=== PATIENT | male | born 1950 | race Two or more races ===

== ENCOUNTER 2020-02-01 07:43 | Outpatient (REF) | payer MEDICARE, SELFPAY ==
[2020-02-01 08:02] LABS: MANUAL DIFF FLAG NO
[2020-02-01 08:04] LABS: Basophils Absolute Auto 0.1 X10*3/uL (0.0-0.2); Basophils Percent Auto 0.7 % (0-2); Eosinophils Absolute Auto 0.3 X10*3/uL (0.0-0.4); Eosinophils Percent Auto 3.2 % (0-4); Hematocrit 46.7 % (42-52); Hemoglobin 15.5 g/dl (14.0-18.0); Imm Gran Abs Auto 0.03 X10*3/uL (0.00-0.03); Imm Gran Pct Auto 0.3 % (0.0-0.4); Lymphocytes Absolute Auto 2.2 X10*3/uL (1.2-4.9); Lymphocytes Percent Auto 25.6 % (20-40); Mean Corpuscular HGB Conc 33.2 g/dl (31.0-36.0); Mean Corpuscular Hemoglobin 30.3 pg (27.0-33.0); Mean Corpuscular Volume 91.2 fL (80-98); Monocytes Absolute Auto 0.5 X10*3/uL (0.1-1.2); Neutrophils Absolute Auto 5.6 X10*3/uL (2.0-8.3); Neutrophils Percent Auto 64.2 % (45-73); Platelet Count 193 X10*3/uL (160-400); Red Blood Count 5.12 X10*6/uL (4.60-5.80); Red Cell Distribution Width 13.7 % (11.0-16.0); White Blood Count 8.7 X10*3/uL (4.8-10.8)
[2020-02-01 08:22] LABS: Glucose Urine UA NEG (NEG); Leukocyte Esterase Urine NEG (NEG); Nitrite Urine NEG (NEG); PH 5.5 (5.0-8.0); Specific Gravity - Urine 1.025 (1.005-1.025); Urine Blood NEG (NEG); Urine Ketones NEG (NEG); Urine Protein NEG (NEG-TRACE)
[2020-02-01 08:24] LABS: Appearance Urine CLEAR; Color Urine YELLOW
[2020-02-01 08:30] LABS: Alanine Aminotransferase 19 U/L (0-40); Albumin Level 4.6 g/dL (3.5-5.0); Alkaline Phosphatase 97 U/L (39-117); Anion Gap 10 (12-20); Aspartate Amino Transferase 23 U/L (5-37); Bilirubin Total 0.7 mg/dL (0.0-1.0); Blood Urea Nitrogen 15 mg/dL (9-16); Calcium 9.2 mg/dL (8.4-10.2); Carbon Dioxide 28 mmol/L (22-29); Chloride 108 mmol/L (96-108); Cholesterol 156 mg/dL; Estimated Glomerular Filt Rate > 60; Glucose Fasting 89 mg/dL (60-99); HDL Cholesterol 41 mg/dL; LDL Cholesterol Calculated 100 mg/dl; Potassium 4.2 mmol/l (3.3-5.1); Sodium 142 mmol/L (135-145); Triglycerides 75 mg/dL
[2020-02-01 12:25] LABS: RBC Urine 0 /HPF (0); WBC Urine 0-2 /HPF (0-4)
== END 2020-02-01 07:44 | disposition home or self-care (01) ==
LOC: HO.LAB 07:43
PROVIDERS: PCP Internal Medicine; Visit Provider Internal Medicine
DX: K21.9 Gastro-esophageal reflux disease without esophagitis (principal); E78.5 Hyperlipidemia, unspecified; I10 Essential (primary) hypertension
CPT/HCPCS: 36415; 80053; 80061; 81001; 85025

== ENCOUNTER 2020-06-22 07:19 | Outpatient (REF) | payer MEDICARE, OTHER, SELFPAY ==
[2020-06-22 08:11] LABS: MANUAL DIFF FLAG NO
[2020-06-22 08:20] LABS: Basophils Absolute Auto 0.1 X10*3/uL (0.0-0.2); Eosinophils Absolute Auto 0.3 X10*3/uL (0.0-0.4); Eosinophils Percent Auto 3.8 % (0-4); Hematocrit 47.5 % (42-52); Hemoglobin 15.8 g/dl (14.0-18.0); Imm Gran Abs Auto 0.06 X10*3/uL (0.00-0.03); Imm Gran Pct Auto 0.7 % (0.0-0.4); Lymphocytes Absolute Auto 2.1 X10*3/uL (1.2-4.9); Lymphocytes Percent Auto 24.6 % (20-40); Mean Corpuscular HGB Conc 33.3 g/dl (31.0-36.0); Mean Corpuscular Hemoglobin 30.3 pg (27.0-33.0); Mean Corpuscular Volume 91.2 fL (80-98); Mean Platelet Volume 10.7 fL (9.4-12.4); Monocytes Absolute Auto 0.6 X10*3/uL (0.1-1.2); Monocytes Percent Auto 7.1 % (2-11); Neutrophils Absolute Auto 5.2 X10*3/uL (2.0-8.3); Neutrophils Percent Auto 62.8 % (45-73); Platelet Count 210 X10*3/uL (160-400); Red Blood Count 5.21 X10*6/uL (4.60-5.80); Red Cell Distribution Width 13.3 % (11.0-16.0); White Blood Count 8.3 X10*3/uL (4.8-10.8)
[2020-06-22 08:41] LABS: Alanine Aminotransferase 21 U/L (0-40); Albumin Level 4.4 g/dL (3.5-5.0); Alkaline Phosphatase 91 U/L (39-117); Anion Gap 10 (12-20); Aspartate Amino Transferase 22 U/L (5-37); Bilirubin Total 0.7 mg/dL (0.0-1.0); Blood Urea Nitrogen 16 mg/dL (9-16); Calcium 9.5 mg/dL (8.4-10.2); Carbon Dioxide 28 mmol/L (22-29); Chloride 107 mmol/L (96-108); Cholesterol 160 mg/dL; Estimated Glomerular Filt Rate > 60; Glucose Fasting 90 mg/dL (60-99); HDL Cholesterol 44 mg/dL; LDL Cholesterol Calculated 104 mg/dl; Potassium 4.4 mmol/L (3.3-5.1); Sodium 141 mmol/L (135-145); Total Protein 6.9 g/dL (6.5-8.0); Triglycerides 64 mg/dL
[2020-06-22 09:03] LABS: TSH reflex Free T4 0.84 uIU/mL (0.32-4.0)
[2020-06-22 09:31] LABS: Glucose Urine UA NEG (NEG); Leukocyte Esterase Urine NEG (NEG); Nitrite Urine NEG (NEG); Specific Gravity - Urine 1.025 (1.005-1.025); Urine Blood NEG (NEG); Urine Ketones NEG (NEG); Urine Protein NEG (NEG-TRACE)
[2020-06-22 09:33] LABS: Appearance Urine CLEAR; Color Urine YELLOW
== END 2020-06-22 07:20 | disposition home or self-care (01) ==
LOC: HO.LAB 07:19
PROVIDERS: PCP Internal Medicine; Visit Provider Internal Medicine
DX: E78.00 Pure hypercholesterolemia, unspecified (principal); I10 Essential (primary) hypertension; K21.9 Gastro-esophageal reflux disease without esophagitis; E66.3 Overweight
CPT/HCPCS: 36415; 80053; 80061; 81003; 84443; 85025

== ENCOUNTER 2020-10-26 06:32 | Outpatient (REF) | payer MEDICARE, OTHER, SELFPAY ==
[2020-10-26 07:37] LABS: MANUAL DIFF FLAG NO
[2020-10-26 07:42] LABS: Basophils Absolute Auto 0.1 X10*3/uL (0.0-0.2); Basophils Percent Auto 1.1 % (0-2); Eosinophils Absolute Auto 0.3 X10*3/uL (0.0-0.4); Hematocrit 45.9 % (42-52); Imm Gran Abs Auto 0.03 X10*3/uL (0.00-0.03); Imm Gran Pct Auto 0.4 % (0.0-0.4); Lymphocytes Absolute Auto 1.9 X10*3/uL (1.2-4.9); Lymphocytes Percent Auto 22.5 % (20-40); Mean Corpuscular HGB Conc 32.7 g/dl (31.0-36.0); Mean Corpuscular Hemoglobin 30.1 pg (27.0-33.0); Mean Platelet Volume 10.4 fL (9.4-12.4); Monocytes Absolute Auto 0.6 X10*3/uL (0.1-1.2); Monocytes Percent Auto 7.1 % (2-11); Neutrophils Absolute Auto 5.4 X10*3/uL (2.0-8.3); Neutrophils Percent Auto 64.9 % (45-73); Platelet Count 182 X10*3/uL (160-400); Red Blood Count 4.99 X10*6/uL (4.60-5.80); Red Cell Distribution Width 13.2 % (11.0-16.0); White Blood Count 8.3 X10*3/uL (4.8-10.8)
[2020-10-26 08:24] LABS: Alanine Aminotransferase 18 U/L (0-40); Albumin Level 4.4 g/dL (3.5-5.0); Alkaline Phosphatase 84 U/L (39-117); Anion Gap 11 (12-20); Aspartate Amino Transferase 19 U/L (5-37); Bilirubin Total 0.6 mg/dL (0.0-1.0); Blood Urea Nitrogen 13 mg/dL (9-16); Calcium 9.9 mg/dL (8.4-10.2); Carbon Dioxide 28 mmol/L (22-29); Chloride 107 mmol/L (96-108); Cholesterol 144 mg/dL; Estimated Glomerular Filt Rate > 60; Glucose Fasting 83 mg/dL (60-99); HDL Cholesterol 38 mg/dL; LDL Cholesterol Calculated 90 mg/dl; Potassium 4.9 mmol/L (3.3-5.1); Sodium 141 mmol/L (135-145); Total Protein 6.8 g/dL (6.5-8.0); Triglycerides 84 mg/dL
[2020-10-26 08:52] LABS: TSH reflex Free T4 1.06 uIU/mL (0.32-4.0)
[2020-10-26 10:52] LABS: Appearance Urine CLEAR; Color Urine YELLOW; Glucose Urine UA 100 MG/DL (NEG); Leukocyte Esterase Urine NEG (NEG); Nitrite Urine NEG (NEG); Specific Gravity - Urine 1.025 (1.005-1.025); Urine Blood NEG (NEG); Urine Ketones NEG (NEG); Urine Protein NEG (NEG-TRACE)
== END 2020-10-26 06:33 | disposition home or self-care (01) ==
LOC: HO.LAB 06:32
PROVIDERS: PCP Internal Medicine; Visit Provider Internal Medicine
DX: I10 Essential (primary) hypertension (principal); K21.9 Gastro-esophageal reflux disease without esophagitis; E78.00 Pure hypercholesterolemia, unspecified; E66.3 Overweight
CPT/HCPCS: 36415; 80053; 80061; 81003; 84443; 85025

== ENCOUNTER 2020-12-21 06:29 | Outpatient (REF) | payer MEDICARE, OTHER, SELFPAY ==
[2020-12-21 07:25] LABS: Estimated Average Glucose 103 mg/dL; Hemoglobin A1c % 5.2 %
[2020-12-21 07:47] LABS: Prostate Specific Antigen Scr 1.97 ng/mL (<0.05-4.0)
== END 2020-12-21 06:30 | disposition home or self-care (01) ==
LOC: HO.LAB 06:29
PROVIDERS: PCP Internal Medicine; Visit Provider Nurse Practitioner Family
DX: Z12.5 Encounter for screening for malignant neoplasm of prostate (principal); Z13.1 Encounter for screening for diabetes mellitus
CPT/HCPCS: 36415; 83036; 84153

== ENCOUNTER 2021-06-28 06:09 | Outpatient (REF) | payer MEDICARE, OTHER, SELFPAY ==
[2021-06-28 06:18] LABS: MANUAL DIFF FLAG NO
[2021-06-28 06:58] LABS: Basophils Absolute Auto 0.1 X10*3/uL (0.0-0.2); Basophils Percent Auto 0.9 % (0-2); Eosinophils Absolute Auto 0.3 X10*3/uL (0.0-0.4); Eosinophils Percent Auto 3.1 % (0-4); Hematocrit 45.5 % (42.0-52.0); Hemoglobin 14.8 g/dl (14.0-18.0); Imm Gran Abs Auto 0.05 X10*3/uL (0.00-0.03); Imm Gran Pct Auto 0.5 % (0.0-0.4); Lymphocytes Percent Auto 21.1 % (20-40); Mean Corpuscular HGB Conc 32.5 g/dl (31.0-36.0); Mean Corpuscular Volume 92.1 fL (80.0-98.0); Mean Platelet Volume 10.6 fL (9.4-12.4); Monocytes Absolute Auto 0.7 X10*3/uL (0.1-1.2); Monocytes Percent Auto 7.2 % (2-11); Neutrophils Absolute Auto 6.3 x10*3/uL (2.0-8.3); Neutrophils Percent Auto 67.2 % (45-73); Platelet Count 213 X10*3/uL (160-400); Red Blood Count 4.94 X10*6/uL (4.60-5.80); Red Cell Distribution Width 13.5 % (11.0-16.0); White Blood Count 9.4 X10*3/uL (4.8-10.8)
[2021-06-28 07:05] LABS: Alanine Aminotransferase 18 U/L (0-40); Albumin Level 4.4 g/dL (3.5-5.0); Alkaline Phosphatase 105 U/L (39-117); Anion Gap 11 (12-20); Aspartate Amino Transferase 21 U/L (5-37); Bilirubin Total 0.6 mg/dL (0.0-1.0); Blood Urea Nitrogen 16 mg/dL (9-16); Calcium 9.8 mg/dL (8.4-10.2); Carbon Dioxide 29 mmol/L (22-29); Chloride 106 mmol/L (96-108); Cholesterol 145 mg/dL; Estimated Glomerular Filt Rate > 60; Glucose Fasting 90 mg/dL (60-99); HDL Cholesterol 42 mg/dL; LDL Cholesterol Calculated 92 mg/dl; Potassium 5.1 mmol/L (3.3-5.1); Sodium 141 mmol/L (135-145); Total Protein 6.9 g/dL (6.5-8.0); Triglycerides 59 mg/dL
[2021-06-28 07:05] LABS: Appearance Urine CLEAR; Color Urine YELLOW; Glucose Urine UA NEG (NEG); Leukocyte Esterase Urine NEG (NEG); Nitrite Urine NEG (NEG); PH 5.5 (5.0-8.0); Specific Gravity - Urine >= 1.030 (1.005-1.025); UACC Culture Trigger NO; Urine Blood TRACE (NEG); Urine Ketones NEG (NEG); Urine Protein NEG (NEG-TRACE)
[2021-06-28 07:14] LABS: Mucus Urine TRACE /LPF; Squamous Epithelial Cell Urine TRACE /LPF
[2021-06-28 07:15] LABS: RBC Urine 0-2 /HPF (0); WBC Urine 0-2 /HPF (0-4)
[2021-06-28 07:28] LABS: TSH reflex Free T4 1.26 uIU/mL (0.32-4.0); Vitamin D 25-OH Total 24.1 ng/mL (>30)
== END 2021-06-28 06:10 | disposition home or self-care (01) ==
LOC: HO.LAB 06:09
PROVIDERS: PCP Internal Medicine; Visit Provider Internal Medicine
DX: I10 Essential (primary) hypertension (principal); E55.9 Vitamin D deficiency, unspecified; E78.00 Pure hypercholesterolemia, unspecified
CPT/HCPCS: 36415; 80053; 80061; 81001; 81003; 82306; 84443; 85025

== ENCOUNTER 2021-10-19 06:18 | Outpatient (REF) | payer MEDICARE, OTHER, SELFPAY ==
[2021-10-19 06:24] LABS: MANUAL DIFF FLAG NO
[2021-10-19 07:26] LABS: Hemoglobin 15.3 g/dl (14.0-18.0); Imm Gran Pct Auto 0.5 % (0.0-0.4); Lymphocytes Percent Auto 19.7 % (20-40); Mean Corpuscular HGB Conc 32.6 g/dl (31.0-36.0); Mean Corpuscular Hemoglobin 30.4 pg (27.0-33.0); Mean Corpuscular Volume 93.3 fL (80.0-98.0); Mean Platelet Volume 11.4 fL (9.4-12.4); Neutrophils Percent Auto 67.8 % (45-73); Platelet Count 175 X10*3/uL (160-400); Red Blood Count 5.04 X10*6/uL (4.60-5.80); Red Cell Distribution Width 13.6 % (11.0-16.0); White Blood Count 9.5 X10*3/uL (4.8-10.8)
[2021-10-19 07:27] LABS: Basophils Absolute Auto 0.1 X10*3/uL (0.0-0.2); Basophils Percent Auto 0.9 % (0-2); Eosinophils Absolute Auto 0.3 X10*3/uL (0.0-0.4); Eosinophils Percent Auto 3.4 % (0-4); Imm Gran Abs Auto 0.05 X10*3/uL (0.00-0.03); Lymphocytes Absolute Auto 1.9 X10*3/uL (1.2-4.9); Monocytes Absolute Auto 0.7 X10*3/uL (0.1-1.2); Monocytes Percent Auto 7.7 % (2-11); Neutrophils Absolute Auto 6.5 x10*3/uL (2.0-8.3)
[2021-10-19 07:33] LABS: Appearance Urine Clear; Color Urine Yellow; Glucose Urine UA Negative (Negative); Leukocyte Esterase Urine Negative (Negative); Nitrite Urine Negative (Negative); Specific Gravity - Urine 1.025 (1.005-1.025); Urine Blood Negative (Negative); Urine Ketones Negative (Negative); Urine Protein Negative (Neg-Trace)
[2021-10-19 08:02] LABS: Alanine Aminotransferase 17 U/L (0-40); Albumin Level 4.4 g/dL (3.5-5.0); Alkaline Phosphatase 102 U/L (39-117); Anion Gap 14 (12-20); Aspartate Amino Transferase 22 U/L (5-37); Bilirubin Total 0.4 mg/dL (0.0-1.0); Blood Urea Nitrogen 17 mg/dL (9-16); Calcium 9.2 mg/dL (8.4-10.2); Carbon Dioxide 26 mmol/L (22-29); Chloride 108 mmol/L (96-108); Cholesterol 144 mg/dL; Estimated Glomerular Filt Rate > 60; Glucose Fasting 83 mg/dL (60-99); HDL Cholesterol 45 mg/dL; LDL Cholesterol Calculated 91 mg/dl; Potassium 4.8 mmol/L (3.3-5.1); Sodium 143 mmol/L (135-145); Triglycerides 41 mg/dL
[2021-10-19 08:11] LABS: TSH reflex Free T4 1.16 uIU/mL (0.32-4.0); Vitamin D 25-OH Total 26.8 ng/mL (>30)
== END 2021-10-19 06:19 | disposition home or self-care (01) ==
LOC: HO.LAB 06:18
PROVIDERS: PCP Internal Medicine; Visit Provider Internal Medicine
DX: I10 Essential (primary) hypertension (principal); E78.00 Pure hypercholesterolemia, unspecified; E55.9 Vitamin D deficiency, unspecified
CPT/HCPCS: 36415; 80053; 80061; 81003; 82306; 84443; 85025

== ENCOUNTER 2022-02-19 08:03 | Outpatient (REF) | payer MEDICARE, OTHER, SELFPAY ==
[2022-02-19 08:24] LABS: MANUAL DIFF FLAG NO
[2022-02-19 08:36] LABS: Basophils Absolute Auto 0.1 X10*3/uL (0.0-0.2); Basophils Percent Auto 0.7 % (0-2); Eosinophils Percent Auto 0.3 % (0-4); Hematocrit 50.9 % (42.0-52.0); Hemoglobin 17.2 g/dl (14.0-18.0); Imm Gran Abs Auto 0.02 X10*3/uL (0.00-0.03); Imm Gran Pct Auto 0.3 % (0.0-0.4); Lymphocytes Absolute Auto 2.4 X10*3/uL (1.2-4.9); Lymphocytes Percent Auto 34.4 % (20-40); Mean Corpuscular HGB Conc 33.8 g/dl (31.0-36.0); Mean Corpuscular Hemoglobin 29.6 pg (27.0-33.0); Mean Corpuscular Volume 87.5 fL (80.0-98.0); Mean Platelet Volume 10.5 fL (9.4-12.4); Monocytes Absolute Auto 1.2 X10*3/uL (0.1-1.2); Monocytes Percent Auto 16.8 % (2-11); Neutrophils Absolute Auto 3.3 x10*3/uL (2.0-8.3); Neutrophils Percent Auto 47.5 % (45-73); Platelet Count 173 X10*3/uL (160-400); Red Blood Count 5.82 X10*6/uL (4.60-5.80); Red Cell Distribution Width 13.2 % (11.0-16.0); White Blood Count 6.9 X10*3/uL (4.8-10.8)
[2022-02-19 09:16] LABS: Alanine Aminotransferase 21 U/L (0-40); Albumin Level 4.6 g/dL (3.5-5.0); Alkaline Phosphatase 104 U/L (39-117); Anion Gap 17 (12-20); Aspartate Amino Transferase 32 U/L (5-37); Bilirubin Total 0.8 mg/dL (0.0-1.0); Blood Urea Nitrogen 17 mg/dL (9-16); Calcium 9.6 mg/dL (8.4-10.2); Carbon Dioxide 25 mmol/L (22-29); Chloride 105 mmol/L (96-108); Cholesterol 140 mg/dL; Estimated Glomerular Filt Rate > 60; Glucose Fasting 95 mg/dL (60-99); HDL Cholesterol 35 mg/dL; LDL Cholesterol Calculated 91 mg/dl; Potassium 3.4 mmol/L (3.3-5.1); Sodium 144 mmol/L (135-145); Total Protein 7.3 g/dL (6.5-8.0); Triglycerides 72 mg/dL
[2022-02-19 09:35] LABS: Appearance Urine Clear; Color Urine Dark Yellow; Glucose Urine UA Negative (Negative); Leukocyte Esterase Urine Negative (Negative); Nitrite Urine Negative (Negative); PH 5.5 (5.0-9.0); Specific Gravity - Urine 1.025 (1.005-1.025); UMIC TRIGGER UACC YES; Urine Blood Negative (Negative); Urine Ketones Trace mg/dL (Negative); Urine Protein 30 (1+) mg/dL (Neg-Trace)
[2022-02-19 09:37] LABS: TSH reflex Free T4 1.05 uIU/mL (0.32-4.0); Vitamin D 25-OH Total 27.2 ng/mL (>30)
[2022-02-19 09:41] LABS: Bacteria Urine None Seen (None Seen); Hyaline Casts Urine 0-2 /LPF (0-2); RBC Urine 0-2 /HPF (0-2); Squamous Epithelial Cell Urine 0-2 /HPF (0-2); WBC Urine 0-5 /HPF (0-5)
== END 2022-02-19 08:04 | disposition home or self-care (01) ==
LOC: HO.LAB 08:03
PROVIDERS: Visit Provider Internal Medicine
DX: E78.00 Pure hypercholesterolemia, unspecified (principal); E55.9 Vitamin D deficiency, unspecified; I10 Essential (primary) hypertension
CPT/HCPCS: 36415; 80053; 80061; 81001; 82306; 84443; 85025

== ENCOUNTER 2022-02-21 12:51 | Outpatient (REF) | payer MEDICARE, OTHER, SELFPAY ==
--- NOTE | ~2022-02-21 | XR_ITS ---
EXAMINATION: XR CHEST CLINICAL INFORMATION: Pneumonia. SOB. COMPARISON: None TECHNIQUE: 2 views of the chest were obtained. FINDINGS: The lungs are hyperinflated but clear of acute pneumonic process. The heart size and pulmonary vascularity is normal. There is moderate spondylosis dorsal spine. No gross bony abnormality seen. XR/XR chest 2V IMPRESSION: Unremarkable chest exam.
== END 2022-02-21 12:52 | disposition home or self-care (01) ==
LOC: HO.HMGCX 12:51
PROVIDERS: PCP Internal Medicine; Visit Provider Internal Medicine
DX: J18.9 Pneumonia, unspecified organism (principal)
CPT/HCPCS: 71046

== ENCOUNTER 2022-05-19 06:07 | Outpatient (REF) | payer MEDICARE, OTHER, SELFPAY ==
[2022-05-19 06:15] LABS: MANUAL DIFF FLAG NO
[2022-05-19 07:58] LABS: Basophils Absolute Auto 0.1 X10*3/uL (0.0-0.2); Basophils Percent Auto 0.9 % (0-2); Eosinophils Absolute Auto 0.4 X10*3/uL (0.0-0.4); Eosinophils Percent Auto 4.1 % (0-4); Hematocrit 45.6 % (42.0-52.0); Imm Gran Abs Auto 0.04 X10*3/uL (0.00-0.03); Imm Gran Pct Auto 0.4 % (0.0-0.4); Lymphocytes Percent Auto 20.5 % (20-40); Mean Corpuscular HGB Conc 32.9 g/dl (31.0-36.0); Mean Corpuscular Hemoglobin 29.9 pg (27.0-33.0); Mean Corpuscular Volume 90.8 fL (80.0-98.0); Mean Platelet Volume 10.9 fL (9.4-12.4); Monocytes Absolute Auto 0.7 X10*3/uL (0.1-1.2); Monocytes Percent Auto 7.2 % (2-11); Neutrophils Absolute Auto 6.6 x10*3/uL (2.0-8.3); Neutrophils Percent Auto 66.9 % (45-73); Platelet Count 183 X10*3/uL (160-400); Red Blood Count 5.02 X10*6/uL (4.60-5.80); Red Cell Distribution Width 13.9 % (11.0-16.0); White Blood Count 9.9 X10*3/uL (4.8-10.8)
[2022-05-19 08:23] LABS: Alanine Aminotransferase 14 U/L (0-40); Albumin Level 4.5 g/dL (3.5-5.0); Alkaline Phosphatase 110 U/L (39-117); Anion Gap 13 (12-20); Aspartate Amino Transferase 21 U/L (5-37); Bilirubin Total 0.7 mg/dL (0.0-1.0); Blood Urea Nitrogen 12 mg/dL (9-16); Calcium 9.4 mg/dL (8.4-10.2); Carbon Dioxide 27 mmol/L (22-29); Chloride 107 mmol/L (96-108); Cholesterol 162 mg/dL; Estimated Glomerular Filt Rate > 60; Glucose Fasting 80 mg/dL (60-99); HDL Cholesterol 41 mg/dL; LDL Cholesterol Calculated 111 mg/dl; Potassium 4.3 mmol/L (3.3-5.1); Sodium 143 mmol/L (135-145); Total Protein 6.7 g/dL (6.5-8.0); Triglycerides 54 mg/dL
[2022-05-19 08:28] LABS: Vitamin D 25-OH Total 27.8 ng/mL (>30)
[2022-05-19 08:32] LABS: Appearance Urine Clear; Color Urine Yellow; Glucose Urine UA Negative (Negative); Leukocyte Esterase Urine Trace (Negative); Nitrite Urine Negative (Negative); PH 6.5 (5.0-9.0); UMIC TRIGGER UACC YES; Urine Blood Negative (Negative); Urine Ketones Negative (Negative); Urine Protein Negative (Neg-Trace)
[2022-05-19 08:35] LABS: Bacteria Urine None Seen (None Seen); Hyaline Casts Urine 0-2 /LPF (0-2); RBC Urine 0-2 /HPF (0-2); Squamous Epithelial Cell Urine 0-2 /HPF (0-2); WBC Urine 0-5 /HPF (0-5)
== END 2022-05-19 06:08 | disposition home or self-care (01) ==
LOC: HO.LAB 06:07
PROVIDERS: PCP Internal Medicine; Visit Provider Internal Medicine
DX: E78.00 Pure hypercholesterolemia, unspecified (principal); E55.9 Vitamin D deficiency, unspecified; I10 Essential (primary) hypertension
CPT/HCPCS: 36415; 80053; 80061; 81001; 82306; 85025

== ENCOUNTER 2022-09-26 06:25 | Outpatient (REF) | payer MEDICARE, OTHER, SELFPAY ==
[2022-09-26 06:34] LABS: MANUAL DIFF FLAG NO
[2022-09-26 07:18] LABS: Basophils Absolute Auto 0.1 X10*3/uL (0.0-0.2); Basophils Percent Auto 0.8 % (0-2); Eosinophils Absolute Auto 0.4 X10*3/uL (0.0-0.4); Eosinophils Percent Auto 4.2 % (0-4); Hematocrit 48.4 % (42.0-52.0); Hemoglobin 15.6 g/dl (14.0-18.0); Imm Gran Abs Auto 0.04 X10*3/uL (0.00-0.03); Imm Gran Pct Auto 0.5 % (0.0-0.4); Lymphocytes Absolute Auto 2.1 X10*3/uL (1.2-4.9); Lymphocytes Percent Auto 24.8 % (20-40); Mean Corpuscular HGB Conc 32.2 g/dl (31.0-36.0); Mean Corpuscular Volume 93.1 fL (80.0-98.0); Mean Platelet Volume 10.8 fL (9.4-12.4); Monocytes Absolute Auto 0.6 X10*3/uL (0.1-1.2); Neutrophils Absolute Auto 5.3 x10*3/uL (2.0-8.3); Neutrophils Percent Auto 62.7 % (45-73); Platelet Count 198 X10*3/uL (160-400); Red Cell Distribution Width 13.5 % (11.0-16.0); White Blood Count 8.5 X10*3/uL (4.8-10.8)
[2022-09-26 09:23] LABS: Appearance Urine Clear; Color Urine Yellow; Glucose Urine UA Negative (Negative); Leukocyte Esterase Urine Negative (Negative); Nitrite Urine Negative (Negative); Urine Blood Negative (Negative); Urine Ketones Negative (Negative); Urine Protein Negative (Neg-Trace)
[2022-09-26 10:25] LABS: Alanine Aminotransferase 16 U/L (0-40); Albumin Level 4.3 g/dL (3.5-5.0); Alkaline Phosphatase 97 U/L (39-117); Anion Gap 12 (12-20); Aspartate Amino Transferase 21 U/L (5-37); Bilirubin Total 0.6 mg/dL (0.0-1.0); Blood Urea Nitrogen 13 mg/dL (9-16); Calcium 9.6 mg/dL (8.4-10.2); Carbon Dioxide 28 mmol/L (22-29); Chloride 107 mmol/L (96-108); Cholesterol 149 mg/dL; Estimated Glomerular Filt Rate > 60; Glucose Fasting 81 mg/dL (60-99); HDL Cholesterol 43 mg/dL; LDL Cholesterol Calculated 93 mg/dl; Potassium 4.5 mmol/L (3.3-5.1); Sodium 142 mmol/L (135-145); Triglycerides 69 mg/dL; Vitamin D 25-OH Total 33.7 ng/mL (>30)
== END 2022-09-26 06:26 | disposition home or self-care (01) ==
LOC: HO.LAB 06:25
PROVIDERS: PCP Internal Medicine; Visit Provider Internal Medicine
DX: R30.0 Dysuria (principal); E78.00 Pure hypercholesterolemia, unspecified; E55.9 Vitamin D deficiency, unspecified; I10 Essential (primary) hypertension
CPT/HCPCS: 36415; 80053; 80061; 81003; 82306; 85025

== ENCOUNTER 2022-09-28 09:53 | Outpatient (AMB) | payer MEDICARE, SELFPAY ==
--- NOTE | 2022-09-28 10:03 | MHC.PC.OV ---
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 Required: No Accompanied by: Self / Same As Patient Allergies Thiazides Allergy (Unknown, Verified 09/28/22 10:47) rash Medication List - Last Reconciled 09/28/22 by Keon Beckham MD amlodipine 7.5 mg (3 x 2.5 mg) PO DAILY 90 days aspirin 81 mg PO DAILY atorvastatin 10 mg PO DAILY lisinopril 40 mg PO DAILY omeprazole 20 mg PO DAILY Tobacco use date assessed: 09/28/22 Fall risk assessment: No Falls in past year Last assessed Fall Risk: 09/28/22 Dental Screening Dental Screen Date: 09/28/22 Did you have a dental visit in the last 12 months?: No Did you have a dental problem in the last 6 months where you did not have access to dental care?: No Was dental information given to patient?: Patient has dentist HPI HTN, hyperlipidemia, GERD HPI Details Patient comes in today for his follow up visit States that he feels okay but has some concerns about his memory Feels that he is starting to experience memory loss as he has noticed that it often takes him a while now to think about his response when he is asked questions Feels that he should know the answer(s) right away but his brain is taking a long time to come up with the answers, which he finds unusual for him and is concerning him - is afraid that he is starting to develop memory problems and at worst, dementia He denies any headaches or dizziness Still has trouble sleeping at night - states that he often wakes up after sleeping for 2 to 3 hours and his sleep is erratic after that Notes that he has been taking naps for a couple of hours now during the daytime He denies any chest pains, no SOB No nausea/vomiting, no abdominal pain No change in bowel habits noted Had his follow up labs done a couple of days ago - to discuss his results [facility] Medical History Benign essential hypertension GERD without esophagitis Overweight (BMI 25.0-29.9) Pure hypercholesterolemia Vitamin D deficiency Surgical History History of colonoscopy Family History Father Diabetes Mother Diabetes Social History Housing: House Alcohol intake: current Alcohol intake frequency: holidays/special occasions only Patient Tobacco Use Status: Former Tobacco user e-Cigarette/Vaping Use: Never Used Second Hand Smoke Exposure: Yes service: No Current occupational status: retired Cognitive needs: No Hearing needs: No Vision needs: Yes Questionnaire PHQ-9 Over the last 2 weeks, how often have you been bothered by any of the following problems? 1. Little interest or pleasure in doing things: not at all 2. Feeling down, depressed, or hopeless: not at all 3. Trouble falling or staying asleep, or sleeping too much: not at all 4. Feeling tired or having little energy: not at all 5. Poor appetite or overeating: not at all 6. Feeling bad about yourself - or that you are a failure or have let yourself or your family down: not at all 7. Trouble concentrating on things, such as reading the newspaper or watching television: not at all 8. Moving or speaking so slowly that other people could have noticed. Or the opposite - being so fidgety or restless that you have been moving around a lot more than usual: not at all 9. Thoughts that you would be better off or of hurting yourself in some way: not at all Total score: 0 Depression Screening Interpretation: Negative 04019 - PHQ-9 Billing: Yes Source: Developed by Drs. Arvind Julio, Suzanne Carson, Don Pastor and colleagues, with an educational cristy from [employer]. Thrive Questionnaire Date Thrive assessed: 09/28/22 I am a: Patient What is your living situation today?: I have a steady place to live Within the past 12 months, did the food you bought not last and you didn't have the money to get more?: Never true Within the past 12 months, did you worry whether your food would run out before you got money to buy more?: Never true Do you have trouble paying for medicines?: No Do you have trouble getting transportation to medical appointments?: No Do you have trouble paying your heating and electricity bill?: No Do you have trouble taking care of your child, family member or friend?: No Do you have trouble with day-to-day activities such as bathing, preparing meals, shopping, managing finances, etc.?: No Are you currently unemployed and looking for a job?: No Are you interested in more education?: No Please select the resources that you would like help with: None Currently or been in a relationship where the following occur: no concerns reported AUDIT C Alcohol Use Questionnaire (AUDIT-C) 1. How often do you have a drink containing alcohol?: Monthly or less 2. How many drinks containing alcohol do you have on a typical day when you are drinking?: 1 or 2 3. How often do you have six or more drinks on one occasion?: Never Total Score: 1 Score Reviewed/Action Taken: Yes NEGIN-7 AMB Questionnaire NEGIN-7 Date NEGIN - 7 assessed: 09/28/22 Feeling nervous, anxious, or on edge: 0 = Not at all Not being able to stop or control worryin = Not at all Worrying too much about different things: 0 = Not at all Trouble relaxin = Not at all Being so restless that it is hard to sit still: 0 = Not at all Becoming easily annoyed or irritable: 0 = Not at all Feeling afraid as if something awful might happen: 0 = Not at all Total NEGIN-7 score (0-4 normal; 5-9 mild; 10-14 moderate; 15-21 severe): 0 Source: Developed by Drs. Arvind Julio, Suzanne Carson, Don Pastor and colleagues, with an educational cristy from [employer]. Review of Systems Const Reports difficulty sleeping (se HPI), Denies fatigue, Denies fever(s) and Denies headache(s) ENT Denies dysphagia, Denies dizziness, Denies otalgia, Denies headache(s) and Denies sore throat Card Denies chest pain, Denies palpitations and Denies dyspnea Resp Denies cough and Denies dyspnea GI Denies abdominal pain, Denies constipation, Denies dysphagia, Denies heartburn, Denies diarrhea, Denies nausea and Denies vomiting Denies dysuria, Denies nocturia and Denies urinary frequency Neuro Details: has noticed an overall slowing of his thought process which he describes as him needing/taking more time to recall what it was he was just thinking about Denies dizziness and Denies headache(s) Endo Denies fatigue and Denies palpitations Physical exam (Primary Care) Vital Signs: Last Vital Signs Pulse 47 L 09/28/22 10:04 BP 120/76 09/28/22 10:04 Pulse Ox 99 09/28/22 10:04 Oxygen Delivery Method Room Air 09/28/22 10:04 BMI result Body Mass Index 25.6 Tobacco/Smoking Status: Tobacco use Status Tobacco use date assessed 09/28/22 09/28/22 10:09 Patient Tobacco Use Status Former Tobacco user 09/28/22 10:09 e-Cigarette/Vaping Use Never Used 09/28/22 10:09 PHQ-9: PHQ-9 Score PHQ-9: Total score 0 09/28/22 10:09 Depression Screening Interpretation: Negative Thrive Assessment: Date of Thrive Assessment Date Thrive assessed 09/28/22 09/28/22 10:09 Currently or been in a relationship where the following occur: no concerns reported Const General: no acute distress and alert Orientation/consciousness: patient oriented x3 HENMT Ears: TM's normal bilaterally and EAC's normal Throat: Yes posterior oropharynx normal and Yes tonsils normal (no TP congestion noted) Neck Neck: Yes no lymphadenopathy and Yes supple Resp Auscultation: clear to auscultation bilaterally, no rales and no wheezes Cardio Rate: regular rate Rhythm: regular rhythm Heart sounds: no murmurs GI Palpation (GI): Soft to palpation and nontender Auscultation: normal bowel sounds Skin Rashes: no rashes Neuro General: patient oriented x3 and no focal motor deficits Cognition (Neuro): normal cognition Extrem General: Yes no clubbing, cyanosis or edema Results Reviewed Results Reviewed: Laboratory Tests 09/26/22 09/26/22 09/26/22 06:33 06:33 Unknown WBC 8.5 Hgb 15.6 Hct 48.4 Plt Count 198 Sodium 142 Potassium 4.5 Creatinine 0.96 Estimated GFR > 60 Fasting Glucose 81 Calcium 9.6 AST 21 ALT 16 Triglycerides 69 Cholesterol 149 LDL Cholesterol, Calc 93 HDL Cholesterol 43 25-OH Vitamin D Total 33.7 Ur Specific [place] 1.020 Urine Protein Negative Urine Glucose (UA) Negative Urine Blood Negative Assessment and Plan Assessment & Plan (1) Pure hypercholesterolemia: Code(s): E78.00 - Pure hypercholesterolemia, unspecified Plan: Results of his labs done a couple of days ago reviewed and discussed with patient - advised that his cholesterol levels have now improved from previous Reinforced low cholesterol diet Continue Atorvastatin 10 mg QD Will recheck his labs in 4 months for follow up (2) Benign essential hypertension: Code(s): I10 - Essential (primary) hypertension Plan: Reinforced low sodium diet - goal is systolic BP of at least 130 to 140 mm or less Continue Lisinopril 40 mg QD and Amlodipine 7.5 mg (3 x 2.5 mg tablets) QD; patient stopped taking his HCTZ a while back due to recurrence of a photosensitive rash while he was on the Rx and he has been doing well without his HCTZ Patient is advised to continue monitoring his blood pressure regularly (3) GERD without esophagitis: Code(s): K21.9 - Gastro-esophageal reflux disease without esophagitis Plan: Dietary restrictions reinforced Continue Omeprazole 20 mg QD (4) Vitamin D deficiency: Code(s): E55.9 - Vitamin D deficiency, unspecified Plan: Corrected - continue OTC Vitamin D3 2000 units QD (5) Insomnia: Code(s): G47.00 - Insomnia, unspecified Qualifiers: Insomnia type: unspecified Qualified Code(s): G47.00 - Insomnia, unspecified Plan: Sleep hygiene discussed Advised that his cumulative lack of sleep is probably what is driving his recent difficulties with memory recall and is in turn, heightening his anxiety needlessly Discussed that even if he is starting to experience symptoms of cognitive impairment, not getting enough sleep will make this feel a lot worse than it should and may even contribute to or accelerate his cognitive symptoms He is also encouraged to continue to eat healthy and exercise regularly Will start him on a trial of Mirtazapine 7.5 mg Q HS (6) Overweight (BMI 25.0-29.9): Code(s): E66.3 - Overweight Plan: Reinforced diet/exercise as tolerated/lose weight - has lost about 13 pounds since his last visit Plan Follow up in 4 months Orders: Orders Lipid Panel 4 Months E78.00 - Pure hypercholesterolemia, unspecified Comprehensive [place]. Panel Fast 4 Months E78.00 - Pure hypercholesterolemia, unspecified Complete Blood Count Auto Diff 4 Months I10 - Essential (primary) hypertension TSH reflex Free T4 4 Months E78.00 - Pure hypercholesterolemia, unspecified UA CC w/rflx Micro + Cult 4 Months R30.0 - Dysuria Vitamin B12 and Folate 4 Months E53.8 - Deficiency of other specified B group vitamins Vitamin D 25-OH Total 4 Months E55.9 - Vitamin D deficiency, unspecified Medications: New mirtazapine 7.5 mg PO BEDTIME 30 days 30 tabs 3RF Coding Level of Care Code Est Pt Level 4 (80877) Diagnoses Pure hypercholesterolemia E78.00 Benign essential hypertension I10 GERD without esophagitis K21.9 Vitamin D deficiency E55.9 Insomnia G47.00 Insomnia type: unspecified Overweight (BMI 25.0-29.9) E66.3
[2022-09-28 10:04] VITALS: BP 120/76; PULSE 47; O2SAT 99; BMI 25.6
== END 2022-09-28 11:07 | disposition home or self-care (01) ==
PROVIDERS: PCP Internal Medicine; Visit Provider Internal Medicine
DX: E78.00 Pure hypercholesterolemia, unspecified (principal); I10 Essential (primary) hypertension; K21.9 Gastro-esophageal reflux disease without esophagitis; E55.9 Vitamin D deficiency, unspecified; G47.00 Insomnia, unspecified; E66.3 Overweight
CPT/HCPCS: 99214

== ENCOUNTER 2023-01-07 09:03 | Inpatient (IN) | payer MEDICARE, OTHER, SELFPAY ==
[2023-01-07] VITALS (7 sets, daily range): BP systolic 143–183; BP diastolic 82–94; PULSE 54–67; RESP 13–22; TEMP 36.7–36.9; O2SAT 94–98; BMI 32.6; BMI 34.4
--- NOTE | 2023-01-07 | ECG_ITS ---
Test Reason : STEMI Blood Pressure : / mmHG Vent. Rate : 059 BPM Atrial Rate : 059 BPM P-R Int : 170 ms QRS Dur : 086 ms QT Int : 392 ms P-R-T Axes : 000 -17 016 degrees QTc Int : [address] elevation in Anterolateral leads * ACUTE [place] Otherwise normal ECG When compared with ECG of 07-JAN-2023 09:09, No significant change was found Referred By: Juani Almendarez Electronically Signed By:JUAN CARLOS RIVERA MD
--- NOTE | ~2023-01-07 | XR_ITS ---
EXAMINATION: XR CHEST CLINICAL INFORMATION: Chest pain COMPARISON: None available. TECHNIQUE: Frontal view of the chest was obtained. FINDINGS: The lungs are well expanded and clear of acute processes. The heart size and pulmonary vascularity is normal. There is mild spondylosis of dorsal spine. No aggressive lytic or sclerotic process seen. XR/XR chest 1V IMPRESSION: Unremarkable chest exam.
--- NOTE | ~2023-01-07 | CT_ITS ---
EXAMINATION: CT ANGIOGRAM OF THE CHEST WITH AND WITHOUT CONTRAST (CT PULMONARY ANGIOGRAM FOR PE) CLINICAL INFORMATION: Reason for Exam chest pain, pleuritic COMPARISON: None available. TECHNIQUE: Prior to contrast administration, noncontrast localization images were obtained. Subsequently, multidetector volumetric imaging was performed from the thoracic inlet to below the diaphragms following the administration of 80 mL Omnipaque 350 intravenous contrast. No contrast reaction reported Sagittal, coronal, and MIP oblique sagittal reformatted images were obtained on the CT workstation, uploaded to PACS, and reviewed. This CT examination was performed using dose optimization techniques as appropriate, variously including the following: *Automated exposure control *Adjustment of mA and/or kV according to patient size (this includes techniques or standardized protocols for targeted exams where dose is matched to indication/reason for exam; i.e. extremities or head) *Use of iterative reconstruction technique Total exam dose-length product 303 mGy-cm FINDINGS: QUALITY OF STUDY/CONTRAST BOLUS: Satisfactory. PULMONARY ARTERIES: No pulmonary emboli. THORACIC AORTA: No aneurysm. LUNG: The lungs are well-expanded and clear of acute pneumonic processes. Dependent bibasilar an lingular atelectasis. A small pulmonary cysts in the left upper lobe posterior segment. PLEURA: No pleural effusion or pneumothorax. MEDIASTINUM: Normal heart size. No pericardial effusion. No hilar or mediastinal lymphadenopathy. No evidence of septal bowing or right heart strain. CORONARY ARTERY CALCIFICATION: Mild coronary artery calcification is present. CHEST WALL/AXILLA: No axillary or internal mammary lymphadenopathy. OSSEOUS STRUCTURES: There is moderate ventral spondylosis or dorsal spine. UPPER ABDOMEN: There is a 1.7 cm lesion right hepatic lobe. Rest rest of the visualized liver is unremarkable.. No reflux of contrast into the hepatic veins to suggest elevated right heart pressures. CT/CT angio chest PE protocol IMPRESSION: 1. No evidence of PE. 2. No evidence of aortic aneurysm. 3. Bibasilar dependent and lingular atelectasis. VTE: negative.
--- NOTE | 2023-01-07 09:03 | ECG_ITS ---
Test Reason : CHEST PAIN Blood Pressure : / mmHG Vent. Rate : 063 BPM Atrial Rate : 063 BPM P-R Int : 164 ms QRS Dur : 092 ms QT Int : 378 ms P-R-T Axes : -03 -23 019 degrees QTc Int : 386 ms Normal sinus rhythm ST elevation consider anterolateral injury or acute infarct ST elevation consider inferior injury or acute infarct ACUTE RI / STEMI Abnormal ECG No previous ECGs available Referred By: Generic ED Physician Electronically Signed By:JUAN CARLOS RIVERA MD
--- NOTE | 2023-01-07 09:08 | ED_ITS ---
HPI - Chest Pain General Chief Complaint: Chest Pain Stated Complaint: chest pain Time Seen by Provider: 01/07/23 09:08 Source: patient and RN notes reviewed Mode of arrival: ambulatory Limitations: no limitations History of Present Illness HPI narrative: This is a 72-year-old male, with a history of benign essential hypertension, GERD, HLD, no prior known CAD no cardiac workup presents with diffuse across the chest tightness with intermittent twinges of pain that started suddenly at 1am. He notes dyspnea and some nausea. He did have URI about 1 week ago but it resolved. He states he has never had this pain before. He states it hurts on the left side when he takes a deep breath sometimes. No prior hx of blood clots, no recent travel or procedures. MD complaint: chest pain Onset (ago): hour(s) (1am today) Timing of current episode: constant Prior episodes: No Onset: during rest Pain location: substernal Pain radiation: none Severity: severe Quality: tightness and sharp Relieving factors: nothing Exacerbating factors: inspiration and movement Context: recent illness Associated symptoms: nausea and dyspnea Treatment prior to arrival: none Related Data Home Medications Medication Instructions Recorded Confirmed aspirin 81 mg tablet,delayed 81 mg PO DAILY 02/03/20 09/28/22 release Previous Rx's Medication Instructions Recorded amlodipine 2.5 mg tablet 7.5 mg (3 x 2.5 mg) PO DAILY 90 06/28/22 days #270 caps atorvastatin 10 mg tablet 10 mg PO DAILY #90 tabs 09/25/22 omeprazole 20 mg capsule,delayed 20 mg PO DAILY #90 caps 09/25/22 release mirtazapine 7.5 mg tablet 7.5 mg PO BEDTIME 30 days #30 tabs 09/28/22 lisinopril 40 mg tablet 40 mg PO DAILY #90 tabs 12/24/22 Allergies Allergy/AdvReac Type Severity Reaction Status Date / Time Thiazides Allergy Unknown rash Verified 09/28/22 10:47 Review of Systems 2 Review of Systems: Constitutional : No Weight loss, No Fever, No Chills, pos sweats ENT/Mouth : No sore throat, No Rhinorrhea Eyes: No Eye Pain, No Swelling Cardiovascular : pos Chest Pain, pos SOB, no Dyspnea on Exertion, No Orthopnea, No Edema, No Palpitations Respiratory : No Cough, No Sputum Gastrointestinal : pos Nausea, No Vomiting, No Diarrhea, No abdominal Pain, No Hematochezia, No Melena Genitourinary : No Dysuria, No Urinary Frequency Musculoskeletal : No joint pain, No Myalgias, No Joint Swelling Skin : No Skin Lesions, No rash Neuro : No Weakness, No Numbness, No Dizziness, No Headache Psych : No Anxiety/Panic, No Depression Heme/Lymph: No Bruising, No Lymphadenopathy Endocrine : No Polyuria, No Polydipsia All other systems reviewed and are negative PMFSH Past Medical History Attestation statement: The following information was validated with the patient. Medical History Vitamin D deficiency Overweight (BMI 25.0-29.9) GERD without esophagitis Pure hypercholesterolemia Benign essential hypertension Surgical History History of colonoscopy Family History Family History Father Diabetes Mother Diabetes Social History Housing: House Alcohol intake: current Alcohol intake frequency: holidays/special occasions only Patient Tobacco Use Status: Former Tobacco user Smoked in Last 30 Days: No e-Cigarette/Vaping Use: Never Used Second Hand Smoke Exposure: Yes Use of substances other than those prescribed or required for medical reasons: No Advance Directives: No Advance Directives Information Provided: No service: No Current occupational status: retired Cognitive needs: No Hearing needs: No Vision needs: Yes Physical Exam 2 Vital Signs: Vital Signs: Last Vital Signs Temp 98.1 F 01/07/23 11:24 Pulse 58 01/07/23 11:24 Resp 13 01/07/23 11:24 BP 173/92 H 01/07/23 11:24 Pulse Ox 97 01/07/23 11:24 O2 Del Method Room Air 01/07/23 11:24 BMI result Body Mass Index 32.6 Appearance: Alert. Oriented X3. Mild acute distress. Grabbing chest in pain Eyes: Pupils equal, round and reactive to light. ENT: Pharynx normal. Neck: Normal inspection. Neck supple. CVS: Normal heart rate and rhythm. Pulses normal. Respiratory: No respiratory distress. Breath sounds normal. Abdomen: Soft and nontender. femoral pulses intact and equal Skin: Skin warm and clammy. pale skin color. Normal skin turgor. Extremities: No lower extremity edema. No calf ttp bounding symmetric radial and distal pedal pulses intact Neuro: Oriented X 3. No motor deficit. No sensory deficit. Course Course Course Narrative: initial trop is negative with at least 4+ hours of symptoms, repeat trop pending for 1115am Reevaluation(s) Reevaluation #1: Dr. Evans at bedside Reevaluation #2: pain is still out of proportion - will obtain CTA at this time for PE. Medications Administered Generic Name Dose Route Start Last Admin Trade Name Freq PRN Reason Stop Dose Admin Amlodipine Besylate 2.5 mg 01/07/23 12:00 01/07/23 11:57 Amlodipine Besylate 2.5 Mg Tablet PO 2.5 mg DAILY SHARI Administration Protocol Sodium Chloride 1,000 mls @ 100 mls/hr 01/07/23 10:30 01/07/23 10:51 Ns IVCONT 100 mls/hr .Q10H SHARI Administration Lisinopril 40 mg 01/07/23 12:00 01/07/23 11:57 Lisinopril 40 Mg Tablet PO 40 mg DAILY SHARI Administration Protocol Discontinued Medications Generic Name Dose Route Start Last Admin Trade Name Freq PRN Reason Stop Dose Admin Aspirin 324 mg 01/07/23 09:16 01/07/23 09:24 Aspirin 81 Mg Tab.Chew PO 01/07/23 09:17 324 mg ONCE ONE Administration Atorvastatin Calcium 80 mg 01/07/23 09:15 01/07/23 09:24 Atorvastatin Calcium 80 Mg Tablet PO 01/07/23 09:16 80 mg ONCE ONE Administration Colchicine 0.6 mg 01/07/23 11:26 01/07/23 12:58 Colchicine 0.6 Mg Tablet PO 01/07/23 11:27 0.6 mg ONCE ONE Administration Famotidine 20 mg 01/07/23 09:45 01/07/23 09:55 Famotidine/Pf 20 Mg/2 Ml Vial IVPUSH 01/07/23 09:46 20 mg ONCE ONE Administration Fentanyl 50 mcg 01/07/23 09:15 01/07/23 09:23 Fentanyl Citrate/Pf 100 Mcg/2 Ml Vial IVPUSH 01/07/23 09:16 50 mcg ONCE ONE Administration Protocol Hydromorphone HCl 0.5 mg 01/07/23 09:45 01/07/23 09:55 Hydromorphone Hcl 0.5 Mg/0.5 Ml Syringe IVPUSH 01/07/23 09:46 0.5 mg ONCE ONE Administration Protocol Sodium Chloride 500 mls @ 500 mls/hr 01/07/23 09:15 01/07/23 10:21 Ns IV 01/07/23 10:14 Infused .Q1H SHARI Infusion Iohexol 100 ml 01/07/23 11:03 01/07/23 11:04 Iohexol 350 Mg/Ml 100 Ml Infus..Btl IV 01/07/23 11:04 65 ml ONCE ONE Administration Ondansetron HCl 4 mg 01/07/23 09:15 01/07/23 09:24 Ondansetron Hcl 4 Mg/2 Ml Vial IVPUSH 01/07/23 09:16 4 mg ONCE ONE Administration Ondansetron HCl 4 mg 01/07/23 10:26 01/07/23 10:45 Ondansetron Hcl 4 Mg/2 Ml Vial IVPUSH 01/07/23 10:27 4 mg ONCE ONE Administration Procedures Procedure Narrative Procedure Narrative: bedside ECHO apical and subxiphoid no GWMA no pericardial effusion seen Medical Decision Making Medical Decision Making MDM Narrative: This is a 72-year-old male, with a history of benign essential hypertension, GERD, HLD, no prior known CAD here with chest pain in setting of recent URI - BP is up at this time will obtain labs, EKG x 2, consult cardiology given diffuse TALAT and avR depression possible ischemia vs pericarditis, bedside US for GWMA and effusion. I do not suspect VTE he has no risk factors at this time and wells score is 0, he has bounding symmetric distal pulses and no radiation to the back dissection less likely. IV fentanyl, aspirin, statin on arrival in case of ACS will hold heparin in case of pericarditis and further reccs by cardiology 1st call cardiology 909am discussed with Nathan 918am ? pericarditis sent 2 EKGs and reviewed bedside ECHO images no GWMA will be down to see patient do not send to research laboratory specialist at this time suspect pericarditis Differential Diagnosis Differential Diagnoses: The differential diagnosis associated with the presentation includes ACS, chest pain, pericarditis, myocarditis wells score for PE 0 doubt dissection bounding distal pulses and no radiation to back Admission/Observation Consideration of admission/observation: Escalation of care including admission/observation considered admit for further management per cardiology Consult Healthcare Provider Management of the patient was discussed with: Hospitalist (agrees to admit) and [employer] Dr. Evans start on NSAIDs, colchicine and admit for observation Lab Data MDM Lab Attestation statement: I reviewed the patient's lab results. 01/07/23 09:15 01/07/23 09:15 Labs: Lab Results 01/07/23 01/07/23 01/07/23 Range/Units 09:15 09:29 12:19 WBC 15.8 H (4.8-10.8) X10*3/uL RBC 5.11 (4.60-5.80) X10*6/uL Hgb 15.4 (14.0-18.0) g/dl Hct 45.4 (42.0-52.0) % MCV 88.8 (80.0-98.0) fL MCH 30.1 (27.0-33.0) pg MCHC 33.9 (31.0-36.0) g/dl RDW 13.5 (11.0-16.0) % Plt Count 197 (160-400) X10*3/uL MPV 10.2 (9.4-12.4) fL Immature Gran % (Auto) 0.5 H (0.0-0.4) % Neut % (Auto) 86.0 H (45-73) % Lymph % (Auto) 4.2 L (20-40) % [place] % (Auto) 8.7 (2-11) % Eos % (Auto) 0.3 (0-4) % Baso % (Auto) 0.3 (0-2) % Lymph # (Auto) 0.7 L (1.2-4.9) X10*3/uL [place] # (Auto) 1.4 H (0.1-1.2) X10*3/uL Eos # (Auto) 0.1 (0.0-0.4) X10*3/uL Baso # (Auto) 0.1 (0.0-0.2) X10*3/uL Abs Immat Gran (auto) 0.08 H (0.00-0.03) X10*3/uL Absolute Neuts (auto) 13.6 H (2.0-8.3) x10*3/uL Absolute Nucleated RBC 0.000 (0.0-0.012) X10*3/uL Nucleated RBC % (auto) 0.0 (0.0-0.2) /100WBC ESR 2 (0-15) MM/HR PT 14.1 H (11.1-13.3) SEC INR 1.2 H (0.9-1.1) APTT 40.6 H (26.0-36.4) SEC Sodium 138 (135-145) mmol/L Potassium 3.8 (3.3-5.1) mmol/L Chloride 106 (96-108) mmol/L Carbon Dioxide 24 (22-29) mmol/L Anion Gap 12 (12-20) BUN 14 (9-16) mg/dL Creatinine 0.87 (0.5-1.4) mg/dL Estim Creat Clear Calc 71.1 Estimated GFR > 60 Random Glucose 158 H (60-115) mg/dL Calcium 10.0 (8.4-10.2) mg/dL Magnesium 1.7 (1.6-2.6) mg/dL Total Bilirubin 0.9 (0.0-1.0) mg/dL Direct Bilirubin 0.3 (0.0-0.5) mg/dL AST 18 (5-37) U/L ALT 13 (0-40) U/L Alkaline Phosphatase 98 (39-117) U/L Troponin I High Sens 9.3 9.0 (<3.5-35.0) ng/L C-Reactive Protein 2.82 H (< or = 0.50) mg/dL B-Natriuretic Peptide 99 (<100) pg/mL Total Protein 7.4 (6.5-8.0) g/dL Albumin 4.5 (3.5-5.0) g/dL Influenza Type A (PCR) NEGATIVE (Negative) Influenza Type B (PCR) NEGATIVE (Negative) RSV RNA Qual (PCR) NEGATIVE (Negative) SARS-CoV-2 RNA (RT-PCR) NEGATIVE (Negative) Independent Interpretation I performed an independent interpretation of an: EKG, Plain X-Ray (no pneumonia) and CT Scan (no dissection or PE) Interpretation: Rate: 63 Rhythm: NSR Bishop: left Normal P waves. Normal [place]. Normal QRS complex. ST T wave : diffuse TALAT, inverted t wave in III and aVR ST depress qTC: normal prior studies: no priors The study has been interpreted contemporaneously by me. . EKG#2 Rate: 58 Rhythm: NSR [place]: left Normal P waves. Normal [place]NY. Normal QRS complex. ST T wave : diffuse TALAT, inverted t wave III, aVR ST depression qTC: normal prior studies: no sig change from first EKG The study has been interpreted contemporaneously by me. . Radiology Impression Discussion of test interpretation with radiology: I have reviewed the radiologist's reading. Independent Historian Clinical information obtained from an independent historian. History obtained from or confirmed by: Spouse External Record Review External record reviewed: Office record Critical Care Time Critical Care Time Critical Care Time: Yes Total Critical Care Time: 60 Attestation: repeat IV pain medications dilaudid with improvement, bedside cardiology consult, stat CT scan, repeat tele I attest to this time spent taking care of the patient Discharge Plan Discharge Clinical Impression: Chest pain Qualifiers: Chest pain type: precordial pain Qualified Code(s): R07.2 - Precordial pain Pericarditis Qualifiers: Pericarditis type: unspecified type Chronicity: acute Qualified Code(s): I30.9 - Acute pericarditis, unspecified Patient Disposition: Admitted As Inpatient
--- NOTE | 2023-01-07 09:18 | PC.NURSE ---
a&ox3, hypertensive, ST elevation displaying on registered nurse cardiac. ekg performed by tech. 20gIV placed in right AC. 18g placed in left AC. labs drawn and sent to lab. medications administered per provider order. ED provider bedside.
[2023-01-07 09:20] LABS: MANUAL DIFF FLAG NO
[2023-01-07 09:21] LABS: Basophils Absolute Auto 0.1 X10*3/uL (0.0-0.2); Basophils Percent Auto 0.3 % (0-2); Eosinophils Absolute Auto 0.1 X10*3/uL (0.0-0.4); Eosinophils Percent Auto 0.3 % (0-4); Hematocrit 45.4 % (42.0-52.0); Hemoglobin 15.4 g/dl (14.0-18.0); Imm Gran Abs Auto 0.08 X10*3/uL (0.00-0.03); Imm Gran Pct Auto 0.5 % (0.0-0.4); Lymphocytes Absolute Auto 0.7 X10*3/uL (1.2-4.9); Lymphocytes Percent Auto 4.2 % (20-40); Mean Corpuscular HGB Conc 33.9 g/dl (31.0-36.0); Mean Corpuscular Hemoglobin 30.1 pg (27.0-33.0); Mean Corpuscular Volume 88.8 fL (80.0-98.0); Mean Platelet Volume 10.2 fL (9.4-12.4); Monocytes Absolute Auto 1.4 X10*3/uL (0.1-1.2); Monocytes Percent Auto 8.7 % (2-11); Neutrophils Absolute Auto 13.6 x10*3/uL (2.0-8.3); Platelet Count 197 X10*3/uL (160-400); Red Blood Count 5.11 X10*6/uL (4.60-5.80); Red Cell Distribution Width 13.5 % (11.0-16.0); White Blood Count 15.8 X10*3/uL (4.8-10.8)
[2023-01-07] MEDS: 0.9 % Sodium Chloride 500 ML IV (09:21)
--- NOTE | 2023-01-07 09:22 | PC.NURSE ---
provider bedside assessing pt heart via ultrasound.
[2023-01-07] MEDS: fentaNYL citrate/PF 100 MCG/2 ML VIAL 50 MCG IVPUSH (09:23)
[2023-01-07] MEDS: ondansetron HCL 4 MG/2 ML VIAL IVPUSH ×2 (09:24→10:45)
[2023-01-07] MEDS: Atorvastatin Calcium 80 MG TABLET PO (09:24)
[2023-01-07] MEDS: Aspirin 81 MG TAB.CHEW 324 MG PO (09:24)
[2023-01-07 09:26] LABS: INTERNATIONAL NORM RATIO 1.2 (0.9-1.1); Prothrombin Time 14.1 SEC (11.1-13.3)
[2023-01-07 09:29] LABS: Partial Thromboplastin Time 40.6 SEC (26.0-36.4)
[2023-01-07 09:40] LABS: Anion Gap 12 (12-20); B Type Natriuretic Peptide 99 pg/mL (<100); Troponin-I High Sensitivity 9.3 ng/L (<3.5-35.0)
[2023-01-07 09:42] LABS: Alanine Aminotransferase 13 U/L (0-40); Albumin Level 4.5 g/dL (3.5-5.0); Alkaline Phosphatase 98 U/L (39-117); Aspartate Amino Transferase 18 U/L (5-37); Bilirubin Direct 0.3 mg/dL (0.0-0.5); Bilirubin Total 0.9 mg/dL (0.0-1.0); Blood Urea Nitrogen 14 mg/dL (9-16); C Reactive Protein 2.82 mg/dL (< or = 0.50); Carbon Dioxide 24 mmol/L (22-29); Chloride 106 mmol/L (96-108); Creatinine Clr Calc Pharmacy 71.1; Estimated Glomerular Filt Rate > 60; Glucose Random 158 mg/dL (60-115); Magnesium 1.7 mg/dL (1.6-2.6); Potassium 3.8 mmol/L (3.3-5.1); Sodium 138 mmol/L (135-145); Total Protein 7.4 g/dL (6.5-8.0)
--- NOTE | 2023-01-07 09:42 | PC.NURSE ---
pt verbalizing chest pain decreased to a 7/10 post medication administration. pt verbalizes dull nonradiating left sided chest pain. denies n/v/diaphoresis/dizziness/lightheadedness. no sob/wob noted at this time. respirations even and unlabored. awaiting lab results at this time. family bedside for support. call palacio placed within reach.
[2023-01-07] MEDS: HYDROmorphone HCl 0.5 MG/0.5 ML SYRINGE IVPUSH (09:55)
[2023-01-07] MEDS: Famotidine/PF 20 MG/2 ML VIAL IVPUSH (09:55)
--- NOTE | 2023-01-07 09:59 | PC.NURSE ---
medication administered per provider order - will reassess.
--- NOTE | 2023-01-07 10:08 | PC.NURSE ---
pt speaking w/ ambulatory service representative at this time.
[2023-01-07 10:09] LABS: Influenza A PCR NEGATIVE (Negative); Influenza B PCR NEGATIVE (Negative); Resp Syncy Virus RNA Qual PCR NEGATIVE (Negative); SARS COV2 PCR INHOUSE NEGATIVE (Negative)
--- NOTE | 2023-01-07 10:22 | P.CONCA_ITS ---
History of Present Illness History of Present Illness Date of Service: 01/07/23 Requesting physician: Ivory Marroquin Chief complaint: chest pain, ST elevations Narrative: [age] year gentleman who we have been asked to see for chest pain and ST elevations or EKG. He was sick with viral illness recently. Whole family had viral illness and he was coughing and was feverish. Today morning he woke up with sharp chest pains. There were pleuritic in nature. He said that the pain was worse sitting up and better laying down which is unusual for pericarditis. His EKG has diffuse ST elevations with CT depressions and no reciprocal changes are seen. He had a bedside echocardiogram performed by ER and myself and no pericardial effusion was seen but his wall motion was completely normal with EF of 55-60%. He was given some Dilaudid and aspirin. His CRP is elevated. His troponins are negative. Does not have any other history other than hypertension. Blood pressure is elevated currently. [facility] Past Medical History Medical History Vitamin D deficiency Overweight (BMI 25.0-29.9) GERD without esophagitis Pure hypercholesterolemia Benign essential hypertension Family History Family History Father Diabetes Mother Diabetes Surgical History Surgical History History of colonoscopy Social History Housing: House Alcohol intake: current Alcohol intake frequency: holidays/special occasions only Patient Tobacco Use Status: Former Tobacco user Smoked in Last 30 Days: No e-Cigarette/Vaping Use: Never Used Second Hand Smoke Exposure: Yes Use of substances other than those prescribed or required for medical reasons: No Advance Directives: No Advance Directives Information Provided: No service: No Current occupational status: retired Cognitive needs: No Hearing needs: No Vision needs: Yes Meds Allergies Allergy/AdvReac Type Severity Reaction Status Date / Time Thiazides Allergy Unknown rash Verified 09/28/22 10:47 Home Medications Medication Instructions Recorded Confirmed Last Taken Type aspirin 81 mg tablet,delayed 81 mg PO DAILY 02/03/20 09/28/22 Unknown History release Physical Exam 2 Vital Signs: Vital Signs: Last Vital Signs Temp 98.4 F 11/25/23 09:33 Pulse 56 01/07/23 09:33 Resp 18 01/07/23 09:33 BP 165/89 H 01/07/23 09:33 Pulse Ox 98 01/07/23 09:33 O2 Del Method Room Air 01/07/23 09:33 BMI result Body Mass Index 32.6 GENERAL APPEARANCE: Somewhat distressed due to pain. Sleepy after getting some Dilaudid. NECK: no carotid bruit, no jugular venous distention. SKIN: no suspicious lesions, warm and dry. HEART: no murmurs, regular rate and rhythm. No friction rub. LUNGS: clear to auscultation bilaterally. ABDOMEN: soft, nontender. EXTREMITIES: no edema. PERIPHERAL PULSES: equal. NEUROLOGIC: No gross deficits, AAO X 3 Objective Labs and Meds 01/07/23 09:15 01/07/23 09:15 Lab results: Laboratory Results - last 24 hr 01/07/23 01/07/23 09:15 09:29 WBC 15.8 H RBC 5.11 Hgb 15.4 Hct 45.4 MCV 88.8 MCH 30.1 MCHC 33.9 RDW 13.5 Plt Count 197 MPV 10.2 Immature Gran % (Auto) 0.5 H Neut % (Auto) 86.0 H Lymph % (Auto) 4.2 L [place] % (Auto) 8.7 Eos % (Auto) 0.3 Baso % (Auto) 0.3 Lymph # (Auto) 0.7 L [place] # (Auto) 1.4 H Eos # (Auto) 0.1 Baso # (Auto) 0.1 Abs Immat Gran (auto) 0.08 H Absolute Neuts (auto) 13.6 H Absolute Nucleated RBC 0.000 Nucleated RBC % (auto) 0.0 PT 14.1 H INR 1.2 H APTT 40.6 H Sodium 138 Potassium 3.8 Chloride 106 Carbon Dioxide 24 Anion Gap 12 BUN 14 Creatinine 0.87 Estim Creat Clear Calc 71.1 Estimated GFR > 60 Random Glucose 158 H Calcium 10.0 Magnesium 1.7 Total Bilirubin 0.9 Direct Bilirubin 0.3 AST 18 ALT 13 Alkaline Phosphatase 98 Troponin I High Sens 9.3 C-Reactive Protein 2.82 H B-Natriuretic Peptide 99 Total Protein 7.4 Albumin 4.5 Influenza Type A (PCR) NEGATIVE Influenza Type B (PCR) NEGATIVE RSV RNA Qual (PCR) NEGATIVE SARS-CoV-2 RNA (RT-PCR) NEGATIVE Imaging Radiologist's impression: Impressions Chest X-Ray 01/07/23 10:00 IMPRESSION: Unremarkable chest exam. Assessment and Plan (1) Pericarditis: Qualifiers: Chronicity: acute Pericarditis type: unspecified type Qualified Code(s): I30.9 - Acute pericarditis, unspecified Status: Acute Plan [age] gentleman presenting with chest pain in the setting of viral illness. He has diffuse ST elevations with CT depressions. Clinically he has acute pericarditis currently. Recommend colchicine. Blood pressure is elevated and his home medications should be started including lisinopril and amlodipine. Can be given as needed dose of Toradol. Trend cardiac enzymes. If any change in status then please reach out to us. I have reassured the family that his wall motion is completely normal on echocardiography and his overall presentation is due to pericarditis. Thank you for allowing me to participate in the care of your patient. Please feel free to contact me if you have any questions. Procedures Date of Service Date of Service: 01/07/23
--- NOTE | 2023-01-07 10:35 | PC.NURSE ---
pt actively vomiting/increasingly diaphoretic. provider aware at this time. medication administered per provider order. pt to CT at this time.
[2023-01-07] MEDS: 0.9 % Sodium Chloride 1,000 ML 100 ML IVCONT ×2 (10:51→20:00)
--- NOTE | 2023-01-07 10:51 | PC.NURSE ---
pt returned from CT - IV fluids administered per provider order. no sob/wob noted at this time. respirations remain even and unlabored. family bedside. call palacio placed within reach.
[2023-01-07 11:02] LABS: Erythrocyte Sedimentation Rate 2 MM/HR (0-15)
[2023-01-07] MEDS: iohexoL 350 MG/ML 100 ML INFUS..BTL IV (11:04)
--- NOTE | 2023-01-07 11:21 | PC.NURSE ---
vss and up to date at this time aside from remaining slightly hypertensive. pt verbalizing pain level decreased to a 6/10 at this time. repeat troponin obtained by tech. respirations remain even and unlabored. call palacio placed within reach.
--- NOTE | 2023-01-07 11:42 | PC.NURSE ---
pharmacy called - colchicine not in ED pyxis - states that they will deliver soon. will administer medication when able.
[2023-01-07] MEDS: amLODIPine Besylate 2.5 MG TABLET PO (11:57)
[2023-01-07] MEDS: lisinopriL 40 MG TABLET PO (11:57)
--- NOTE | 2023-01-07 11:59 | PC.NURSE ---
medications administered per provider order. will reassess BP shortly.
[2023-01-07 12:56] LABS: Adenovirus PCR Not Detected (Not Detect.); Bordetella parapertussis PCR Not Detected (Not Detect.); Bordetella pertussis PCR Not Detected (Not Detect.); Chlamydia pneumoniae PCR Not Detected (Not Detect.); Coronavirus 229E PCR Not Detected (Not Detect.); Coronavirus HKU1 PCR Not Detected (Not Detect.); Coronavirus NL63 PCR Not Detected (Not Detect.); Coronavirus OC43 PCR Not Detected (Not Detect.); Human metapneumovirus PCR Not Detected (Not Detect.); Influenza A PCR Not Detected (Not Detect.); Influenza B PCR Not Detected (Not Detect.); Mycoplasma pneumoniae PCR Not Detected (Not Detect.); Parainfluenza 1 PCR Not Detected (Not Detect.); Parainfluenza 2 PCR Not Detected (Not Detect.); Parainfluenza 3 PCR Not Detected (Not Detect.); Parainfluenza 4 PCR Not Detected (Not Detect.); RSV PCR Not Detected (Not Detect.); Rhino/Enterovirus PCR Detected (Not Detect.)
[2023-01-07] MEDS: Colchicine 0.6 MG TABLET PO (12:58)
--- NOTE | 2023-01-07 12:59 | PC.NURSE ---
medication delivered from pharmacy/administered.
--- NOTE | 2023-01-07 13:47 | PM.IMHP ---
History of Present Illness Date of Service: 01/07/23 Chief Complaint: Chest pain, cough This is a 72-year-old male, with a history of benign essential hypertension, GERD, HLD, no prior known CAD no cardiac workup presents with diffuse across the chest tightness with intermittent twinges of pain that started suddenly at 1am. He notes dyspnea and some nausea. He did have URI about 1 week ago but it resolved. He states he has never had this pain before. He states it hurts on the left side when he takes a deep breath sometimes. No prior hx of blood clots, no recent travel or procedures. Review of Systems Review of Systems: Denies any recent fever chills or decrease in appetite respiratory denies any shortness of breath coverage production cardiovascular See HPI gastrointestinal denies any dysphagia abdominal pain nausea vomiting or diarrhea genitourinary denies any dysuria frequency or hematuria musculoskeletal denies any joint pain or swelling neuropsych denies any weakness or seizures all other systems reviewed are negative [facility] Medical History Vitamin D deficiency Overweight (BMI 25.0-29.9) GERD without esophagitis Pure hypercholesterolemia Benign essential hypertension Family History Father Diabetes Mother Diabetes Surgical History History of colonoscopy Housing: House Alcohol intake: current Alcohol intake frequency: holidays/special occasions only Patient Tobacco Use Status: Former Tobacco user Smoked in Last 30 Days: No e-Cigarette/Vaping Use: Never Used Second Hand Smoke Exposure: Yes Use of substances other than those prescribed or required for medical reasons: No Advance Directives: No Advance Directives Information Provided: No Nutrition Risks: No Nutritional Risk service: No Current occupational status: retired Cognitive needs: No Hearing needs: No Vision needs: Yes Meds Allergies Allergy/AdvReac Type Severity Reaction Status Date / Time Thiazides Allergy Unknown rash Verified 09/28/22 10:47 Active Medications: Current Medications Acetaminophen (Acetaminophen 325 Mg Tablet) 650 mg PO Q6H PRN PRN Reason: Pain, Mild (Pain Scale 1-3) Amlodipine Besylate (Amlodipine Besylate 2.5 Mg Tablet) 2.5 mg PO DAILY [facility]; Protocol Last Admin: 01/07/23 11:57 Dose: 2.5 mg Colchicine (Colchicine 0.6 Mg Tablet) 0.6 mg PO DAILY [facility] Colchicine (Colchicine 0.6 Mg Tablet) 0.6 mg PO BID [facility] Enoxaparin Sodium (Enoxaparin Sodium 40 Mg/0.4 Ml Syringe) 40 mg SUBCUT Q24H [facility] Sodium Chloride (Ns) 1,000 mls @ 100 mls/hr IVCONT .Q10H SHARI Last Admin: 01/07/23 10:51 Dose: 100 mls/hr Ketorolac Tromethamine (Ketorolac Tromethamine 15 Mg/Ml Vial) 15 mg IVPUSH Q6H SHARI Lisinopril (Lisinopril 40 Mg Tablet) 40 mg PO DAILY [facility]; Protocol Last Admin: 01/07/23 11:57 Dose: 40 mg Sodium Chloride (0.9 % Sodium Chloride Flush 3 Ml Syringe) 3 ml IVFLUSH QSHIFT [facility] Home Medications Medication Instructions Recorded Confirmed Last Taken Type aspirin 81 mg tablet,delayed 81 mg PO DAILY 02/03/20 01/07/23 Unknown History release Physical Exam Vital Signs and Narrative: Vital Signs: Last Vital Signs Temp 98.1 F 01/07/23 11:24 Pulse 58 01/07/23 11:24 Resp 13 01/07/23 11:24 BP 173/92 H 01/07/23 11:24 Pulse Ox 97 01/07/23 11:24 O2 Del Method Room Air 01/07/23 11:24 BMI result Body Mass Index 32.6 Appearing in no acute distress head is normocephalic atraumatic eyes pupils are PERRLA sclera is anicteric mouth throat mucous membranes are intact and moist neck is supple no lymphadenopathy, no JVD noted lung sounds are clear to auscultation heart regular rate rhythm, clear S1, S2 positive bowel sounds, abdomen is soft, nontender neuro patient is alert x3, no focal deficits Results Labs 01/07/23 09:15 01/07/23 09:15 Labs: Laboratory Results - last 24 hr 01/07/23 01/07/23 09:15 09:29 MCV 88.8 MCH 30.1 MCHC 33.9 RDW 13.5 Plt Count 197 MPV 10.2 Immature Gran % (Auto) 0.5 H Neut % (Auto) 86.0 H Lymph % (Auto) 4.2 L [place] % (Auto) 8.7 Eos % (Auto) 0.3 Baso % (Auto) 0.3 Lymph # (Auto) 0.7 L [place] # (Auto) 1.4 H Eos # (Auto) 0.1 Baso # (Auto) 0.1 Abs Immat Gran (auto) 0.08 H Absolute Neuts (auto) 13.6 H Absolute Nucleated RBC 0.000 Nucleated RBC % (auto) 0.0 ESR 2 PT 14.1 H INR 1.2 H APTT 40.6 H Anion Gap 12 Estim Creat Clear Calc 71.1 Estimated GFR > 60 Random Glucose 158 H Calcium 10.0 Magnesium 1.7 Total Bilirubin 0.9 Direct Bilirubin 0.3 AST 18 ALT 13 Alkaline Phosphatase 98 C-Reactive Protein 2.82 H B-Natriuretic Peptide 99 Total Protein 7.4 Albumin 4.5 Influenza Type A (PCR) NEGATIVE Influenza Type B (PCR) NEGATIVE RSV RNA Qual (PCR) NEGATIVE SARS-CoV-2 RNA (RT-PCR) NEGATIVE Imaging Radiologist's Impressions: Impressions Chest X-Ray 01/07/23 10:00 IMPRESSION: Unremarkable chest exam. Chest CTA 01/07/23 11:00 IMPRESSION: 1. No evidence of PE. 2. No evidence of aortic aneurysm. 3. Bibasilar dependent and lingular atelectasis. VTE: negative. Assessment and Plan (1) Pericarditis: Qualifiers: Chronicity: acute Pericarditis type: unspecified type Qualified Code(s): I30.9 - Acute pericarditis, unspecified Status: Acute Plan 72 year old man admitted with pericarditis after recent viral illness Pericarditis, acute ST wave abnormality noted normal troponin recent viral illness with cough, chills start colchicine, Toradol RPP pending cardiology consultation Hypertension with elevated blood pressure on amlodipine and lisinopril hydralazine for SBP> 190 HLD asa and statin GERD PPI DVT prophylaxis with Lovenox Full code Patient required 2 inpatient midnights for treatment of acute pericarditis requiring colchicine and Toradol and close monitoring as well as specialty consultation Quality Stroke Does the patient have a stroke diagnosis?: No VTE Prior VTE?: No VTE Risk Level:: Medical - moderate - high VTE Device Contraindication: Treatment Not Indicated VTE Drug Contraindication: N/A - Med Ordered
[2023-01-07] MEDS: Ketorolac Tromethamine 15 MG/ML VIAL IVPUSH ×2 (14:29→20:00)
[2023-01-07 14:30] LABS: SARS-CoV-2 PCR Not Detected (Not Detect.)
[2023-01-07] MEDS: Enoxaparin Sodium 40 MG/0.4 ML SYRINGE SUBCUT (14:30)
--- NOTE | 2023-01-07 14:31 | PHA.MEDREC ---
Pharmacy Consult ? Medication Reconciliation Pharmacy has completed the medication reconciliation. spoke with family and patient to confirm medications. They reported that he took all of his AM medications today. Patient and family report that he stopped the mirtazepine about 3 weeks ago.
--- NOTE | 2023-01-07 14:31 | PC.NURSE ---
medication administered per provider order.
[2023-01-07] MEDS: 0.9 % Sodium Chloride Flush 3 ML SYRINGE IVFLUSH ×2 (15:43→20:01)
--- NOTE | 2023-01-07 17:04 | PC.NURSE ---
vss and up to date at this time. sinus salty on the wharfinger chief. pt verbalizing that pain level decreased to a 2/10 at this time. no sob/wob noted at this time. respirations remain even and unlabored. call palacio placed within reach.
--- NOTE | 2023-01-07 18:16 | PC.NURSE ---
report given to CANDELARIA matthews notified and will transfer.
[2023-01-08] VITALS: BP 138/76; PULSE 56; RESP 20; TEMP 36.8; O2SAT 97
[2023-01-08] MEDS: Ketorolac Tromethamine 15 MG/ML VIAL IVPUSH ×2 (02:46→08:10)
[2023-01-08 03:46] VITALS: BP 137/69; PULSE 62; RESP 20; TEMP 36.8; O2SAT 98
[2023-01-08] MEDS: 0.9 % Sodium Chloride 1,000 ML 100 ML IVCONT (05:35)
[2023-01-08 07:41] LABS: Basophils Absolute Auto 0.1 X10*3/uL (0.0-0.2); Basophils Percent Auto 0.4 % (0-2); Eosinophils Percent Auto 0.1 % (0-4); Hematocrit 43.1 % (42.0-52.0); Hemoglobin 14.5 g/dl (14.0-18.0); Imm Gran Abs Auto 0.11 X10*3/uL (0.00-0.03); Imm Gran Pct Auto 0.7 % (0.0-0.4); Lymphocytes Absolute Auto 1.3 X10*3/uL (1.2-4.9); Lymphocytes Percent Auto 8.4 % (20-40); MANUAL DIFF FLAG SCAN; Mean Corpuscular HGB Conc 33.6 g/dl (31.0-36.0); Mean Corpuscular Hemoglobin 30.3 pg (27.0-33.0); Mean Corpuscular Volume 90.2 fL (80.0-98.0); Mean Platelet Volume 10.8 fL (9.4-12.4); Monocytes Absolute Auto 1.7 X10*3/uL (0.1-1.2); Monocytes Percent Auto 10.8 % (2-11); Neutrophils Absolute Auto 12.4 x10*3/uL (2.0-8.3); Neutrophils Percent Auto 79.6 % (45-73); Platelet Count 186 X10*3/uL (160-400); Red Blood Count 4.78 X10*6/uL (4.60-5.80); Red Cell Distribution Width 13.4 % (11.0-16.0); SCAN SMEAR FLAG 1; White Blood Count 15.6 X10*3/uL (4.8-10.8)
[2023-01-08 07:48] VITALS: BP 153/78; PULSE 55; RESP 18; TEMP 36.8; O2SAT 98
[2023-01-08 07:55] LABS: Alanine Aminotransferase 10 U/L (0-40); Albumin Level 3.9 g/dL (3.5-5.0); Alkaline Phosphatase 78 U/L (39-117); Anion Gap 11 (12-20); Aspartate Amino Transferase 16 U/L (5-37); Bilirubin Total 1.3 mg/dL (0.0-1.0); Blood Urea Nitrogen 12 mg/dL (9-16); Calcium 9.2 mg/dL (8.4-10.2); Carbon Dioxide 25 mmol/L (22-29); Chloride 108 mmol/L (96-108); Creatinine Clr Calc Pharmacy 76.5; Estimated Glomerular Filt Rate > 60; Glucose Random 86 mg/dL (60-115); Potassium 3.5 mmol/L (3.3-5.1); Sodium 140 mmol/L (135-145); Total Protein 6.7 g/dL (6.5-8.0)
[2023-01-08] MEDS: Famotidine/PF 20 MG/2 ML VIAL IVPUSH (08:11)
[2023-01-08] MEDS: Aspirin Enteric Coated 81 MG TABLET.DR PO (08:11)
[2023-01-08] MEDS: Atorvastatin Calcium 10 MG TABLET PO (08:12)
[2023-01-08] MEDS: Colchicine 0.6 MG TABLET PO (08:12)
[2023-01-08] MEDS: amLODIPine Besylate 2.5 MG TABLET 7.5 MG PO (08:12)
[2023-01-08] MEDS: lisinopriL 40 MG TABLET PO (08:12)
[2023-01-08 08:21] LABS: SLIDE REVIEW VERIFIED
[2023-01-08 11:42] VITALS: BP 148/82; PULSE 62; RESP 18; TEMP 36.7; O2SAT 98
--- NOTE | 2023-01-08 11:51 | P.DS_ITS ---
DS: Providers Provider Date of Service: 01/08/23 Date of admission: 01/07/23 13:35 Primary care physician: Keon Beckham MD Consults: 01/07/23 09:51 Consult to Cardiology Stat Consulting Provider: [facility] Reason for consultation: chest pain, abnormal EKG Has provider been notified: Yes 01/07/23 13:30 Consult to Cardiology Routine Consulting Provider: [facility] Reason for consultation: pericarditis DS: Diagnosis Discharge Diagnosis (1) Pericarditis: Status: Acute DS: Summary Hospital Course Hospital Course: This is a 72-year-old male, with a history of benign essential hypertension, GERD, HLD, no prior known CAD no cardiac workup presents with diffuse across the chest tightness with intermittent twinges of pain that started suddenly at 1am. He notes dyspnea and some nausea. He did have URI about 1 week ago but it resolved. He states he has never had this pain before. He states it hurts on the left side when he takes a deep breath sometimes. No prior hx of blood clots, no recent travel or procedures. 72-year-old man treated for acute pericarditis likely secondary to enteral/rhino virus. Had classic EKG ST wave abnormalities with normal troponin, seen evaluated by Cardiology with recommendation to treat with colchicine and NSAIDs. Toradol seem to help with the pain and inflammation as patient had felt much better today. Plan is to continue colchicine for 3 months, ibuprofen for 1 week and Prilosec was increased to twice daily to avoid any gastritis in light of the increased use of NSAIDs. Hypertension. Had some episodes of elevated blood pressure. Now better controlled. Continue amlodipine and lisinopril Hyperlipidemia continue aspirin and statin Time Attestation Discharge coordination time: Greater than 30 minutes Quality: Safe Use of Opioids Does Pt have an Active Cancer Diagnosis on the Problem List?: No Quality: Stroke Does the patient have a stroke diagnosis?: No Physical Exam Vital Signs: Vital Signs: Last Vital Signs Temp 98.0 F 01/08/23 11:42 Pulse 62 01/08/23 11:42 Resp 18 01/08/23 11:42 BP 148/82 H 01/08/23 11:42 Pulse Ox 98 01/08/23 11:42 O2 Del Method Room Air 01/08/23 11:42 BMI result Body Mass Index 34.4 Appearing in no acute distress head is normocephalic atraumatic eyes pupils are PERRLA sclera is anicteric mouth throat mucous membranes are intact and moist neck is supple no lymphadenopathy, no JVD noted lung sounds are clear to auscultation heart regular rate rhythm, clear S1, S2 positive bowel sounds, abdomen is soft, nontender neuro patient is alert x3, no focal deficits DS: Data Data Completed and Pending Labs on day of discharge: Laboratory Results - last 24 hr 01/07/23 01/07/23 01/07/23 11:54 12:19 14:27 WBC RBC Hgb Hct MCV MCH MCHC RDW Plt Count MPV Immature Gran % (Auto) Neut % (Auto) Lymph % (Auto) [place] % (Auto) Eos % (Auto) Baso % (Auto) Lymph # (Auto) [place] # (Auto) Eos # (Auto) Baso # (Auto) Abs Immat Gran (auto) Absolute Neuts (auto) Absolute Nucleated RBC Nucleated RBC % (auto) Smear Tech's Comments Sodium Potassium Chloride Carbon Dioxide Anion Gap BUN Creatinine Estim Creat Clear Calc Estimated GFR Random Glucose Calcium Total Bilirubin AST ALT Alkaline Phosphatase Troponin I High Sens 9.0 15.0 D Total Protein Albumin Respiratory Panel Mota See Note Adenovirus (Rapid PCR) Not Detected B.pert (TEM-PCR) Not Detected B.parapertussis DNA PCR Not Detected C. pneumoniae DNA (PCR) Not Detected Coronavirus OC43 (PCR) Not Detected Coronavirus HKU1 (PCR) Not Detected Coronavirus 229E (PCR) Not Detected Coronavirus NL63 (PCR) Not Detected Human Metapneumovir PCR Not Detected Influenza A (RT-PCR) Not Detected Influenza B (RT-PCR) Not Detected M. pneumoniae (PCR) Not Detected Parainfluenza 1 (PCR) Not Detected Parainfluenza 2 (PCR) Not Detected Parainfluenza 3 (PCR) Not Detected Parainfluenza 4 (PCR) Not Detected RSV (PCR) Not Detected Entero/Rhino (PCR) Detected A SARS-CoV-2 RNA (RT-PCR) Not Detected 01/08/23 06:56 WBC 15.6 H RBC 4.78 Hgb 14.5 Hct 43.1 MCV 90.2 MCH 30.3 MCHC 33.6 RDW 13.4 Plt Count 186 MPV 10.8 Immature Gran % (Auto) 0.7 H Neut % (Auto) 79.6 H Lymph % (Auto) 8.4 L [place] % (Auto) 10.8 Eos % (Auto) 0.1 Baso % (Auto) 0.4 Lymph # (Auto) 1.3 [place] # (Auto) 1.7 H Eos # (Auto) 0.0 Baso # (Auto) 0.1 Abs Immat Gran (auto) 0.11 H Absolute Neuts (auto) 12.4 H Absolute Nucleated RBC 0.000 Nucleated RBC % (auto) 0.0 Smear Tech's Comments VERIFIED Sodium 140 Potassium 3.5 Chloride 108 Carbon Dioxide 25 Anion Gap 11 L BUN 12 Creatinine 0.83 Estim Creat Clear Calc 76.5 Estimated GFR > 60 Random Glucose 86 Calcium 9.2 D Total Bilirubin 1.3 H AST 16 ALT 10 Alkaline Phosphatase 78 Troponin I High Sens Total Protein 6.7 Albumin 3.9 Respiratory Panel Mota Adenovirus (Rapid PCR) B.pert (TEM-PCR) B.parapertussis DNA PCR C. pneumoniae DNA (PCR) Coronavirus OC43 (PCR) Coronavirus HKU1 (PCR) Coronavirus 229E (PCR) Coronavirus NL63 (PCR) Human Metapneumovir PCR Influenza A (RT-PCR) Influenza B (RT-PCR) M. pneumoniae (PCR) Parainfluenza 1 (PCR) Parainfluenza 2 (PCR) Parainfluenza 3 (PCR) Parainfluenza 4 (PCR) RSV (PCR) Entero/Rhino (PCR) SARS-CoV-2 RNA (RT-PCR) Discharge Plan Discharge Anticipated Discharge Date/Time: 01/08/23 11:43 Patient Disposition: Home, Self-Care Discharge Diagnosis: Pericarditis Enterovirus/rhinovirus Referrals: Keon Beckham MD [Primary Care Provider] - 1 Week Discharge Medications: New colchicine (gout) [Colcrys] 0.6 mg Tablet 0.6 mg PO BID 90 Days Qty: 180 0RF ibuprofen 600 mg tablet 600 mg PO TID Qty: 21 0RF Continued amlodipine 2.5 mg tablet 7.5 mg PO DAILY 90 Days Qty: 270 3RF atorvastatin 10 mg tablet 10 mg PO DAILY Qty: 90 3RF lisinopril 40 mg tablet 40 mg PO DAILY Qty: 90 0RF aspirin 81 mg tablet,delayed release (DR/EC) 81 mg PO DAILY Changed omeprazole 20 mg capsule,delayed release(DR/EC) 20 mg PO BID Qty: 90 3RF Discharge Orders: Discharge Order (Routine); Ordered 01/08/23 Ordered By: Juani Almendarez Diet: Advance to usual diet Activity on Discharge: As tolerated Stand Alone Forms: Patient Portal Discharge page Care Plan Goals: Complete resolution of symptoms You will be on the following medication to treat pericarditis: Ibuprofen 600 mg 3 times a day for 1 week Colchicine 0.6 mg twice daily for 3 months Your Prilosec was increased to twice daily to avoid increasing risk of gastritis from NSAID use Health Concerns: Pericarditis Enterovirus/rhinovirus Plan of Treatment: Follow-up with primary care provider as needed Take all medications as prescribed Assessment: See discharge summary
--- NOTE | 2023-01-08 12:13 | MHC.CM.PN ---
MD order for home, self-care prior to CM interview. CM acknowledge.
== END 2023-01-08 12:00 | disposition home or self-care (01) | DRG 316 ==
LOC: HO.ED 10:28 → HO.EDOVER 13:35 → HO.IMC 18:12
PROVIDERS: Physician Assistant Medical; Admitting Provider Nurse Practitioner Acute Care; Emergency Provider Emergency Medicine; PCP Internal Medicine; Visit Provider Nurse Practitioner Acute Care
DX: I30.9 Acute pericarditis, unspecified (principal); K21.9 Gastro-esophageal reflux disease without esophagitis; B97.89 Other viral agents as the cause of diseases classified elsewhere; B97.10 Unspecified enterovirus as the cause of diseases classified elsewhere; I10 Essential (primary) hypertension; E78.5 Hyperlipidemia, unspecified; Z20.822 Contact with and (suspected) exposure to COVID-19; Z87.891 Personal history of nicotine dependence; Z79.82 Long term (current) use of aspirin; Z79.899 Other long term (current) drug therapy
CPT/HCPCS: 0241U; 36415; 71045; 71275; 80048; 80053; 80076; 83735; 83880; 84484; 85025; 85610; 85652; 85730; 86140; 87633; 93005; 99285; J1170; J1650; J1885; J2405; J3010; Q9967

== ENCOUNTER → 2023-01-07 10:01 | Outpatient (BNV) | payer MEDICARE, SELFPAY | PROVIDERS: Emergency Provider Emergency Medicine; PCP Internal Medicine; Visit Provider Internal Medicine Cardiovascular Disease | DX: I30.9 Acute pericarditis, unspecified (principal) | CPT/HCPCS: 99223 ==

== ENCOUNTER → 2023-01-07 13:35 | Outpatient (BNV) | payer MEDICARE, SELFPAY | PROVIDERS: Admitting Provider Nurse Practitioner Acute Care; Emergency Provider Emergency Medicine; PCP Internal Medicine; Visit Provider Nurse Practitioner Acute Care | DX: I30.9 Acute pericarditis, unspecified (principal) | CPT/HCPCS: 99223; 99239 ==

== ENCOUNTER 2023-01-13 15:53 | Outpatient (AMB) | payer MEDICARE, SELFPAY ==
--- NOTE | 2023-01-13 16:12 | A.OFFPC_ITS ---
Vital Signs 01/13/23 16:13 Height 5 ft 6.14 in Weight 172 lb 2 oz BMI 27.7 BP 144/78 H Blood Pressure Location Lt brachial Position Sitting Respiration 17 Pulse 82 Pulse Source Pulse Oximeter Pulse Oximetry (%) 98 Oxygen Delivery Method Room Air Intake Visit Reasons: ED 01/07 Gout Rn Picu Required: No Accompanied by: Daughter Allergies Thiazides Allergy (Unknown, Verified 01/15/23 01:26) rash Medication List - Last Reconciled 01/15/23 by Keon Beckham MD amlodipine 7.5 mg (3 x 2.5 mg) PO DAILY 90 days aspirin 81 mg PO DAILY atorvastatin 10 mg PO DAILY colchicine (Colcrys) 0.6 mg PO BID ibuprofen 600 mg PO TID lisinopril 40 mg PO DAILY mirtazapine 7.5 mg PO BEDTIME 30 days Mitigare (colchicine) 0.6 mg PO BID 30 days NS omeprazole 20 mg PO BID Tobacco use date assessed: 09/28/22 Fall risk assessment: No Falls in past year Last assessed Fall Risk: 01/13/23 Dental Screening Dental Screen Date: 01/13/23 Did you have a dental visit in the last 12 months?: Yes Did you have a dental problem in the last 6 months where you did not have access to dental care?: No Was dental information given to patient?: Patient has dentist HPI ED 01/07 Gout HPI Details Patient comes in today for his HDF follow up visit He was admitted to [facility] overnight last week when he presented to the ER with diffuse chest tightness and intermittent sharp chest pains that woke him up just after midnight Recalls that his chest pains feel worse with deep breathing Work ups done in the ER revealed diffuse ST wave elevations with normal troponin level, consistent with pericarditis Cardiology was consulted and recommended starting him on oral Colchicine and NSAIDs and to stay on Colchicine for at least 3 months and NSAIDs for about a week States that his chest pains have improved a lot with his current Rx but he is now having problems getting his insurance to cover his Rx States that he feels okay otherwise He denies any headaches or dizziness No nausea/vomiting, no abdominal pain No change in bowel habits noted States that he also needs his Mirtazapine Rx refilled [facility] Medical History Vitamin D deficiency Overweight (BMI 25.0-29.9) GERD without esophagitis Pure hypercholesterolemia Benign essential hypertension Surgical History History of colonoscopy Family History Father Diabetes Mother Diabetes Social History Housing: House Alcohol intake: current Alcohol intake frequency: holidays/special occasions only Comment: Patient refusing bed alarm Patient Tobacco Use Status: Former Tobacco user e-Cigarette/Vaping Use: Never Used Second Hand Smoke Exposure: Yes service: No Current occupational status: retired Cognitive needs: No Hearing needs: No Vision needs: Yes Questionnaire Thrive Questionnaire Date Thrive assessed: 09/28/22 NEGIN-7 AMB Questionnaire NEGIN-7 Date NEGIN - 7 assessed: 09/28/22 Source: Developed by Drs. Arvind Julio, Suzanne Carson, Don Pastor and colleagues, with an educational cristy from [employer]. Review of Systems Const Denies fatigue, Denies fever(s) and Denies headache(s) ENT Denies dysphagia, Denies dizziness, Denies otalgia, Denies headache(s), Denies odynophagia and Denies sore throat Card Reports chest pain (on and off but improved significantly with Rx), Denies palpitations and Denies dyspnea Resp Denies cough and Denies dyspnea GI Denies abdominal pain, Denies constipation, Denies dysphagia, Denies heartburn, Denies diarrhea, Denies nausea, Denies odynophagia and Denies vomiting Denies dysuria, Denies nocturia and Denies urinary frequency Neuro Denies dizziness and Denies headache(s) Endo Denies fatigue and Denies palpitations Physical exam (Primary Care) Vital Signs: Last Vital Signs Pulse 82 01/13/23 16:13 Resp 17 01/13/23 16:13 BP 144/78 H 01/13/23 16:13 Pulse Ox 98 01/13/23 16:13 Oxygen Delivery Method Room Air 01/13/23 16:13 BMI result Body Mass Index 27.7 Tobacco/Smoking Status: Tobacco use Status Tobacco use date assessed 09/28/22 01/13/23 16:15 Patient Tobacco Use Status Former Tobacco user 01/13/23 16:15 e-Cigarette/Vaping Use Never Used 01/13/23 16:15 Thrive Assessment: Date of Thrive Assessment Date Thrive assessed 09/28/22 01/13/23 16:15 Const General: no acute distress and alert HENMT Ears: TM's normal bilaterally and EAC's normal Throat: Yes posterior oropharynx normal and Yes tonsils normal (no TP congestion noted) Neck Neck: Yes no lymphadenopathy and Yes supple Resp Auscultation: clear to auscultation bilaterally, no rales and no wheezes Cardio Rate: regular rate Rhythm: regular rhythm Heart sounds: no murmurs GI Palpation (GI): Soft to palpation and nontender Auscultation: normal bowel sounds Skin Rashes: no rashes Extrem General: Yes no clubbing, cyanosis or edema Assessment and Plan Assessment & Plan (1) Pericarditis: Code(s): I31.9 - Disease of pericardium, unspecified Qualifiers: Chronicity: acute Pericarditis type: unspecified type Qualified Code(s): I30.9 - Acute pericarditis, unspecified Plan: Continue Colchicine 0.6mg BID for at least 3 months, per cardiology recommendation Will try sending in Rx for Mitigare to see if his insurance will cover this over generic Colchicine instead; otherwise, will need to do PA to get Colchicine approved for the next 3 months His Omeprazole has also been increased to 20 mg BID in the meantime to help prevent any GI side effects from his regular intake of oral Colchicine (2) Mood disorder: Code(s): F39 - Unspecified mood [affective] disorder Plan: Continue Mitazapine 7.5 mg Q HS - Rx refilled (3) Insomnia: Code(s): G47.00 - Insomnia, unspecified Qualifiers: Insomnia type: unspecified Qualified Code(s): G47.00 - Insomnia, unspecified Plan: Sleep hygiene reinforced States that Mirtazapine is helping with his sleep issues Plan Follow up in mid-February 2023 - advised to have his original January 2023 appointment rescheduled to next month BEFORE he leaves for [place] for vacation Patient is reminded to get his previously ordered labs done BEFORE he comes in next month for his follow up appt Medications: New Mitigare (colchicine) 0.6 mg PO BID 30 days 60 caps 0RF pericarditis NS I31.9 - Disease of pericardium, unspecified Changed From colchicine (Colcrys) 0.6 mg PO BID 3 months 180 tabs 0RF I31.9 - Disease of pericardium, unspecified To colchicine (Colcrys) 0.6 mg PO BID 30 tabs 2RF pericarditis I31.9 - Disease of pericardium, unspecified Refilled colchicine (Colcrys) 0.6 mg PO BID 3 months 180 tabs 0RF I31.9 - Disease of pericardium, unspecified mirtazapine 7.5 mg PO BEDTIME 30 days 30 tabs 3RF Coding Level of Care Code Est Pt Level 3 (84370) Diagnoses Pericarditis I30.9 Chronicity: acute Pericarditis type: unspecified type Mood disorder F39 Insomnia, unspecified type G47.00 Insomnia type: unspecified
[2023-01-13 16:13] VITALS: BP 144/78; PULSE 82; RESP 17; O2SAT 98; BMI 27.7
== END 2023-01-13 17:11 | disposition home or self-care (01) ==
PROVIDERS: PCP Internal Medicine; Visit Provider Internal Medicine
DX: I30.9 Acute pericarditis, unspecified (principal); F39 Unspecified mood [affective] disorder; G47.00 Insomnia, unspecified
CPT/HCPCS: 99213

== ENCOUNTER 2023-03-02 06:08 | Outpatient (REF) | payer MEDICARE, SELFPAY ==
[2023-03-02 06:21] LABS: MANUAL DIFF FLAG NO
[2023-03-02 07:47] LABS: Basophils Absolute Auto 0.1 X10*3/uL (0.0-0.2); Eosinophils Absolute Auto 0.4 X10*3/uL (0.0-0.4); Eosinophils Percent Auto 3.7 % (0-4); Hematocrit 48.4 % (42.0-52.0); Hemoglobin 16.1 g/dl (14.0-18.0); Imm Gran Abs Auto 0.04 X10*3/uL (0.00-0.03); Imm Gran Pct Auto 0.4 % (0.0-0.4); Lymphocytes Absolute Auto 1.9 X10*3/uL (1.2-4.9); Lymphocytes Percent Auto 19.4 % (20-40); Mean Corpuscular HGB Conc 33.3 g/dl (31.0-36.0); Mean Corpuscular Volume 90.1 fL (80.0-98.0); Mean Platelet Volume 10.7 fL (9.4-12.4); Monocytes Absolute Auto 0.7 X10*3/uL (0.1-1.2); Monocytes Percent Auto 7.4 % (2-11); Neutrophils Absolute Auto 6.5 x10*3/uL (2.0-8.3); Neutrophils Percent Auto 68.1 % (45-73); Platelet Count 208 X10*3/uL (160-400); Red Blood Count 5.37 X10*6/uL (4.60-5.80); Red Cell Distribution Width 13.8 % (11.0-16.0); White Blood Count 9.6 X10*3/uL (4.8-10.8)
[2023-03-02 07:50] LABS: Appearance Urine Clear; Color Urine Yellow; Glucose Urine UA Negative (Negative); Leukocyte Esterase Urine Negative (Negative); Nitrite Urine Negative (Negative); Specific Gravity - Urine 1.015 (1.005-1.025); Urine Blood Negative (Negative); Urine Ketones Negative (Negative); Urine Protein Negative (Neg-Trace)
[2023-03-02 08:25] LABS: Alanine Aminotransferase 26 U/L (0-40); Albumin Level 4.5 g/dL (3.5-5.0); Alkaline Phosphatase 118 U/L (39-117); Anion Gap 12 (12-20); Aspartate Amino Transferase 29 U/L (5-37); Bilirubin Total 0.4 mg/dL (0.0-1.0); Blood Urea Nitrogen 12 mg/dL (9-16); Calcium 9.2 mg/dL (8.4-10.2); Carbon Dioxide 29 mmol/L (22-29); Chloride 107 mmol/L (96-108); Cholesterol 125 mg/dL (<200); Estimated Glomerular Filt Rate > 60; Glucose Fasting 85 mg/dL (60-99); HDL Cholesterol 34 mg/dL (>40); LDL Cholesterol Calculated 80 mg/dL (<100); Sodium 144 mmol/L (135-145); Total Protein 7.1 g/dL (6.5-8.0); Triglycerides 59 mg/dL (<150)
[2023-03-02 08:43] LABS: TSH reflex Free T4 1.18 uIU/mL (0.32-4.0)
[2023-03-02 08:46] LABS: Folate 11.6 ng/mL (> or = 4.0); Vitamin B12 901 pg/mL (200-900)
== END 2023-03-02 06:09 | disposition home or self-care (01) ==
LOC: HO.LAB 06:08
PROVIDERS: PCP Internal Medicine; Visit Provider Internal Medicine
DX: R30.0 Dysuria (principal); E53.8 Deficiency of other specified B group vitamins; E55.9 Vitamin D deficiency, unspecified; I10 Essential (primary) hypertension; E78.00 Pure hypercholesterolemia, unspecified
CPT/HCPCS: 36415; 80053; 80061; 81003; 82306; 82607; 82746; 84443; 85025

== ENCOUNTER 2023-03-06 16:41 | Outpatient (AMB) | payer MEDICARE, SELFPAY ==
[2023-03-06 16:52] VITALS: BP 142/92; PULSE 49; O2SAT 99
--- NOTE | 2023-03-06 16:52 | MHC.PC.OV ---
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 Accompanied by: Self / Same As Patient Allergies Thiazides Allergy (Unknown, Verified 03/06/23 17:21) rash Medication List - Last Reconciled 03/06/23 by Keon Beckham MD amlodipine 7.5 mg (3 x 2.5 mg) PO DAILY 90 days aspirin 81 mg PO DAILY atorvastatin 10 mg PO DAILY colchicine (Colcrys) 0.6 mg PO BID 90 days ibuprofen 600 mg PO TID lisinopril 40 mg PO DAILY mirtazapine 7.5 mg PO BEDTIME 30 days Mitigare (colchicine) 0.6 mg PO BID 30 days NS omeprazole 20 mg PO BID Tobacco use date assessed: 03/06/23 Fall risk assessment: No Falls in past year Last assessed Fall Risk: 03/06/23 Dental Screening Dental Screen Date: 03/06/23 Did you have a dental visit in the last 12 months?: Yes Did you have a dental problem in the last 6 months where you did not have access to dental care?: No Was dental information given to patient?: Patient has dentist HPI 1 month f/u HPI Details Patient comes in today for his follow up visit States that he feels okay and that his previous chest pains and chest tightness are now completely resolved and that his symptoms have not recurred in at least a couple of weeks now He denies any headaches or dizziness Denies any chest pains or palpitations, no SOB No nausea/vomiting, no abdominal pain No change in bowel habits noted Had his follow up labs done a few days ago - to discuss his results States that his trip to [place] was previously postponed when he was diagnosed with pericarditis a couple of months ago and he is now excited to finally be able to go - trip is scheduled for this Monday [facility] Medical History (Updated 03/06/23 @ 19:24 by Keon Beckham MD) Obesity (BMI 30-39.9) Vitamin D deficiency Overweight (BMI 25.0-29.9) GERD without esophagitis Pure hypercholesterolemia Benign essential hypertension Surgical History History of colonoscopy Family History Father Diabetes Mother Diabetes Social History Housing: House Alcohol intake: current Alcohol intake frequency: holidays/special occasions only Comment: Patient refusing bed alarm Patient Tobacco Use Status: Former Tobacco user e-Cigarette/Vaping Use: Never Used Second Hand Smoke Exposure: Yes service: No Current occupational status: retired Cognitive needs: No Hearing needs: No Vision needs: Yes Questionnaire PHQ-9 Over the last 2 weeks, how often have you been bothered by any of the following problems? 1. Little interest or pleasure in doing things: not at all 2. Feeling down, depressed, or hopeless: not at all 3. Trouble falling or staying asleep, or sleeping too much: not at all 4. Feeling tired or having little energy: not at all 5. Poor appetite or overeating: not at all 6. Feeling bad about yourself - or that you are a failure or have let yourself or your family down: not at all 7. Trouble concentrating on things, such as reading the newspaper or watching television: not at all 8. Moving or speaking so slowly that other people could have noticed. Or the opposite - being so fidgety or restless that you have been moving around a lot more than usual: not at all 9. Thoughts that you would be better off or of hurting yourself in some way: not at all Total score: 0 Depression Screening Interpretation: Negative Depression Screening Done: Yes [id number] - PHQ-9 Billing: Yes Source: Developed by Drs. Arvind Julio, Suzanne Carson, Don Pastor and colleagues, with an educational cristy from [employer]. Thrive Questionnaire Date Thrive assessed: 03/06/23 I am a: Patient What is your living situation today?: I have a steady place to live Within the past 12 months, did the food you bought not last and you didn't have the money to get more?: Never true Within the past 12 months, did you worry whether your food would run out before you got money to buy more?: Never true Do you have trouble paying for medicines?: No Do you have trouble getting transportation to medical appointments?: No Do you have trouble paying your heating and electricity bill?: No Do you have trouble taking care of your child, family member or friend?: No Do you have trouble with day-to-day activities such as bathing, preparing meals, shopping, managing finances, etc.?: No Are you currently unemployed and looking for a job?: No Are you interested in more education?: No Please select the resources that you would like help with: None Currently or been in a relationship where the following occur: no concerns reported THRIVE Score: 0 AUDIT C Alcohol Use Questionnaire (AUDIT-C) 1. How often do you have a drink containing alcohol?: Monthly or less 2. How many drinks containing alcohol do you have on a typical day when you are drinking?: 1 or 2 3. How often do you have six or more drinks on one occasion?: Never Total Score: 1 Score Reviewed/Action Taken: Yes NEGIN-7 AMB Questionnaire NEGIN-7 Date NEGIN - 7 assessed: 03/06/23 Feeling nervous, anxious, or on edge: 0 = Not at all Not being able to stop or control worryin = Not at all Worrying too much about different things: 0 = Not at all Trouble relaxin = Not at all Being so restless that it is hard to sit still: 0 = Not at all Becoming easily annoyed or irritable: 0 = Not at all Feeling afraid as if something awful might happen: 0 = Not at all Total NEGIN-7 score (0-4 normal; 5-9 mild; 10-14 moderate; 15-21 severe): 0 Source: Developed by Drs. Arvind Julio, Suzanne Carson, Don Pastor and colleagues, with an educational cristy from [employer]. Review of Systems Const Denies chills, Denies fatigue, Denies fever(s), Denies headache(s) and Reports weight gain ENT Denies dysphagia, Denies dizziness, Denies otalgia, Denies headache(s), Denies neck pain, Denies odynophagia and Denies sore throat Card Denies chest pain, Denies palpitations and Denies dyspnea Resp Denies cough and Denies dyspnea GI Denies abdominal pain, Denies constipation, Denies dysphagia, Denies heartburn, Denies diarrhea, Denies nausea, Denies odynophagia and Denies vomiting Denies dysuria, Denies nocturia and Denies urinary frequency Musc Denies back pain and Denies neck pain Skin/Breast Denies rash Neuro Denies dizziness and Denies headache(s) Psych Denies anxiety and Denies depression Endo Denies fatigue and Denies palpitations Physical exam (Primary Care) Vital Signs: Last Vital Signs Pulse 49 L 03/06/23 16:52 BP 142/92 H 03/06/23 16:52 Pulse Ox 99 03/06/23 16:52 Oxygen Delivery Method Room Air 03/06/23 16:52 BMI result Body Mass Index 30.0 Tobacco/Smoking Status: Tobacco use Status Tobacco use date assessed 03/06/23 03/06/23 16:55 Patient Tobacco Use Status Former Tobacco user 03/06/23 16:55 e-Cigarette/Vaping Use Never Used 03/06/23 16:55 PHQ-9: PHQ-9 Score PHQ-9: Total score 0 03/06/23 17:29 Depression Screening Interpretation: Negative Thrive Assessment: Date of Thrive Assessment Date Thrive assessed 03/06/23 03/06/23 16:55 Currently or been in a relationship where the following occur: no concerns reported Const General: no acute distress and alert HENMT Throat: Yes posterior oropharynx normal and Yes tonsils normal (no TP congestion noted) Neck Neck: Yes no lymphadenopathy and Yes supple Resp Auscultation: clear to auscultation bilaterally, no rales and no wheezes Cardio Rate: regular rate Rhythm: abnormal rhythm irregularly irregular Heart sounds: no murmurs GI Palpation (GI): Soft to palpation and nontender Auscultation: normal bowel sounds Skin Rashes: no rashes Extrem General: Yes no clubbing, cyanosis or edema Results Reviewed Results Reviewed: Laboratory Tests 03/02/23 03/02/23 03/02/23 06:19 06:19 06:20 WBC 9.6 Hgb 16.1 Hct 48.4 Plt Count 208 Sodium 144 Potassium 4.0 Creatinine 1.08 Estimated GFR > 60 Fasting Glucose 85 Calcium 9.2 AST 29 ALT 26 Triglycerides 59 Cholesterol 125 LDL Cholesterol, Calc 80 HDL Cholesterol 34 L Vitamin B12 901 H 25-OH Vitamin D Total 29.0 L TSH 1.18 Ur Specific [place] 1.015 Urine Protein Negative Urine Glucose (UA) Negative Urine Blood Negative Assessment and Plan Assessment & Plan (1) New onset atrial fibrillation: Code(s): I48.91 - Unspecified atrial fibrillation Plan: In-house EKG done today revealed (+) new-onset atrial fibrillation with normal ventricular response Patient currently has a CHADS-VASc score of 2 (age and HTN) and may be a candidate for NOAC IF his echocardiogram reveals no valvular abnormalities Have instructed him for now to stay on low dose Aspirin 81 mg QD His TSH was normal on his recent labs Will send him for echocardiogram NIGHAT for further evaluation Will also refer him to cardiology for urgent consultation Have advised patient to seek medical attention NIGHAT if he should start experiencing any symptoms of tachycardia, chest pains/discomfort/pressure, dizziness, weakness, SOB, etc Have also advised him that unfortunately, he will have to postpone his trip to [place] again this time until we can check him out further for his new-onset AF (2) Pericarditis: Code(s): I31.9 - Disease of pericardium, unspecified Qualifiers: Chronicity: acute Pericarditis type: unspecified type Qualified Code(s): I30.9 - Acute pericarditis, unspecified Plan: Patient states that his symptoms have mostly resolved as he has not had any chest pains or discomfort for at least a couple of weeks now Continue Colchicine 0.6mg BID - per cardiology recommendation, has to take this for at least 3 months (3) GERD without esophagitis: Code(s): K21.9 - Gastro-esophageal reflux disease without esophagitis Plan: Dietary restrictions reinforced Continue Omeprazole 20 mg BID - dosing was increased previously to help prevent any GI side effects that may arise from regular intake of Colchicine (4) Benign essential hypertension: Code(s): I10 - Essential (primary) hypertension Plan: Reinforced low sodium diet - goal is systolic BP of at least 130 to 140 mm or less Continue Lisinopril 40 mg QD and Amlodipine 7.5 mg (3 x 2.5 mg tablets) QD; patient stopped taking his HCTZ a while back due to recurrence of a photosensitive rash while he was on the Rx Patient is reminded to continue monitoring his blood pressure regularly (5) Pure hypercholesterolemia: Code(s): E78.00 - Pure hypercholesterolemia, unspecified Plan: Results of his labs done a few days ago reviewed and discussed with patient Reinforced low cholesterol diet Continue Atorvastatin 10 mg QD (6) Vitamin D deficiency: Code(s): E55.9 - Vitamin D deficiency, unspecified Plan: Continue OTC Vitamin D3 2000 units QD (7) Insomnia: Code(s): G47.00 - Insomnia, unspecified Qualifiers: Insomnia type: unspecified Qualified Code(s): G47.00 - Insomnia, unspecified Plan: Sleep hygiene reinforced States that Mirtazapine is helping with his sleep issues (8) Mood disorder: Code(s): F39 - Unspecified mood [affective] disorder Plan: Continue Mitazapine 7.5 mg Q HS (9) Obesity (BMI 30-39.9): Code(s): E66.9 - Obesity, unspecified Plan: Reinforced diet/exercise as tolerated/lose weight - patient has gained about 14 pounds in the past month His daughter states that this is mostly because he has been eating late at night for the past few weeks - thinks that this is due to a side effect of his Mirtazapine as he feels hungry often late at night Plan Follow up in 1 month Orders: Orders CA echo transthoracic complete Today I48.91 - Unspecified atrial fibrillation Referrals Cardiology Referral I48.91 - Unspecified atrial fibrillation Coding Level of Care Code Est Pt Level 4 (48157) Diagnoses New onset atrial fibrillation I48.91 Pericarditis I30.9 Chronicity: acute Pericarditis type: unspecified type GERD without esophagitis K21.9 Benign essential hypertension I10 Pure hypercholesterolemia E78.00 Vitamin D deficiency E55.9 Insomnia, unspecified type G47.00 Insomnia type: unspecified Mood disorder F39 Obesity (BMI 30-39.9) E66.9
== END 2023-03-06 17:52 | disposition home or self-care (01) ==
PROVIDERS: PCP Internal Medicine; Visit Provider Internal Medicine
DX: I48.91 Unspecified atrial fibrillation (principal); F39 Unspecified mood [affective] disorder; I30.9 Acute pericarditis, unspecified; K21.9 Gastro-esophageal reflux disease without esophagitis; I10 Essential (primary) hypertension; E78.00 Pure hypercholesterolemia, unspecified; E55.9 Vitamin D deficiency, unspecified; G47.00 Insomnia, unspecified
CPT/HCPCS: 99214

== ENCOUNTER → 2023-03-13 10:44 | Outpatient (REF) | payer MEDICARE, SELFPAY ==
--- NOTE | 2023-03-13 10:46 | CA_ITS ---
Transthoracic Echocardiogram Patient (Last, First, Middle): Jacky King, Gender: Male Date of : 1950 Age: 72 Procedure Date: 03/13/2023 Procedure Type: Transthoracic Echocardiogram Location: OP Height: 147.32 cm Weight: 81.65 kg BSA: 1.74 m2 Heart Rate: bpm BP: 168 / 98 mmHg Newspaper Journalist: LIT Referring MD: Keon Beckham MD Tool Design Checker: Valerio Moreno MD Symptoms: I48.91 - Unspecified atrial fibrillation Study Quality: Adequate ECG Rhythm: Atrial Fibrillation Conclusions: - 1. Mildly reduced LVEF of 45-50% with mild LVH 2. Severely dilated left atrium and moderately dilated right atrium 3. Normal cardiac valvular Doppler 4. Normal RV systolic pressure 5. Mildly dilated ascending aorta at 3.8 cm 6. No gross pericardial effusion Findings Left Ventricle Normal left ventricular cavity size. There is mildly increased left ventricular wall thickness. The left ventricular systolic function is mildly decreased. The visually estimated ejection fraction is between 45-50%. Diastolic function is indeterminate on the basis of available data. Right Ventricle Mildly increased right ventricular cavity size. There is low normal right ventricular systolic function. Atria The left atrium is severely dilated. Interatrial shunt cannot be excluded. The right atrium is moderately dilated. Aortic Valve Normal aortic valve structure and function. There is no aortic valve stenosis. There is no aortic valve regurgitation. Mitral Valve Normal mitral valve structure and function. There is trace mitral valve regurgitation. There is no mitral valve stenosis. Pulmonic Valve The pulmonic valve is likely normal. Tricuspid Valve Normal tricuspid valve structure. There is trace tricuspid valve regurgitation. The right ventricular systolic pressure is normal. The right ventricular systolic pressure is 19 mmHg. Normal right atrial pressure. There is no evidence of pulmonary hypertension. Great Vessels The pulmonary artery was not well visualized. There is mild dilatation of the ascending aorta measuring 3.80 cm. Venous The inferior vena cava is normal in size and collapses greater than 50% with inspiration. Pericardium/Pleural There is no evidence of pericardial effusion. Prior Study Comparison No prior study available for comparison. Measurements 2D Linear Measurements IVSd: 1.20 0.6-0.9/0.6-1.0 cm LVIDd: 4.74 3.9-5.3/4.2-5.9 cm LVIDd Index: 2.72 2.4-3.2/2.2-3.1 cm/m2 LVIDs: 3.63 2.0-3.6 cm LVPWd: 1.30 0.7-1.1 cm LA Diam: 4.40 2.7-3.8/3.0-4.0 cm LAIDs Index: 2.53 1.5-2.3 cm/m2 LV Mass: 283.93 67-162/88-224 g LV Mass Index: 163.18 43-95/49-115 g/m2 LVOT Diam: 2.20 3.0+(-)1.3 cm 2D Systolic Function EF 4C: 43.20 >55% EF 2C: 55.40 >55% EF BiP: 49.50 >55% Mitral Valve MV Pk E: 0.86 MV Decel Time: 158.00 E'Lateral: 9.10 E'Medial: 7.18 E/E' Med: 12.00 E/E' Lat: 9.50 PHT: 46.00 MVA PHT: 4.78 Decel [place]: 5.95 Aortic Valve AoV Pk Alberto: 1.37 AoV Pk Grad: 8.00 LVOT LVOT Pk Alberto: 0.80 LVOT Pk Grad: 3.00 LVOT Diam: 2.20 LVOT Area: 3.80 Diastolic Function MV Pk E: 0.86 E'Medial: 7.18 E/E' Med: 12.00 E' Laterial: 9.10 E/E' Lat: 9.50 Right Ventricle TAPSE (mm): 16.90 TVS' Alberto: 8.90 Tricuspid Valve TR Pk Alberto: 2.02 TR Pk Grad: 16.00 RA Press: 3.00 RVSP: 19.00 Great Vessels Aorta Sinus of Valsalva: 3.42 2.0-3.[address] [place]: 2.50 1.7-3.4 cm Ao Asc: 3.80 2.1-3.4 cm Updated in Other Vendor System with Status of Final Valerio Moreno MD electronically signed on 03/16/2023 12:39:54 PM with status of Final
== END ==
LOC: HO.CARD 10:44
PROVIDERS: PCP Internal Medicine; Visit Provider Internal Medicine
DX: I48.91 Unspecified atrial fibrillation (principal)
CPT/HCPCS: 93306

== ENCOUNTER → 2023-03-13 10:46 | Outpatient (BNV) | payer MEDICARE, SELFPAY | PROVIDERS: PCP Internal Medicine; Visit Provider Internal Medicine Cardiovascular Disease | DX: I51.7 Cardiomegaly (principal); I48.91 Unspecified atrial fibrillation | CPT/HCPCS: 93306 ==

== ENCOUNTER 2023-03-15 09:53 | Outpatient (AMB) | payer MEDICARE, SELFPAY ==
--- NOTE | 2023-03-15 09:56 | A.OFFVIS_ITS ---
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[place]/ Atrial Afib pt its feeling fine Supervisor Uranium Processing Required: No Accompanied by: Daughter Allergies Thiazides Allergy (Unknown, Verified 03/06/23 17:21) rash Medication List - Last Reconciled 03/15/23 by Bladimir Hankins MD amlodipine 7.5 mg (3 x 2.5 mg) PO DAILY 90 days aspirin 81 mg PO DAILY atorvastatin 10 mg PO DAILY colchicine (Colcrys) 0.6 mg PO BID 90 days lisinopril 40 mg PO DAILY mirtazapine 7.5 mg PO BEDTIME 30 days Mitigare (colchicine) 0.6 mg PO BID 30 days NS omeprazole 20 mg PO BID HPI HPI Comments History of Present Illness Details Jacky has been referred for evaluation atrial fibrillation which is new diagnosis. However, he was seen by Dr. Evans recently in the emergency room. It seems that patient had a viral unless, had coughing and was feverish and had pleuritic chest pains. In that context, he had diffuse ST elevations and diagnosed to have rather pericarditis. He was put on colchicine and NSAIDs. He states that he is feeling better from that and no longer has any chest pain. Otherwise, sensations of generalized weakness and tiredness. No clear-cut complaints like angina or shortness of breath or palpitations. No known cardiac issues in the past. [facility] Medical History (Updated 03/06/23 @ 19:24 by Keon Beckham MD) Obesity (BMI 30-39.9) Vitamin D deficiency Overweight (BMI 25.0-29.9) GERD without esophagitis Pure hypercholesterolemia Benign essential hypertension Surgical History History of colonoscopy Family History Father Diabetes Mother Diabetes Social History Housing: House Alcohol intake: current Alcohol intake frequency: holidays/special occasions only Comment: Patient refusing bed alarm Patient Tobacco Use Status: Former Tobacco user e-Cigarette/Vaping Use: Never Used Second Hand Smoke Exposure: Yes service: No Current occupational status: retired Cognitive needs: No Hearing needs: No Vision needs: Yes Review of Systems Const All systems reviewed & are unremarkable except as noted in HPI and below Reports as per HPI and Reports no additional complaints Eyes Reports as per HPI and Denies no additional complaints ENT Denies no additional complaints and Reports as per HPI Card Reports as per HPI, Reports no additional complaints, Denies acrocyanosis, Denies chest pain, Denies leg edema, Denies lightheadedness, Denies palpitations and Denies dyspnea Resp Reports as per HPI, Denies no additional complaints and Denies dyspnea GI Reports as per HPI and Denies no additional complaints Reports no additional complaints and Reports as per HPI Musc Reports no additional complaints and Reports as per HPI Skin/Breast Reports system reviewed and no additional complaints, except as documented Neuro Reports no additional complaints and Reports as per HPI Psych Reports no additional complaints and Reports as per HPI Endo Reports no additional complaints, Reports as per HPI and Denies palpitations Keyshawn/Lymph Reports no additional complaints and Reports as per HPI Aller/Immun Reports no additional complaints and Reports as per HPI Physical Exam Vital Signs: Last Vital Signs Pulse 98 03/15/23 09:59 BP 160/90 H 03/15/23 09:59 BMI result Body Mass Index 29.8 Const General: comfortable and no acute distress Orientation/consciousness: patient oriented x3 HEENT Other: Unremarkable Head: Yes normal to inspection Neck Neck: Yes normal visual inspection Chest Chest palpation & inspection: normal inspection of the chest Resp Auscultation: clear to auscultation bilaterally Cardio Palpation: normal PMI Heart sounds: S1 normal heart sound present, S2 normal heart sound present, no gallops, no murmurs and no rubs GI Palpation (GI): Soft to palpation Back/Spine/Pelvis Other: unremarkable Skin General skin exam: no rashes or lesions noted Neuro General: patient oriented x3 Extrem General: Yes normal to inspection Psych Mental Status: mental status grossly normal Office Procedures EKG Details: EKG with atrial fibrillation at a rate of 98/Min; PVC versus aberrant conduction. [id number], Complete Assessment & Plan Assessment & Plan (1) New onset atrial fibrillation: Code(s): I48.91 - Unspecified atrial fibrillation (2) Benign essential hypertension: Code(s): I10 - Essential (primary) hypertension Plan EKG from December showed sinus rhythm but currently in atrial fibrillation with slightly increased rate. Echocardiogram could not be reported because of technical issues. On preliminary review of images, mild LV dysfunction. Atrial also look enlarged. Pathophysiology of atrial fibrillation discussed with patient and daughter. We can start him on metoprolol 50 mg b.i.d. which should help with rate control as well as hypertension. Start Eliquis. Stop aspirin. Obtain Holter. Discussed about possible cardioversion. To be decided regarding rate versus rhythm control. We will plan to see him back in follow-up after the Holter. Orders: Orders ECG 3 day holter monitor Today I48.91 - Unspecified atrial fibrillation Medications: New metoprolol tartrate 50 mg PO BID 180 tabs 3RF 90 days apixaban (Eliquis) 5 mg PO BID 180 tabs 3RF 90 days Coding Level of Care Code Est Pt Level 4 (99669) Diagnoses New onset atrial fibrillation I48.91 Benign essential hypertension I10 CPT Codes EKG - CPT: 61696-[id number], Complete ([id number])
[2023-03-15 09:59] VITALS: BP 160/90; PULSE 98; BMI 29.8
== END 2023-03-15 10:38 | disposition home or self-care (01) ==
PROVIDERS: PCP Internal Medicine; Visit Provider Internal Medicine
DX: I48.91 Unspecified atrial fibrillation (principal); I10 Essential (primary) hypertension
CPT/HCPCS: 93010; 99214

== ENCOUNTER → 2023-03-15 09:53 | Outpatient (BNVA) | payer MEDICARE, SELFPAY | PROVIDERS: PCP Internal Medicine; Visit Provider Internal Medicine | DX: I48.91 Unspecified atrial fibrillation (principal); I10 Essential (primary) hypertension | CPT/HCPCS: 93005; 99212 ==

== ENCOUNTER → 2023-03-20 08:13 | Outpatient (REF) | payer MEDICARE, SELFPAY ==
--- NOTE | 2023-03-20 08:16 | HM_ITS ---
* Total monitoring time 3 days. * Underlying rhythm is atrial fibrillation with an average ventricular rate of 74/Min. Range, 39-137/Min. About 0.6% the time, rate less than 60/Min. About 3.3% of the time, rate greater than 100/Min. * No significant pauses or AV blocks. * Occasional PVCs with a burden of 1.4%. * Overall, well controlled atrial fibrillation. * No patient markers or diary events MTDD
== END ==
LOC: HO.CARD 08:13
PROVIDERS: PCP Internal Medicine; Visit Provider Internal Medicine
DX: I48.91 Unspecified atrial fibrillation (principal)
CPT/HCPCS: 93242

== ENCOUNTER → 2023-03-20 08:16 | Outpatient (BNV) | payer MEDICARE, SELFPAY | PROVIDERS: PCP Internal Medicine; Visit Provider Internal Medicine | DX: I48.91 Unspecified atrial fibrillation (principal) | CPT/HCPCS: 93244 ==

== ENCOUNTER 2023-04-07 11:04 | Outpatient (AMB) | payer MEDICARE, SELFPAY ==
[2023-04-07 11:15] VITALS: BP 142/100; PULSE 60; RESP 17; O2SAT 98; BMI 30.5
--- NOTE | 2023-04-07 11:15 | MHC.PC.OV ---
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 Required: No Accompanied by: Daughter Allergies Thiazides Allergy (Unknown, Verified 04/09/23 12:44) rash Medication List - Last Reconciled 04/09/23 by Keon Beckham MD amlodipine 7.5 mg (3 x 2.5 mg) PO DAILY 90 days apixaban (Eliquis) 5 mg PO BID 90 days atorvastatin 10 mg PO DAILY colchicine (Colcrys) 0.6 mg PO BID 90 days lisinopril 40 mg PO DAILY metoprolol tartrate 50 mg PO BID 90 days mirtazapine 7.5 mg PO BEDTIME 30 days Mitigare (colchicine) 0.6 mg PO BID 30 days NS omeprazole 20 mg PO BID Tobacco use date assessed: 03/06/23 HPI newly diagnosed AF HPI Details Patient comes in today for his follow up visit States that he feels okay Was seen by cardiology a few weeks ago for further evaluation of his arrhythmia/atrial fibrillation that was incidentally noticed at his routine follow up visit here last month He was started on Metoprolol for rate control and Eliquis for thromboembolism prophylaxis He is being sent for Holter monitoring and cardiology has discussed with patient regarding option of cardioversion vs. rate control He will be seeing cardiology again for follow up next month Patient denies any headaches or dizziness Denies any chest pains, no SOB - states that he has not had any further recurrence of his sharp chest pains from his pericarditis No nausea/vomiting, no abdominal pain No change in bowel habits noted [facility] Medical History (Updated 04/09/23 @ 13:39 by Keon Beckham MD) Atrial fibrillation Obesity (BMI 30-39.9) Vitamin D deficiency Overweight (BMI 25.0-29.9) GERD without esophagitis Pure hypercholesterolemia Benign essential hypertension Surgical History History of colonoscopy Family History Father Diabetes Mother Diabetes Social History Housing: House Alcohol intake: current Alcohol intake frequency: holidays/special occasions only Comment: Patient refusing bed alarm Patient Tobacco Use Status: Former Tobacco user e-Cigarette/Vaping Use: Never Used Second Hand Smoke Exposure: Yes service: No Current occupational status: retired Cognitive needs: No Hearing needs: No Vision needs: Yes Questionnaire PHQ-9 Over the last 2 weeks, how often have you been bothered by any of the following problems? Depression Screening Interpretation: Negative Depression Screening Done: Yes Source: Developed by Drs. Arvind Julio, Suzanne Carson, Don Pastor and colleagues, with an educational cristy from [employer]. Thrive Questionnaire Date Thrive assessed: 03/06/23 Currently or been in a relationship where the following occur: no concerns reported THRIVE Score: 0 NEGIN-7 AMB Questionnaire NEGIN-7 Date NEGIN - 7 assessed: 03/06/23 Source: Developed by Drs. Arvind Julio, Suzanne Carson, Don Pastor and colleagues, with an educational cristy from [employer]. Review of Systems Const Denies chills, Denies fatigue, Denies fever(s) and Denies headache(s) ENT Denies dysphagia, Denies dizziness, Denies otalgia, Denies headache(s), Denies neck pain, Denies odynophagia and Denies sore throat Card Denies chest pain, Denies palpitations and Denies dyspnea Resp Denies cough and Denies dyspnea GI Denies abdominal pain, Denies constipation, Denies dysphagia, Denies heartburn, Denies diarrhea, Denies nausea, Denies odynophagia and Denies vomiting Denies dysuria, Denies nocturia and Denies urinary frequency Musc Denies back pain and Denies neck pain Skin/Breast Denies rash Neuro Denies dizziness and Denies headache(s) Psych Denies anxiety and Denies depression Endo Denies fatigue and Denies palpitations Physical exam (Primary Care) Vital Signs: Last Vital Signs Pulse 60 04/07/23 11:15 Resp 17 04/07/23 11:15 BP 142/100 H 04/07/23 11:15 Pulse Ox 98 04/07/23 11:15 Oxygen Delivery Method Room Air 04/07/23 11:15 BMI result Body Mass Index 30.5 Tobacco/Smoking Status: Tobacco use Status Tobacco use date assessed 03/06/23 04/07/23 11:17 Patient Tobacco Use Status Former Tobacco user 04/07/23 11:17 e-Cigarette/Vaping Use Never Used 04/07/23 11:17 Depression Screening Interpretation: Negative Thrive Assessment: Date of Thrive Assessment Date Thrive assessed 03/06/23 04/07/23 11:17 Currently or been in a relationship where the following occur: no concerns reported Const General: no acute distress and alert HENMT Throat: Yes posterior oropharynx normal and Yes tonsils normal (no TP congestion noted) Neck Neck: Yes no lymphadenopathy and Yes supple Resp Auscultation: clear to auscultation bilaterally, no rales and no wheezes Cardio Rate: regular rate Rhythm: abnormal rhythm irregularly irregular Heart sounds: no murmurs GI Palpation (GI): Soft to palpation and nontender Auscultation: normal bowel sounds Skin Rashes: no rashes Extrem General: Yes no clubbing, cyanosis or edema Assessment and Plan Assessment & Plan (1) Atrial fibrillation: Code(s): I48.91 - Unspecified atrial fibrillation Qualifiers: Atrial fibrillation type: persistent (not longstanding) Qualified Code(s): I48.19 - Other persistent atrial fibrillation Plan: His arrhythmia was first noticed when he came in for his routine follow up visit last month He also recently had a bout of acute pericarditis but states that he's had no recurrence of symptoms since and he currently remains on Colchicine Echocardiogram done recently revealed (+) mildly reduced LVEF of 45-50% with mild LVH, severely dilated left atrium and moderately dilated right atrium. He also had a mildly dilated ascending aorta measuring 3.8 cm, normal cardiac valvular doppler and normal RV systolic pressure and no gross pericardial effusion He is being sent for Holter monitoring for further evaluation and started on Metoprolol 50 mg BID and Eliquis 5 mg BID (for thromboembolism prophylaxis) He will be seeing cardiology for follow up next month during which they will then decide between cardioversion or rate control for nursing home management He will still have to postpone his trip to [place] and I have advised them that I will leave it up to cardiology to clear him to fly (2) Pericarditis: Code(s): I31.9 - Disease of pericardium, unspecified Qualifiers: Chronicity: acute Pericarditis type: unspecified type Qualified Code(s): I30.9 - Acute pericarditis, unspecified Plan: Patient states that his symptoms have mostly resolved as he has not had any chest pains or discomfort for several weeks now Continue Colchicine 0.6mg BID - per cardiology recommendation, has to take this for at least 3 months (3) GERD without esophagitis: Code(s): K21.9 - Gastro-esophageal reflux disease without esophagitis Plan: Dietary restrictions reinforced Continue Omeprazole 20 mg BID - dosing was increased previously to help prevent any GI side effects that may arise from regular intake of Colchicine (4) Benign essential hypertension: Code(s): I10 - Essential (primary) hypertension Plan: Reinforced low sodium diet - goal is systolic BP of at least 130 to 140 mm or less Continue Lisinopril 40 mg QD and Amlodipine 7.5 mg (3 x 2.5 mg tablets) QD; patient stopped taking his HCTZ a while back due to recurrence of a photosensitive rash while he was on the Rx Patient is reminded to continue monitoring his blood pressure regularly (5) Pure hypercholesterolemia: Code(s): E78.00 - Pure hypercholesterolemia, unspecified Plan: Reinforced low cholesterol diet Continue Atorvastatin 10 mg QD Will have patient recheck his labs and fasting lipids in 3 months for follow up (6) Vitamin D deficiency: Code(s): E55.9 - Vitamin D deficiency, unspecified Plan: Continue OTC Vitamin D3 2000 units QD (7) Insomnia: Code(s): G47.00 - Insomnia, unspecified Qualifiers: Insomnia type: unspecified Qualified Code(s): G47.00 - Insomnia, unspecified Plan: Sleep hygiene reinforced States that Mirtazapine is helping with his sleep issues (8) Mood disorder: Code(s): F39 - Unspecified mood [affective] disorder Plan: Continue Mitazapine 7.5 mg Q HS (9) Obesity (BMI 30-39.9): Code(s): E66.9 - Obesity, unspecified Plan: Reinforced diet/exercise as tolerated/lose weight- he has gained some more weight since his last visit Plan Follow up in 3 months Orders: Orders TSH reflex Free T4 3 Months E78.00 - Pure hypercholesterolemia, unspecified Vitamin D 25-OH Total 3 Months E55.9 - Vitamin D deficiency, unspecified Complete Blood Count Auto Diff 3 Months D64.9 - Anemia, unspecified Lipid Panel 3 Months E78.00 - Pure hypercholesterolemia, unspecified Comprehensive [place]. Panel Fast 3 Months E78.00 - Pure hypercholesterolemia, unspecified UA CC w/rflx Micro + Cult 3 Months R30.0 - Dysuria Coding Level of Care Code Est Pt Level 4 (78570) Diagnoses Persistent atrial fibrillation I48.19 Atrial fibrillation type: persistent (not longstanding) Pericarditis I30.9 Chronicity: acute Pericarditis type: unspecified type GERD without esophagitis K21.9 Benign essential hypertension I10 Pure hypercholesterolemia E78.00 Vitamin D deficiency E55.9 Insomnia, unspecified type G47.00 Insomnia type: unspecified Mood disorder F39 Obesity (BMI 30-39.9) E66.9
== END 2023-04-07 11:58 | disposition home or self-care (01) ==
PROVIDERS: PCP Internal Medicine; Visit Provider Internal Medicine
DX: I48.19 Other persistent atrial fibrillation (principal); I30.9 Acute pericarditis, unspecified; K21.9 Gastro-esophageal reflux disease without esophagitis; I10 Essential (primary) hypertension; E78.00 Pure hypercholesterolemia, unspecified; E55.9 Vitamin D deficiency, unspecified; G47.00 Insomnia, unspecified
CPT/HCPCS: 99214

== ENCOUNTER 2023-05-08 14:34 | Outpatient (AMB) | payer MEDICARE, SELFPAY ==
[2023-05-08 14:40] VITALS: BP 140/90; PULSE 92; BMI 31.1
--- NOTE | 2023-05-08 14:40 | MHC.OFFVIS ---
Intake Vital Signs 05/08/23 14:40 Height 5 ft 6.4 in Weight 194 lb 14.218 oz BMI 31.1 BP 140/90 H Blood Pressure Location Rt brachial Position Sitting Pulse 92 Intake Visit Reasons: f/up echo/ holter Intake Note: follow up w/ testing Dye Lab Technician Required: No Accompanied by: Daughter Allergies Thiazides Allergy (Unknown, Verified 05/08/23 14:41) rash Medication List - Last Reconciled 05/08/23 by Bladimir Hankins MD amlodipine 7.5 mg (3 x 2.5 mg) PO DAILY 90 days apixaban (Eliquis) 5 mg PO BID 90 days atorvastatin 10 mg PO DAILY lisinopril 40 mg PO DAILY metoprolol tartrate 50 mg PO BID 90 days mirtazapine 7.5 mg PO BEDTIME 90 days omeprazole 20 mg PO BID HPI HPI Comments History of Present Illness Details Jacky returns for follow-up. Recently seen in consultation regarding atrial fibrillation. To recall, he had pericarditis in 2022. He was then put on colchicine/NSAIDs. That seems resolved. However, when he came for clinic visit he was rather in atrial fibrillation. Patient himself does not feel any symptoms at all. He states he is doing fine. No palpitations or in fact anything else cardiac sounding. [facility] Medical History (Updated 05/08/23 @ 15:25 by Bladimir Hankins MD) Atrial fibrillation Obesity (BMI 30-39.9) Vitamin D deficiency Overweight (BMI 25.0-29.9) GERD without esophagitis Pure hypercholesterolemia Benign essential hypertension Surgical History History of colonoscopy Family History Father Diabetes Mother Diabetes Social History Housing: House Alcohol intake: current Alcohol intake frequency: holidays/special occasions only Comment: Patient refusing bed alarm Patient Tobacco Use Status: Former Tobacco user e-Cigarette/Vaping Use: Never Used Second Hand Smoke Exposure: Yes service: No Current occupational status: retired Cognitive needs: No Hearing needs: No Vision needs: Yes Review of Systems Const All systems reviewed & are unremarkable except as noted in HPI and below Reports as per HPI and Reports no additional complaints Eyes Reports as per HPI and Denies no additional complaints ENT Denies no additional complaints and Reports as per HPI Card Reports as per HPI, Reports no additional complaints, Denies acrocyanosis, Denies chest pain, Denies leg edema, Denies lightheadedness, Denies palpitations and Denies dyspnea Resp Reports as per HPI, Denies no additional complaints and Denies dyspnea GI Reports as per HPI and Denies no additional complaints Reports no additional complaints and Reports as per HPI Musc Reports no additional complaints and Reports as per HPI Skin/Breast Reports system reviewed and no additional complaints, except as documented Neuro Reports no additional complaints and Reports as per HPI Psych Reports no additional complaints and Reports as per HPI Endo Reports no additional complaints, Reports as per HPI and Denies palpitations Keyshawn/Lymph Reports no additional complaints and Reports as per HPI Aller/Immun Reports no additional complaints and Reports as per HPI Physical Exam Vital Signs: Last Vital Signs Pulse 92 05/08/23 14:40 BP 140/90 H 05/08/23 14:40 BMI result Body Mass Index 31.1 Const General: comfortable and no acute distress Orientation/consciousness: patient oriented x3 HEENT Other: Unremarkable Head: Yes normal to inspection Neck Neck: Yes normal visual inspection Chest Chest palpation & inspection: normal inspection of the chest Resp Auscultation: clear to auscultation bilaterally Cardio Palpation: normal PMI Heart sounds: S1 normal heart sound present, S2 normal heart sound present, no gallops, no murmurs and no rubs GI Palpation (GI): Soft to palpation Back/Spine/Pelvis Other: unremarkable Skin General skin exam: no rashes or lesions noted Neuro General: patient oriented x3 Extrem General: Yes normal to inspection Psych Mental Status: mental status grossly normal Assessment & Plan Assessment & Plan (1) New onset atrial fibrillation: Code(s): I48.91 - Unspecified atrial fibrillation (2) Cardiomyopathy: Code(s): I42.9 - Cardiomyopathy, unspecified (3) Benign essential hypertension: Code(s): I10 - Essential (primary) hypertension Plan Cardiac studies reviewed. EKG from last December shows sinus rhythm. More recently, in atrial fibrillation. Echocardiogram with LVEF of 45-50%. Dilated atria. No significant valvular issues. Holter shows mostly controlled atrial fibrillation with an average rate of 74/Min. Overall, he can remain on beta-blockers as currently on. Continue Eliquis. We discussed about rate versus rhythm control. We offered cardioversion. Patient has decided hold off for now. He wants to travel to [place] and then when he returns he wants to think about it. We will get another echocardiogram/Holter before that visit. If there is any worsening of cardiomyopathy, then we will need to readdress cardioversion. Discussed with daughter who came for appointment. They agree with the plan. Orders: Orders CA echo limited 3 Months I48.19 - Other persistent atrial fibrillation ECG 3 day holter monitor 3 Months I48.19 - Other persistent atrial fibrillation Coding Level of Care Code Est Pt Level 4 (14905) Diagnoses New onset atrial fibrillation I48.91 Cardiomyopathy I42.9 Benign essential hypertension I10
== END 2023-05-08 15:00 | disposition home or self-care (01) ==
PROVIDERS: PCP Internal Medicine; Visit Provider Internal Medicine
DX: I48.91 Unspecified atrial fibrillation (principal); I42.9 Cardiomyopathy, unspecified; I10 Essential (primary) hypertension
CPT/HCPCS: 99214

== ENCOUNTER → 2023-05-08 14:34 | Outpatient (BNVA) | payer MEDICARE, MEDICAID, SELFPAY | PROVIDERS: PCP Internal Medicine; Visit Provider Internal Medicine | DX: I48.91 Unspecified atrial fibrillation (principal); I42.9 Cardiomyopathy, unspecified; I10 Essential (primary) hypertension | CPT/HCPCS: 99212 ==

== ENCOUNTER → 2023-09-05 07:57 | Outpatient (REF) | payer MEDICARE, SELFPAY ==
--- NOTE | 2023-09-05 08:01 | CA_ITS ---
Transthoracic Echocardiogram Amended Patient (Last, First, Middle): Jacky King, Gender: Male Date of : 1950 Age: 73 Procedure Date: 09/05/2023 Procedure Type: Transthoracic Echocardiogram Location: OP Height: 177.8 cm Weight: 86.18 kg BSA: 2.04 m2 Heart Rate: bpm BP: 128 / 80 mmHg Nurses' Registry Director: Referring MD: Bladimir Hankins MD Symptoms: I48.19 - Other persistent atrial fibrillation Study Quality: Adequate ECG Rhythm: Atrial Fibrillation Conclusions: - Visually estimated LVEF about 40%. - The basal inferior segment is hypokinetic. Findings Left Ventricle Normal left ventricular cavity size. There is mildly increased left ventricular wall thickness. The left ventricular systolic function is mild to moderately decreased. Diastolic function is indeterminate on the basis of available data. There is moderate septal asymmetric hypertrophy. Visually estimated LVEF about 40%. Wall Motion Rest Echo Findings The basal inferior segment is hypokinetic. Venous The inferior vena cava is normal in size and collapses greater than 50% with inspiration. Prior Study Comparison Changes noted compared to prior study dated: 03/13/2023. LVEF lower than prior study. Measurements 2D Linear Measurements IVSd: 1.30 0.6-0.9/0.6-1.0 cm LVIDd: 5.00 3.9-5.3/4.2-5.9 cm LVIDd Index: 2.45 2.4-3.2/2.2-3.1 cm/m2 LVIDs: 3.18 2.0-3.6 cm LVPWd: 1.20 0.7-1.1 cm LV Mass: 308.75 67-162/88-224 g LV Mass Index: 151.35 43-95/49-115 g/m2 2D Systolic Function EF 4C: 51.50 >55% EF 2C: 44.10 >55% EF BiP: 45.70 >55% Right Ventricle TAPSE (mm): 22.00 TVS' Alberto: 10.00 Updated in Other Vendor System with Status of Final Bladimir Hankins MD electronically signed on 09/08/2023 9:38:06 AM with status of Final
--- NOTE | 2023-09-05 08:01 | HM_ITS ---
Conclusion: 1. Patient was monitored for total period of 2 days and 23 hours 2. Baseline was atrial fibrillation with average heart rate of 79 beats per minute with overall good rate control 3. Total of 11 pauses noted longest at 3.2 seconds happening at 04:18 4. Frequent PVCs noted with total burden of 2.6% with 11 salvos of nonsustained VT, longest 4 beats at 186 beats per minute 5. No patient reported events MTDD
== END ==
LOC: HO.CARD 07:57
PROVIDERS: PCP Internal Medicine; Visit Provider Internal Medicine
DX: I48.19 Other persistent atrial fibrillation (principal)
CPT/HCPCS: 93242; 93308

== ENCOUNTER → 2023-09-05 08:01 | Outpatient (BNV) | payer MEDICARE, MEDICAID, SELFPAY | PROVIDERS: PCP Internal Medicine; Visit Provider Internal Medicine | DX: I48.91 Unspecified atrial fibrillation (principal); I49.3 Ventricular premature depolarization | CPT/HCPCS: 93244; 93308 ==

== ENCOUNTER 2023-09-11 12:40 | Outpatient (AMB) | payer MEDICARE, MEDICAID, SELFPAY ==
[2023-09-11 12:45] VITALS: BP 140/68; PULSE 85; BMI 30.2
--- NOTE | 2023-09-11 12:45 | A.OFFVIS_ITS ---
Vital Signs 09/11/23 12:45 Height 5 ft 6.4 in Weight 189 lb 9.561 oz BMI 30.2 BP 140/68 H Blood Pressure Location Lt brachial Position Sitting Pulse 85 Pulse Source Pulse Oximeter Intake Visit Reasons: r/s 4 mos followup after holter/echo Allergies Thiazides Allergy (Unknown, Verified 05/08/23 14:41) rash Medication List - Last Reconciled 09/11/23 by Bladimir Hankins MD amlodipine 7.5 mg (3 x 2.5 mg) PO DAILY 90 days apixaban (Eliquis) 5 mg PO BID atorvastatin 10 mg PO DAILY lisinopril 40 mg PO DAILY metoprolol tartrate 50 mg PO BID 90 days mirtazapine 7.5 mg PO BEDTIME 90 days omeprazole 20 mg PO DAILY 90 days HPI Comments Details: Jacky returns for follow-up. Recently seen in consultation regarding atrial fibrillation. To recall, he had pericarditis in 2022. He was then put on colchicine/NSAIDs. That seems resolved. However, when he came for clinic visit he was rather in atrial fibrillation. He is complaining of some tiredness but otherwise feels okay. No shortness of breath or chest pain or palpitations. [facility] Medical History (Updated 05/08/23 @ 15:25 by Bladimir Hankins MD) Atrial fibrillation Obesity (BMI 30-39.9) Vitamin D deficiency Overweight (BMI 25.0-29.9) GERD without esophagitis Pure hypercholesterolemia Benign essential hypertension Surgical History History of colonoscopy Family History Father Diabetes Mother Diabetes Social History Housing: House Alcohol intake: current Alcohol intake frequency: holidays/special occasions on ly Comment: Patient refusing bed alarm Patient Tobacco Use Status: Former Tobacco user e-Cigarette/Vaping Use: Never Used Second Hand Smoke Exposure: Yes service: No Current occupational status: retired Cognitive needs: No Hearing needs: No Vision needs: Yes Review of Systems Const Denies weakness ENT Denies dizziness Card Denies chest pain, Denies chest pain with activity, Denies syncope, Denies rapid heart rate, Denies pedal edema, Denies edema, Denies leg edema, Denies lightheadedness, Denies palpitations, Denies dyspnea, Denies dyspnea on exertion and Denies orthopnea Resp Denies cough, Denies dyspnea and Denies dyspnea on exertion GI Denies hematochezia and Denies change in stool character Musc Denies abnormal gait, Denies muscle cramps, Denies muscle weakness, Denies numbness, Denies radiating pain into limb and Denies tingling Neuro Denies abnormal gait, Denies dizziness, Denies syncope, Denies numbness, Denies tingling and Denies weakness Endo Denies palpitations Physical Exam Vital Signs: Last Vital Signs Pulse 85 09/11/23 12:45 BP 140/68 H 09/11/23 12:45 BMI result Body Mass Index 30.2 Const General: comfortable and no acute distress Orientation/consciousness: patient oriented x3 HEENT Other: Unremarkable Head: Yes normal to inspection Neck Neck: Yes normal visual inspection Chest Chest palpation & inspection: normal inspection of the chest Resp Auscultation: clear to auscultation bilaterally Cardio Palpation: normal PMI Heart sounds: S1 normal heart sound present, S2 normal heart sound present, no gallops, no murmurs and no rubs GI Palpation (GI): Soft to palpation Back/Spine/Pelvis Other: unremarkable Skin General skin exam: no rashes or lesions noted Neuro General: patient oriented x3 Extrem General: Yes normal to inspection Psych Mental Status: mental status grossly normal Assessment & Plan Assessment & Plan (1) New onset atrial fibrillation: Code(s): I48.91 - Unspecified atrial fibrillation Category: Medical (2) Cardiomyopathy: Code(s): I42.9 - Cardiomyopathy, unspecified Category: Medical (3) Benign essential hypertension: Code(s): I10 - Essential (primary) hypertension Category: Medical Plan Cardiac studies reviewed. EKG from last December shows sinus rhythm. More recently, in atrial fibrillation. In the most recent echocardiogram, LVEF is about 40%. Suspicion of basal inferior hypokinesis. Prior to that, LVEF 45-50%. In the Holter, underlying atrial fibrillation with an average rate of 79/minute. On review of the strips, there are daytime tachycardia episodes. Overnight pauses. PVCs. Findings discussed with patient and daughter. We discussed about cardioversion especially as he is feeling very tired and fatigued. They understand and agree. We will schedule this in the near future. He has taken uninterrupted anticoagulation. May hold beta-blockers for the last 2 days to avoid any post cardioversion pauses/bradycardia. We discussed about this too. We also briefly discussed about ablation. With regard to the cardiomyopathy, probably all from atrial fibrillation. Could have underlying coronary disease as well. May need workup once he is back in sinus rhythm. Daughter agrees with plan. Coding Level of Care Code Est Pt Level 4 (97483) Diagnoses New onset atrial fibrillation I48.91 Cardiomyopathy I42.9 Benign essential hypertension I10
== END 2023-09-11 13:14 | disposition home or self-care (01) ==
PROVIDERS: PCP Internal Medicine; Visit Provider Internal Medicine
DX: I48.91 Unspecified atrial fibrillation (principal); I42.9 Cardiomyopathy, unspecified; I10 Essential (primary) hypertension
CPT/HCPCS: 99214

== ENCOUNTER → 2023-09-11 12:40 | Outpatient (BNVA) | payer MEDICARE, MEDICAID, SELFPAY | PROVIDERS: PCP Internal Medicine; Visit Provider Internal Medicine | DX: I48.91 Unspecified atrial fibrillation (principal); I42.9 Cardiomyopathy, unspecified; I10 Essential (primary) hypertension | CPT/HCPCS: 99212 ==

== ENCOUNTER 2023-09-15 06:09 | Outpatient (REF) | payer MEDICARE, MEDICAID, SELFPAY ==
[2023-09-15 06:37] LABS: MANUAL DIFF FLAG NO
[2023-09-15 07:22] LABS: Basophils Absolute Auto 0.1 X10*3/uL (0.0-0.2); Basophils Percent Auto 0.9 % (0-2); Eosinophils Absolute Auto 0.3 X10*3/uL (0.0-0.4); Hematocrit 48.4 % (42.0-52.0); Imm Gran Abs Auto 0.03 X10*3/uL (0.00-0.03); Imm Gran Pct Auto 0.3 % (0.0-0.4); Lymphocytes Absolute Auto 1.6 X10*3/uL (1.2-4.9); Lymphocytes Percent Auto 17.4 % (20-40); Mean Corpuscular HGB Conc 33.1 g/dl (31.0-36.0); Mean Corpuscular Hemoglobin 30.2 pg (27.0-33.0); Mean Corpuscular Volume 91.3 fL (80.0-98.0); Mean Platelet Volume 9.9 fL (9.4-12.4); Monocytes Absolute Auto 0.7 X10*3/uL (0.1-1.2); Monocytes Percent Auto 7.8 % (2-11); Neutrophils Absolute Auto 6.3 x10*3/uL (2.0-8.3); Neutrophils Percent Auto 70.6 % (45-73); Platelet Count 200 X10*3/uL (160-400); Red Cell Distribution Width 14.1 % (11.0-16.0); White Blood Count 8.9 X10*3/uL (4.8-10.8)
[2023-09-15 07:47] LABS: Alanine Aminotransferase 20 U/L (0-40); Albumin Level 4.4 g/dL (3.5-5.0); Alkaline Phosphatase 101 U/L (39-117); Anion Gap 13 (12-20); Aspartate Amino Transferase 23 U/L (5-37); Bilirubin Total 0.6 mg/dL (0.0-1.0); Blood Urea Nitrogen 13 mg/dL (9-16); Calcium 9.6 mg/dL (8.4-10.2); Carbon Dioxide 28 mmol/L (22-29); Chloride 106 mmol/L (96-108); Cholesterol 157 mg/dL (<200); Estimated Glomerular Filt Rate > 60; Glucose Fasting 94 mg/dL (60-99); HDL Cholesterol 34 mg/dL (>40); LDL Cholesterol Calculated 105 mg/dL (<100); Potassium 4.3 mmol/L (3.3-5.1); Sodium 143 mmol/L (135-145); Total Protein 7.1 g/dL (6.5-8.0); Triglycerides 93 mg/dL (<150)
[2023-09-15 07:49] LABS: Appearance Urine Clear; Color Urine Yellow; Glucose Urine UA Negative (Negative); Leukocyte Esterase Urine Negative (Negative); Nitrite Urine Negative (Negative); PH 6.5 (5.0-9.0); Urine Blood Negative (Negative); Urine Ketones Negative (Negative); Urine Protein Trace mg/dL (Neg-Trace)
[2023-09-15 08:05] LABS: TSH reflex Free T4 1.48 uIU/mL (0.32-4.0); Vitamin D 25-OH Total 33.7 ng/mL (>30)
== END 2023-09-15 06:10 | disposition home or self-care (01) ==
LOC: HO.LAB 06:09
PROVIDERS: PCP Internal Medicine; Visit Provider Internal Medicine
DX: D64.9 Anemia, unspecified (principal); E78.00 Pure hypercholesterolemia, unspecified; R30.0 Dysuria; E55.9 Vitamin D deficiency, unspecified
CPT/HCPCS: 36415; 80053; 80061; 81003; 82306; 84443; 85025

== ENCOUNTER 2023-09-18 15:15 | Outpatient (AMB) | payer MEDICARE, SELFPAY ==
[2023-09-18 15:25] VITALS: BP 132/80; PULSE 57; O2SAT 97; BMI 30.6
--- NOTE | 2023-09-18 15:25 | A.OFFPC_ITS ---
Vital Signs 09/18/23 15:25 Height 5 ft 6.4 in Weight 192 lb BMI 30.6 BP 132/80 Blood Pressure Location Lt brachial Position Sitting Pulse 57 Pulse Source Pulse Oximeter Pulse Oximetry (%) 97 Oxygen Delivery Method Room Air Intake Visit Reasons: Follow up Allergies Thiazides Allergy (Unknown, Verified 09/19/23 04:57) rash Medication List - Last Reconciled 09/19/23 by Keon Beckham MD amlodipine 7.5 mg (3 x 2.5 mg) PO DAILY 90 days apixaban (Eliquis) 5 mg PO BID atorvastatin 10 mg PO DAILY lisinopril 40 mg PO DAILY metoprolol tartrate 50 mg PO BID 90 days mirtazapine 7.5 mg PO BEDTIME 90 days omeprazole 20 mg PO DAILY 90 days Tobacco use date assessed: 03/06/23 Fall risk assessment: No Falls in past year Last assessed Fall Risk: 09/18/23 Dental Screening Dental Screen Date: 03/06/23 HPI Follow up HPI Details Patient comes in today for his follow-up visit States that he feels okay He denies any headaches or dizziness Denies any chest pains, no shortness of breath No nausea/ vomiting, no abdominal pain No change in bowel habits noted He had his follow-up labs done a few days ago - to discuss his results He is not scheduled for cardioversion in a couple of weeks on 09/29/2023 [facility] Medical History Atrial fibrillation Obesity (BMI 30-39.9) Vitamin D deficiency Overweight (BMI 25.0-29.9) GERD without esophagitis Pure hypercholesterolemia Benign essential hypertension Surgical History History of colonoscopy Family History Father Diabetes Mother Diabetes Social History Housing: House Alcohol intake: current Alcohol intake frequency: holidays/special occasions only Comment: Patient refusing bed alarm Patient Tobacco Use Status: Former Tobacco user Tobacco use type: Cigarette e-Cigarette/Vaping Use: Never Used Second Hand Smoke Exposure: Yes service: No Current occupational status: retired Cognitive needs: No Hearing needs: No Vision needs: Yes Questionnaire PHQ-9 Over the last 2 weeks, how often have you been bothered by any of the following problems? 1. Little interest or pleasure in doing things: not at all 2. Feeling down, depressed, or hopeless: not at all 3. Trouble falling or staying asleep, or sleeping too much: not at all 4. Feeling tired or having little energy: not at all 5. Poor appetite or overeating: not at all 6. Feeling bad about yourself - or that you are a failure or have let yourself or your family down: not at all 7. Trouble concentrating on things, such as reading the newspaper or watching television: not at all 8. Moving or speaking so slowly that other people could have noticed. Or the opposite - being so fidgety or restless that you have been moving around a lot more than usual: not at all 9. Thoughts that you would be better off or of hurting yourself in some way: not at all Total score: 0 Depression Screening Interpretation: Negative Depression Screening Done: Yes 25164 - PHQ-9 Billing: Yes Source: Developed by Drs. Arvind Julio, Don Dupree and colleagues, with an educational cristy from [facility]. Thrive Questionnaire Date Thrive assessed: 03/06/23 AUDIT C Alcohol Use Questionnaire (AUDIT-C) 1. How often do you have a drink containing alcohol?: Monthly or less 2. How many drinks containing alcohol do you have on a typical day when you are drinking?: 1 or 2 3. How often do you have six or more drinks on one occasion?: Never Total Score: 1 Score Reviewed/Action Taken: Yes NEGIN-7 AMB Questionnaire NEGIN-7 Date NEGIN - 7 assessed: 03/06/23 Source: Developed by Drs. Arvind Julio, Don Dupree and colleagues, with an educational cristy from [facility]. Review of Systems Const Denies chills, Denies fatigue, Denies fever(s) and Denies headache(s) ENT Denies dysphagia, Denies dizziness, Denies otalgia, Denies headache(s), Denies neck pain, Denies odynophagia and Denies sore throat Card Denies chest pain, Denies palpitations and Denies dyspnea Resp Denies cough and Denies dyspnea GI Denies abdominal pain, Denies constipation, Denies dysphagia, Denies heartburn, Denies diarrhea, Denies nausea, Denies odynophagia and Denies vomiting Denies dysuria, Denies nocturia and Denies urinary frequency Musc Denies back pain and Denies neck pain Skin/Breast Denies rash Neuro Denies dizziness and Denies headache(s) Psych Denies anxiety and Denies depression Endo Denies fatigue and Denies palpitations Physical exam (Primary Care) Vital Signs: Last Vital Signs Pulse 57 09/18/23 15:25 BP 132/80 09/18/23 15:25 Pulse Ox 97 09/18/23 15:25 Oxygen Delivery Method Room Air 09/18/23 15:25 BMI result Body Mass Index 30.6 Tobacco/Smoking Status: Tobacco use Status Tobacco use date assessed 03/06/23 09/18/23 15:30 Patient Tobacco Use Status Former Tobacco user 09/18/23 15:30 Tobacco use type Cigarette 09/18/23 15:30 e-Cigarette/Vaping Use Never Used 09/18/23 15:30 PHQ-9: PHQ-9 Score PHQ-9: Total score 0 09/18/23 16:11 Depression Screening Interpretation: Negative Thrive Assessment: Date of Thrive Assessment Date Thrive assessed 03/06/23 09/18/23 15:30 Const General: no acute distress and alert HENMT Throat: Yes posterior oropharynx normal and Yes tonsils normal (no TP congestion noted) Neck Neck: Yes no lymphadenopathy and Yes supple Resp Auscultation: clear to auscultation bilaterally, no rales and no wheezes Cardio Rate: regular rate Rhythm: abnormal rhythm irregularly irregular Heart sounds: no murmurs GI Palpation (GI): Soft to palpation and nontender Auscultation: normal bowel sounds Skin Rashes: no rashes Extrem General: Yes no clubbing, cyanosis or edema Results Reviewed Results Reviewed: Laboratory Tests 09/15/23 09/15/23 06:28 06:32 WBC 8.9 Hgb 16.0 Hct 48.4 Plt Count 200 Sodium 143 Potassium 4.3 Creatinine 0.97 Estimated GFR > 60 Fasting Glucose 94 Calcium 9.6 AST 23 ALT 20 Triglycerides 93 Cholesterol 157 LDL Cholesterol, Calc 105 H HDL Cholesterol 34 L 25-OH Vitamin D Total 33.7 TSH 1.48 Ur Specific [place] 1.020 Urine Protein Trace Urine Glucose (UA) Negative Urine Blood Negative Urine Nitrite Negative Ur Leukocyte Esterase Negative Assessment and Plan Assessment & Plan (1) Atrial fibrillation: Code(s): I48.91 - Unspecified atrial fibrillation Qualifiers: Atrial fibrillation type: persistent (not longstanding) Qualified Code(s): I48.19 - Other persistent atrial fibrillation Plan: His arrhythmia was first noticed when he came in for his routine follow up visit in February 2023 He also had a bout of acute pericarditis late last year but he's had no recurrence of symptoms since and he has completed the recommended 3 months of oral Colchicine Tx Echocardiogram done revealed (+) mildly reduced LVEF of 45-50% with mild LVH, severely dilated left atrium and moderately dilated right atrium. He also had a mildly dilated ascending aorta measuring 3.8 cm, normal cardiac valvular doppler and normal RV systolic pressure and no gross pericardial effusion Holter monitor revealed underlying atrial fibrillation with an average rate of 79/minute Continue Metoprolol 50 mg BID and Eliquis 5 mg BID (for thromboembolism prophylaxis) As patient has been experiencing frequent fatigue, was recommended to undergo cardioversion He is now scheduled for cardioversion at [facility] in a couple of weeks on 09/29/2023 (2) Pericarditis: Comment: occurred in 2022 Code(s): I31.9 - Disease of pericardium, unspecified Qualifiers: Chronicity: acute Pericarditis type: unspecified type Qualified Code(s): I30.9 - Acute pericarditis, unspecified Plan: Patient states that his symptoms have mostly resolved as he has not had any f urther chest pains or discomfort since He has completed the recommended Tx with 3 months or oral Colchicine 0.6mg BID - Rx has been discontinued a few months ago (3) Benign essential hypertension: Code(s): I10 - Essential (primary) hypertension Plan: Reinforced low sodium diet - goal is systolic BP of at least 130 to 140 mm or less Continue Lisinopril 40 mg QD and Amlodipine 7.5 mg (3 x 2.5 mg tablets) QD; patient stopped taking his HCTZ a while back due to recurrence of a photosensiti ve rash while he was on the Rx Patient is reminded to continue monitoring his blood pressure regularly (4) Pure hypercholesterolemia: Code(s): E78.00 - Pure hypercholesterolemia, unspecified Plan: Results of his labs done a few days ago reviewed and discussed with patient - he is advised that his LDL cholesterol level has increased from previous Patient states that he was in [place] for a few weeks and just got back here last week and he admits to poor compliance with his diet while he was in [place] Reinforced low cholesterol diet Continue Atorvastatin 10 mg QD Will have patient recheck his labs and fasting lipids in 3 months for follow up (5) GERD without esophagitis: Code(s): K21.9 - Gastro-esophageal reflux disease without esophagitis Plan: Dietary restrictions reinforced Continue Omeprazole 20 mg QD (6) Vitamin D deficiency: Code(s): E55.9 - Vitamin D deficiency, unspecified Plan: Continue OTC Vitamin D3 2000 units QD (7) Insomnia: Code(s): G47.00 - Insomnia, unspecified Qualifiers: Insomnia type: unspecified Qualified Code(s): G47.00 - Insomnia, unspecified Plan: Sleep hygiene reinforced States that Mirtazapine is helping with his sleep issues (8) Mood disorder: Code(s): F39 - Unspecified mood [affective] disorder Plan: Continue Mitazapine 7.5 mg Q HS (9) Obesity (BMI 30-39.9): Code(s): E66.9 - Obesity, unspecified Plan: Reinforced diet/exercise as tolerated/lose weight Plan Follow up in 3 months Orders: Orders Comprehensive [place]. Panel Fast 3 Months E78.00 - Pure hypercholesterolemia, unspecified Complete Blood Count Auto Diff 3 Months D64.9 - Anemia, unspecified Lipid Panel 3 Months E78.00 - Pure hypercholesterolemia, unspecified Coding Level of Care Code Est Pt Level 4 (10263) Complex EM visit Add On G2211 Diagnoses Persistent atrial fibrillation I48.19 Atrial fibrillation type: persistent (not longstanding) Pericarditis I30.9 Chronicity: acute Pericarditis type: unspecified type Benign essential hypertension I10 Pure hypercholesterolemia E78.00 GERD without esophagitis K21.9 Vitamin D deficiency E55.9 Insomnia, unspecified type G47.00 Insomnia type: unspecified Mood disorder F39 Obesity (BMI 30-39.9) E66.9
== END 2023-09-18 16:13 | disposition home or self-care (01) ==
PROVIDERS: PCP Internal Medicine; Visit Provider Internal Medicine
DX: I48.19 Other persistent atrial fibrillation (principal); I30.9 Acute pericarditis, unspecified; I10 Essential (primary) hypertension; E78.00 Pure hypercholesterolemia, unspecified; K21.9 Gastro-esophageal reflux disease without esophagitis; E55.9 Vitamin D deficiency, unspecified; G47.00 Insomnia, unspecified
CPT/HCPCS: 99214; G2211

== ENCOUNTER 2023-09-29 12:24 | Day surgery (SDC) | payer MEDICARE, MEDICAID, SELFPAY ==
[2023-09-27 12:37] VITALS: BMI 30.2
--- NOTE | 2023-09-27 15:11 | HO.ANESPROP2 ---
Documented by User: Deya Rice NP 09/27/23 15:12 HPI - Anesthesia Eval Consult details Narrative: 73yo M for Cardioversion Eliquis for afib PMFSH Active Problems Active Problems: All Active Problems Cardiomyopathy (Acute) Atrial fibrillation (Acute) Obesity (BMI 30-39.9) (Acute) New onset atrial fibrillation (Acute) Mood disorder (Acute) Insomnia (Acute) Vitamin D deficiency (Acute) Fatigue (Acute) Pneumonia (Acute) Olecranon bursitis of right elbow (Acute) Medicare annual wellness visit, subsequent (Acute) Screening for eye condition (Acute) Overweight (BMI 25.0-29.9) (Acute) GERD without esophagitis (Acute) Pure hypercholesterolemia (Acute) Benign essential hypertension (Acute) Past Medical History Medical History Atrial fibrillation Obesity (BMI 30-39.9) Vitamin D deficiency Overweight (BMI 25.0-29.9) GERD without esophagitis Pure hypercholesterolemia Benign essential hypertension Family History Family History Father Diabetes Mother Diabetes Surgical History Surgical History History of colonoscopy Social History Social History Housing: House Alcohol intake: current Alcohol intake frequency: does not drink Comment: Patient refusing bed alarm Patient Tobacco Use Status: Former Tobacco user Tobacco use type: Cigarette e-Cigarette/Vaping Use: Never Used Second Hand Smoke Exposure: Yes Are you DNR?: No Advance Directives: No Advance Directives Information Provided: Yes service: No Current occupational status: retired Cognitive needs: No Hearing needs: No Vision needs: Yes Meds Allergies Allergy/AdvReac Type Severity Reaction Status Date / Time Thiazides Allergy Intermediate rash Verified 09/27/23 12:32 Exam Height,Weight and Vital Signs: Height 5 ft 6.4 in Weight 86 kg Pertinent Lab Results Pertinent Lab Results: Laboratory Tests 09/15/23 06:32 WBC 8.9 Hgb 16.0 Hct 48.4 Plt Count 200 Sodium 143 Potassium 4.3 Chloride 106 Carbon Dioxide 28 BUN 13 Creatinine 0.97 Narrative Narrative: ECHO 2023 Conclusions: - Visually estimated LVEF about 40%. - The basal inferior segment is hypokinetic. Holter 2023 1. Patient was monitored for total period of 2 days and 23 hours 2. Baseline was atrial fibrillation with average heart rate of 79 beats per minute with overall good rate control 3. Total of 11 pauses noted longest at 3.2 seconds happening at 04:18 4. Frequent PVCs noted with total burden of 2.6% with 11 salvos of nonsustained VT, longest 4 beats at 186 beats per minute 5. No patient reported events Assessment and Plan Assessment Anesthesia Assessment: Chart Reviewed Documented by User: Bindu Esteban MD 09/29/23 14:03 [facility] Past Medical History Medical History Atrial fibrillation Obesity (BMI 30-39.9) Vitamin D deficiency Overweight (BMI 25.0-29.9) GERD without esophagitis Pure hypercholesterolemia Benign essential hypertension Family History Family History Father Diabetes Mother Diabetes Family history of problems with anesthesia: No Surgical History Surgical History History of colonoscopy History of Problems with Anesthesia: No Social History Social History Housing: House Alcohol intake: current Alcohol intake frequency: does not drink Comment: Patient refusing bed alarm Patient Tobacco Use Status: Former Tobacco user Tobacco use type: Cigarette e-Cigarette/Vaping Use: Never Used Second Hand Smoke Exposure: Yes Are you DNR?: No Advance Directives: No Advance Directives Information Provided: Yes service: No Current occupational status: retired Cognitive needs: No Hearing needs: No Vision needs: Yes Meds Allergies Allergy/AdvReac Type Severity Reaction Status Date / Time Thiazides Allergy Intermediate rash Verified 09/27/23 12:32 Exam Airway Mallampati Class: II TM Dist: >3cm Neck ROM: Full Heart: irregular Lungs: cta Assessment and Plan Assessment Anesthesia Assessment: Anesthesia Plan Discussed Final Anesthetic Review Family History of Problems with Anesthesia: No History of Problems with Anesthesia: No NPO: Yes ASA Class: III Final Preanesthetic Review: No Changes in Pt Med Stat, Meds/Allgs Chart Reviewed and Consent Obtained/Reviewed Patient Risk: Low Procedure Risk: Low Anesthetic Plan Anesthetic Plan: MAC: Disposition: Standard PACU
[2023-09-29 12:42] VITALS: BP 155/98; PULSE 73; RESP 19; TEMP 36.6; O2SAT 97; BMI 30.6
--- NOTE | 2023-09-29 12:44 | MHC.SHP ---
Pre-Procedural Eval Section A - 24 Hr Update-Section A only Date of Service: 09/29/23 The patient is an INPATIENT: No Section B - Complete if H&P > 30 days Chief Complaint: Unspecified atrial fibrillation Allergies: Allergies Allergy/AdvReac Type Severity Reaction Status Date / Time Thiazides Allergy Intermediate rash Verified 09/27/23 12:32 Plan I have reviewed the history and physical and performed a pertinent physical examination on my patient. No changes have occurred unless specified. Time Spent With Patient Time: Total time managing care of this patient today ____ minutes.
--- NOTE | 2023-09-29 12:45 | HO.CARDIVERS ---
Cardioversion Procedure Note Cardioversion Date of Procedure: 09/29/2023 Pre-Op Diagnosis: Atrial fibrillation Post-Op Diagnosis: Sinus rhythm Consent: Informed consent obtained Procedure: After informed consent was obtained, patient was taken to the PACU. The patient was then positioned appropriately. The cardioversion pads were placed in anteroposterior position. Once under anesthesia, 120 joules of synchronized shock was administered. The rhythm converted from atrial fibrillation to sinus rhythm. Patient remained in sinus rhythm after the end of procedure. Complications: None. Impression: Successful cardioversion from atrial fibrillation to sinus rhythm. Recommendations: Start amiodarone loading followed by maintenance. Continue beta-blockers. Continue anticoagulation. Will arrange outpatient follow-up.
[2023-09-29] MEDS: Lactated Ringers 1,000 ML 50 ML IVCONT (13:09)
--- NOTE | 2023-09-29 14:12 | ECG_ITS ---
Test Reason : post cardioversion Blood Pressure : / mmHG Vent. Rate : 055 BPM Atrial Rate : 055 BPM P-R Int : 170 ms QRS Dur : 090 ms QT Int : 414 ms P-R-T Axes : 066 -32 005 degrees QTc Int : 396 ms Sinus bradycardia with marked sinus arrhythmia Left axis deviation Abnormal ECG When compared with ECG of 07-JAN-2023 09:19, ST no longer elevated in Inferior leads ST no longer elevated in Anterolateral leads Referred By: Bladimir Hankins Electronically Signed By:PHUC GARCIA
[2023-09-29 14:14] VITALS: BP 132/67; PULSE 67; RESP 16; TEMP 36.5; O2SAT 98
[2023-09-29 14:19] VITALS: BP 139/99; PULSE 63; RESP 15; O2SAT 99
[2023-09-29 14:24] VITALS: BP 138/88; PULSE 55; RESP 15; O2SAT 100
[2023-09-29 14:29] VITALS: BP 147/97; PULSE 61; RESP 16; O2SAT 100
[2023-09-29] MEDS: Amiodarone HCL 200 MG TABLET 400 MG PO (14:31)
[2023-09-29 14:44] VITALS: BP 154/105; PULSE 66; RESP 18; TEMP 36.1; O2SAT 100
--- NOTE | 2023-09-29 15:26 | PC.NURSE ---
medical sales associate and family present
== END 2023-09-29 15:27 | disposition home or self-care (01) ==
PROVIDERS: PCP Internal Medicine; Visit Provider Internal Medicine
PROC: 5A2204Z Restoration of Cardiac Rhythm, Single (ICD-10-PCS; principal; 2023-09-29 13:50)
DX: I48.91 Unspecified atrial fibrillation (principal); I42.9 Cardiomyopathy, unspecified; I10 Essential (primary) hypertension; Z79.01 Long term (current) use of anticoagulants; Z79.899 Other long term (current) drug therapy
CPT/HCPCS: 92960; 93005; J2704

== ENCOUNTER → 2023-09-29 12:24 | Outpatient (BNV) | payer MEDICARE, SELFPAY | PROVIDERS: PCP Internal Medicine; Visit Provider Internal Medicine | DX: I48.91 Unspecified atrial fibrillation (principal) | CPT/HCPCS: 92960 ==

== ENCOUNTER → 2023-10-05 09:36 | Outpatient (BNVA) | payer MEDICARE, OTHER, SELFPAY | PROVIDERS: PCP Internal Medicine; Visit Provider Internal Medicine ==

== ENCOUNTER → 2023-10-11 07:57 | Outpatient (REF) | payer MEDICARE, MEDICAID, SELFPAY ==
--- NOTE | 2023-10-11 08:00 | HM_ITS ---
* Total monitoring time 3 days. * Underlying rhythm is sinus bradycardia with an average rate of 46/Min. About 94% of the time, rate < 60/Min. * Rare supraventricular ectopy. * Some strips suggest junctional rhythm, daytime. * Rare ventricular ectopy. * No patient markers or diary events. MTDD
== END ==
LOC: HO.CARD 07:57
PROVIDERS: PCP Internal Medicine; Visit Provider Internal Medicine
DX: I48.19 Other persistent atrial fibrillation (principal)
CPT/HCPCS: 93242

== ENCOUNTER → 2023-10-11 08:00 | Outpatient (BNV) | payer MEDICARE, SELFPAY | PROVIDERS: PCP Internal Medicine; Visit Provider Internal Medicine | DX: R00.1 Bradycardia, unspecified (principal) | CPT/HCPCS: 93244 ==

== ENCOUNTER 2023-11-01 14:41 | Outpatient (AMB) | payer MEDICARE, SELFPAY ==
--- NOTE | 2023-11-01 14:50 | MHC.OFFVIS ---
Vital Signs 11/01/23 14:53 Height 5 ft 6 in Weight 190 lb BMI 30.7 BP 138/80 Blood Pressure Location Lt brachial Position Sitting Pulse 61 Pulse Source Monitor Intake Visit Reasons: F/U after testing Field Representatives Director Services: Field Representatives Director Offered & Declined Field Representatives Director Name: Daughter Accompanied by: Daughter Allergies Thiazides Allergy (Intermediate, Verified 09/27/23 12:32) rash Medication List - Last Reconciled 11/01/23 by Bladimir Hankins MD amiodarone 200 mg PO DAILY amlodipine 7.5 mg (3 x 2.5 mg) PO DAILY 90 days apixaban (Eliquis) 5 mg PO BID atorvastatin 10 mg PO DAILY lisinopril 40 mg PO DAILY mirtazapine 7.5 mg PO BEDTIME 90 days omeprazole 20 mg PO DAILY 90 days HPI Comments Details: Jacky returns for follow-up. Recently seen in consultation regarding atrial fibrillation. To recall, he had pericarditis in 2022. He was then put on colchicine/NSAIDs. That seems resolved. However, when he came for clinic visit he was rather in atrial fibrillation. He was complaining of tiredness and fatigue. Subsequently, underwent cardioversion back to normal sinus rhythm. Due to bradycardia, off beta-blockers. Remains on amiodarone and Eliquis. Overall, he states he feels much better while he is back in normal sinus rhythm. [facility] Medical History Atrial fibrillation Obesity (BMI 30-39.9) Vitamin D deficiency Overweight (BMI 25.0-29.9) GERD without esophagitis Pure hypercholesterolemia Benign essential hypertension Surgical History History of colonoscopy Family History Father Diabetes Mother Diabetes Social History Housing: House Alcohol intake: current Alcohol intake frequency: does not drink Comment: Patient refusing bed alarm Patient Tobacco Use Status: Former Tobacco user Tobacco use type: Cigarette e-Cigarette/Vaping Use: Never Used Second Hand Smoke Exposure: Yes service: No Current occupational status: retired Cognitive needs: No Hearing needs: No Vision needs: Yes Review of Systems Const Denies weakness ENT Denies dizziness Card Denies chest pain, Denies chest pain with activity, Denies syncope, Denies rapid heart rate, Denies pedal edema, Denies edema, Denies leg edema, Denies lightheadedness, Denies palpitations, Denies dyspnea, Denies dyspnea on exertion and Denies orthopnea Resp Denies cough, Denies dyspnea and Denies dyspnea on exertion GI Denies hematochezia and Denies change in stool character Musc Denies abnormal gait, Denies muscle cramps, Denies muscle weakness, Denies numbness, Denies radiating pain into limb and Denies tingling Neuro Denies abnormal gait, Denies dizziness, Denies syncope, Denies numbness, Denies tingling and Denies weakness Endo Denies palpitations Physical Exam Vital Signs: Last Vital Signs Pulse 61 11/01/23 14:53 BP 138/80 11/01/23 14:53 BMI result Body Mass Index 30.7 Const General: comfortable and no acute distress Orientation/consciousness: patient oriented x3 HEENT Other: Unremarkable Head: Yes normal to inspection Neck Neck: Yes normal visual inspection Chest Chest palpation & inspection: normal inspection of the chest Resp Auscultation: clear to auscultation bilaterally Cardio Palpation: normal PMI Heart sounds: S1 normal heart sound present, S2 normal heart sound present, no gallops, no murmurs and no rubs GI Palpation (GI): Soft to palpation Back/Spine/Pelvis Other: unremarkable Skin General skin exam: no rashes or lesions noted Neuro General: patient oriented x3 Extrem General: Yes normal to inspection Psych Mental Status: mental status grossly normal Office Procedures EKG Details: EKG with sinus rhythm at 61/Min; T inversions noted in the inferior leads but otherwise unremarkable. [place]. [id number], Complete Assessment & Plan Assessment & Plan (1) New onset atrial fibrillation: Code(s): I48.91 - Unspecified atrial fibrillation Category: Medical (2) Cardiomyopathy: Code(s): I42.9 - Cardiomyopathy, unspecified Category: Medical (3) Benign essential hypertension: Code(s): I10 - Essential (primary) hypertension Category: Medical Plan Cardiac studies reviewed. EKG from December 2022 with sinus rhythm. EKGs this year had shown atrial fibrillation. Now post cardioversion he is back to normal sinus rhythm. In the most recent echocardiogram, LVEF is about 40%. Suspicion of basal inferior hypokinesis. Prior to that, LVEF 45-50%. In the Holter monitor, underlying rhythm is sinus bradycardia with an average rate of 46/Min. Almost all the time, he was bradycardic. Some junctional rhythm during daytime. Essentially status post cardioversion and remains in sinus rhythm. Off beta blockers due to bradycardia. He can continue amiodarone and Eliquis. We also discussed about EP consultation for atrial fibrillation ablation and they are willing to consider that. We will make the referral. Otherwise, with regard to the cardiomyopathy, could be related to atrial fibrillation. Now that he is back to normal sinus rhythm we can recheck. We will also get an exercise stress perfusion imaging study to assess for ischemic findings. Blood pressure is reasonable on this regimen but if necessary, go up on the amlodipine. Plan discussed with daughter and she agrees. Orders: Orders NM cardiolite stress test Today I42.9 - Cardiomyopathy, unspecified, R07.2 - Precordial pain CA stress test Today I42.9 - Cardiomyopathy, unspecified, R07.2 - Precordial pain CA echo transthoracic complete Today I42.9 - Cardiomyopathy, unspecified Referrals Cardiac Electrophysiology Referral I48.19 - Other persistent atrial fibrillation Coding Level of Care Code Est Pt Level 4 (56750) Diagnoses New onset atrial fibrillation I48.91 Cardiomyopathy I42.9 Benign essential hypertension I10 CPT Codes EKG - CPT: 36109-[id number], Complete ([id number])
[2023-11-01 14:53] VITALS: BP 138/80; PULSE 61; BMI 30.7
== END 2023-11-01 15:14 | disposition home or self-care (01) ==
PROVIDERS: PCP Internal Medicine; Visit Provider Internal Medicine
DX: I48.91 Unspecified atrial fibrillation (principal); I42.9 Cardiomyopathy, unspecified; I10 Essential (primary) hypertension
CPT/HCPCS: 93010; 99214

== ENCOUNTER → 2023-11-01 14:41 | Outpatient (BNVA) | payer MEDICARE, MEDICAID, SELFPAY | PROVIDERS: PCP Internal Medicine; Visit Provider Internal Medicine | DX: I48.91 Unspecified atrial fibrillation (principal); I42.9 Cardiomyopathy, unspecified; I10 Essential (primary) hypertension | CPT/HCPCS: 93005; 99212 ==

== ENCOUNTER → 2023-11-24 07:58 | Outpatient (REF) | payer MEDICARE, OTHER, SELFPAY ==
--- NOTE | 2023-11-24 08:02 | CA_ITS ---
Transthoracic Echocardiogram Patient (Last, First, Middle): Jacky King, Gender: Male Date of : 1950 Age: 73 Procedure Date: 11/24/2023 Procedure Type: Transthoracic Echocardiogram Location: OP Height: 177. cm Weight: 86.18 kg BSA: 2.04 m2 Heart Rate: bpm BP: 162 / 95 mmHg Electrical Sign Servicer: CAREY Figueroa MD: Bladimir Hankins MD Card Hand: Valerio Moreno MD Symptoms: I42.9 - Cardiomyopathy, unspecified Study Quality: Adequate ECG Rhythm: Sinus Conclusions: - 1. Normal LV systolic function with LVEF of 60-65% with impaired relaxation filling pattern 2. Normal cardiac valvular Dopplers 3. Normal RV systolic pressure 4. Mildly dilated ascending aorta 5. No gross pericardial effusion Findings Left Ventricle Normal left ventricular size, thickness, and systolic function. The visually estimated ejection fraction is between 60-65%. Spectral Doppler is indicative of an impaired relaxation filling pattern. E/E prime ratio is between 8 and 15 consistent with indeterminate filling pressures. Right Ventricle Normal right ventricular cavity size and systolic function. Atria Both atria are normal in size. There is no evidence of interatrial shunt. Aortic Valve Normal aortic valve structure and function. There is no aortic valve stenosis. There is no aortic valve regurgitation. Mitral Valve Normal mitral valve structure and function. There is trace mitral valve regurgitation. There is no mitral valve stenosis. Pulmonic Valve The pulmonic valve is likely normal. There is trace pulmonic valve regurgitation. Tricuspid Valve Normal tricuspid valve structure. There is trace tricuspid valve regurgitation. The right ventricular systolic pressure is normal. The right ventricular systolic pressure is 12 mmHg. Normal right atrial pressure. There is no evidence of pulmonary hypertension. Great Vessels The pulmonary artery was not well visualized. There is mild dilatation of the ascending aorta measuring 4.10 cm. There is no evidence of plaque in the aorta. Venous The inferior vena cava is normal in size and collapses greater than 50% with inspiration. Pericardium/Pleural There is no evidence of pericardial effusion. Prior Study Comparison Changes noted compared to prior study dated: 09/05/2023. LV systolic function has normalized Measurements 2D Linear Measurements IVSd: 1.04 0.6-0.9/0.6-1.0 cm LVIDd: 5.46 3.9-5.3/4.2-5.9 cm LVIDd Index: 2.68 2.4-3.2/2.2-3.1 cm/m2 LVIDs: 3.25 2.0-3.6 cm LVPWd: 1.02 0.7-1.1 cm LA Diam: 4.60 2.7-3.8/3.0-4.0 cm LAIDs Index: 2.25 1.5-2.3 cm/m2 LV Mass: 272.99 67-162/88-224 g LV Mass Index: 133.82 43-95/49-115 g/m2 LVOT Diam: 2.40 3.0+(-)1.3 cm 2D Systolic Function EF 4C: 59.80 >55% EF 2C: 64.70 >55% EF BiP: 61.30 >55% Mitral Valve MV Pk E: 0.66 MV PK A: 0.88 MV Decel Time: 262.00 E/A: 0.70 E'Lateral: 8.05 E'Medial: 5.98 E/E' Med: 11.00 E/E' Lat: 8.10 PHT: 77.00 MVA PHT: 2.86 Decel Long: 2.50 Aortic Valve AoV Pk Alberto: 1.78 AoV Mn Alberto: 1.20 AoV VTI: 0.42 AoV Pk Grad: 13.00 Aov Mn Grad: 7.00 ROOPA Cont.VTI: 3.23 LVOT LVOT Pk Alberto: 1.31 LVOT Mn Alberto: 0.79 LVOT VTI: 0.30 LVOT Pk Grad: 7.00 LVOT Mn Grad: 3.00 LVOT Diam: 2.40 LVOT Area: 4.52 Diastolic Function MV Pk E: 0.66 MV Pk A: 0.88 E/A: 0.70 E'Medial: 5.98 E/E' Med: 11.00 E' Laterial: 8.05 E/E' Lat: 8.10 Right Ventricle TAPSE (mm): 21.20 TVS' Alberto: 11.00 Tricuspid Valve TR Pk Alberto: 1.53 TR Pk Grad: 9.00 RA Press: 3.00 RVSP: 12.00 Great Vessels Aorta Sinus of Valsalva: 3.80 2.0-3.5 cm Ao Asc: 4.10 2.1-3.4 cm Pulmonary Valve PV Pk Alberto: 1.17 Peak PV Grad: 5.00 Updated in Other Vendor System with Status of Final Valerio Moreno MD electronically signed on 11/25/2023 12:07:51 PM with status of Final
== END ==
LOC: HO.CARD 07:58
PROVIDERS: PCP Internal Medicine; Visit Provider Internal Medicine
DX: I42.9 Cardiomyopathy, unspecified (principal)
CPT/HCPCS: 93306

== ENCOUNTER → 2023-11-24 08:02 | Outpatient (BNV) | payer MEDICARE, SELFPAY | PROVIDERS: PCP Internal Medicine; Visit Provider Internal Medicine Cardiovascular Disease | DX: I42.8 Other cardiomyopathies (principal) | CPT/HCPCS: 93306 ==

== ENCOUNTER 2023-12-20 06:13 | Outpatient (REF) | payer MEDICARE, SELFPAY ==
[2023-12-20 06:35] LABS: MANUAL DIFF FLAG NO
[2023-12-20 07:50] LABS: Basophils Absolute Auto 0.1 X10*3/uL (0.0-0.2); Basophils Percent Auto 0.9 % (0-2); Eosinophils Absolute Auto 0.3 X10*3/uL (0.0-0.4); Eosinophils Percent Auto 3.1 % (0-4); Hematocrit 45.2 % (42.0-52.0); Hemoglobin 15.1 g/dl (14.0-18.0); Imm Gran Abs Auto 0.05 X10*3/uL (0.00-0.03); Imm Gran Pct Auto 0.5 % (0.0-0.4); Lymphocytes Absolute Auto 1.7 X10*3/uL (1.2-4.9); Lymphocytes Percent Auto 17.7 % (20-40); Mean Corpuscular HGB Conc 33.4 g/dl (31.0-36.0); Mean Corpuscular Hemoglobin 30.4 pg (27.0-33.0); Mean Corpuscular Volume 91.1 fL (80.0-98.0); Mean Platelet Volume 10.6 fL (9.4-12.4); Monocytes Absolute Auto 0.7 X10*3/uL (0.1-1.2); Monocytes Percent Auto 7.4 % (2-11); Neutrophils Absolute Auto 6.6 x10*3/uL (2.0-8.3); Neutrophils Percent Auto 70.4 % (45-73); Platelet Count 205 X10*3/uL (160-400); Red Blood Count 4.96 X10*6/uL (4.60-5.80); Red Cell Distribution Width 14.9 % (11.0-16.0); White Blood Count 9.3 X10*3/uL (4.8-10.8)
[2023-12-20 08:00] LABS: Appearance Urine Clear; Color Urine Yellow; Glucose Urine UA Negative (Negative); Leukocyte Esterase Urine Negative (Negative); Nitrite Urine Negative (Negative); Urine Blood Negative (Negative); Urine Ketones Negative (Negative); Urine Protein Negative (Neg-Trace)
[2023-12-20 08:19] LABS: Alanine Aminotransferase 22 U/L (0-40); Albumin Level 4.5 g/dL (3.5-5.0); Alkaline Phosphatase 113 U/L (39-117); Anion Gap 14 (12-20); Aspartate Amino Transferase 29 U/L (5-37); Bilirubin Total 0.7 mg/dL (0.0-1.0); Blood Urea Nitrogen 16 mg/dL (9-16); Calcium 9.6 mg/dL (8.4-10.2); Carbon Dioxide 26 mmol/L (22-29); Chloride 107 mmol/L (96-108); Cholesterol 142 mg/dL (<200); Estimated Glomerular Filt Rate 60; Glucose Fasting 81 mg/dL (60-99); HDL Cholesterol 42 mg/dL (>40); LDL Cholesterol Calculated 86 mg/dL (<100); Potassium 4.9 mmol/L (3.3-5.1); Sodium 142 mmol/L (135-145); Total Protein 7.3 g/dL (6.5-8.0); Triglycerides 74 mg/dL (<150)
== END 2023-12-20 06:14 | disposition home or self-care (01) ==
LOC: HO.LAB 06:13
PROVIDERS: PCP Internal Medicine; Visit Provider Internal Medicine
DX: E78.00 Pure hypercholesterolemia, unspecified (principal); R30.0 Dysuria; D64.9 Anemia, unspecified
CPT/HCPCS: 36415; 80053; 80061; 81003; 85025

== ENCOUNTER 2023-12-29 14:57 | Outpatient (AMB) | payer MEDICARE, SELFPAY ==
--- NOTE | 2023-12-29 15:07 | A.OFFPC_ITS ---
Vital Signs 12/29/23 15:11 Height 5 ft 6 in Weight 186 lb 4 oz BMI 30.1 BP 136/80 Blood Pressure Location Lt brachial Position Sitting Pulse 65 Pulse Source Pulse Oximeter Pulse Oximetry (%) 97 Oxygen Delivery Method Room Air Intake Visit Reasons: 3mth f/u Flat Hammerer Required: No Accompanied by: Self / Same As Patient Allergies Thiazides Allergy (Intermediate, Verified 12/29/23 15:55) rash Medication List - Last Reconciled 12/29/23 by Keon Beckham MD amiodarone 200 mg PO DAILY amlodipine 7.5 mg (3 x 2.5 mg) PO DAILY 90 days apixaban (Eliquis) 5 mg PO BID atorvastatin 10 mg PO DAILY lisinopril 40 mg PO DAILY mirtazapine 7.5 mg PO BEDTIME 90 days omeprazole 20 mg PO DAILY 90 days Tobacco use date assessed: 12/29/23 Fall risk assessment: No Falls in past year Last assessed Fall Risk: 12/29/23 Dental Screening Dental Screen Date: 12/29/23 Did you have a dental visit in the last 12 months?: Yes Did you have a dental problem in the last 6 months where you did not have access to dental care?: No Was dental information given to patient?: Patient has dentist HPI 3mth f/u HPI Details Patient comes in today for his follow-up visit States that he feels okay but complains that he often gets tired much easier now than he used to His daughter also states that she sometimes sees patient feeling somewhat depressed about his overall health lately but patient states that he is doing okay He underwent cardioversion back on 09/29/23 and has been off his beta blockers since due to bradycardia He remains on Eliquis for thromboembolism prophylaxis His most recent echocardiogram showed that his LVEF is just about 40%. slightly lower than previous, raising suspicion of basal inferior hypokinesis He is scheduled for cardiac stress testing in a couple of weeks on 01/15/2024 and for cardiac ablation at [facility] on 02/20/2024 with cardiology follow up appt with Dr. Hankins a couple of weeks later on 03/05/2024 He denies any headaches or dizziness Denies any chest pains, no shortness of breath No nausea/ vomiting, no abdominal pain No change in bowel habits noted He had his follow up labs done last week - to discuss his results FOR[facility]LY [facility], [facility] Medical History Atrial fibrillation Obesity (BMI 30-39.9) Vitamin D deficiency Overweight (BMI 25.0-29.9) GERD without esophagitis Pure hypercholesterolemia Benign essential hypertension Surgical History History of colonoscopy Family History Father Diabetes Mother Diabetes Social History Housing: House Alcohol intake: current Alcohol intake frequency: does not drink Comment: Patient refusing bed alarm Patient Tobacco Use Status: Former Tobacco user Tobacco use type: Cigarette e-Cigarette/Vaping Use: Never Used Second Hand Smoke Exposure: Yes service: No Current occupational status: retired Cognitive needs: No Hearing needs: No Vision needs: Yes Questionnaire PHQ-9 Over the last 2 weeks, how often have you been bothered by any of the following problems? 1. Little interest or pleasure in doing things: not at all 2. Feeling down, depressed, or hopeless: not at all 3. Trouble falling or staying asleep, or sleeping too much: not at all 4. Feeling tired or having little energy: not at all 5. Poor appetite or overeating: not at all 6. Feeling bad about yourself - or that you are a failure or have let yourself or your family down: not at all 7. Trouble concentrating on things, such as reading the newspaper or watching television: not at all 8. Moving or speaking so slowly that other people could have noticed. Or the opposite - being so fidgety or restless that you have been moving around a lot more than usual: not at all 9. Thoughts that you would be better off or of hurting yourself in some way: not at all Total score: 0 Depression Screening Interpretation: Negative Depression Screening Done: Yes 34870 - PHQ-9 Billing: Yes Source: Developed by Drs. Arvind Julio, Suzanne Carson, Don Pastor and colleagues, with an educational cristy from [employer]. Thrive Questionnaire Date Thrive assessed: 12/29/23 I am a: Patient What is your living situation today?: I have a steady place to live Within the past 12 months, did the food you bought not last and you didn't have the money to get more?: Never true Within the past 12 months, did you worry whether your food would run out before you got money to buy more?: Never true Do you have trouble paying for medicines?: No Do you have trouble getting transportation to medical appointments?: No Do you have trouble paying your heating and electricity bill?: No Do you have trouble taking care of your child, family member or friend?: No Do you have trouble with day-to-day activities such as bathing, preparing meals, shopping, managing finances, etc.?: No Are you currently unemployed and looking for a job?: No Are you interested in more education?: No Please select the resources that you would like help with: None Currently or been in a relationship where the following occur: No concerns reported THRIVE Score: 0 AUDIT C Alcohol Use Questionnaire (AUDIT-C) 1. How often do you have a drink containing alcohol?: Monthly or less 2. How many drinks containing alcohol do you have on a typical day when you are drinking?: 1 or 2 3. How often do you have six or more drinks on one occasion?: Never Total Score: 1 Score Reviewed/Action Taken: Yes NEGIN-7 AMB Questionnaire NEGIN-7 Date NEGIN - 7 assessed: 12/29/23 Feeling nervous, anxious, or on edge: 0 = Not at all Not being able to stop or control worryin = Not at all Worrying too much about different things: 0 = Not at all Trouble relaxin = Not at all Being so restless that it is hard to sit still: 0 = Not at all Becoming easily annoyed or irritable: 0 = Not at all Feeling afraid as if something awful might happen: 0 = Not at all Total NEGIN-7 score (0-4 normal; 5-9 mild; 10-14 moderate; 15-21 severe): 0 Source: Developed by Drs. Arvind Julio, Suzanne Carson, Don Pastor and colleagues, with an educational cristy from [employer]. Review of Systems Const Denies chills, Reports fatigue (reports feeling easily fatigued at times lately), Denies fever(s) and Denies headache(s) ENT Denies dysphagia, Denies dizziness, Denies otalgia, Denies headache(s), Denies neck pain, Denies odynophagia and Denies sore throat Card Denies chest pain, Denies irregular heart rhythm, Denies palpitations and Denies dyspnea Resp Denies chest congestion, Denies cough and Denies dyspnea GI Denies abdominal pain, Denies constipation, Denies dysphagia, Denies heartburn, Denies diarrhea, Denies nausea, Denies odynophagia and Denies vomiting Denies dysuria, Denies nocturia and Denies urinary frequency Musc Denies back pain and Denies neck pain Skin/Breast Denies rash Neuro Denies dizziness and Denies headache(s) Psych Denies anxiety and Reports depression (at times) Endo Reports fatigue (reports feeling easily fatigued at times lately) and Denies palpitations Physical exam (Primary Care) Vital Signs: Last Vital Signs Pulse 65 12/29/23 15:11 BP 136/80 12/29/23 15:11 Pulse Ox 97 12/29/23 15:11 Oxygen Delivery Method Room Air 12/29/23 15:11 BMI result Body Mass Index 30.1 Tobacco/Smoking Status: Tobacco use Status Tobacco use date assessed 12/29/23 12/29/23 15:14 Patient Tobacco Use Status Former Tobacco user 12/29/23 15:08 Tobacco use type Cigarette 12/29/23 15:08 e-Cigarette/Vaping Use Never Used 12/29/23 15:08 PHQ-9: PHQ-9 Score PHQ-9: Total score 0 12/30/23 09:44 Depression Screening Interpretation: Negative Thrive Assessment: Date of Thrive Assessment Date Thrive assessed 12/29/23 12/29/23 15:26 Currently or been in a relationship where the following occur: No concerns reported Const General: no acute distress and alert HENMT Ears: TM's normal bilaterally and EAC's normal Throat: Yes posterior oropharynx normal and Yes tonsils normal (no TP congestion noted) Neck Neck: Yes no lymphadenopathy and Yes supple Thyroid: Thyroid normal Resp Auscultation: clear to auscultation bilaterally, no rales and no wheezes Cardio Rate: regular rate Rhythm: regular rhythm Heart sounds: no murmurs GI Palpation (GI): Soft to palpation and nontender Auscultation: normal bowel sounds Skin Rashes: no rashes Extrem General: Yes no clubbing, cyanosis or edema Results Reviewed Results Reviewed: Laboratory Tests 12/20/23 12/20/23 06:30 06:33 WBC 9.3 Hgb 15.1 Hct 45.2 Plt Count 205 Sodium 142 Potassium 4.9 Creatinine 1.19 Estimated GFR 60 Fasting Glucose 81 Calcium 9.6 AST 29 ALT 22 Triglycerides 74 Cholesterol 142 LDL Cholesterol, Calc 86 HDL Cholesterol 42 Ur Specific [place] 1.020 Urine Protein Negative Urine Glucose (UA) Negative Urine Blood Negative Urine Nitrite Negative Ur Leukocyte Esterase Negative Coding Level of Care Code Est Pt Level 4 (21150) Complex EM visit Add On G2211 Diagnoses Persistent atrial fibrillation I48.19 Atrial fibrillation type: persistent (not longstanding) Cardiomyopathy, unspecified type I42.9 Cardiomyopathy type: unspecified Benign essential hypertension I10 Pure hypercholesterolemia E78.00 GERD without esophagitis K21.9 Vitamin D deficiency E55.9 Insomnia, unspecified type G47.00 Insomnia type: unspecified Mood disorder F39 Obesity (BMI 30-39.9) E66.9 Additional Codes PHQ-9 - 46738 - PHQ-9 Billing: Yes ([id number]) Assessment & Plan Assessment & Plan (1) Atrial fibrillation: Code(s): I48.91 - Unspecified atrial fibrillation Category: Medical Qualifiers: Atrial fibrillation type: persistent (not longstanding) Qualified Code(s): I48.19 - Other persistent atrial fibrillation Plan: His cardiac arrhythmia was first noticed when he came in for his routine follow up visit in February 2023 Prior to this, he had a bout of acute pericarditis late last year but symptoms have not recurred at all following his treatment with oral Colchicine x 3 months Echocardiogram revealed (+) mildly reduced LVEF of 45-50% with mild LVH, severely dilated left atrium and moderately dilated right atrium. He also had a mildly dilated ascending aorta measuring 3.8 cm, normal cardiac valvular doppler and normal RV systolic pressure and no gross pericardial effusion Holter monitor revealed underlying atrial fibrillation with an average rate of 79/minute He eventually underwent cardioversion back on 09/29/2023 - Metoprolol was discontinued due to bradycardia and he is now maintained on Amiodarone 200 mg QD and is still on Eliquis 5 mg BID for thromboembolism prophylaxis His most recent echocardiogram showed that his LVEF is just about 40%. slightly lower than previous, raising suspicion of basal inferior hypokinesis He is scheduled for cardiac stress testing in a couple of weeks on 01/15/2024 and for cardiac ablation at [facility] on 02/20/2024 with cardiology follow up appt with Dr. Hankins a couple of weeks later on 03/05/2024 (2) Cardiomyopathy: Code(s): I42.9 - Cardiomyopathy, unspecified Category: Medical Qualifiers: Cardiomyopathy type: unspecified Qualified Code(s): I42.9 - Cardiomyopathy, unspecified Plan: His most recent echocardiogram showed that his LVEF is just about 40%. slightly lower than previous, raising suspicion of basal inferior hypokinesis He is scheduled for cardiac stress testing in a couple of weeks on 01/15/2024 and for cardiac ablation at [facility] on 02/20/2024 with cardiology follow up appt with Dr. Hankins a couple of weeks later on 03/05/2024 (3) Benign essential hypertension: Code(s): I10 - Essential (primary) hypertension Category: Medical Plan: Reinforced low sodium diet - goal is systolic BP of at least 130 to 140 mm or less Continue Lisinopril 40 mg QD and Amlodipine 7.5 mg (3 x 2.5 mg tablets) QD; patient stopped taking his HCTZ a while back due to recurrence of a photosensitive rash while he was on the Rx Patient is reminded to continue monitoring his blood pressure regularly (4) Pure hypercholesterolemia: Code(s): E78.00 - Pure hypercholesterolemia, unspecified Category: Medical Plan: Results of his labs done last week reviewed and discussed with patient - his LDL cholesterol level has improved from previous Reinforced low cholesterol diet Continue Atorvastatin 10 mg QD Will have patient recheck his labs and fasting lipids in 3 months for follow up (5) GERD without esophagitis: Code(s): K21.9 - Gastro-esophageal reflux disease without esophagitis Category: Medical Plan: Dietary restrictions reinforced Continue Omeprazole 20 mg QD (6) Vitamin D deficiency: Code(s): E55.9 - Vitamin D deficiency, unspecified Category: Medical Plan: Continue OTC Vitamin D3 2000 units QD (7) Insomnia: Code(s): G47.00 - Insomnia, unspecified Category: Medical Qualifiers: Insomnia type: unspecified Qualified Code(s): G47.00 - Insomnia, unspecified Plan: Sleep hygiene reinforced States that Mirtazapine is helping with his sleep issues (8) Mood disorder: Code(s): F39 - Unspecified mood [affective] disorder Category: Medical Plan: Continue Mitazapine 7.5 mg Q HS (9) Obesity (BMI 30-39.9): Code(s): E66.9 - Obesity, unspecified Category: Medical Plan: Reinforced diet/exercise as tolerated/lose weight Plan Follow up in 3 months Orders: Orders Complete Blood Count Auto Diff 3 Months D64.9 - Anemia, unspecified UA CC w/rflx Micro + Cult 3 Months R30.0 - Dysuria Vitamin D 25-OH Total 3 Months E55.9 - Vitamin D deficiency, unspecified Comprehensive [place]. Panel Fast 3 Months E78.00 - Pure hypercholesterolemia, unspecified Lipid Panel 3 Months E78.00 - Pure hypercholesterolemia, unspecified TSH reflex Free T4 3 Months E78.00 - Pure hypercholesterolemia, unspecified
[2023-12-29 15:11] VITALS: BP 136/80; PULSE 65; O2SAT 97; BMI 30.1
== END 2023-12-29 16:06 | disposition home or self-care (01) ==
PROVIDERS: PCP Internal Medicine; Visit Provider Internal Medicine
DX: I48.19 Other persistent atrial fibrillation (principal); I42.9 Cardiomyopathy, unspecified; F39 Unspecified mood [affective] disorder; E66.9 Obesity, unspecified; Z68.30 Body mass index [BMI] 30.0-30.9, adult; I10 Essential (primary) hypertension; E78.00 Pure hypercholesterolemia, unspecified; K21.9 Gastro-esophageal reflux disease without esophagitis; E55.9 Vitamin D deficiency, unspecified; G47.00 Insomnia, unspecified

== ENCOUNTER → 2023-12-29 14:57 | Outpatient (BNVA) | payer MEDICARE, SELFPAY | PROVIDERS: PCP Internal Medicine; Visit Provider Internal Medicine | DX: I48.19 Other persistent atrial fibrillation (principal); I42.9 Cardiomyopathy, unspecified; I10 Essential (primary) hypertension; E78.00 Pure hypercholesterolemia, unspecified; K21.9 Gastro-esophageal reflux disease without esophagitis; E55.9 Vitamin D deficiency, unspecified; G47.00 Insomnia, unspecified; F39 Unspecified mood [affective] disorder; E66.9 Obesity, unspecified | CPT/HCPCS: 96127; 99212 ==

== ENCOUNTER → 2024-01-15 08:18 | Outpatient (REF) | payer MEDICARE, SELFPAY ==
--- NOTE | ~2024-01-15 | NM_ITS ---
EXERCISE MYOCARDIAL PERFUSION STUDY INDICATION: Precordial chest pain to evaluate for myocardial ischemia TECHNIQUE: The patient was brought in for an exercise perfusion study on 01/15/2024. Patient performed exercise as per Sukhdev protocol and was injected 30 mCi of sestamibi once target heart rate was achieved. Images were obtained using the SPECT gamma camera interlaced with the gating device. Images were obtained in supine position. Resting perfusion study was performed on 01/16/2024. Patient was administered 30 mCi of sestamibi intravenously at rest. Images were then obtained in supine position. Images obtained without without CT attenuation. Total DLP 88 mGy-cm. Images were processed with the software and compared side to side in short axis, horizontal long axis and vertical long axis views. FINDINGS: Raw images were reviewed The stress perfusion study showed nonattenuated images show mildly to moderately reduced uptake in the basal inferior wall and myocardium. Remainder of the LV myocardium is normally perfused. Attenuation corrected images show mildly reduced uptake in the apex of the LV myocardium.. The gated study shows normal LV systolic function with calculated LVEF of 57%. LV cavity is normal in size. The gated study shows normal systolic wall thickening and contraction of segments. Resting study shows no change in perfusion pattern compared to stress perfusion study. Gating at rest reveals normal systolic wall motion with ejection fraction at greater than 55%. The findings are consistent with no clear reversible defect suggestive of ischemia. Likely normal myocardial perfusion. NM/NM cardiolite stress test IMPRESSION: 1. Myocardial perfusion imaging study shows normal myocardial perfusion. 2. Gated LVEF is 57%. 3. Transient ischemic dilatation not present. EKG revealed negative for ischemia. Electronically signed by: Valerio Moreno MD 01/16/2024 04:00 PM [facility] [place]
--- NOTE | 2024-01-15 08:21 | CA_ITS ---
Acquisition Time: 2024-01-15 08:39:31 Total Exercise Time: 00:08:06 Test Indications: CARDIOMYOPATHY AFIB Medications: AMIODORONE AMLODIPINE ELIQUIS ATORVASTATIN LISINOPRIL MIRTAZAPINE OMEPRAZOLE Protocol: KAITLIN Max HR: 116 BPM 80% of Pred: 145 BPM Max BP: 180/090 mmHG Max Work Load: 10.1 METS Exercise Stress Test with exercise 8 mins 6 secs of Kaitlin Protocol, achieving 80% MPHR, without anginal symptoms, with isolated PACs and PVCs, with normotensive response to exercise. Without EKG changes meeting criteria for ischemia. Nuclear images pending. Test reviewed with Dr. Evans. Referred By: Bladimir Hankins Overread By: EL JOSEPH
== END ==
LOC: HO.CARD 08:18
PROVIDERS: PCP Internal Medicine; Visit Provider Internal Medicine
DX: R07.2 Precordial pain (principal); I42.9 Cardiomyopathy, unspecified
CPT/HCPCS: 78452; 93017; A9500

== ENCOUNTER → 2024-01-15 08:21 | Outpatient (BNV) | payer MEDICARE, SELFPAY | PROVIDERS: PCP Internal Medicine; Visit Provider Nurse Practitioner Family | DX: R07.2 Precordial pain (principal); I49.1 Atrial premature depolarization; I49.3 Ventricular premature depolarization | CPT/HCPCS: 78452; 93016; 93018 ==

== ENCOUNTER 2024-03-06 13:54 | Outpatient (AMB) | payer MEDICARE, SELFPAY ==
[2024-03-06 14:00] VITALS: BP 136/80; PULSE 58; BMI 30.8
--- NOTE | 2024-03-06 14:00 | MHC.OFFVIS ---
Vital Signs 03/06/24 14:00 Height 5 ft 6 in Weight 190 lb 14.725 oz BMI 30.8 BP 136/80 Blood Pressure Location Lt brachial Position Sitting Pulse 58 Intake Visit Reasons: f/up echo/ mibi/ ep Intake Note: Pt had ablation on 02/20/24. Pt feeling okay with no complaints. Cardiology Nurse Required: Yes Cardiology Nurse Services: Cardiology Nurse Offered & Declined Cardiology Nurse Name: Madai-daughter Accompanied by: Daughter Allergies Thiazides Allergy (Intermediate, Verified 03/06/24 14:28) rash Medication List - Last Reconciled 03/06/24 by Jaspal Mendoza NP amiodarone 200 mg PO DAILY amlodipine 7.5 mg (3 x 2.5 mg) PO DAILY 90 days apixaban (Eliquis) 5 mg PO BID atorvastatin 10 mg PO DAILY cefuroxime axetil 500 mg PO BID 7 days lisinopril 40 mg PO DAILY mirtazapine 7.5 mg PO BEDTIME 90 days omeprazole 20 mg PO DAILY 90 days HPI Comments Details: This is a 73-year-old male patient presenting for a follow-up visit, accompanied by his daughter. His medical history includes atrial fibrillation, hypertension, and cardiomyopathy. The patient was cardioverted in September with successful conversion to sinus rhythm, a follow-up Holter monitor revealed bradycardia and a junctional rhythm, with the average heart rate of 46. He was referred to the EP for an ablation. Today, the patient is 1 week post atrial ablation and reports feeling very energized and overall well. He denies any exertional chest pain, shortness of breath, palpitations, dizziness, orthopnea, PND, leg edema, presyncope, or syncope. Patient today is enquiring about traveling to [place]. [facility] Medical History Atrial fibrillation Obesity (BMI 30-39.9) Vitamin D deficiency Overweight (BMI 25.0-29.9) GERD without esophagitis Pure hypercholesterolemia Benign essential hypertension Surgical History History of colonoscopy Family History Father Diabetes Mother Diabetes Social History (Reviewed 03/06/24 @ 14:28 by KIRIT Burleson Housing: House Alcohol intake: current Alcohol intake frequency: does not drink Comment: Patient refusing bed alarm Patient Tobacco Use Status: Former Tobacco user Tobacco use type: Cigarette e-Cigarette/Vaping Use: Never Used Second Hand Smoke Exposure: Yes service: No Current occupational status: retired Cognitive needs: No Hearing needs: No Vision needs: Yes Review of Systems Const Denies chills, Denies fatigue, Denies fever(s), Denies weight gain and Denies weight loss ENT Denies dizziness Card Denies chest pain, Denies leg edema, Denies lightheadedness, Denies palpitations, Denies dyspnea on exertion, Denies orthopnea and Denies other Resp Denies cough and Denies dyspnea on exertion GI Denies hematochezia and Denies change in stool character Musc Denies abnormal gait, Denies muscle weakness, Denies numbness, Denies radiating pain into limb and Denies tingling Neuro Denies abnormal gait, Denies dizziness, Denies numbness and Denies tingling Endo Denies fatigue and Denies palpitations Physical Exam Vital Signs: Last Vital Signs Pulse 58 03/06/24 14:00 BP 136/80 03/06/24 14:00 BMI result Body Mass Index 30.8 Const General: cooperative, healthy appearing, comfortable and no acute distress Orientation/consciousness: patient oriented x3 HEENT Head: Yes normal to inspection Neck Neck: Yes normal visual inspection, Yes trachea midline and Yes supple Chest Chest palpation & inspection: normal inspection of the chest Resp Effort & Inspection: normal respiratory effort Auscultation: clear to auscultation bilaterally, no crackles, no rales, no rhonchi and no wheezes Cardio Jugular venous distension: no JVD Palpation: normal PMI Rate: regular rate Rhythm: regular rhythm Heart sounds: S1 normal heart sound present, S2 normal heart sound present, no click, no gallops, no murmurs and no rubs Peripheral pulses: Peripheral pulses 2+ throughout GI Inspection: Yes normal to inspection Palpation (GI): Soft to palpation Auscultation: normal bowel sounds Skin General skin exam: no rashes or lesions noted Neuro General: patient oriented x3 Extrem General: Yes normal to inspection, No no pedal edema and No calf tenderness Psych Appearance: grossly normal Mental Status: mental status grossly normal Speech and movement: Normal speech and movement present Office Procedures EKG Details: EKG today showed underlying sinus bradycardia at 58 beats per minute, left anterior fascicular block, [place], [place] [id number], Complete Assessment & Plan Assessment & Plan (1) Atrial fibrillation: Code(s): I48.91 - Unspecified atrial fibrillation Category: Medical Qualifiers: Atrial fibrillation type: persistent (not longstanding) Qualified Code(s): I48.19 - Other persistent atrial fibrillation Plan: EKG today shows sinus Hipolito at 58 beats per minute. Continue Eliquis 5 mg b.i.d. for full oral anticoagulation therapy. Continue amiodarone for additional 3 weeks. We will get a Holter in 3 months to assess for any recurrent AFib. (2) Cardiomyopathy: Code(s): I42.9 - Cardiomyopathy, unspecified Category: Medical Qualifiers: Cardiomyopathy type: unspecified Qualified Code(s): I42.9 - Cardiomyopathy, unspecified Plan: 11/24/2023- Echo showed normal EF 60-65% with impaired relaxation filling pattern, mildly dilated ascending aorta. Previously EF at 40%, probably due to AFib. (3) Benign essential hypertension: Code(s): I10 - Essential (primary) hypertension Category: Medical Plan: Blood pressure today is well-controlled at 136/80. Continue lisinopril and amlodipine therapy. Recommend heart healthy diet, regular exercise, aggressive blood pressure management, continue his statin therapy, and emphasize the need for compliance with medication regimen. Safe for patient to travel at this time. We will follow-up with him upon his return. This note was generated using voice recognition software. While every effort has been made to ensure accuracy and proper material analyst, there may be occasional errors that could affect the content or meaning of the described symptoms. l Orders: Orders ECG 3 day holter monitor 3 Months I48.19 - Other persistent atrial fibrillation AMB EKG-In Office Today I48.19 - Other persistent atrial fibrillation Coding Level of Care Code Est Pt Level 4 (74557) Diagnoses Persistent atrial fibrillation I48.19 Atrial fibrillation type: persistent (not longstanding) Cardiomyopathy, unspecified type I42.9 Cardiomyopathy type: unspecified Benign essential hypertension I10 CPT Codes EKG - CPT: [id number], Complete ([id number]) Time Spent (min) 31 Comment Time spent in reviewing the chart, test results, assessment, counseling and documentation.
--- OUTSIDE RECORDS SUMMARY | 2024-03-06 16:10 | XMS_ITS | Encounter Summary ---
Author Organization [employer] [facility] Address [address] [place] [address] Care Team Providers Care Service Cleaner Name Role Phone Unavailable Primary Care Provider Unavailabl e Encounter Details Date Type Department Care Team (Latest Contact Info) Description 09/28/2020 Abstract [facility] CONVERSIONS Dental, Provider, DDS Social History Tobacco Use Types Packs/Day Years Used Date Smoking Tobacco: Never Assessed Sex and Gender Information Value Date Recorded Sex Assigned at Male 12/13/2021 10:25 AM EDT Legal Sex Male 10:25 AM EDT Gender Identity Male 01/26/2022 10:55 AM EST Sexual Orientation Choose not to disclose 2021 10:25 AM EDT documented as of this encounter Plan of Treatment Upcoming Encounters Date Type Department Care Team (Late st Contact Info) Description 04/15/2024 9:00 AM EST Office Visit [facility] ADULT DENTAL [address] [place] [address] Eleni Hopkins 04/22/2024 9:00 AM EDT Office Visit [facility] ADULT DENTAL [address] [place] [address] Eleni Hopkins documented as of this encounter Visit Diagnoses Not on filedocumented in this encounter
--- OUTSIDE RECORDS SUMMARY | 2024-03-06 16:10 | XMS_ITS | Encounter Summary ---
Author Organization [employer] [facility] Address [address] [place] [address] Care Team Providers Care Assistant Buyer Name Role Phone Unavailable Primary Care Provider Unavailabl e Encounter Details Date Type Department Care Team (Latest Contact Info) Description 07/11/2018 Abstract [facility] CONVERSIONS Dental, Provider, DDS Social History Tobacco [...] Description 04/15/2024 9:00 AM EST Office Visit [facility] ADULT DENTAL [address] [place] [address] Eleni Hopkins 04/22/2024 9:00 AM EDT Office Visit [facility] ADULT DENTAL [address] [place] [address] Eleni Hopkins documented as of this encounter Visit Diagnoses Not on filedocumented in this encounter
--- OUTSIDE RECORDS SUMMARY | 2024-03-06 16:10 | XMS_ITS | Clinical Summary ---
Author Organization [facility] [facility] Address [address] [place] [address] Care Team Providers Care Payroll Benefits Administrator Name Role Phone Unavailable Primary Care Provider Unavailabl e Allergies Active Allergy Reactions Criticality Noted Date Comments Thiazide-Type Diuretics 02/27/2024 Medications amLODIPine (Norvasc) 2.5 MG tablet TAKE THREE TABLETS BY MOUTH 7.5MG) EVERY DAY 09/28/2022 Active atorvastatin (Lipitor) 10 MG tablet Take 10 mg by mouth in the morning. 09/28/2022 Active lisinopril 40 MG tablet Take 40 mg by mouth in the morning. 09/28/2022 Active mirtazapine (Remeron) 7.5 MG tablet Take 7.5 mg by mouth at bedtime. 09/28/2022 Active omeprazole (PriLOSEC) [address] capsule Take 20 mg by mouth in the morning. 09/28/2022 Active acetaminophen (Tylenol) 500 MG tabletIndication s:Acute periodontal abscess Take 1 tablet (500 mg) by mouth every 6 (six) hours if needed for mild pain for up to 15 doses. 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 History of tooth extraction 12/27/2023 Dental attrition, excessive, generalized 023 Periodontal disease 10/19/2022 Dental plaque 10/19/2022 Missing teeth, acquired 10/19/2022 Severe generalized gingival recession 10/19/2022 Encounters Date Type Department Care Team Description 02/27/2024 9:30 AM EST Office Visit [facility] ADULT DENTAL [address] [place] [address] Matt Lopez DDS Dental attrition, excessive, generalized (Primary Dx); Missing teeth, acquired 12/27/2023 2:30 PM EST Office Visit [facility] ADULT DENTAL [address] [place] [address] Matt Lopez DDS Bruxism (Primary Dx); History of tooth extraction, unspecified edentulism class from Last 3 Months Immunizations Name Administration Dates Next Due Fay Covid-19 Vaccine 6+ Bivalent 04/07/2022 Social History Tobacco Use Types Packs/Day Years Used Date Smoking Tobacco: Never Passive Smoke Exposure: Never Smokeless Tobacco: Never Tobacco Cessation:Counseling Given: Not Answered Alcohol Use Standard Drinks/Week Comments Yes 1 (1 standard drink = 0.6 oz pur e alcohol) Sex and Gender Information Value Date Recorded Sex Assigned at Male 12/13/2021 10:25 AM EDT Legal Sex Male 10:25 AM EDT Gender Identity Male 01/26/2022 10:55 AM EST Sexual Orientation Choose not to disclose 2021 10:25 AM EDT Last Filed Vital Signs Vital Sign Reading Time Taken Comments Blood Pressure 168/86 02/27/2024 9:55 AM EST Pulse 74 12/27/2023 2:26 PM EST Temperature 26.7 ??C (80 ??F) 01/26/2022 10:51 AM EST Respiratory Rate - - Oxygen Saturation - - Inhaled Oxygen Concentration - - Weight - - Height - - Body Mass Index - - Plan of Treatment Upcoming Encounters Date Type Department Care Team (Late st Contact Info) Description 04/15/2024 9:00 AM EST Office Visit [facility] ADULT DENTAL [address] [place] [address] Eleni Hopkins 04/22/2024 9:00 AM EDT Office Visit [facility] ADULT DENTAL [address] [place] [address] Eleni Hopkins Health Maintenance Due Date Last Done Comments CT Colonography 1948 Colonoscopy 1948 Colorectal Cancer Screening 1948 Depression Screening 1948 FIT DNA/Cologuard 1948 FIT 1948 FOBT 1948 Lipid Panel 1948 SDOH Screening 1948 Sigmoidoscopy 1948 Alcohol/Substance Use Screening 1960 Hepatitis C Screening 1966 DTaP/Tdap/Td Vaccines (1 - Tdap) 05/26/1967 Zoster Vaccines (1 of 2) 1998 Pneumococcal Vaccine: 65+ Years (1 of 1 - PCV) 2013 RSV Patients and Patients Aged 60 years or older (1 - 1-dose 75+ series) 05/26/2023 COVID-19 Vaccine (5 - season) 2023 04/07/2022, 01/24/2021, 07/08/2020, Additional history exists Influenza Vaccine (#1) 2023 Dental Oral Exam 05/13/2024 11/13/2023, 07/2022, 11/16/2021 Dental Prophylaxis 05/13/2024 11/13/2023, 0 10/19/2022, 11/16/2021 Dental X-Ray: Bitewings 11/13/2024 11/13/2023, 09/28 Dental X-Ray: Full Mouth 11/17/2024 11/16/2021 Tobacco Screening 02/26/2025 02/27/2024 HIB Vaccines Aged Out No longer eligi ble based on patient's age to complete this topic HPV Vaccines Aged Out No longer eligi ble based on patient's age to complete this topic Hepatitis A Vaccines Aged Out No long er eligible based on patient's age to complete this topic Hepatitis B Vaccines Aged Out No long er eligible based on patient's age to complete this topic IPV Vaccines Aged Out No longer eligi ble based on patient's age to complete this topic Meningococcal Vaccine Aged Out No dru mp eligible based on patient's age to complete this topic RSV under 20 months Aged Out No longe r eligible based on patient's age to complete this topic Rotavirus Vaccines Aged Out No longer eligible based on patient's age to complete this topic Procedures Procedure Name Priority Date/Time Associated Diagnosis Comments ADJUNCTIVE GENERAL SERVICES - PROFESSIONAL VISITS - CASE PRESENTATION, SUBSEQUENT TO DETAILED AND EXTENSIVE TREATMENT PLANNING Routine 02/27/2024 9:30 AM EST 30 ADD TOOTH TO EXISTING PARTIAL DENTURE Routine 02/27/2024 9:30 AM EST ADJUNCTIVE GENERAL SERVICES - PROFESSIONAL VISITS - CASE PRESENTATION, SUBSEQUENT TO DETAILED AND EXTENSIVE TREATMENT PLANNING Routine 12/27/2023 2:30 PM EST LIMITED ORAL EVALUATION - PROBLEM FOCUSED Routine 12/27/2023 2:30 PM EST PROPHYLAXIS - ADULT Routine 11/13/2023 8 :00 AM EDT Dental calculus Dental plaque BITEWINGS - 4 RADIOGRAPHIC IMAGES Routine 11/13/2023 8:00 AM EDT PERIODIC ORAL EVALUATION - ESTABLISHED PATIENT Routine 11/13/2023 8:00 AM EDT Dental calculus Dental plaque Bruxism Encounter for dental examination Periodontal disease from Last 3 Months or Most Recently Relevant to Health Maintenance Insurance MEDICARE Member Subscriber Plan / Payer (Ef fective 2022-Present) Name:Jacky Brantley Member ID:[id number] Relation to Subscriber:Self Name:Jacky Brantley Subscriber ID:[id number] Payer ID:[id number] Group ID:Not on file Type:Medicare [facility] [address] [address] DENTAL - HSN FULL (MEDICAID)
--- OUTSIDE RECORDS SUMMARY | 2024-03-06 16:10 | XMS_ITS | Encounter Summary ---
Author Organization [facility] [facility] Address [address] [place] [address] Care Team Providers Care Projector Operator Name Role Phone Unavailable Primary Care Provider Unavailabl e Reason for Visit * Reason Comments Dentures Delivery Encounter Details Date Type Department Care Team (Late st Contact Info) Description 02/27/2024 9:30 AM EST Office Visit [facility] ADULT DENTAL [address], [place] [phone] Matt Lopez DDS [address] [place] [address] Dental attrition, excessive, generalized (Primary Dx); Missing teeth, acquired Social History Tobacco Use Types Packs/Day Years Used Date Smoking Tobacco: Never Passive Smoke Exposure: Never Smokeless Tobacco: Never Alcohol Use Standard Drinks/Week Comments Yes 1 (1 standard drink = 0.6 oz pur e alcohol) Sex and Gender Information Value Date Recorded Sex Assigned at Male 12/13/2021 10:25 AM EDT Legal Sex Male 10:25 AM EDT Gender Identity Male 01/26/2022 10:55 AM EST Sexual Orientation Choose not to disclose 2021 10:25 AM EDT documented as of this encounter Last Filed Vital Signs Vital Sign Reading Time Taken Comments Blood Pressure 168/86 02/27/2024 9:55 AM EST Pulse - - Temperature - - Respiratory Rate - - Oxygen Saturation - - Inhaled Oxygen Concentration - - Weight - - Height - - Body Mass Index - - documented in this encounter Progress Notes * Matt Lopez DDS - 02/27/2024 9:30 AM EST Patient ID: Jacky Brantley is a 73 y.o. male. Time Out: Timeout Date: 02/27/24, Timeout Time: 0947 Location: [facility] Tooth: Mandible and #30 Procedure: Dentures Verified the above with patient, operator/assistant foreman, and provider. Confirmed via patient's chart, intraorally and by radiographs. Training And Development Rep: not applicable Chief Complaint Patient presents with Dentures Delivery Medical Hx: Vitals: Blood pressure (!) 168/86. Medications, Med Hx reviewed with patient and updated in chart. Consent Obtained: The risks, benefits, indications, potential complications, and alternatives were explained to the patient and informed consent was obtained with good understanding. Treatment Provided: Dental procedures in this visit [id number] - ADD TOOTH TO EXISTING PARTIAL DENTURE 30 (Completed) Service provider: Matt Lopez DDS Billing provider: Matt Lopez DDS [id number] - CASE PRESENTATION, DETAILED AND EXTENSIVE TREATMENT PLANNING (Completed) Service provider: Matt Lopez DDS Billing provider: Matt Lopez DDS Tried in denture(s) -Evaluated for comfort, fit, phonetics, and stability (f, v, s, th sounds; swallow, yawn, etc) -Evaluated for satisfactory esthetics. -Occlusion verified; adjustments made as necessary. Patient has received information sheet for denture care and expectations. Pt was provided with denture case and denture brush. NV: F/U / adj as needed Careers Counsellor: Tyler Telles Dentist: Matt Lopez DDS documented in this encounter Plan of Treatment Upcoming Encounters Date Type Department Care Team (Late st Contact Info) Description 04/15/2024 9:00 AM EST Office Visit [facility] ADULT DENTAL [address] [place] [address] Eleni Hopkins 04/22/2024 9:00 AM EDT Office Visit [facility] ADULT DENTAL [address] [place] [address] Eleni Hopkins documented as of this encounter Procedures Procedure Name Priority Date/Time Associated Diagnosis Comments ADJUNCTIVE GENERAL SERVICES - PROFESSIONAL VISITS - CASE PRESENTATION, SUBSEQUENT TO DETAILED AND EXTENSIVE TREATMENT PLANNING Routine 02/27/2024 9:30 AM EST 30 ADD TOOTH TO EXISTING PARTIAL DENTURE Routine 02/27/2024 9:30 AM EST documented in this encounter Visit Diagnoses Diagnosis Dental attrition, excessive, generalized- Primary Excessive attrition of teeth, generalized Missing teeth, acquired documented in this encounter
--- OUTSIDE RECORDS SUMMARY | 2024-03-06 16:10 | XMS_ITS | Encounter Summary ---
Author Organization [employer] [facility] Address [address] [place] [address] Care Team Providers Care Orchestra Conductor Name Role Phone Unavailable Primary Care Provider Unavailabl e Encounter Details Date Type Department Care Team (Latest Contact Info) Description 11/16/2021 Abstract [facility] CONVERSIONS Dental, Provider, DDS Social History [...] Description 04/15/2024 9:00 AM EST Office Visit [facility] ADULT DENTAL [address] [place] [address] Eleni Hopkins 04/22/2024 9:00 AM EDT Office Visit [facility] ADULT DENTAL [address] [place] [address] Eleni Hopkins documented as of this encounter Visit Diagnoses Not on filedocumented in this encounter
== END 2024-03-06 14:29 | disposition home or self-care (01) ==
PROVIDERS: PCP Internal Medicine
DX: I48.19 Other persistent atrial fibrillation (principal); I42.9 Cardiomyopathy, unspecified; I10 Essential (primary) hypertension
CPT/HCPCS: 93010; 99214

== ENCOUNTER → 2024-03-06 13:54 | Outpatient (BNVA) | payer MEDICARE, OTHER, SELFPAY | PROVIDERS: PCP Internal Medicine | DX: I48.19 Other persistent atrial fibrillation (principal); I10 Essential (primary) hypertension; I42.9 Cardiomyopathy, unspecified | CPT/HCPCS: 93005; 99212 ==

== ENCOUNTER 2024-06-10 08:39 | Inpatient (IN) | payer MEDICARE, OTHER, SELFPAY ==
[2024-06-10] VITALS (14 sets, daily range): BP systolic 103–181; BP diastolic 57–90; PULSE 62–80; RESP 16–20; TEMP 36.1–37.6; O2SAT 94–98; BMI 26.7; BMI 27.0
--- NOTE | 2024-06-10 | ECG_ITS ---
Test Reason : abd pain Blood Pressure : */* mmHG Vent. Rate : 84 BPM Atrial Rate : * BPM P-R Int : * ms QRS Dur : 174 ms QT Int : 388 ms P-R-T Axes : * -42 25 degrees QTcB Int : 458 ms Artifact ?Junctional rhythm Left axis deviation Non-specific intra-ventricular conduction block Minimal voltage criteria for LVH, may be normal variant ( [place] product ) Abnormal ECG When compared with ECG of 29-Sep-2023 14:25, Junctional rhythm has replaced sinus rhythm Referred By: Generic ED Physician Electronically Signed By: London Evans
--- NOTE | 2024-06-10 | ECG_ITS ---
Test Reason : atrial fibrillation? Blood Pressure : */* mmHG Vent. Rate : 67 BPM Atrial Rate : 67 BPM P-R Int : 158 ms QRS Dur : 94 ms QT Int : 422 ms P-R-T Axes : -1 -32 -15 degrees QTcB Int : 445 ms Sinus rhythm with occasional Premature ventricular complexes with ventricular escape complexes Left axis deviation Abnormal ECG When compared with ECG of 10-Jun-2024 08:50, Sinus rhythm has replaced Atrial fibrillation Questionable change in QRS duration Referred By: Jalen Ryan Electronically Signed By: London Evans
--- NOTE | ~2024-06-10 | CT_ITS ---
EXAMINATION: CT ABDOMEN AND PELVIS WITH CONTRAST CLINICAL INFORMATION: Right lower quadrant abdominal pain. COMPARISON: None available. TECHNIQUE: Multidetector volumetric images were obtained from the superior aspect of the liver through the pubic symphysis following administration 85 mL of Omnipaque 350 intravenous contrast. Sagittal and coronal reformatted images were obtained on the technologist's workstation. Oral contrast: No This CT examination was performed using dose optimization techniques as appropriate, variously including the following: *Automated exposure control *Adjustment of mA and/or kV according to patient size (this includes techniques or standardized protocols for targeted exams where dose is matched to indication/reason for exam; i.e. extremities or head) *Use of iterative reconstruction technique FINDINGS: LUNG BASES: Mildly degraded by respiratory motion. Lung bases appear clear. Top normal heart size. Small type I hiatus hernia. LIVER, GALLBLADDER, AND BILIARY TREE: The liver is normal in size, shape, and attenuation. No suspicious focal hepatic lesion or biliary ductal dilatation is present. There is a simple cyst in segment 8 measuring 1.7 cm approximately. There is an 11 mm cyst in the caudate lobe. The gallbladder is unremarkable with no evidence of radiopaque gallstones, gallbladder wall thickening, or obvious pericholecystic inflammatory changes. PANCREAS: Unremarkable. SPLEEN: Unremarkable. ADRENAL GLANDS: Unremarkable. KIDNEYS AND URETERS: The kidneys are normal in size, shape, and attenuation. No hydronephrosis, hydroureter, or calculi seen. No perinephric stranding. Simple cyst in the inferior pole of the left kidney measuring 3.8 x 3.5 cm. There is a second subcentimeter cyst in the mid to lower pole region. BLADDER: Unremarkable. The median lobe of the prostate significantly protrudes into the bladder base. GASTROINTESTINAL TRACT: Acute appendicitis, likely perforated at the region of the tip. There is an associated phlegmonous/inflammatory nonorganized collection abutting the tip of the appendix, likely forming abscess collection (series 5, image 37; series 3, image 58). There is extensive periappendiceal and pericecal inflammation. There is reactive thickening of the base of the cecum, and of the proximal ascending colon. Small type I hiatus hernia. Stomach, and duodenum appear grossly normal. The small bowel demonstrates minimal caliber increase likely secondary to ileus. Mild thickening of the most terminal ileum abutting the inflammatory process at the base of the cecum, secondarily inflamed. Minimal interloop ascites is in the right lower quadrant region. Remainder of the colon, and rectum image normally. ABDOMINAL WALL: There are bilateral inguinal fat-containing hernias. LYMPH NODES: None enlarged by size criteria. VASCULAR: There is moderate atheromatous calcification of the aorta and iliac arteries. There is no aneurysm. PELVIC VISCERA: There is marked prostatic enlargement, with the prostate measuring approximately 6.1 cm in diameter. The median lobe protrudes significantly into the bladder base. There is an irregular enhancement pattern, nonspecific. OSSEOUS STRUCTURES: No suspicious lytic or blastic bone lesion. There are numerous prominent Schmorl's nodes within the endplates of the vertebral bodies of the imaged spine, with associated mild to moderate degenerative spondylosis. Mild hip joint arthritis bilaterally. CT/CT abdomen pelvis w IV con IMPRESSION: 1. Acute appendicitis, likely perforated at the region of the tip. There is an associated phlegmonous/inflammatory nonorganized collection abutting the tip of the appendix, likely forming abscess collection. There is extensive periappendiceal and pericecal inflammation. 2. Mild ileus of the small bowel, likely secondary to the inflammatory process on the right lower quadrant. Trace interloop ascites. 3. Marked prostatic enlargement, with the prostate measuring approximately 6.1 cm in diameter. The median lobe protrudes significantly into the bladder base. There is an irregular enhancement pattern, nonspecific. Above findings communicated to Pennie Lemon PA-C with message acknowledged at 10:29 AM, 06/10/2024. Electronically signed by: Joe Santos MD 06/10/2024 10:38 AM EDT
--- NOTE | 2024-06-10 09:21 | ED_ITS ---
HPI - Abdominal Pain General Chief Complaint: Abdominal Pain Stated Complaint: abd pain post cardiac surgery Time Seen by Provider: 06/10/24 09:20 Source: patient and family Mode of arrival: ambulatory Limitations: no limitations History of Present Illness ED Provider: Pennie Lemon PA-C HPI narrative: This is a 74-year-old male, with a past medical history of atrial fibrillation with cardiac ablation in February 2024 on eliquis, hypertension, hypercholesterolemia, GERD, who presents emergency department with concerns for right lower abdominal pain for the last 2 weeks. Patient was here with daughter who is speaking for patient as patient appears to be diaphoretic and uncomfortable. Daughter reports that over the last 2 weeks he has been complaining of right-sided abdominal pain, which has worsened in severity over the last 3 days. No chest pain. He states that the pain starts in his low back and radiates into his abdomen. Upon re-evaluation, patient also states that he has had some urinary hesitancy, denies any dysuria, hematuria, or urine color changes. He denies any fevers, chills, chest pain, shortness of breath, changes in bowel habits, no bloody or black stool. Daughter does report decreased appetite over the last 2 weeks, he last ate corn flakes and a coffee this morning. No hx of abdominal surgeries in the past. No other complaints or concerns at this time. MD elicited complaint: abdominal pain and flank pain Pertinent past history: none Severity: moderate Quality: stabbing Radiation: none Related Data Previous Rx's ?Medication ?Instructions ?Recorded amlodipine 2.5 mg tablet 7.5 mg (3 x 2.5 mg) PO DAILY 90 08/01/23 days #270 caps atorvastatin 10 mg tablet 10 mg PO DAILY #90 tabs 10/04/23 mirtazapine 7.5 mg tablet 7.5 mg PO BEDTIME 90 days #90 tabs 12/24/23 apixaban 5 mg tablet (Eliquis) 5 mg PO BID #60 tabs 02/19/24 lisinopril 40 mg tablet 40 mg PO DAILY #90 tabs 03/12/24 omeprazole 20 mg capsule,delayed 20 mg PO DAILY 90 days #90 caps 03/12/24 release Allergies Allergy/AdvReac Type Severity Reaction Status Date / Time Thiazides Allergy Intermediate rash Verified 06/10/24 08:55 Review of Systems Review of Systems Constitutional: No Weight loss, No Fever, No Chills, No Night Sweats, No Fatigue, No Malaise ENT/Mouth: No Hearing loss, No Ear Pain, No Nasal Congestion, No Sinus Pain, No Hoarseness, No sore throat, No Rhinorrhea, No Swallowing Difficulty Eyes: No Eye Pain, No Swelling, No Redness, No Foreign Body, No Discharge, No Vision Changes Cardiovascular: No Chest Pain, No SOB, No Dyspnea on Exertion, No Orthopnea, No Edema, No Palpitations Respiratory: No Cough, No Sputum, No Wheezing, No Smoke Exposure, No Dyspnea Gastrointestinal: No Nausea, No Vomiting, No Diarrhea, No Constipation, +Abdominal pain, No Hematochezia, No Melena Genitourinary: No irregular bleeding, No Dysuria, No Urinary Frequency, No Hematuria, No Urinary Incontinence/retention, No Urgency, No Flank Pain, No Urinary Flow Changes, No Hesitancy Musculoskeletal: No joint pain, No Myalgias, No Joint Swelling Skin: No Skin Lesions, No rash Neuro: No Weakness, No Numbness, No Paresthesias, No Loss of Consciousness, No Dizziness, No Headache Psych: No Anxiety/Panic, No Depression, No SI/HI/AH/VH, No Social Issues, Heme/Lymph: No Bruising, No Bleeding,No Lymphadenopathy Endocrine: No Polyuria, No Polydipsia, No Temperature Intolerance Yes all other systems are reviewed and are negative Constitutional: Reports as per [facility] Past Medical History Medical History Atrial fibrillation Obesity (BMI 30-39.9) Vitamin D deficiency Overweight (BMI 25.0-29.9) GERD without esophagitis Pure hypercholesterolemia Benign essential hypertension Surgical History History of colonoscopy Family History Family History Father Diabetes Mother Diabetes Social History Social History Housing: House Alcohol intake: never Comment: Patient refusing bed alarm Patient Tobacco Use Status: Former Tobacco user Tobacco use type: Cigarette Smoked in Last 30 Days: No e-Cigarette/Vaping Use: Never Used Second Hand Smoke Exposure: Yes Substance Use Type: Marijuana Advance Directives: No Advance Directives Information Provided: Yes Do you have a plan to hurt others: No Plan service: No Current occupational status: retired Cognitive needs: No Hearing needs: No Vision needs: Yes Physical Exam ED Vital Signs: Vital Signs - 24 hr 06/10/24 08:55 06/10/24 09:28 06/10/24 12:21 Temperature 98.3 F 97.5 F 98.2 F Pulse Rate 63 67 64 Respiratory Rate 20 18 18 Blood Pressure 170/83 H 141/79 H 150/81 H Pulse Oximetry 98 97 Oxygen Delivery Method Room Air Room Air 06/10/24 12:24 Temperature 98.2 F Pulse Rate 64 Respiratory Rate 18 Blood Pressure 150/81 H Pulse Oximetry 98 Oxygen Delivery Method Room Air BMI result Body Mass Index 26.7 Const Other: Patient appears to be uncomfortable, diaphoretic, complaining of abdominal pain General: cooperative, comfortable, no acute distress and acute distress Orientation/consciousness: patient oriented x3 Limitations: no limitations HENMT Head: Yes normal to inspection, Yes normocephalic and Yes atraumatic Ears: hearing grossly normal bilaterally General nose exam: Normal external nose present Face and sinus: Yes normal facial exam Mouth: Normal oral and palatal mucosa present, oropharynx normal and moist mucous membranes Throat: Yes posterior oropharynx normal Eyes General: appearance normal, both eyes and all related structures Eyelids: Yes eyelids normal Conjunctivae: conjunctivae normal Sclerae: sclerae normal Pupils: Equal, round and reactive pupils present EOM: EOMs intact bilaterally Neck Neck: Yes normal visual inspection, Yes full ROM and Yes no lymphadenopathy Lymphatic: no lymphadenopathy noted Chest Chest palpation & inspection: normal inspection of the chest Resp Effort & Inspection: normal respiratory effort and able to speak in complete sentences Auscultation: clear to auscultation bilaterally, no crackles, no rales, no rhonchi and no wheezes Cardio Rate: regular rate Rhythm: regular rhythm Heart sounds: S1 normal heart sound present and S2 normal heart sound present GI Other: Abdomen is soft however with tenderness throughout, he does have exquisite tenderness to the right lower quadrant with guarding noted. Inspection: Yes normal to inspection Skin General skin exam: no rashes or lesions noted Trauma: no lacerations or abrasions Wounds: no wounds Neuro General: patient oriented x3 and moves all extremities Cranial nerves: Yes Equal, round and reactive pupils present Extrem General: Yes normal to inspection Right upper extremity: normal to inspection Left upper extremity: normal to inspection Right lower extremity: normal to inspection Left lower extremity: normal to inspection Course Reevaluation(s) Reevaluation #1: Patient feeling much better after receiving IV morphine. Does have leukocytosis at 13.7 with left shift, chemistry with no significant electrolyte derangement, slight hyperglycemia at 1:25 a.m., this was not fasting. Alk phos slightly elevated at 118. I received a message from Dr. Santos, radiologist prior to official read returning with concerns for acute appendicitis with perforation. Discussed with my attending physician, Dr. Benavidez. I discussed this finding with patient and consulted with surgeon, Dr. Hogue Time: 10:36 Reevaluation #2: Dr. Hogue came down to evaluate patient, patient will be admitted to the surgical service, patient to be made NPO, and will be added to the surgical schedule. Transfer of care initiated. Time: 12:00 Medical Decision Making Medical Decision Making MDM Narrative: This is a 74-year-old male who presents emergency department for complaints of abdominal pain for the last 2 weeks. On arrival, patient was visibly uncomfortable, diaphoretic, reporting abdominal pain, blood pressure elevated at 170/83, all other vital signs within normal limits. He is afebrile, normal oxygen saturation. He is speaking in full sentences. Daughter at bedside providing information in regards to history of present illness as patient appears to be uncomfortable. Currently getting labs, will order morphine 4 mg IV push, and normal saline. We will reassess once patient's pain is more manageable. Differential Diagnosis Differential Diagnoses: The differential diagnosis associated with the presentation includes Acute appendicitis, diverticulitis, diverticulosis, bowel obstruction, renal colic Lab Data [facility] Lab Attestation statement: I reviewed the patient's lab results. Patient with leukocytosis at 13.7, chemistry revealing slight hyperglycemia at 129, alk phos 118. 06/10/24 09:21 06/10/24 09:21 Labs: Lab Results 06/10/24 06/10/24 06/10/24 Range/Units 09:18 09:21 10:53 WBC 13.7 H (4.8-10.8) X10*3/uL RBC 5.21 (4.60-5.80) X10*6/uL Hgb 15.7 (14.0-18.0) g/dl Hct 46.2 (42.0-52.0) % MCV 88.7 (80.0-98.0) fL MCH 30.1 (27.0-33.0) pg MCHC 34.0 (31.0-36.0) g/dl RDW 13.2 (11.0-16.0) % Plt Count 200 (160-400) X10*3/uL MPV 10.2 (9.4-12.4) fL Immature Gran % (Auto) 0.7 H (0.0-0.4) % Neut % (Auto) 72.3 (45-73) % Lymph % (Auto) 15.8 L (20-40) % [place] % (Auto) 9.3 (2-11) % Eos % (Auto) 1.4 (0-4) % Baso % (Auto) 0.5 (0-2) % Lymph # (Auto) 2.2 (1.2-4.9) X10*3/uL [place] # (Auto) 1.3 H (0.1-1.2) X10*3/uL Eos # (Auto) 0.2 (0.0-0.4) X10*3/uL Baso # (Auto) 0.1 (0.0-0.2) X10*3/uL Abs Immat Gran (auto) 0.09 H (0.00-0.03) X10*3/uL Absolute Neuts (auto) 9.9 H (2.0-8.3) x10*3/uL Absolute Nucleated RBC 0.000 (0.0-0.012) X10*3/uL Nucleated RBC % (auto) 0.0 (0.0-0.2) /100WBC PT 21.8 H (10.9-12.4) SEC INR 1.9 H (0.9-1.1) APTT 47.7 H (26.0-36.8) SEC Sodium 141 (135-145) mmol/L Potassium 3.7 D (3.3-5.1) mmol/L Chloride 108 (96-108) mmol/L Carbon Dioxide 25 (22-29) mmol/L Anion Gap 12 (12-20) BUN 10 (9-16) mg/dL Creatinine 0.84 (0.5-1.4) mg/dL Estim Creat Clear Calc 77.2 Estimated GFR > 60 POC Glucose 129 H (60-115) mg/dL Random Glucose 125 H (60-115) mg/dL Lactic Acid (0.5-2.0) mmol/L Calcium 9.6 (8.4-10.2) mg/dL Total Bilirubin 0.9 (0.0-1.0) mg/dL AST 20 (5-37) U/L ALT 14 (0-40) U/L Alkaline Phosphatase 118 H (39-117) U/L Troponin I High Sens 6.6 D Cancelled (<3.5-35.0) ng/L Total Protein 7.5 (6.5-8.0) g/dL Albumin 4.5 (3.5-5.0) g/dL Urine Color Yellow Urine Appearance Clear Urine pH 6.5 (5.0-9.0) Ur Specific [place] 1.025 (1.005-1.025) Urine Protein Trace (Neg-Trace) mg/dL Urine Glucose (UA) Negative (Negative) mg/dL Urine Ketones Negative (Negative) mg/dL Urine Blood Negative (Negative) Urine Nitrite Negative (Negative) Ur Leukocyte Esterase Negative (Negative) Blood Type Antibody Screen 06/10/24 Range/Units 12:56 WBC (4.8-10.8) X10*3/uL RBC (4.60-5.80) X10*6/uL Hgb (14.0-18.0) g/dl Hct (42.0-52.0) % MCV (80.0-98.0) fL MCH (27.0-33.0) pg MCHC (31.0-36.0) g/dl RDW (11.0-16.0) % Plt Count (160-400) X10*3/uL MPV (9.4-12.4) fL Immature Gran % (Auto) (0.0-0.4) % Neut % (Auto) (45-73) % Lymph % (Auto) (20-40) % [place] % (Auto) (2-11) % Eos % (Auto) (0-4) % Baso % (Auto) (0-2) % Lymph # (Auto) (1.2-4.9) X10*3/uL [place] # (Auto) (0.1-1.2) X10*3/uL Eos # (Auto) (0.0-0.4) X10*3/uL Baso # (Auto) (0.0-0.2) X10*3/uL Abs Immat Gran (auto) (0.00-0.03) X10*3/uL Absolute Neuts (auto) (2.0-8.3) x10*3/uL Absolute Nucleated RBC (0.0-0.012) X10*3/uL Nucleated RBC % (auto) (0.0-0.2) /100WBC PT (10.9-12.4) SEC INR (0.9-1.1) APTT (26.0-36.8) SEC Sodium (135-145) mmol/L Potassium (3.3-5.1) mmol/L Chloride (96-108) mmol/L Carbon Dioxide (22-29) mmol/L Anion Gap (12-20) BUN (9-16) mg/dL Creatinine (0.5-1.4) mg/dL Estim Creat Clear Calc Estimated GFR POC Glucose (60-115) mg/dL Random Glucose (60-115) mg/dL Lactic Acid 1.2 (0.5-2.0) mmol/L Calcium (8.4-10.2) mg/dL Total Bilirubin (0.0-1.0) mg/dL AST (5-37) U/L ALT (0-40) U/L Alkaline Phosphatase (39-117) U/L Troponin I High Sens (<3.5-35.0) ng/L Total Protein (6.5-8.0) g/dL Albumin (3.5-5.0) g/dL Urine Color Urine Appearance Urine pH (5.0-9.0) Ur Specific [place] (1.005-1.025) Urine Protein (Neg-Trace) mg/dL Urine Glucose (UA) (Negative) mg/dL Urine Ketones (Negative) mg/dL Urine Blood (Negative) Urine Nitrite (Negative) Ur Leukocyte Esterase (Negative) Blood Type O Positive Antibody Screen NEGATIVE Independent Interpretation I performed an independent interpretation of an: EKG Interpretation: EKG revealing atrial fibrillation with PVCs, QRS 174, Q-waves seen in V1, V2, with nonspecific intraventricular block, no STEMI, reviewed with attending physician, Dr. Benavidez. Radiology Impression Discussion of test interpretation with radiology: I have reviewed the radiologist's reading. Radiologist Impression: FINDINGS: LUNG BASES: Mildly degraded by respiratory motion. Lung bases appear clear. Top normal heart size. Small type I hiatus hernia. LIVER, GALLBLADDER, AND BILIARY TREE: The liver is normal in size, shape, and attenuation. No suspicious focal hepatic lesion or biliary ductal dilatation is present. There is a simple cyst in segment 8 measuring 1.7 cm approximately. There is an 11 mm cyst in the caudate lobe. The gallbladder is unremarkable with no evidence of radiopaque gallstones, gallbladder wall thickening, or obvious pericholecystic inflammatory changes. PANCREAS: Unremarkable. SPLEEN: Unremarkable. ADRENAL GLANDS: Unremarkable. KIDNEYS AND URETERS: The kidneys are normal in size, shape, and attenuation. No hydronephrosis, hydroureter, or calculi seen. No perinephric stranding. Simple cyst in the inferior pole of the left kidney measuring 3.8 x 3.5 cm. There is a second subcentimeter cyst in the mid to lower pole region. BLADDER: Unremarkable. The median lobe of the prostate significantly protrudes into the bladder base. GASTROINTESTINAL TRACT: Acute appendicitis, likely perforated at the region of the tip. There is an associated phlegmonous/inflammatory nonorganized collection abutting the tip of the appendix, likely forming abscess collection (series 5, image 37; series 3, image 58). There is extensive periappendiceal and pericecal inflammation. There is reactive thickening of the base of the cecum, and of the proximal ascending colon. Small type I hiatus hernia. Stomach, and duodenum appear grossly normal. The small bowel demonstrates minimal caliber increase likely secondary to ileus. Mild thickening of the most terminal ileum abutting the inflammatory process at the base of the cecum, secondarily inflamed. Minimal interloop ascites is in the right lower quadrant region. Remainder of the colon, and rectum image normally. ABDOMINAL WALL: There are bilateral inguinal fat-containing hernias. LYMPH NODES: None enlarged by size criteria. VASCULAR: There is moderate atheromatous calcification of the aorta and iliac arteries. There is no aneurysm. PELVIC VISCERA: There is marked prostatic enlargement, with the prostate measuring approximately 6.1 cm in diameter. The median lobe protrudes significantly into the bladder base. There is an irregular enhancement pattern, nonspecific. OSSEOUS STRUCTURES: No suspicious lytic or blastic bone lesion. There are numerous prominent Schmorl's nodes within the endplates of the vertebral bodies of the imaged spine, with associated mild to moderate degenerative spondylosis. Mild hip joint arthritis bilaterally. CT/CT abdomen pelvis w IV con IMPRESSION: 1. Acute appendicitis, likely perforated at the region of the tip. There is an associated phlegmonous/inflammatory nonorganized collection abutting the tip of the appendix, likely forming abscess collection. There is extensive periappendiceal and pericecal inflammation. 2. Mild ileus of the small bowel, likely secondary to the inflammatory process on the right lower quadrant. Trace interloop ascites. 3. Marked prostatic enlargement, with the prostate measuring approximately 6.1 cm in diameter. The median lobe protrudes significantly into the bladder base. There is an irregular enhancement pattern, nonspecific. Medications Administered Generic Name Dose Route Start Last Admin Trade Name Freq PRN Reason Stop Dose Admin Hydromorphone HCl 0.5 mg 06/10/24 12:20 06/10/24 14:50 Hydromorphone Hcl 0.5 Mg/0.5 Ml Syringe IVPUSH 0.5 mg Q3H PRN Administration Pain, Severe (Pain Scale 7-10) Protocol Dextrose/Lactated Ringer's 1,000 mls @ 125 mls/hr 06/10/24 12:30 06/10/24 14:51 D5lr IVCONT 125 mls/hr .Q8H SHARI Administration Ondansetron HCl 4 mg 06/10/24 12:20 06/10/24 14:50 Ondansetron Hcl 4 Mg/2 Ml Vial IVPUSH 4 mg QID PRN Administration Nausea Sodium Chloride 3 ml 06/10/24 16:00 06/10/24 14:54 0.9 % Sodium Chloride Flush 3 Ml Syringe IVFLUSH Not Given QSHIFT SHARI Discontinued Medications Generic Name Dose Route Start Last Admin Trade Name Freq PRN Reason Stop Dose Admin Sodium Chloride 500 mls @ 999 mls/hr 06/10/24 09:21 06/10/24 10:00 Ns IV 06/10/24 09:51 Infused .Q31M ONE Infusion Piperacillin Sod/Tazobactam 50 mls @ 100 mls/hr 06/10/24 10:30 06/10/24 11:30 Sod 3.375 gm/ Sodium Chloride IV 06/10/24 10:59 Infused ONCE ONE Infusion Sodium Chloride 1,000 mls @ 250 mls/hr 06/10/24 11:55 06/10/24 12:21 Ns IVCONT 06/10/24 15:54 250 mls/hr .Q4H ONE Administration Iohexol 100 ml 06/10/24 10:19 06/10/24 10:19 Iohexol 350 Mg/Ml 100 Ml Infus..Btl IV 06/10/24 10:20 85 ml ONCE ONE Administration Morphine Sulfate 4 mg 06/10/24 09:19 06/10/24 09:23 Morphine Sulfate 4 Mg/Ml Cartridge IVPUSH 06/10/24 09:20 4 mg ONCE ONE Administration Protocol Morphine Sulfate 4 mg 06/10/24 10:36 06/10/24 10:44 Morphine Sulfate 4 Mg/Ml Cartridge IVPUSH 06/10/24 10:37 4 mg ONCE ONE Administration Protocol Ondansetron HCl 4 mg 06/10/24 09:31 06/10/24 09:47 Ondansetron Hcl 4 Mg/2 Ml Vial IVPUSH 06/10/24 09:32 4 mg ONCE ONE Administration Critical Care Time Critical Care Time Critical Care Time: Yes Total Critical Care Time: 35 Attestation: I have personally provided critical care time exclusive of time spent on separately billable procedures. Time includes review of lab data, radiology results, discussion with consultants, and monitoring for potential decompensation. Intervention performed as documented. Discharge Plan Discharge Clinical Impression: Acute appendicitis with appendiceal abscess Patient Disposition: Admitted As Inpatient Interventions: Admission Worksheet (ED) Last Done: 06/10/24 12:35
[2024-06-10 09:22] LABS: Glucose, Whole Blood 129 mg/dL (60-115)
[2024-06-10] MEDS: Morphine Sulfate 4 MG/ML CARTRIDGE IVPUSH ×2 (09:23→10:44)
[2024-06-10] MEDS: 0.9 % Sodium Chloride 500 ML 999 ML IV (09:24)
--- NOTE | 2024-06-10 09:25 | PC.NURSE ---
At arrival to bed patient is diaphoretic,beading sweat, alert, describes RLQ pain intermittent x 2 weeks and becoming severe last night. also c/o lower back pain radiating to right inguinal area over the course of 2 weeks. denies fevers at home. episodes of pain and diaphoresis coorolate and then pas. BP s equal bilate
[2024-06-10 09:26] LABS: MANUAL DIFF FLAG NO
[2024-06-10 09:30] LABS: Basophils Absolute Auto 0.1 X10*3/uL (0.0-0.2); Basophils Percent Auto 0.5 % (0-2); Eosinophils Absolute Auto 0.2 X10*3/uL (0.0-0.4); Eosinophils Percent Auto 1.4 % (0-4); Hematocrit 46.2 % (42.0-52.0); Hemoglobin 15.7 g/dl (14.0-18.0); Imm Gran Abs Auto 0.09 X10*3/uL (0.00-0.03); Imm Gran Pct Auto 0.7 % (0.0-0.4); Lymphocytes Absolute Auto 2.2 X10*3/uL (1.2-4.9); Lymphocytes Percent Auto 15.8 % (20-40); Mean Corpuscular Hemoglobin 30.1 pg (27.0-33.0); Mean Corpuscular Volume 88.7 fL (80.0-98.0); Mean Platelet Volume 10.2 fL (9.4-12.4); Monocytes Absolute Auto 1.3 X10*3/uL (0.1-1.2); Monocytes Percent Auto 9.3 % (2-11); Neutrophils Absolute Auto 9.9 x10*3/uL (2.0-8.3); Neutrophils Percent Auto 72.3 % (45-73); Platelet Count 200 X10*3/uL (160-400); Red Blood Count 5.21 X10*6/uL (4.60-5.80); Red Cell Distribution Width 13.2 % (11.0-16.0); White Blood Count 13.7 X10*3/uL (4.8-10.8)
[2024-06-10 09:35] LABS: INTERNATIONAL NORM RATIO 1.9 (0.9-1.1); Prothrombin Time 21.8 SEC (10.9-12.4)
[2024-06-10 09:38] LABS: Partial Thromboplastin Time 47.7 SEC (26.0-36.8)
[2024-06-10 09:44] LABS: Alanine Aminotransferase 14 U/L (0-40); Albumin Level 4.5 g/dL (3.5-5.0); Alkaline Phosphatase 118 U/L (39-117); Anion Gap 12 (12-20); Aspartate Amino Transferase 20 U/L (5-37); Bilirubin Total 0.9 mg/dL (0.0-1.0); Blood Urea Nitrogen 10 mg/dL (9-16); Calcium 9.6 mg/dL (8.4-10.2); Carbon Dioxide 25 mmol/L (22-29); Chloride 108 mmol/L (96-108); Creatinine Clr Calc Pharmacy 77.2; Estimated Glomerular Filt Rate > 60; Glucose Random 125 mg/dL (60-115); Potassium 3.7 mmol/L (3.3-5.1); Sodium 141 mmol/L (135-145); Total Protein 7.5 g/dL (6.5-8.0)
[2024-06-10] MEDS: ondansetron HCL 4 MG/2 ML VIAL IVPUSH ×4 (09:47→21:58)
[2024-06-10] MEDS: iohexoL 350 MG/ML 100 ML INFUS..BTL IV (10:19)
--- NOTE | 2024-06-10 10:48 | PC.NURSE ---
pt has been a diff stick for labs/cultures. 2 cultures taken from same sight forthis reason and inorder to admin abx soon.
[2024-06-10] MEDS: Piperacillin Sodium/Tazobactam 3.375 GM in 0.9 % Sodium Chloride 50 ML IV ×3 (11:00→23:39)
[2024-06-10 11:07] LABS: Appearance Urine Clear; Color Urine Yellow; Glucose Urine UA Negative (Negative); Leukocyte Esterase Urine Negative (Negative); Nitrite Urine Negative (Negative); PH 6.5 (5.0-9.0); Specific Gravity - Urine 1.025 (1.005-1.025); Urine Blood Negative (Negative); Urine Ketones Negative (Negative); Urine Protein Trace mg/dL (Neg-Trace)
--- OUTSIDE RECORDS SUMMARY | 2024-06-10 11:25 | XMS_ITS | Encounter Summary ---
Author Organization [facility] Address [address] [place] [address] Care Team Providers Care Derrick Helper Name Role Phone Unavailable Primary Care Provider Unavailabl e Encounter Details Date Type Department Care Team (Latest Contact Info) Description 11/16/2021 Abstract [facility] CONVERSIONS Dental, Provider, DDS Social History [...] Care Team (Late st Contact Info) Description 07/10/2024 11:00 AM EDT Office Visit [facility] ADULT DENTAL [address] [place] [address] Eleni Hopkins documented as of this encounter Visit Diagnoses Not on filedocumented in this encounter
--- OUTSIDE RECORDS SUMMARY | 2024-06-10 11:25 | XMS_ITS | Encounter Summary ---
Author Organization [facility] Address [address] [place] [address] Care Team Providers Care Director Of Events Name Role Phone Unavailable Primary Care Provider Unavailabl e Encounter Details Date Type Department Care Team (Latest Contact Info) Description 07/11/2018 Abstract [facility] CONVERSIONS Dental, Provider, DDS Social [...] Description 07/10/2024 11:00 AM EDT Office Visit [facility] ADULT DENTAL [address] [place] [address] Eleni Hopkins documented as of this encounter Visit Diagnoses Not on filedocumented in this encounter
--- OUTSIDE RECORDS SUMMARY | 2024-06-10 11:25 | XMS_ITS | Clinical Summary ---
Author Organization [employer] [facility] Address [address] [place] [address] Care Team Providers Care Fifth Hand Name Role Phone Unavailable Primary Care Provider [...] Encounters Date Type Department Care Team Description 04/24/[address] [facility] ADULT DENTAL [address] [place], [place] [phone] Eleni Hopkins 04/23/[address] [facility] ADULT DENTAL [address] [place], [place] [phone] Eleni Hopkins from Last 3 Months Immunizations Name Administration Dates Next Due Moderna Covid-19 Vaccine 6+ Bivalent 04/07/2022 Social History [...] Description 07/10/2024 11:00 AM EDT Office Visit [facility] ADULT DENTAL [address] [place], [place] [phone] Eleni Hopkins Health Maintenance Due Date Last Done Comments Depression Screening 1948 Lipid Panel 1948 SDOH Screening 1948 Alcohol/Substance Use Screening 1960 Hepatitis C Screening 1966 DTaP/Tdap/Td Vaccines (1 - Tdap) 05/26/1967 Pneumococcal Vaccine: 50+ Years (1 of 1 - PCV) 1998 Zoster Vaccines (1 of 2) 1998 RSV Patients and Patients Aged 60 years or older (1 - 1-dose 75+ series) 05/26/2023 COVID-19 Vaccine ( season) 2023 04/07/2022, 01/24/2021, 07/08/2020, Additional history [...] Procedure Name Priority Date/Time Associated Diagnosis Comments PROPHYLAXIS - ADULT Routine 11/13/2023 8 :00 AM EDT Dental calculus Dental plaque BITEWINGS - 4 RADIOGRAPHIC IMAGES Routine 11/13/2023 8:00 AM EDT PERIODIC ORAL EVALUATION - ESTABLISHED PATIENT Routine 11/13/2023 8:00 AM EDT Dental calculus Dental plaque Bruxism Encounter for dental examination Periodontal disease from Last 3 Months or Most Recently Relevant to Health [place] [id number] DENTAL - HSN FULL (MEDICAID)
--- OUTSIDE RECORDS SUMMARY | 2024-06-10 11:25 | XMS_ITS | Encounter Summary ---
Author Organization [facility] Address [address] [place] [address] Care Team Providers Care Cyber Systems Engineer Name Role Phone Unavailable Primary Care Provider Unavailabl e Encounter Details Date Type Department Care Team (Latest Contact Info) Description 09/28/2020 Abstract [facility] CONVERSIONS Dental, Provider, DDS Social [...] Description 07/10/2024 11:00 AM EDT Office Visit [facility] ADULT DENTAL [address] [place] [address] Eleni Hopkins documented as of this encounter Visit Diagnoses Not on filedocumented in this encounter
[2024-06-10 11:32] LABS: Troponin-I High Sensitivity 6.6 ng/L (<3.5-35.0)
[2024-06-10] MEDS: 0.9 % Sodium Chloride 1,000 ML 250 ML IVCONT (12:21)
--- NOTE | 2024-06-10 12:24 | PC.NURSE ---
Pt resting comfortably. Awaits transfer Rosaura. Last PO 7am. Family updated at bedside. Skin pwd. no more diaphoresis since morphine admin.
--- NOTE | 2024-06-10 12:28 | PM.HPGS ---
History of Present Illness History of Present Illness Date of Service: 06/10/24 Chief complaint: abd pain post cardiac surgery Narrative: Jacky Telles is a 74 year old male presenting with complaints of abdominal pain in the right lower quadrant. The pain began approximately 1 week ago in his initially mild but over the past 2-3 days became quite severe. Pain is located mainly in the right lower quadrant without significant radiation. He reports nausea and vomiting but denies fever or chills. He presented to the emergency department and was noted to have an elevated WBC. A CT abdomen and pelvis revealed inflammatory changes of the appendix and right lower quadrant with possible abscess formation. He was admitted to the surgical service for further management of the appendicitis. He has a history of atrial fibrillation and recently underwent cardioversion and ablation. He remains on apixaban but is now off the amiodarone. Review of Systems Review of Systems: Yes all other systems are reviewed and are negative PMFSH Past Medical History Medical History Atrial fibrillation Obesity (BMI 30-39.9) Vitamin D deficiency Overweight (BMI 25.0-29.9) GERD without esophagitis Pure hypercholesterolemia Benign essential hypertension Family History Family History Father Diabetes Mother Diabetes Surgical History Surgical History History of colonoscopy Social History Social History Housing: House Alcohol intake: never Comment: Patient refusing bed alarm Patient Tobacco Use Status: Former Tobacco user Tobacco use type: Cigarette e-Cigarette/Vaping Use: Never Used Second Hand Smoke Exposure: Yes Substance Use Type: Marijuana service: No Current occupational status: retired Cognitive needs: No Hearing needs: No Vision needs: Yes Meds Allergies Allergy/AdvReac Type Severity Reaction Status Date / Time Thiazides Allergy Intermediate rash Verified 06/10/24 08:55 Active Medications: Current Medications Calcium Carbonate (Calcium Carbonate 750 Mg Tab.Chew) 750 mg PO Q4H PRN PRN Reason: Heartburn Hydromorphone HCl (Hydromorphone Hcl 0.5 Mg/0.5 Ml Syringe) 0.5 mg IVPUSH Q3H PRN; Protocol PRN Reason: Pain, Severe (Pain Scale 7-10) Sodium Chloride (Ns) 1,000 mls @ 250 mls/hr IVCONT .Q4H ONE Stop: 06/10/24 15:54 Last Admin: 06/10/24 12:21 Dose: 250 mls/hr Dextrose/Lactated Ringer's (D5lr) 1,000 mls @ 125 mls/hr IVCONT .Q8H SHARI Piperacillin Sod/Tazobactam (Sod 3.375 gm/ Sodium Chloride) 50 mls @ 100 mls/hr IV Q6H SHARI Ondansetron HCl (Ondansetron Hcl 4 Mg/2 Ml Vial) 4 mg IVPUSH QID PRN PRN Reason: Nausea Sodium Chloride (0.9 % Sodium Chloride Flush 3 Ml Syringe) 3 ml IVFLUSH QSHIFT SHARI Physical Exam Vital Signs: Vital Signs: Last Vital Signs Temp 98.2 F 06/10/24 12:24 Pulse 64 06/10/24 12:24 Resp 18 06/10/24 12:24 BP 150/81 H 06/10/24 12:24 Pulse Ox 98 06/10/24 12:24 O2 Del Method Room Air 06/10/24 12:24 BMI result Body Mass Index 26.7 Const: General: cooperative and no acute distress Nutritional Appearance: well nourished Orientation/consciousness: patient oriented x3 Limitations: no limitations HEENT: Head: Yes normocephalic and Yes atraumatic Ears: hearing grossly normal bilaterally Resp: Effort & Inspection: normal respiratory effort, no audible wheezes, no cough and no respiratory distress Cardio: Jugular venous distension: no JVD GI: Inspection: Yes normal to inspection Palpation (GI): Firmness to palpation present (GI), Tenderness to palpation present (GI) in the RLQ, no guarding, not rigid and No hepatosplenomegaly present Percussion: Yes normal to percussion Auscultation: normal bowel sounds Skin: Other: Warm, dry, no rash Neuro: General: patient oriented x3 Extrem: General: Yes no clubbing, cyanosis or edema Results Results Labs: Short CBC 06/10/24 Range/Units 09:21 WBC 13.7 H (4.8-10.8) X10*3/uL Hgb 15.7 (14.0-18.0) g/dl Hct 46.2 (42.0-52.0) % Plt Count 200 (160-400) X10*3/uL BMP 06/10/24 09:21 Sodium 141 Potassium 3.7 D Chloride 108 Carbon Dioxide 25 BUN 10 Creatinine 0.84 Calcium 9.6 Liver Function 06/10/24 Range/Units 09:21 Total Bilirubin 0.9 (0.0-1.0) mg/dL AST 20 (5-37) U/L ALT 14 (0-40) U/L Alkaline Phosphatase 118 H (39-117) U/L Albumin 4.5 (3.5-5.0) g/dL Urine 06/10/24 Range/Units 10:53 Urine Color Yellow Urine Appearance Clear Urine pH 6.5 (5.0-9.0) Ur Specific [place] 1.025 (1.005-1.025) Urine Protein Trace (Neg-Trace) mg/dL Urine Glucose (UA) Negative (Negative) mg/dL Assessment and Plan (1) Acute appendicitis with appendiceal abscess: Status: Acute Plan 74-year-old male patient presenting with a one-week history of abdominal pain now with severe pain in the right lower quadrant with evidence of acute appendicitis with a possible abscess. On examination the patient is exquisitely tender in the right lower quadrant with guarding suggestive of a peritoneal abscess. I recommended laparoscopic or possible open appendectomy. After discussion of the procedure, risks, and alternatives, he consents to the surgery. Quality Stroke Does the patient have a stroke diagnosis?: No VTE Prior VTE?: No VTE Risk Level:: Surgical - moderate VTE Device Contraindication: N/A - Device Ordered VTE Drug Contraindication: N/A - Med Ordered Procedures Date of Service Date of Service: 06/10/24
[2024-06-10 13:21] LABS: Lactic Acid 1.2 mmol/L (0.5-2.0)
--- NOTE | 2024-06-10 13:42 | PHA.MEDREC ---
Pharmacy Consult ? Medication Reconciliation Pharmacy has completed the medication reconciliation. Spoke to patient and family at bedside, family knew his medications and were able to help confirm them. The patient no longer takes Amiodarone and finished the course of Cefuroxime.
--- NOTE | 2024-06-10 14:27 | PC.NURSE ---
Rn to Rn with Jeremy in OR.
[2024-06-10] MEDS: HYDROmorphone HCl 0.5 MG/0.5 ML SYRINGE IVPUSH (14:50)
[2024-06-10] MEDS: Dextrose 5 % and Lactated Ring 1,000 ML 125 ML IVCONT ×2 (14:51→21:57)
--- NOTE | 2024-06-10 18:11 | HO.ANESPROP2 ---
[facility] Active Problems Active Problems: All Active Problems Acute appendicitis with appendiceal abscess (Acute) Acute appendicitis with appendiceal abscess (Acute) Cardiomyopathy (Acute) Atrial fibrillation (Acute) Obesity (BMI 30-39.9) (Acute) New onset atrial fibrillation (Acute) Mood disorder (Acute) Insomnia (Acute) Vitamin D deficiency (Acute) Fatigue (Acute) Pneumonia (Acute) Olecranon bursitis of right elbow (Acute) Medicare annual wellness visit, subsequent (Acute) Screening for eye condition (Acute) Overweight (BMI 25.0-29.9) (Acute) GERD without esophagitis (Acute) Pure hypercholesterolemia (Acute) Benign essential hypertension (Acute) Past Medical History Medical History Atrial fibrillation Obesity (BMI 30-39.9) Vitamin D deficiency Overweight (BMI 25.0-29.9) GERD without esophagitis Pure hypercholesterolemia Benign essential hypertension Family History Family History Father Diabetes Mother Diabetes Family history of problems with anesthesia: No Surgical History Surgical History History of colonoscopy History of Problems with Anesthesia: No Social History Social History Housing: House Alcohol intake: never Comment: Patient refusing bed alarm Patient Tobacco Use Status: Former Tobacco user Tobacco use type: Cigarette Smoked in Last 30 Days: No e-Cigarette/Vaping Use: Never Used Second Hand Smoke Exposure: Yes Substance Use Type: Marijuana Advance Directives: No Advance Directives Information Provided: Yes Do you have a plan to hurt others: No Plan service: No Current occupational status: retired Cognitive needs: No Hearing needs: No Vision needs: Yes Meds Allergies Allergy/AdvReac Type Severity Reaction Status Date / Time Thiazides Allergy Intermediate rash Verified 06/10/24 08:55 Active Medications: Current Medications Calcium Carbonate (Calcium Carbonate 750 Mg Tab.Chew) 750 mg PO Q4H PRN PRN Reason: Heartburn Hydromorphone HCl (Hydromorphone Hcl 0.5 Mg/0.5 Ml Syringe) 0.5 mg IVPUSH Q3H PRN; Protocol PRN Reason: Pain, Severe (Pain Scale 7-10) Last Admin: 06/10/24 14:50 Dose: 0.5 mg Dextrose/Lactated Ringer's (D5lr) 1,000 mls @ 125 mls/hr IVCONT .Q8H SHARI Last Admin: 06/10/24 14:51 Dose: 125 mls/hr Piperacillin Sod/Tazobactam (Sod 3.375 gm/ Sodium Chloride) 50 mls @ 100 mls/hr IV Q6H SHARI Ondansetron HCl (Ondansetron Hcl 4 Mg/2 Ml Vial) 4 mg IVPUSH QID PRN PRN Reason: Nausea Last Admin: 06/10/24 14:50 Dose: 4 mg Sodium Chloride (0.9 % Sodium Chloride Flush 3 Ml Syringe) 3 ml IVFLUSH QSHIFT SHARI Last Admin: 06/10/24 14:54 Dose: Not Given Exam Height,Weight and Vital Signs: Height 5 ft 10 in Weight 84.3 kg Last Vital Signs Temp 98.2 F 06/10/24 14:57 Pulse 66 06/10/24 14:57 Resp 18 06/10/24 14:57 BP 181/85 H 06/10/24 14:57 Pulse Ox 97 06/10/24 14:57 O2 Del Method Room Air 06/10/24 14:57 Pertinent Lab Results Pertinent Lab Results: ,Laboratory Tests 06/10/24 06/10/24 06/10/24 09:18 09:21 10:53 WBC 13.7 H RBC 5.21 Hgb 15.7 Hct 46.2 MCV 88.7 MCH 30.1 MCHC 34.0 RDW 13.2 Plt Count 200 MPV 10.2 Immature Gran % (Auto) 0.7 H Neut % (Auto) 72.3 Lymph % (Auto) 15.8 L [place] % (Auto) 9.3 Eos % (Auto) 1.4 Baso % (Auto) 0.5 Lymph # (Auto) 2.2 [place] # (Auto) 1.3 H Eos # (Auto) 0.2 Baso # (Auto) 0.1 Abs Immat Gran (auto) 0.09 H Absolute Neuts (auto) 9.9 H Absolute Nucleated RBC 0.000 Nucleated RBC % (auto) 0.0 PT 21.8 H INR 1.9 H APTT 47.7 H Sodium 141 Potassium 3.7 D Chloride 108 Carbon Dioxide 25 Anion Gap 12 BUN 10 Creatinine 0.84 Estim Creat Clear Calc 77.2 Estimated GFR > 60 POC Glucose 129 H Random Glucose 125 H Lactic Acid Calcium 9.6 Total Bilirubin 0.9 AST 20 ALT 14 Alkaline Phosphatase 118 H Troponin I High Sens 6.6 D Cancelled Total Protein 7.5 Albumin 4.5 Urine Color Yellow Urine Appearance Clear Urine pH 6.5 Ur Specific [place] 1.025 Urine Protein Trace Urine Glucose (UA) Negative Urine Ketones Negative Urine Blood Negative Urine Nitrite Negative Ur Leukocyte Esterase Negative Blood Type Antibody Screen 06/10/24 12:56 WBC RBC Hgb Hct MCV MCH MCHC RDW Plt Count MPV Immature Gran % (Auto) Neut % (Auto) Lymph % (Auto) [place] % (Auto) Eos % (Auto) Baso % (Auto) Lymph # (Auto) [place] # (Auto) Eos # (Auto) Baso # (Auto) Abs Immat Gran (auto) Absolute Neuts (auto) Absolute Nucleated RBC Nucleated RBC % (auto) PT INR APTT Sodium Potassium Chloride Carbon Dioxide Anion Gap BUN Creatinine Estim Creat Clear Calc Estimated GFR POC Glucose Random Glucose Lactic Acid 1.2 Calcium Total Bilirubin AST ALT Alkaline Phosphatase Troponin I High Sens Total Protein Albumin Urine Color Urine Appearance Urine pH Ur Specific [place] Urine Protein Urine Glucose (UA) Urine Ketones Urine Blood Urine Nitrite Ur Leukocyte Esterase Blood Type O Positive Antibody Screen NEGATIVE Airway Mallampati Class: III TM Dist: >3cm Neck ROM: Full Partial: Upper Assessment and Plan Assessment Anesthesia Assessment: Anesthesia Plan Discussed and Chart Reviewed Final Anesthetic Review Family History of Problems with Anesthesia: No History of Problems with Anesthesia: No NPO: Yes ASA Class: III and Emergency Final Preanesthetic Review: No Changes in Pt Med Stat, Meds/Allgs Chart Reviewed, Consent Obtained/Reviewed and Anes Risks/Benef Reviewed Patient Risk: Intermediate Procedure Risk: Intermediate Anesthetic Plan Anesthetic Plan: GA Disposition: Standard PACU
--- NOTE | 2024-06-10 20:30 | P.OP_ITS ---
Operative Note Operative Note Date of Service: 06/10/24 Narrative: Preoperative diagnosis: Acute appendicitis, perforated with abscess Postoperative diagnosis: Same Procedure: Laparoscopic appendectomy Surgeon: Catracho Hogue MD Supply Planner: None Anesthesia: General endotracheal Indications for procedure: 74-year-old male patient presenting with a one-week history of abdominal pain in the right lower quadrant increased over the last 2 days presenting to the emergency department and found to have tenderness in the right lower quadrant. Workup revealed an elevated WBC. CT abdomen and pelvis was suggestive of perforated appendicitis with possible abscess Operative findings: Large phlegmon in the right lower quadrant with abscess from perforated appendicitis Specimen: Appendix Estimated blood loss: 10 mL Complications: None Drain: ESTRELLA large (10). Procedure details: Patient was brought to the OR and placed in a supine position. After administering general anesthesia the patient's abdomen was prepped with ChloraPrep and draped in a sterile fashion. A surgical time-out was called and consent confirmed. Patient received preoperative antibiotics and Venodyne boots were in place. Local anesthesia consisting of 0.5% Sensorcaine with epinephrine was infiltrated in periumbilical region. A 5 mm incision was made below the umbilicus and carried down through subcutaneous tissue. A Veress needle was then inserted while elevating abdominal cavity with towel clips. After a positive drop test the abdomen was insufflated to a pressure of 15 mm of mercury. The Veress needle was removed and a 5 mm trocar inserted. The camera was then inserted in the abdomen explored. A 2nd 5 mm trocars placed in the lower midline. A 12 mm trocar was then placed in the left lower quadrant. The patient was then placed in a Trendelenburg position and rotated to the left. The appendix was identified in the right lower quadrant with surrounding inflammatory changes involving terminal ileum, cecum and mesentery. The appendix was gently dissected from the inflammatory tissue. An abscess was identified within the phlegmon. LigaSure was used to break up the adhesions and blunt dissection used to further mobilize the appendix. The mesentery of the appendix was then divided using the LigaSure. The appendiceal artery was cauterized and divided using the LigaSure. Dissection was continued down to the base of the cecum. An Endo-TASNEEM stapler with a purple 45 mm load was then used to divide the appendix at the base of the cecum. The appendix was then placed in Endo-Catch bag and brought out through the left lower quadrant incision. The abdomen was then irrigated with saline solution and suctioned dry. Wounds were checked for hemostasis. A 10 Aleksandr-Merino drain was then placed at the site of the abscess and brought out through the lower midline trocar site. This was secured to the skin using a 3-0 nylon suture. This was connected to bulb suctioned. CO2 was then evacuated from the abdominal cavity and all trocars removed. Fascia was closed in the left lower quadrant incision using a [id number] Polysorb suture. Skin was closed at all incisions using a subcuticular 4-0 Polysorb suture. Steri-Strips 2 x 2 gauze and Tegaderm were then applied. The patient tolerated the procedure well. Sponge, instrument, needle counts reported as correct. The patient was transferred to PACU in stable condition.
[2024-06-10 20:38] LABS: Glucose, Whole Blood 158 mg/dL (60-115)
[2024-06-10] MEDS: droPERidol 5 MG/2 ML VIAL 0.625 MG IVPUSH (21:18)
--- NOTE | 2024-06-10 21:51 | P.CONHOSP_ITS ---
History of Present Illness Data of Consult Service Date: 06/10/24 Requesting physician: Catracho Hogue Primary Care Provider: Keon Beckham MD [facility] Reason for consult: medical management Pt is a 74-year-old male with past medical history atrial fibrillation on Eliquis, ,obesity depression, insomnia, ,hypertension hyperlipidemia, regular marijuana use, and GERD underwent surgery this evening for appendicitis with perforation with Dr. Hogue. Dr. Hogue consulted hospitalist for medical management. Patient appeared to tolerate laparoscopic procedure well is currently alert and orientated x3, afebrile and experiencing persistent nausea being managed by surgery. Patient has been in and out of AFib and it was recommended patient be placed on telemetry for monitoring. Review of Systems 2 Review of Systems: Patient currently denies chest pain, shortness of breath at rest, headache, visual changes, lower leg pain. Patient has mild abdominal discomfort and currently has issues with nausea that has persisted since surgery was completed. Patient does use marijuana regularly. Yes all other systems are reviewed and are negative [facility] Medical History Atrial fibrillation Obesity (BMI 30-39.9) Vitamin D deficiency Overweight (BMI 25.0-29.9) GERD without esophagitis Pure hypercholesterolemia Benign essential hypertension Cognitive capacity: Alert and orientated x3 Functional capacity: independent ambulation Family History Father Diabetes Mother Diabetes Surgical History History of colonoscopy Social History Household Members: Spouse Housing: Apartment Do you presently have visiting nurse or other home services: No Alcohol intake: never Comment: Patient refusing bed alarm Patient Tobacco Use Status: Former Tobacco user Tobacco use type: Cigarette Smoked in Last 30 Days: No e-Cigarette/Vaping Use: Never Used Second Hand Smoke Exposure: Yes Use of substances other than those prescribed or required for medical reasons: Yes Substance Use Type: Marijuana Substance Use Type Other:: smoking Substance Use Frequency: Occasionally Last Used Substance: Days (ago) Currently Displaying Signs/Symptoms of Drug Intoxication Withdrawal: No Any prior treatment program specific to substance use: No Have you been hit, kicked, punched, or otherwise hurt by someone within the past year? If so, by whom?: No Do you feel safe in your current relationship?: Yes Is there a partner from a previous relationship who is making you feel unsafe now?: No Are you made to feel afraid or neglected: No Are you DNR?: No Advance Directives: No Advance Directives Information Provided: Yes Do you have a plan to hurt others: No Plan Recently lost weight without trying: No How much weight loss: Not applicable Eating poorly because of decreased appetite: No Nutrition screen score: 0 Nutrition Risks: No Nutritional Risk Poor oral hygiene: No service: No Current occupational status: retired Cognitive needs: No Hearing needs: No Vision needs: Yes Ebola Risk: Travel/Contact With Anyone From Affected Area/s: No Has Patient Experienced Ebola Symptoms: No Meds Allergies Allergy/AdvReac Type Severity Reaction Status Date / Time Thiazides Allergy Intermediate rash Verified 06/10/24 08:55 Active Medications: Current Medications Amlodipine Besylate (Amlodipine Besylate 2.5 Mg Tablet) 7.5 mg PO DAILY [facility]; Protocol Calcium Carbonate (Calcium Carbonate 750 Mg Tab.Chew) 750 mg PO Q4H PRN PRN Reason: Heartburn Fentanyl (Fentanyl Citrate/Pf 100 Mcg/2 Ml Vial) 50 mcg IVPUSH Q5M PRN PRN Reason: Pain, Moderate to Severe (Pain Scale 4-10) Stop: 06/11/24 00:12 Hydromorphone HCl (Hydromorphone Hcl 0.5 Mg/0.5 Ml Syringe) 0.5 mg IVPUSH Q3H PRN; Protocol PRN Reason: Pain, Severe (Pain Scale 7-10) Last Admin: 06/10/24 14:50 Dose: 0.5 mg Dextrose/Lactated Ringer's (D5lr) 1,000 mls @ 125 mls/hr IVCONT .Q8H SHARI Last Admin: 06/10/24 14:51 Dose: 125 mls/hr Piperacillin Sod/Tazobactam (Sod 3.375 gm/ Sodium Chloride) 50 mls @ 100 mls/hr IV Q6H SHARI Last Admin: 06/10/24 18:18 Dose: 100 mls/hr Acetaminophen (Ofirmev) 1,000 mg in 100 mls @ 400 mls/hr IV Q6H PRN PRN Reason: Pain, Mild (Pain Scale 1-3) Lisinopril (Lisinopril 40 Mg Tablet) 40 mg PO DAILY [facility]; Protocol Mirtazapine (Mirtazapine 7.5 Mg Tablet) 7.5 mg PO BEDTIME [facility] Naloxone HCl (Naloxone Hcl 0.4 Mg/Ml Vial) 0.04 mg IVPUSH Q5M PRN PRN Reason: Excessive sedation or RR < 8 Naloxone HCl (Naloxone Hcl 0.4 Mg/Ml Vial) 0.04 mg IVPUSH Q5M PRN PRN Reason: Excessive sedation or RR < 8 Omeprazole (Omeprazole 20 Mg Capsule.Dr) 20 mg PO DAILY [facility] Ondansetron HCl (Ondansetron Hcl 4 Mg/2 Ml Vial) 4 mg IVPUSH QID PRN PRN Reason: Nausea Last Admin: 06/10/24 14:50 Dose: 4 mg Oxycodone HCl (Oxycodone Hcl Immed Release 5 Mg Tablet) 5 mg PO Q6H PRN PRN Reason: Pain, Moderate(Pain Scale 4-6) Sodium Chloride (0.9 % Sodium Chloride Flush 3 Ml Syringe) 3 ml IVFLUSH QSHIFT SHARI Last Admin: 06/10/24 14:54 Dose: Not Given Physical Exam 2 Vital Signs and Narrative: Vital Signs: Last Vital Signs Temp 98.5 F 06/10/24 21:47 Pulse 66 06/10/24 21:47 Resp 18 06/10/24 21:47 BP 178/90 H 06/10/24 21:47 Pulse Ox 97 06/10/24 21:47 O2 Del Method Nasal Cannula 06/10/24 21:47 O2 Flow Rate 2 06/10/24 21:47 BMI result Body Mass Index 26.7 Alert and orientated X3, due to nausea limited HPI but pt was able to answer all questions. Neuro: CN II-X11 intact, no deficits, visual acuity intact EYES: PERRLA, EOM intact ENT: hearing intact, no issues with swallowing, uvula midline, lips moist, nares patent no epistaxis, dentures Cardiac: S1 S2 RRR, no murmur, no JVD, no edema in Lower ext Pulmonary: lungs diminshed B Abdominal: BS active, incisional dressing in place clean and dry, ESTRELLA drain with minimal serosanguinous drainage, laproscopic sites covered with clean dry dressings MSK: strength 5/5 upper and lower extremities : pt was able to void using urinal Extremities: no edema in lower extremities, PT and DP pulses palpable +2 Psych: mood stable, judgement and insight good Skin: surgical sites as named above in GI review Results Labs 06/10/24 09:21 06/10/24 09:21 Labs: Laboratory Results - last 24 hr 06/10/24 06/10/24 06/10/24 09:18 09:21 10:53 MCV 88.7 MCH 30.1 MCHC 34.0 RDW 13.2 Plt Count 200 MPV 10.2 Immature Gran % (Auto) 0.7 H Neut % (Auto) 72.3 Lymph % (Auto) 15.8 L [place] % (Auto) 9.3 Eos % (Auto) 1.4 Baso % (Auto) 0.5 Lymph # (Auto) 2.2 [place] # (Auto) 1.3 H Eos # (Auto) 0.2 Baso # (Auto) 0.1 Abs Immat Gran (auto) 0.09 H Absolute Neuts (auto) 9.9 H Absolute Nucleated RBC 0.000 Nucleated RBC % (auto) 0.0 PT 21.8 H INR 1.9 H APTT 47.7 H Anion Gap 12 Estim Creat Clear Calc 77.2 Estimated GFR > 60 POC Glucose 129 H Random Glucose 125 H Lactic Acid Calcium 9.6 Total Bilirubin 0.9 AST 20 ALT 14 Alkaline Phosphatase 118 H Total Protein 7.5 Albumin 4.5 Urine Color Yellow Urine Appearance Clear Urine pH 6.5 Ur Specific [place] 1.025 Urine Protein Trace Urine Glucose (UA) Negative Urine Ketones Negative Urine Blood Negative Urine Nitrite Negative Ur Leukocyte Esterase Negative Blood Type Antibody Screen 06/10/24 06/10/24 12:56 20:34 MCV MCH MCHC RDW Plt Count MPV Immature Gran % (Auto) Neut % (Auto) Lymph % (Auto) [place] % (Auto) Eos % (Auto) Baso % (Auto) Lymph # (Auto) [place] # (Auto) Eos # (Auto) Baso # (Auto) Abs Immat Gran (auto) Absolute Neuts (auto) Absolute Nucleated RBC Nucleated RBC % (auto) PT INR APTT Anion Gap Estim Creat Clear Calc Estimated GFR POC Glucose 158 H Random Glucose Lactic Acid 1.2 Calcium Total Bilirubin AST ALT Alkaline Phosphatase Total Protein Albumin Urine Color Urine Appearance Urine pH Ur Specific [place] Urine Protein Urine Glucose (UA) Urine Ketones Urine Blood Urine Nitrite Ur Leukocyte Esterase Blood Type O Positive Antibody Screen NEGATIVE ECG Attestation: I personally reviewed and interpreted this ECG as follows: (NSR ) Prior ECG tracings: available for review Imaging Radiologist's Impressions: Impressions Abdomen/Pelvis CT 06/10/24 09:36 IMPRESSION: 1. Acute appendicitis, likely perforated at the region of the tip. There is an associated phlegmonous/inflammatory nonorganized collection abutting the tip of the appendix, likely forming abscess collection. There is extensive periappendiceal and pericecal inflammation. 2. Mild ileus of the small bowel, likely secondary to the inflammatory process on the right lower quadrant. Trace interloop ascites. 3. Marked prostatic enlargement, with the prostate measuring approximately 6.1 cm in diameter. The median lobe protrudes significantly into the bladder base. There is an irregular enhancement pattern, nonspecific. Above findings communicated to Pennie Lemon PA-C with message acknowledged at 10:29 AM, 06/10/2024. Electronically signed by: Joe Santos MD 06/10/2024 10:38 AM EDT RP Assessment and Plan (1) Atrial fibrillation: Qualifiers: Atrial fibrillation type: persistent (not longstanding) Qualified Code(s): I48.19 - Other persistent atrial fibrillation Status: Acute Plan Pt is a 74-year-old male with past medical history atrial fibrillation on Eliquis, ,obesity depression, insomnia, ,hypertension hyperlipidemia, regular marijuana use, and GERD admitted for appendicitis with perforation and underwent laparoscopic surgery with Dr. Hogue this evening. Surgery consulted hospitalist for medical management. Paroxysmal atrial fibrillation -Anticoagulation per surgery, patient to resume Eliquis when surgery deems safe to do so -Telemetry ordered, patient noted to be in and out of atrial fibrillation, rate controlled. Important in case rate becomes elevated above 100. -Patient was on amiodarone and this has since been discontinued. Patient is not currently on any beta-katty or calcium channel katty. -If AFib persists with poor rate control, recommend Cardiology consultation/ reconsult hospitalist. Current rate stable at 66 BPM. -Added MG to today's labs, if low will order replenishment -TSH has been WNL Hypertension -Post operatively BP is elevated secondary to nausea, no vomiting. -Recommend AM labs and if renal fx is WNL, pt can resume his lisinopril along with amlodipine tomorrow 06/11 -Hydralazine prn IVP for systolic > 160, ordered -Low sodium diet Hyperlipidemia -Resume statin at HS tomorrow Insomnia -Mirtazapine at HS starting tomorrow GERD -Omeperazole 20 mg daily -Avoid food triggers Evidence of enlarged prostate on CT of the abdomen -Pt was able to void post-operatively -Recommend referral from his PCP to see urology as an outpatient -UA neg for UTI or heme on admission Marijuana use -Pt not receptive to counseling at this time -May be contributing to persistent nausea post operatively -Recommend Haldol 1 mg IVP after review with attending Dr Arenas if related to marijuana use Hospitalist will be signing off as pt's current medical needs are addressed with RX medications. If with further monitoring, there is need for additional medical management, please reconsult hospitalist. Thank you so much for this consultation!
[2024-06-10] MEDS: 0.9 % Sodium Chloride Flush 3 ML SYRINGE IVFLUSH (21:58)
[2024-06-10] MEDS: Mirtazapine 7.5 MG TABLET PO (22:13)
[2024-06-10 22:24] LABS: Magnesium 1.9 mg/dL (1.6-2.6)
[2024-06-11] VITALS (7 sets, daily range): BP systolic 127–169; BP diastolic 63–79; PULSE 58–80; RESP 16–18; TEMP 36.4–37; O2SAT 93–97
[2024-06-11] MEDS: Dextrose 5 % and Lactated Ring 1,000 ML 125 ML IVCONT ×3 (05:59→21:35)
[2024-06-11] MEDS: Piperacillin Sodium/Tazobactam 3.375 GM in 0.9 % Sodium Chloride 50 ML IV ×4 (06:03→22:45)
--- NOTE | 2024-06-11 06:25 | PC.NURSE ---
Addendum entered by Jovanna Marroquin RN 06/11/24 06:31: BP stable, Dr. Arenas aware. 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 Dr. Arenas made aware.
[2024-06-11] MEDS: oxyCODONE HCl Immed Release 5 MG TABLET PO ×2 (07:19→21:32)
--- NOTE | 2024-06-11 07:27 | PM.PNGS ---
Subjective Subjective Date of Service: 06/11/24 <Mason Robledo PA-C - Last Filed: 06/11/24 07:46> 06/11/24 <Catracho Hogue MD - Last Filed: 06/11/24 07:58> Patient reports: no flatus and no bowel movement <Mason Robledo PA-C - Last Filed: 06/11/24 07:46> Interval history: Patient doing well today. Endorses 5/10 pain around the incision site. He denies any nausea or vomiting. He denies bowel movements but endorses small amounts of flatus. Will trial diet today. States he has been using incentive spirometry, has not ambulated out of bed. <ANABELL Neff Last Filed: 06/11/24 07:46> Physical Exam Vital Signs: Vital Signs: Last Vital Signs Temp 97.9 F 06/11/24 03:09 Pulse 59 06/11/24 06:27 Resp 18 06/11/24 03:09 BP 132/63 06/11/24 06:27 Pulse Ox 97 06/11/24 03:09 O2 Del Method Nasal Cannula 06/11/24 03:09 O2 Flow Rate 2 06/11/24 03:09 BMI result Body Mass Index 27.0 <Mason Robledo PA-C - Last Filed: 06/11/24 07:46> Const: General: comfortable and no acute distress <ANABELL Neff Last Filed: 06/11/24 07:46> Orientation/consciousness: patient oriented x3 <Mason Robledo PA-C - Last Filed: 06/11/24 07:46> Resp: Effort & Inspection: normal respiratory effort <Mason Robledo PA-C - Last Filed: 06/11/24 07:46> GI: Other: OSWALD drain in place, total output overnight 110 cc of serosanguenous drainage. Incision site is clean dry and intact <ANABELL Neff Last Filed: 06/11/24 07:46> Inspection: No distended <ANABELL Neff Last Filed: 06/11/24 07:46> Palpation (GI): Soft to palpation and Tenderness to palpation present (GI) (mild incisional site pain) <ANABELL Neff Last Filed: 06/11/24 07:46> Neuro: General: patient oriented x3 <Mason Robledo PA-C - Last Filed: 06/11/24 07:46> Objective Data Active Medications Amlodipine Besylate (Amlodipine Besylate 2.5 Mg Tablet) 7.5 mg PO DAILY [facility]; Protocol Calcium Carbonate (Calcium Carbonate 750 Mg Tab.Chew) 750 mg PO Q4H PRN PRN Reason: Heartburn Hydralazine HCl (Hydralazine Hcl 20 Mg/Ml Vial) 10 mg IVPUSH Q4H PRN; Protocol PRN Reason: SBP > 160 Hydromorphone HCl (Hydromorphone Hcl 0.5 Mg/0.5 Ml Syringe) 0.5 mg IVPUSH Q3H PRN; Protocol PRN Reason: Pain, Severe (Pain Scale 7-10) Last Admin: 06/10/24 14:50 Dose: 0.5 mg Documented By: MELISSA Dextrose/Lactated Ringer's (D5lr) 1,000 mls @ 125 mls/hr IVCONT .Q8H [facility] Last Admin: 06/11/24 05:59 Dose: 125 mls/hr Documented By: DEDE Piperacillin Sod/Tazobactam (Sod 3.375 gm/ Sodium Chloride) 50 mls @ 100 mls/hr IV Q6H [facility] Last Infusion: 06/11/24 06:36 Dose: Infused Documented By: DEDE Acetaminophen (Ofirmev) 1,000 mg in 100 mls @ 400 mls/hr IV Q6H PRN PRN Reason: Pain, Mild (Pain Scale 1-3) Lisinopril (Lisinopril 40 Mg Tablet) 40 mg PO DAILY [facility]; Protocol Mirtazapine (Mirtazapine 7.5 Mg Tablet) 7.5 mg PO BEDTIME [facility] Last Admin: 06/10/24 22:13 Dose: 7.5 mg Documented By: DEDE Naloxone HCl (Naloxone Hcl 0.4 Mg/Ml Vial) 0.04 mg IVPUSH Q5M PRN PRN Reason: Excessive sedation or RR < 8 Naloxone HCl (Naloxone Hcl 0.4 Mg/Ml Vial) 0.04 mg IVPUSH Q5M PRN PRN Reason: Excessive sedation or RR < 8 Omeprazole (Omeprazole 20 Mg Capsule.Dr) 20 mg PO DAILY [facility] Ondansetron HCl (Ondansetron Hcl 4 Mg/2 Ml Vial) 4 mg IVPUSH QID PRN PRN Reason: Nausea Last Admin: 06/10/24 21:58 Dose: 4 mg Documented By: DEDE Comments: OK to give now per Dr. Hogue. Oxycodone HCl (Oxycodone Hcl Immed Release 5 Mg Tablet) 5 mg PO Q6H PRN PRN Reason: Pain, Moderate(Pain Scale 4-6) Last Admin: 06/11/24 07:19 Dose: 5 mg Documented By: MARY Sodium Chloride (0.9 % Sodium Chloride Flush 3 Ml Syringe) 3 ml IVFLUSH QSHIFT [facility] Last Admin: 06/10/24 21:58 Dose: 3 ml Documented By: DEDE <Mason Robledo PA-C - Last Filed: 06/11/24 07:46> Labs CBC & Chem 7: 06/10/24 09:21 06/10/24 09:21 <Mason Robledo PA-C - Last Filed: 06/11/24 07:46> Labs: Laboratory Results - last 24 hr 06/10/24 06/10/24 06/10/24 09:18 09:21 10:53 MCV 88.7 MCH 30.1 MCHC 34.0 RDW 13.2 Plt Count 200 MPV 10.2 Immature Gran % (Auto) 0.7 H Neut % (Auto) 72.3 Lymph % (Auto) 15.8 L [place] % (Auto) 9.3 Eos % (Auto) 1.4 Baso % (Auto) 0.5 Lymph # (Auto) 2.2 [place] # (Auto) 1.3 H Eos # (Auto) 0.2 Baso # (Auto) 0.1 Abs Immat Gran (auto) 0.09 H Absolute Neuts (auto) 9.9 H Absolute Nucleated RBC 0.000 Nucleated RBC % (auto) 0.0 PT 21.8 H INR 1.9 H APTT 47.7 H Anion Gap 12 Estim Creat Clear Calc 77.2 Estimated GFR > 60 POC Glucose 129 H Random Glucose 125 H Lactic Acid Calcium 9.6 Magnesium 1.9 Total Bilirubin 0.9 AST 20 ALT 14 Alkaline Phosphatase 118 H Total Protein 7.5 Albumin 4.5 Urine Color Yellow Urine Appearance Clear Urine pH 6.5 Ur Specific [place] 1.025 Urine Protein Trace Urine Glucose (UA) Negative Urine Ketones Negative Urine Blood Negative Urine Nitrite Negative Ur Leukocyte Esterase Negative Blood Type Antibody Screen 06/10/24 06/10/24 12:56 20:34 MCV MCH MCHC RDW Plt Count MPV Immature Gran % (Auto) Neut % (Auto) Lymph % (Auto) Stone % (Auto) Eos % (Auto) Baso % (Auto) Lymph # (Auto) Stone # (Auto) Eos # (Auto) Baso # (Auto) Abs Immat Gran (auto) Absolute Neuts (auto) Absolute Nucleated RBC Nucleated RBC % (auto) PT INR APTT Anion Gap Estim Creat Clear Calc Estimated GFR POC Glucose 158 H Random Glucose Lactic Acid 1.2 Calcium Magnesium Total Bilirubin AST ALT Alkaline Phosphatase Total Protein Albumin Urine Color Urine Appearance Urine pH Ur Specific [place] Urine Protein Urine Glucose (UA) Urine Ketones Urine Blood Urine Nitrite Ur Leukocyte Esterase Blood Type O Positive Antibody Screen NEGATIVE <Mason Robledo PA-C - Last Filed: 06/11/24 07:46> Procedures Date of Service Date of Service: 06/11/24 <Mason Robledo PA-C - Last Filed: 06/11/24 07:46> 06/11/24 <Catracho Hogue MD - Last Filed: 06/11/24 07:58> Progress Note: A&P Assessment and plan (1) Acute appendicitis with appendiceal abscess: Status: Acute <Mason Robledo PA-C - Last Filed: 06/11/24 07:46> Assessment and Plan: 74-year old male POD1 s/p appendectomy for perforated appendicitis complicated by abscess. Patient is doing well this morning. He is having 5/10 incisional site pain. Incision site dressings clear dry and intact Abdominal exam otherwise unremarkable OSWALD drain present, total output overnight approximately 110cc. He has passed small amounts of flatus, no BM. He has not been OOB, but has been using incentive spirometry as tolerated. He will trial regular diet this morning. Patient was found to be in Afib last night, was placed on tele. Patient has a known history of afib s/p cardioversion and ablation, on eliquis for anticoagulation. patient is okay to resume eliquis later today. Continue IV pip/tazo Continue current pain regimen. Recommend ambulation and spriometry Continue to monitor oswald output Resume eliquis this for PM dose for VTE prevention Will continue to monitor patient, will follow up this afternoon to see how he is tolerating diet <Mason Robledo PA-C - Last Filed: 06/11/24 07:46> 74-year old male POD1 s/p appendectomy for perforated appendicitis complicated by abscess. Patient is doing well this morning. He is having 5/10 incisional site pain. Incision site dressings clear dry and intact Abdominal exam otherwise unremarkable OSWALD drain present, total output overnight approximately 110cc. He has passed small amounts of flatus, no BM. He has not been OOB, but has been using incentive spirometry as tolerated. He will trial regular diet this morning. Patient was found to be in Afib last night, was placed on tele. Patient has a known history of afib s/p cardioversion and ablation, on eliquis for anticoagulation. patient is okay to resume eliquis later today. Continue IV pip/tazo Continue current pain regimen. Recommend ambulation and spriometry Continue to monitor oswald output Resume eliquis this for PM dose for VTE prevention Will continue to monitor patient, will follow up this afternoon to see how he is tolerating diet Patient seen and examined independently. Agree with the above assessment and plan. Patient much improved following laparoscopic appendectomy for perforated appendicitis with abscess. We will keep drain in place. Continue IV antibiotics. Encouraged ambulation as well. Patient will need continued hospitalization for IV antibiotics. Recheck CBC in a.m.. <Catracho Hogue MD - Last Filed: 06/11/24 07:58> Time Spent With Patient Time: Total time managing care of this patient today ____ minutes. <Mason Robledo PA-C - Last Filed: 06/11/24 07:46> Quality Stroke Does the patient have a stroke diagnosis?: No <Mason Robledo PA-C - Last Filed: 06/11/24 07:46> VTE Prior VTE?: No <Mason Robledo PA-C - Last Filed: 06/11/24 07:46> VTE Risk Level:: Surgical - moderate <Mason Robledo PA-C - Last Filed: 06/11/24 07:46> VTE Device Contraindication: N/A - Device Ordered <Mason Robledo PA-C - Last Filed: 06/11/24 07:46> VTE Drug Contraindication: N/A - Med Ordered <Mason Robledo PA-C - Last Filed: 06/11/24 07:46>
[2024-06-11] MEDS: Omeprazole 20 MG CAPSULE.DR PO (07:44)
[2024-06-11] MEDS: lisinopriL 40 MG TABLET PO (07:44)
[2024-06-11] MEDS: amLODIPine Besylate 2.5 MG TABLET 7.5 MG PO (07:44)
--- NOTE | 2024-06-11 08:23 | HO.POSTANES ---
Post Anesthesia Evaluation Post Anesthesia Evaluation Date of Service: 06/11/24 Vital Signs: Vital Signs Temp Pulse Resp BP Pulse Ox O2 Del Method O2 Flow Rate 06/11/24 07:44 169/79 H 06/11/24 07:44 169/79 H 06/11/24 07:36 98.1 F 58 16 169/79 H 95 Room Air 06/11/24 06:27 59 132/63 06/11/24 03:09 97.9 F 58 18 137/72 97 Nasal Cannula 2 06/10/24 23:37 98.9 F 62 103/57 L 97 Nasal Cannula 2 06/10/24 21:47 98.5 F 66 18 140/70 H 97 Nasal Cannula 2 06/10/24 21:20 97 F 71 16 130/82 98 Nasal Cannula 2 06/10/24 21:05 71 18 134/81 95 Nasal Cannula 3 06/10/24 20:50 74 18 148/83 H 95 Room Air 06/10/24 20:45 80 18 149/90 H 95 Room Air 06/10/24 20:40 78 18 163/82 H 97 Room Air 06/10/24 20:35 97 F 77 17 153/84 H 97 Room Air Anesthesia: General Endotracheal-GETA Mental Status: Awake Pain Control: Satisfactory Nausea/Vomiting: None Hydration: Adequate Anesthesia-Related Issues: No Anes. Related Issues
--- NOTE | 2024-06-11 12:40 | MHC.CM.PN ---
PT LIVES WITH HAS NO SERVICES HAS A RIDE HOME HE IS INDEPENDENT DC PLAN HOME NO SERVICES
[2024-06-11] MEDS: Apixaban 5 MG TABLET PO (16:53)
[2024-06-11] MEDS: Mirtazapine 7.5 MG TABLET PO (21:32)
[2024-06-12] VITALS (7 sets, daily range): BP systolic 135–174; BP diastolic 78–93; PULSE 58–86; RESP 16–20; TEMP 36–36.9; O2SAT 94–98
[2024-06-12] MEDS: Dextrose 5 % and Lactated Ring 1,000 ML 125 ML IVCONT (05:35)
[2024-06-12] MEDS: Piperacillin Sodium/Tazobactam 3.375 GM in 0.9 % Sodium Chloride 50 ML IV ×4 (05:36→22:58)
[2024-06-12 06:34] LABS: MANUAL DIFF FLAG NO
[2024-06-12 06:37] LABS: Basophils Percent Auto 0.2 % (0-2); Eosinophils Percent Auto 0.1 % (0-4); Hematocrit 38.3 % (42.0-52.0); Imm Gran Abs Auto 0.13 X10*3/uL (0.00-0.03); Imm Gran Pct Auto 0.7 % (0.0-0.4); Lymphocytes Absolute Auto 1.1 X10*3/uL (1.2-4.9); Lymphocytes Percent Auto 5.4 % (20-40); Mean Corpuscular HGB Conc 33.9 g/dl (31.0-36.0); Mean Corpuscular Volume 88.5 fL (80.0-98.0); Mean Platelet Volume 11.2 fL (9.4-12.4); Monocytes Absolute Auto 1.5 X10*3/uL (0.1-1.2); Monocytes Percent Auto 7.5 % (2-11); Neutrophils Absolute Auto 17.2 x10*3/uL (2.0-8.3); Neutrophils Percent Auto 86.1 % (45-73); Platelet Count 187 X10*3/uL (160-400); Red Blood Count 4.33 X10*6/uL (4.60-5.80); Red Cell Distribution Width 13.2 % (11.0-16.0); White Blood Count 19.9 X10*3/uL (4.8-10.8)
[2024-06-12 06:53] LABS: Anion Gap 10 (12-20); Blood Urea Nitrogen 9 mg/dL (9-16); Calcium 8.6 mg/dL (8.4-10.2); Carbon Dioxide 27 mmol/L (22-29); Chloride 107 mmol/L (96-108); Creatinine Clr Calc Pharmacy 86.5; Estimated Glomerular Filt Rate > 60; Glucose Random 118 mg/dL (60-115); Potassium 3.3 mmol/L (3.3-5.1); Sodium 141 mmol/L (135-145)
--- NOTE | 2024-06-12 07:21 | PM.PNGS ---
Subjective Subjective Date of Service: 06/12/24 Patient reports: pain is less (pain is now a 2), tolerating a regular diet, flatus and no bowel movement Interval history: Patient is doing well today. States his pain has improved today. Still experiencing some lower abdominal pain. He has been out of bed and ambulating. He tolerated diet well yesterday, denies nausea, pain worse with eating or bloating. He has been passing gas but no bowel movement at this point. Denies fever, chills. Physical Exam Vital Signs: Vital Signs: Last Vital Signs Temp 98.3 F 06/12/24 03:10 Pulse 58 06/12/24 03:10 Resp 20 06/12/24 03:10 BP 156/78 H 06/12/24 03:10 Pulse Ox 94 06/12/24 03:10 O2 Del Method Room Air 06/12/24 03:10 O2 Flow Rate 2 06/11/24 03:09 BMI result Body Mass Index 27.0 Const: General: no acute distress Orientation/consciousness: patient oriented x3 Resp: Effort & Inspection: normal respiratory effort GI: Other: ESTRELLA drain present, small amounts of serosanguenous fluid. Overnight output 60cc. Incision dressing is clean dry and intact. Inspection: No distended Palpation (GI): Soft to palpation, Tenderness to palpation present (GI) (mild incisional pain), no guarding and not rigid Neuro: General: patient oriented x3 Objective Data Active Medications Amlodipine Besylate (Amlodipine Besylate 2.5 Mg Tablet) 7.5 mg PO DAILY [facility]; Protocol Last Admin: 06/11/24 07:44 Dose: 7.5 mg Documented By: MARY Comments: Ok to give now per Apixaban (Apixaban 5 Mg Tablet) 5 mg PO BID [facility] Last Admin: 06/11/24 16:53 Dose: 5 mg Documented By: DABSeven Calcium Carbonate (Calcium Carbonate 750 Mg Tab.Chew) 750 mg PO Q4H PRN PRN Reason: Heartburn Hydralazine HCl (Hydralazine Hcl 20 Mg/Ml Vial) 10 mg IVPUSH Q4H PRN; Protocol PRN Reason: SBP > 160 Hydromorphone HCl (Hydromorphone Hcl 0.5 Mg/0.5 Ml Syringe) 0.5 mg IVPUSH Q3H PRN; Protocol PRN Reason: Pain, Severe (Pain Scale 7-10) Last Admin: 06/10/24 14:50 Dose: 0.5 mg Documented By: MELISSA Dextrose/Lactated Ringer's (D5lr) 1,000 mls @ 125 mls/hr IVCONT .Q8H [facility] Last Admin: 06/12/24 05:35 Dose: 125 mls/hr Documented By: DEDE Piperacillin Sod/Tazobactam (Sod 3.375 gm/ Sodium Chloride) 50 mls @ 100 mls/hr IV Q6H [facility] Last Infusion: 06/12/24 06:06 Dose: Infused Documented By: DEDE Acetaminophen (Ofirmev) 1,000 mg in 100 mls @ 400 mls/hr IV Q6H PRN PRN Reason: Pain, Mild (Pain Scale 1-3) Lisinopril (Lisinopril 40 Mg Tablet) 40 mg PO DAILY [facility]; Protocol Last Admin: 06/11/24 07:44 Dose: 40 mg Documented By: MARY Comments: Ok to give now per Mirtazapine (Mirtazapine 7.5 Mg Tablet) 7.5 mg PO BEDTIME [facility] Last Admin: 06/11/24 21:32 Dose: 7.5 mg Documented By: DEDE Naloxone HCl (Naloxone Hcl 0.4 Mg/Ml Vial) 0.04 mg IVPUSH Q5M PRN PRN Reason: Excessive sedation or RR < 8 Naloxone HCl (Naloxone Hcl 0.4 Mg/Ml Vial) 0.04 mg IVPUSH Q5M PRN PRN Reason: Excessive sedation or RR < 8 Omeprazole (Omeprazole 20 Mg Capsule.) 20 mg PO DAILY [facility] Last Admin: 06/11/24 07:44 Dose: 20 mg Documented By: MARY Comments: Ok to give now per ; advancing diet this AM. Ondansetron HCl (Ondansetron Hcl 4 Mg/2 Ml Vial) 4 mg IVPUSH QID PRN PRN Reason: Nausea Last Admin: 06/10/24 21:58 Dose: 4 mg Documented By: DEDE Comments: OK to give now per Dr. Hogue. Oxycodone HCl (Oxycodone Hcl Immed Release 5 Mg Tablet) 5 mg PO Q6H PRN PRN Reason: Pain, Moderate(Pain Scale 4-6) Last Admin: 06/11/24 21:32 Dose: 5 mg Documented By: DEDE Sodium Chloride (0.9 % Sodium Chloride Flush 3 Ml Syringe) [facility] Last Admin: 06/11/24 22:22 Dose: Not Given Documented By: DEDE Non-Admin Reason: IV Running Labs 06/12/24 05:50 06/12/24 05:50 Labs: Laboratory Results - last 24 hr 06/12/24 05:50 MCV 88.5 MCH 30.0 MCHC 33.9 RDW 13.2 Plt Count 187 MPV 11.2 Immature Gran % (Auto) 0.7 H Neut % (Auto) 86.1 H Lymph % (Auto) 5.4 L [place] % (Auto) 7.5 Eos % (Auto) 0.1 Baso % (Auto) 0.2 Lymph # (Auto) 1.1 L [place] # (Auto) 1.5 H Eos # (Auto) 0.0 Baso # (Auto) 0.0 Abs Immat Gran (auto) 0.13 H Absolute Neuts (auto) 17.2 H Absolute Nucleated RBC 0.000 Nucleated RBC % (auto) 0.0 Anion Gap 10 L Estim Creat Clear Calc 86.5 Estimated GFR > 60 Random Glucose 118 H Calcium 8.6 D Microbiology Microbiology Results: Microbiology 06/10/24 10:54 Blood Culture - Preliminary Blood - Venous No growth after 24 hours. 06/10/24 10:53 Blood Culture - Preliminary Blood - Venous No growth after 24 hours. Procedures Date of Service Date of Service: 06/12/24 Progress Note: A&P Assessment and plan (1) Acute appendicitis with appendiceal abscess: Status: Acute Plan 74 [place] old male POD2 s/p laparoscopic appendectomy for appendicitis with abscess. Patient is doing well, pain improving. He is ambulating and using spriometry. He has been passing flatus but has not passed any bowel movements. He is tolerating full diet. ESTRELLA draining 60 cc overnight. Incision site dressing is clean dry and intact. Patients AM labs show increased leukocytosis to 19.9. patient denies fever or chills. Increase may be reactionary, will continue to monitor with AM CBC, if no improvement will repeat imaging for possible abscess formation. Contniue with diet recommend ambulation and spirometry continue with IV ABX continue current pain regimen repeat am CBC Will continue to follow Time Spent With Patient Time: Total time managing care of this patient today ____ minutes. Quality Stroke Does the patient have a stroke diagnosis?: No VTE Prior VTE?: No VTE Risk Level:: Surgical - moderate VTE Device Contraindication: N/A - Device Ordered VTE Drug Contraindication: N/A - Med Ordered
[2024-06-12] MEDS: Apixaban 5 MG TABLET PO ×2 (07:34→21:00)
[2024-06-12] MEDS: amLODIPine Besylate 2.5 MG TABLET 7.5 MG PO (07:35)
[2024-06-12] MEDS: lisinopriL 40 MG TABLET PO (07:36)
[2024-06-12] MEDS: 0.9 % Sodium Chloride Flush 3 ML SYRINGE IVFLUSH ×3 (07:37→22:58)
[2024-06-12] MEDS: Omeprazole 20 MG CAPSULE.DR PO (07:37)
--- NOTE | 2024-06-12 08:06 | PC.NURSE ---
Anti-hypertensive medication given early for BP 174/93
--- NOTE | 2024-06-12 08:21 | P.PNGS_ITS ---
Subjective Subjective Date of Service: 06/12/24 Interval history: Perforated acute appendicitis with abscess, POD 2 following laparoscopic appendectomy with drainage of abscess. Patient reports feeling improved with pain only with coughing and moving. He was able to tolerate a regular diet and reports ambulating yesterday and today. Physical Exam 2 Vital Signs: Vital Signs: Last Vital Signs Temp 96.8 F 06/12/24 07:24 Pulse 68 06/12/24 07:24 Resp 16 06/12/24 07:24 BP 174/93 H 06/12/24 07:36 Pulse Ox 96 06/12/24 07:24 O2 Del Method Room Air 06/12/24 07:24 O2 Flow Rate 2 06/11/24 03:09 BMI result Body Mass Index 27.0 Const: General: no acute distress Nutritional Appearance: well nourished Orientation/consciousness: patient oriented x3 Limitations: no limitations Resp: Effort & Inspection: normal respiratory effort, no audible wheezes, no cough and no respiratory distress GI: Other: ESTRELLA intact with serosanguineous fluid. Trocar incisions are clean, dry and intact. Neuro: General: patient oriented x3 Extrem: Other: No peripheral edema Objective Data Active Medications Amlodipine Besylate (Amlodipine Besylate 2.5 Mg Tablet) 7.5 mg PO DAILY [facility]; Protocol Last Admin: 06/12/24 07:35 Dose: 7.5 mg Documented By: HERNANDO Apixaban (Apixaban 5 Mg Tablet) 5 mg PO BID [facility] Last Admin: 06/12/24 07:34 Dose: 5 mg Documented By: HERNANDO Calcium Carbonate (Calcium Carbonate 750 Mg Tab.Chew) 750 mg PO Q4H PRN PRN Reason: Heartburn Hydralazine HCl (Hydralazine Hcl 20 Mg/Ml Vial) 10 mg IVPUSH Q4H PRN; Protocol PRN Reason: SBP > 160 Hydromorphone HCl (Hydromorphone Hcl 0.5 Mg/0.5 Ml Syringe) 0.5 mg IVPUSH Q3H PRN; Protocol PRN Reason: Pain, Severe (Pain Scale 7-10) Last Admin: 06/10/24 14:50 Dose: 0.5 mg Documented By: MELISSA Dextrose/Lactated Ringer's (D5lr) 1,000 mls @ 125 mls/hr IVCONT .Q8H [facility] Last Admin: 06/12/24 05:35 Dose: 125 mls/hr Documented By: DEDE Piperacillin Sod/Tazobactam (Sod 3.375 gm/ Sodium Chloride) 50 mls @ 100 mls/hr IV Q6H [facility] Last Infusion: 06/12/24 06:06 Dose: Infused Documented By: DEDE Acetaminophen (Ofirmev) 1,000 mg in 100 mls @ 400 mls/hr IV Q6H PRN PRN Reason: Pain, Mild (Pain Scale 1-3) Lisinopril (Lisinopril 40 Mg Tablet) 40 mg PO DAILY [facility]; Protocol Last Admin: 06/12/24 07:36 Dose: 40 mg Documented By: HERNANDO Mirtazapine (Mirtazapine 7.5 Mg Tablet) 7.5 mg PO BEDTIME [facility] Last Admin: 06/11/24 21:32 Dose: 7.5 mg Documented By: DEDE Naloxone HCl (Naloxone Hcl 0.4 Mg/Ml Vial) 0.04 mg IVPUSH Q5M PRN PRN Reason: Excessive sedation or RR < 8 Naloxone HCl (Naloxone Hcl 0.4 Mg/Ml Vial) 0.04 mg IVPUSH Q5M PRN PRN Reason: Excessive sedation or RR < 8 Omeprazole (Omeprazole 20 Mg Capsule.Dr) 20 mg PO DAILY [facility] Last Admin: 06/12/24 07:37 Dose: 20 mg Documented By: HERNANDO Ondansetron HCl (Ondansetron Hcl 4 Mg/2 Ml Vial) 4 mg IVPUSH QID PRN PRN Reason: Nausea Last Admin: 06/10/24 21:58 Dose: 4 mg Documented By: DEDE Comments: OK to give now per Dr. Hogue. Oxycodone HCl (Oxycodone Hcl Immed Release 5 Mg Tablet) 5 mg PO Q6H PRN PRN Reason: Pain, Moderate(Pain Scale 4-6) Last Admin: 06/11/24 21:32 Dose: 5 mg Documented By: DEDE Sodium Chloride (0.9 % Sodium Chloride Flush 3 Ml Syringe) 3 ml IVFLUSH QSHIFT [facility] Last Admin: 06/12/24 07:37 Dose: 3 ml Documented By: HERNANDO Labs 06/12/24 05:50 06/12/24 05:50 Labs: Laboratory Results - last 24 hr 06/12/24 05:50 MCV 88.5 MCH 30.0 MCHC 33.9 RDW 13.2 Plt Count 187 MPV 11.2 Immature Gran % (Auto) 0.7 H Neut % (Auto) 86.1 H Lymph % (Auto) 5.4 L [place] % (Auto) 7.5 Eos % (Auto) 0.1 Baso % (Auto) 0.2 Lymph # (Auto) 1.1 L [place] # (Auto) 1.5 H Eos # (Auto) 0.0 Baso # (Auto) 0.0 Abs Immat Gran (auto) 0.13 H Absolute Neuts (auto) 17.2 H Absolute Nucleated RBC 0.000 Nucleated RBC % (auto) 0.0 Anion Gap 10 L Estim Creat Clear Calc 86.5 Estimated GFR > 60 Random Glucose 118 H Calcium 8.6 D Microbiology Microbiology Results: Microbiology 06/10/24 10:54 Blood Culture - Preliminary Blood - Venous No growth after 24 hours. 06/10/24 10:53 Blood Culture - Preliminary Blood - Venous No growth after 24 hours. Procedures Date of Service Date of Service: 06/12/24 Progress Note: A&P Assessment and plan (1) Acute appendicitis with appendiceal abscess: Status: Acute Plan Perforated appendicitis with abscess status post laparoscopic appendectomy with drainage of abscess, POD 2. Patient improving with decreased abdominal pain, tolerating a regular diet without nausea or vomiting. WBC remains elevated. Continue IV antibiotic, recheck CBC in a.m.. Time Spent With Patient Time: Total time managing care of this patient today ____ minutes. Quality Stroke Does the patient have a stroke diagnosis?: No VTE Prior VTE?: No VTE Risk Level:: Surgical - moderate VTE Device Contraindication: N/A - Device Ordered VTE Drug Contraindication: N/A - Med Ordered
--- NOTE | 2024-06-12 10:22 | MHC.CM.PN ---
IMM 06/02/24 No DC today. WBC count has increased. Patient continues to require IV ABX. DP home with family assist and transport. A referral has been sent to [facility]. Surgeon may order services. Clinical information has been sent to the agency.
[2024-06-12] MEDS: Docusate Sodium 100 MG CAPSULE PO (16:32)
[2024-06-12] MEDS: polyethylene glycoL 3350 17 GM POWD.PACK PO (16:32)
[2024-06-12] MEDS: Acetaminophen 1,000 MG/100 ML PIGGYBACK 400 MG IV (19:03)
[2024-06-12] MEDS: Mirtazapine 7.5 MG TABLET PO (21:00)
[2024-06-13] VITALS (8 sets, daily range): BP systolic 117–164; BP diastolic 72–89; PULSE 34–79; RESP 16–20; TEMP 36.4–36.7; O2SAT 92–96
[2024-06-13] MEDS: Piperacillin Sodium/Tazobactam 3.375 GM in 0.9 % Sodium Chloride 50 ML IV ×4 (04:33→23:14)
--- NOTE | 2024-06-13 06:08 | PC.NURSE ---
Throughout the night while asleep patient had couple episodes of low pulse 34 and 35 (see VS in computer) Dr Arenas made aware.
--- NOTE | 2024-06-13 07:21 | PM.PNGS ---
Subjective Subjective Date of Service: 06/13/24 Patient reports: feels better, pain is less, tolerating a regular diet, flatus and bowel movement Interval history: patient doing well today. States his pain is improving. He endorses some increased pain last night that subsided after having 2 bowel movements. He denies nausea or vomiting. Tolerating diet well. Has been ambulating and using spirometry Physical Exam Vital Signs: Vital Signs: Last Vital Signs Temp 97.6 F 06/13/24 03:35 Pulse 79 06/13/24 06:06 Resp 20 06/13/24 03:35 BP 164/76 H 06/13/24 03:35 Pulse Ox 92 06/13/24 03:35 O2 Del Method Room Air 06/13/24 03:35 O2 Flow Rate 2 06/11/24 03:09 BMI result Body Mass Index 27.0 Const: General: cooperative, comfortable, no acute distress and alert Orientation/consciousness: patient oriented x3 Resp: Effort & Inspection: normal respiratory effort and able to speak in complete sentences GI: Other: ESTRELLA drain present, scant serosanguenous fluid. Trochar dressings clean and intact. Inspection: No distended Palpation (GI): Soft to palpation, Tenderness to palpation present (GI) (tender in the RLQ) and not rigid Neuro: General: patient oriented x3 Objective Data Active Medications Amlodipine Besylate (Amlodipine Besylate 2.5 Mg Tablet) 7.5 mg PO DAILY [facility]; Protocol Last Admin: 06/12/24 07:35 Dose: 7.5 mg Documented By: HERNANDO Apixaban (Apixaban 5 Mg Tablet) 5 mg PO BID [facility] Last Admin: 06/12/24 21:00 Dose: 5 mg Documented By: CHRISTIANO Calcium Carbonate (Calcium Carbonate 750 Mg Tab.Chew) 750 mg PO Q4H PRN PRN Reason: Heartburn Docusate Sodium (Docusate Sodium 100 Mg Capsule) 100 mg PO BEDTIME PRN PRN Reason: Constipation Last Admin: 06/12/24 16:32 Dose: 100 mg Documented By: ASTRID Hydralazine HCl (Hydralazine Hcl 20 Mg/Ml Vial) 10 mg IVPUSH Q4H PRN; Protocol PRN Reason: SBP > 160 Hydromorphone HCl (Hydromorphone Hcl 0.5 Mg/0.5 Ml Syringe) 0.5 mg IVPUSH Q3H PRN; Protocol PRN Reason: Pain, Severe (Pain Scale 7-10) Last Admin: 06/10/24 14:50 Dose: 0.5 mg Documented By: MELISSA Piperacillin Sod/Tazobactam (Sod 3.375 gm/ Sodium Chloride) 50 mls @ 100 mls/hr IV Q6H [facility] Last Infusion: 06/13/24 05:08 Dose: Infused Documented By: CHRISTIANO Acetaminophen (Ofirmev) 1,000 mg in 100 mls @ 400 mls/hr IV Q6H PRN PRN Reason: Pain, Mild (Pain Scale 1-3) Last Infusion: 06/12/24 19:23 Dose: Infused Documented By: CHRISTIANO Lisinopril (Lisinopril 40 Mg Tablet) 40 mg PO DAILY [facility]; Protocol Last Admin: 06/12/24 07:36 Dose: 40 mg Documented By: HERNANDO Mirtazapine (Mirtazapine 7.5 Mg Tablet) 7.5 mg PO BEDTIME [facility] Last Admin: 06/12/24 21:00 Dose: 7.5 mg Documented By: CHRISTIANO Omeprazole (Omeprazole 20 Mg Capsule.) 20 mg PO DAILY [facility] Last Admin: 06/12/24 07:37 Dose: 20 mg Documented By: HERNANDO Ondansetron HCl (Ondansetron Hcl 4 Mg/2 Ml Vial) 4 mg IVPUSH QID PRN PRN Reason: Nausea Last Admin: 06/10/24 21:58 Dose: 4 mg Documented By: DEDE Comments: OK to give now per Dr. Hogue. Oxycodone HCl (Oxycodone Hcl Immed Release 5 Mg Tablet) 5 mg PO Q6H PRN PRN Reason: Pain, Moderate(Pain Scale 4-6) Last Admin: 06/11/24 21:32 Dose: 5 mg Documented By: DEDE Polyethylene Glycol (Polyethylene Glycol 3350 17 Gm Powd.Pack) 17 gm PO DAILY PRN PRN Reason: Constipation Last Admin: 06/12/24 16:32 Dose: 17 gm Documented By: ASTRID Sodium Chloride (0.9 % Sodium Chloride Flush 3 Ml Syringe) [facility] Last Admin: 06/12/24 22:58 Dose: 3 ml Documented By: CHRISTIANO Labs 06/12/24 05:50 06/12/24 05:50 Microbiology Microbiology Results: Microbiology 06/10/24 10:54 Blood Culture - Preliminary Blood - Venous No growth after 48 hours. 06/10/24 10:53 Blood Culture - Preliminary Blood - Venous No growth after 48 hours. Procedures Date of Service Date of Service: 06/13/24 Progress Note: A&P Assessment and plan (1) Acute appendicitis with appendiceal abscess: Status: Acute Plan 74 year old male POD3 s/p laparoscopic appendectomy for acute appendicitis with appendiceal abscess. Patient continuing to improve. Minimal pain at rest, some pain with ambulation. ESTRELLA drain has scant amounts of serosanguenous fluid. Mild pain to palpation of the RLQ and incision sites. Incision site dressings are clean dry and intact. Patient given bowel regimen last night, passed two BMs, felt improvement in pain. Tolerating diet. AM labs pending, if WBC trending downward will remove ESTRELLA drain a bedside. Pending labs will discuss discharge Continue with diet Continue with bowel regimen continue ambulation and spirometry Time Spent With Patient Time: Total time managing care of this patient today ____ minutes. Quality Stroke Does the patient have a stroke diagnosis?: No VTE Prior VTE?: No VTE Risk Level:: Surgical - moderate VTE Device Contraindication: N/A - Device Ordered VTE Drug Contraindication: N/A - Med Ordered
[2024-06-13] MEDS: Apixaban 5 MG TABLET PO ×2 (08:11→19:52)
[2024-06-13] MEDS: amLODIPine Besylate 2.5 MG TABLET 7.5 MG PO (08:11)
[2024-06-13] MEDS: lisinopriL 40 MG TABLET PO (08:11)
[2024-06-13] MEDS: Omeprazole 20 MG CAPSULE.DR PO (08:11)
[2024-06-13] MEDS: 0.9 % Sodium Chloride Flush 3 ML SYRINGE IVFLUSH ×3 (08:13→19:55)
[2024-06-13 08:30] LABS: MANUAL DIFF FLAG NO
[2024-06-13 08:40] LABS: Basophils Absolute Auto 0.1 X10*3/uL (0.0-0.2); Basophils Percent Auto 0.4 % (0-2); Eosinophils Absolute Auto 0.1 X10*3/uL (0.0-0.4); Eosinophils Percent Auto 0.7 % (0-4); Hematocrit 43.9 % (42.0-52.0); Hemoglobin 15.1 g/dl (14.0-18.0); Imm Gran Abs Auto 0.11 X10*3/uL (0.00-0.03); Imm Gran Pct Auto 0.6 % (0.0-0.4); Lymphocytes Absolute Auto 1.3 X10*3/uL (1.2-4.9); Lymphocytes Percent Auto 7.3 % (20-40); Mean Corpuscular HGB Conc 34.4 g/dl (31.0-36.0); Mean Corpuscular Hemoglobin 30.3 pg (27.0-33.0); Mean Corpuscular Volume 88.2 fL (80.0-98.0); Mean Platelet Volume 10.5 fL (9.4-12.4); Monocytes Absolute Auto 1.3 X10*3/uL (0.1-1.2); Monocytes Percent Auto 7.7 % (2-11); Neutrophils Absolute Auto 14.4 x10*3/uL (2.0-8.3); Neutrophils Percent Auto 83.3 % (45-73); Platelet Count 210 X10*3/uL (160-400); Red Blood Count 4.98 X10*6/uL (4.60-5.80); Red Cell Distribution Width 13.4 % (11.0-16.0); White Blood Count 17.3 X10*3/uL (4.8-10.8)
[2024-06-13] MEDS: HYDROmorphone HCl 0.5 MG/0.5 ML SYRINGE IVPUSH ×2 (13:48→22:58)
[2024-06-13] MEDS: Mirtazapine 7.5 MG TABLET PO (19:52)
[2024-06-14 03:14] VITALS: BP 152/83; PULSE 65; RESP 18; TEMP 36.4; O2SAT 98
[2024-06-14] MEDS: Piperacillin Sodium/Tazobactam 3.375 GM in 0.9 % Sodium Chloride 50 ML IV (04:17)
[2024-06-14 06:41] LABS: MANUAL DIFF FLAG NO
[2024-06-14 06:49] LABS: Basophils Absolute Auto 0.1 X10*3/uL (0.0-0.2); Basophils Percent Auto 0.6 % (0-2); Eosinophils Absolute Auto 0.2 X10*3/uL (0.0-0.4); Eosinophils Percent Auto 1.7 % (0-4); Hematocrit 42.7 % (42.0-52.0); Hemoglobin 14.6 g/dl (14.0-18.0); Imm Gran Abs Auto 0.11 X10*3/uL (0.00-0.03); Imm Gran Pct Auto 0.8 % (0.0-0.4); Lymphocytes Absolute Auto 1.5 X10*3/uL (1.2-4.9); Lymphocytes Percent Auto 10.7 % (20-40); Mean Corpuscular HGB Conc 34.2 g/dl (31.0-36.0); Mean Corpuscular Hemoglobin 29.8 pg (27.0-33.0); Mean Corpuscular Volume 87.1 fL (80.0-98.0); Mean Platelet Volume 10.5 fL (9.4-12.4); Monocytes Absolute Auto 1.2 X10*3/uL (0.1-1.2); Monocytes Percent Auto 8.8 % (2-11); Neutrophils Absolute Auto 10.8 x10*3/uL (2.0-8.3); Neutrophils Percent Auto 77.4 % (45-73); Platelet Count 249 X10*3/uL (160-400); Red Cell Distribution Width 13.2 % (11.0-16.0); White Blood Count 13.9 X10*3/uL (4.8-10.8)
--- NOTE | 2024-06-14 07:21 | P.PNGS_ITS ---
Subjective Subjective Date of Service: 06/14/24 Patient reports: no new complaints, tolerating a regular diet and bowel movement Interval history: Patient is doing well, has some incisional site pain with ambulation, 2/10. Tolerating full diet. Ambulating and using spirometry. Endorses bowel movements Physical Exam 2 Vital Signs: Vital Signs: Last Vital Signs Temp 97.5 F 06/14/24 03:14 Pulse 65 06/14/24 03:14 Resp 18 06/14/24 03:14 BP 152/83 H 06/14/24 03:14 Pulse Ox 98 06/14/24 03:14 O2 Del Method Room Air 06/14/24 03:14 O2 Flow Rate 2 06/11/24 03:09 BMI result Body Mass Index 27.0 Const: General: comfortable and no acute distress O rientation/consciousness: patient oriented x3 Resp: Effort & Inspection: normal respiratory effort and able to speak in complete sentences GI: Other: ESTRELLA drain present, scant amounts of serosanguenous fluid. Incision sites are clean dry and intact, no erythema, edema or purulent discharge Palpation (GI): Soft to palpation, Tenderness to palpation present (GI) (mild incisional site pain), no guarding and not rigid Neuro: General: patient oriented x3 Objective Data Active Medications Acetaminophen (Acetaminophen 325 Mg Tablet) 650 mg PO QID PRN PRN Reason: headache, temp > 101 Amlodipine Besylate (Amlodipine Besylate 2.5 Mg Tablet) 7.5 mg PO DAILY [facility]; Protocol Last Admin: 06/13/24 08:11 Dose: 7.5 mg Documented By: TJ Apixaban (Apixaban 5 Mg Tablet) 5 mg PO BID [facility] Last Admin: 06/13/24 19:52 Dose: 5 mg Documented By: OSBALDO Calcium Carbonate (Calcium Carbonate 750 Mg Tab.Chew) 750 mg PO Q4H PRN PRN Reason: Heartburn Docusate Sodium (Docusate Sodium 100 Mg Capsule) 100 mg PO BEDTIME PRN PRN Reason: Constipation Last Admin: 06/12/24 16:32 Dose: 100 mg Documented By: ASTRID Hydralazine HCl (Hydralazine Hcl 20 Mg/Ml Vial) 10 mg IVPUSH Q4H PRN; Protocol PRN Reason: SBP > 160 Hydromorphone HCl (Hydromorphone Hcl 0.5 Mg/0.5 Ml Syringe) 0.5 mg IVPUSH Q3H PRN; Protocol PRN Reason: Pain, Severe (Pain Scale 7-10) Last Admin: 06/13/24 22:58 Dose: 0.5 mg Documented By: OSBALDO Piperacillin Sod/Tazobactam (Sod 3.375 gm/ Sodium Chloride) 50 mls @ 100 mls/hr IV Q6H [facility] Last Infusion: 06/14/24 04:48 Dose: Infused Documented By: OSBALDO Lisinopril (Lisinopril 40 Mg Tablet) 40 mg PO DAILY [facility]; Protocol Last Admin: 06/13/24 08:11 Dose: 40 mg Documented By: TJ Mirtazapine (Mirtazapine 7.5 Mg Tablet) 7.5 mg PO BEDTIME [facility] Last Admin: 06/13/24 19:52 Dose: 7.5 mg Documented By: OSBALDO Omeprazole (Omeprazole 20 Mg Gertrude.) 20 mg PO DAILY [facility] Last Admin: 06/13/24 08:11 Dose: 20 mg Documented By: TJ Ondansetron HCl (Ondansetron Hcl 4 Mg/2 Ml Vial) 4 mg IVPUSH QID PRN PRN Reason: Nausea Last Admin: 06/10/24 21:58 Dose: 4 mg Documented By: DEDE Comments: OK to give now per Dr. Hogue. Oxycodone HCl (Oxycodone Hcl Immed Release 5 Mg Tablet) 5 mg PO Q6H PRN PRN Reason: Pain, Moderate(Pain Scale 4-6) Last Admin: 06/11/24 21:32 Dose: 5 mg Documented By: DEDE Polyethylene Glycol (Polyethylene Glycol 3350 17 Gm Powd.Pack) 17 gm PO DAILY PRN PRN Reason: Constipation Last Admin: 06/12/24 16:32 Dose: 17 gm Documented By: ASTRID Sodium Chloride (0.9 % Sodium Chloride Flush 3 Ml Syringe) 3 ml IVFLUSH QSHIFT [facility] Last Admin: 06/13/24 19:55 Dose: 3 ml Documented By: OSBALDO Labs 06/14/24 06:04 06/12/24 05:50 Labs: Laboratory Results - last 24 hr 06/13/24 06/14/24 08:15 06:04 MCV 88.2 87.1 MCH 30.3 29.8 MCHC 34.4 34.2 RDW 13.4 13.2 Plt Count 210 249 MPV 10.5 10.5 Immature Gran % (Auto) 0.6 H 0.8 H Neut % (Auto) 83.3 H 77.4 H Lymph % (Auto) 7.3 L 10.7 L [place] % (Auto) 7.7 8.8 Eos % (Auto) 0.7 1.7 Baso % (Auto) 0.4 0.6 Lymph # (Auto) 1.3 1.5 [place] # (Auto) 1.3 H 1.2 Eos # (Auto) 0.1 0.2 Baso # (Auto) 0.1 0.1 Abs Immat Gran (auto) 0.11 H 0.11 H Absolute Neuts (auto) 14.4 H 10.8 H Absolute Nucleated RBC 0.000 0.000 Nucleated RBC % (auto) 0.0 0.0 Hold Purple Top Cancelled Procedures Date of Service Date of Service: 06/14/24 Progress Note: A&P Assessment and plan (1) Acute appendicitis with appendiceal abscess: Status: Acute Plan 74-year-old male POD4 s/p laparoscopic appendectomy for appendicitis with abscess. Patient doing well, mild incisional site pain to palpation and with ambulation. Pain is well controlled on oral regimen. Tolerating full diet. Improvement in leukocytosis today to 13.9. ESTRELLA drain showing scant serosanguenous fluid, removed at bedside without complication. Patient tolerated removal well. New dressing applied. Abdominal exam is significant for mild incisional site pain, otherwise benign. Patient okay to be discharged. disharge order placed. discussed incision site care and return precautions with patient Time Spent With Patient Time: Total time managing care of this patient today ____ minutes. Quality Stroke Does the patient have a stroke diagnosis?: No VTE Prior VTE?: No VTE Risk Level:: Surgical - moderate VTE Device Contraindication: N/A - Device Ordered VTE Drug Contraindication: N/A - Med Ordered
[2024-06-14 07:57] VITALS: BP 179/91; PULSE 65; RESP 18; TEMP 36.1; O2SAT 98
[2024-06-14] MEDS: lisinopriL 40 MG TABLET PO (08:29)
[2024-06-14] MEDS: Apixaban 5 MG TABLET PO (08:29)
[2024-06-14] MEDS: Omeprazole 20 MG CAPSULE.DR PO (08:29)
[2024-06-14] MEDS: amLODIPine Besylate 2.5 MG TABLET 7.5 MG PO (08:30)
[2024-06-14] MEDS: 0.9 % Sodium Chloride Flush 3 ML SYRINGE IVFLUSH (08:31)
[2024-06-14 09:59] VITALS: BP 150/89; PULSE 79; RESP 18; TEMP 36; O2SAT 97
--- NOTE | 2024-06-14 12:36 | P.DS_ITS ---
DS: Providers Provider Date of Service: 07/10/24 Date of admission: 06/10/24 14:03 Date of discharge: 06/14/24 Primary care physician: Keon Beckham MD Admitting clinician: Catracho Hogue Attending physician on admission: Catracho Hogue Consults: 06/10/24 21:25 Consult to Hospitalist Routine Comment: Consulting Provider: [facility] Hospitalists Reason For Exam: Acute appendicitis with abscess, med management Attending physician on discharge: Catracho Hogue DS: Diagnosis Discharge Diagnosis (1) Acute appendicitis with appendiceal abscess: Status: Acute DS: Summary Hospital Course Hospital Course: ED HPI: this is a 74-year-old male, with a past medical history of atrial fibrillation with cardiac ablation in February 2024 on eliquis, hypertension, hypercholesterolemia, GERD, who presents emergency department with concerns for right lower abdominal pain for the last 2 weeks. Patient was here with daughter who is speaking for patient as patient appears to be diaphoretic and uncomfortable. Daughter reports that over the last 2 weeks he has been complaining of right-sided abdominal pain, which has worsened in severity over the last 3 days. No chest pain. He states that the pain starts in his low back and radiates into his abdomen. Upon re-evaluation, patient also states that he has had some urinary hesitancy, denies any dysuria, hematuria, or urine color changes. He denies any fevers, chills, chest pain, shortness of breath, changes in bowel habits, no bloody or black stool. Daughter does report decreased appetite over the last 2 weeks, he last ate corn flakes and a coffee this morning. No hx of abdominal surgeries in the past. No other complaints or concerns at this time. Hopsital course: Patient was seen in consult by general surgery for acute appendicitis with appendiceal abscess. CT showed acute appendicitis with a likely perforation with a phlegmonous collection at the tip of the appendix. The patient was brought to the OR on 06/10/[address] Hogue for laparoscopic appendectomy. Abscess formation confirmed intraoperatively and a ESTRELLA drain was left in place. The patient tolerated the procedure well and the patient was admitted to [facility] floor where he continued IV antibiotics. Hosptialists were consulted for medical management. While admitted he was placed on telemetry due to a few runs of afib. Patients eliquis was resumed on POD1. Patient continued to improve postop, pain was improving and ESTRELLA output decreased day to day. On POD2 patients AM CBC showed leukocytosis 19.9. Patient remained on IV zosyn. POD3 showed improvement of WBC to 17.3, and continued to trend downward to 13.9 on POD4. Patient was clinically improving and the ESTRELLA drain was removed without complication. Patient tolerated this well. Patient is tolerating diet, oral pain meds, passing bowel movements and ambulating.The patient was hemodynamically stable and his abdominal exam was benign aside from mild incisional site pain Status at Discharge Functional status at discharge: independent ambulation Overall status at discharge: patient is progressing back to baseline Time Attestation Discharge Coordination Time (in mins): 30 Quality: Safe Use of Opioids Does Pt have an Active Cancer Diagnosis on the Problem List?: No Quality: Stroke Does the patient have a stroke diagnosis?: No Physical Exam Vital Signs: Vital Signs: Last Vital Signs Temp 96.8 F 06/14/24 09:59 Pulse 79 06/14/24 09:59 Resp 18 06/14/24 09:59 BP 150/89 H 06/14/24 09:59 Pulse Ox 97 06/14/24 09:59 O2 Del Method Room Air 06/14/24 09:59 O2 Flow Rate 2 06/11/24 03:09 BMI result Body Mass Index 27.0 Const: General: cooperative, comfortable and no acute distress Orientation/consciousness: patient oriented x3 Resp: Effort & Inspection: normal respiratory effort and able to speak in complete sentences GI: Other: Mild incisional site pain. Incision sites are clean dry and intact, no erythema, edema or purulent discharge. ESTRELLA drain site remains open, clean dressing applied Palpation (GI): Soft to palpation, Tenderness to palpation present (GI) (mild incisional tenderness), no guarding and not rigid : Other: Skin: General skin exam: no rashes or lesions noted Neuro: General: patient oriented x3 DS: Data Data Completed and Pending Completed studies during hospitalization [Text1]: Pending at discharge 06/10/24 20:34 Surgical [PTH] Routine Labs on day of discharge: Laboratory Results - last 24 hr 06/14/24 06:04 WBC 13.9 H RBC 4.90 Hgb 14.6 Hct 42.7 MCV 87.1 MCH 29.8 MCHC 34.2 RDW 13.2 Plt Count 249 MPV 10.5 Immature Gran % (Auto) 0.8 H Neut % (Auto) 77.4 H Lymph % (Auto) 10.7 L [place] % (Auto) 8.8 Eos % (Auto) 1.7 Baso % (Auto) 0.6 Lymph # (Auto) 1.5 [place] # (Auto) 1.2 Eos # (Auto) 0.2 Baso # (Auto) 0.1 Abs Immat Gran (auto) 0.11 H Absolute Neuts (auto) 10.8 H Absolute Nucleated RBC 0.000 Nucleated RBC % (auto) 0.0 Preliminary micro results at discharge 06/10/24 10:54 Blood Culture - Preliminary Blood - Venous No growth after 48 hours. 06/10/24 10:53 Blood Culture - Preliminary Blood - Venous No growth after 48 hours. Discharge Plan Discharge Anticipated Discharge Date/Time: 06/14/24 14:15 Patient Disposition: Home, Self-Care Discharge Diagnosis: Acute appendicitis with abscess Referrals: Keon Beckham MD [Primary Care Provider] - 1 Week Discharge Medications: New amoxicillin-pot clavulanate 875-125 mg tablet 1 tab PO BID 5 Days Qty: 10 0RF oxycodone 5 mg tablet 5 mg PO Q4H PRN (Reason: pain) Qty: 25 0RF Rx Instructions: Partial Fill upon patient request. docusate sodium [Colace] 100 mg capsule 100 mg PO BID Qty: 40 0RF Continued amlodipine 2.5 mg tablet 7.5 mg PO DAILY 90 Days Qty: 270 3RF atorvastatin 10 mg tablet 10 mg PO DAILY Qty: 90 3RF mirtazapine 7.5 mg tablet 7.5 mg PO BEDTIME 90 Days Qty: 90 1RF Eliquis 5 mg tablet 5 mg PO BID Qty: 60 4RF lisinopril 40 mg tablet 40 mg PO DAILY Qty: 90 1RF omeprazole 20 mg capsule,delayed release(DR/EC) 20 mg PO DAILY 90 Days Qty: 90 3RF Discharge Orders: Discharge Order (Routine); Ordered 06/14/24 Ordered By: Mason Robledo Activity on Discharge: No heavy lifting Stand Alone Forms: Patient Portal Discharge page Print Language: Hungarian Activity Restrictions/Additional Instructions: You will follow up in 1 week in the office with Dr. Hogue. No strenuous activity or heavy lifting greater than 10 pounds. Please call the office or return to the emergency department if symptoms such as increased pain, large amounts of drainage from drain site, chest pain, shortness of breath or if you develop a fever. If you have other concerns prior to your follow-up appointment please call the office at . You were given a prescription for antibiotics . Please take the full 5 days as prescribed. You have steri strips in place over your incision sites, these can remain in place, however if they fal off that is okay. While the drain site is open, keep if covered until closed. You are okay to shower, try to keep the drain site dry. Do not submerge the sites in water. Care Plan Goals: Return to baseline activity level at home and resume normal activities after the recovery period Health Concerns: Acute appendicitis with appendiceal abscess Atrial fibrillation Plan of Treatment: S/p laparoscopic appendectomy for appendicitis with appendiceal abscess F/U in office in [address] Hogue Assessment: Patient is doing well post op. Stable at the time of discharge Discharge Date/Time: 06/14/24 10:06
--- NOTE | 2024-06-14 15:14 | MHC.CM.PN ---
pt dcd home self care
== END 2024-06-14 10:06 | disposition home or self-care (01) | DRG 399 ==
LOC: HO.ED 12:37 → HO.SSS 12:52 → HO.SSSA 14:05 → HO.S3 19:33
PROVIDERS: Nurse Practitioner Family; Physician Assistant Medical; Admitting Provider Surgery; Emergency Provider Emergency Medicine Emergency Medical Services; PCP Internal Medicine; Visit Provider Surgery
PROC: 0DTJ4ZZ Resection of Appendix, Percutaneous Endoscopic Approach (ICD-10-PCS; CPT 44970; principal; 2024-06-10 17:00)
DX: K35.32 Acute appendicitis with perforation, localized peritonitis, and gangrene, without abscess (principal); K21.9 Gastro-esophageal reflux disease without esophagitis; G47.00 Insomnia, unspecified; F12.90 Cannabis use, unspecified, uncomplicated; I10 Essential (primary) hypertension; E78.5 Hyperlipidemia, unspecified; I48.0 Paroxysmal atrial fibrillation; Z79.01 Long term (current) use of anticoagulants; Z79.899 Other long term (current) drug therapy
CPT/HCPCS: 36415; 74177; 80048; 80053; 81003; 82947; 83605; 83735; 84484; 85025; 85610; 85730; 86850; 86900; 86901; 87040; 88304; 93005; 99285; J0131; J1100; J1171; J1790; J2003; J2270; J2405; J2543; J2704; J2795; J3010; Q9967

== ENCOUNTER → 2024-06-10 08:50 | Outpatient (BNV) | payer MEDICARE, MEDICAID, SELFPAY | PROVIDERS: Emergency Provider Emergency Medicine Emergency Medical Services; PCP Internal Medicine; Visit Provider Internal Medicine Cardiovascular Disease | DX: I45.9 Conduction disorder, unspecified (principal) | CPT/HCPCS: 93010 ==

== ENCOUNTER → 2024-06-10 09:36 | Outpatient (BNV) | payer MEDICARE, MEDICAID, SELFPAY | PROVIDERS: Emergency Provider Emergency Medicine Emergency Medical Services; PCP Internal Medicine; Visit Provider Radiology Diagnostic Radiology | DX: K35.80 Unspecified acute appendicitis (principal); N40.0 Benign prostatic hyperplasia without lower urinary tract symptoms | CPT/HCPCS: 74177 ==

== ENCOUNTER → 2024-06-10 09:52 | Outpatient (BNV) | payer MEDICARE, MEDICAID, SELFPAY | PROVIDERS: Emergency Provider Emergency Medicine Emergency Medical Services; PCP Internal Medicine; Visit Provider Surgery | DX: K35.33 Acute appendicitis with perforation, localized peritonitis, and gangrene, with abscess (principal) | CPT/HCPCS: 44950; 99024; 99222 ==

== ENCOUNTER → 2024-06-10 14:03 | Outpatient (BNV) | payer MEDICARE, MEDICAID, SELFPAY | PROVIDERS: Admitting Provider Surgery; Emergency Provider Emergency Medicine Emergency Medical Services; PCP Internal Medicine; Visit Provider Nurse Practitioner Family | DX: I48.19 Other persistent atrial fibrillation (principal) | CPT/HCPCS: 99222 ==

== ENCOUNTER 2024-08-01 06:06 | Outpatient (REF) | payer MEDICARE, OTHER, SELFPAY ==
[2024-08-01 06:28] LABS: MANUAL DIFF FLAG NO
[2024-08-01 07:21] LABS: Basophils Absolute Auto 0.1 X10*3/uL (0.0-0.2); Basophils Percent Auto 1.1 % (0-2); Eosinophils Absolute Auto 0.3 X10*3/uL (0.0-0.4); Eosinophils Percent Auto 3.9 % (0-4); Hematocrit 46.2 % (42.0-52.0); Hemoglobin 15.3 g/dl (14.0-18.0); Imm Gran Abs Auto 0.04 X10*3/uL (0.00-0.03); Imm Gran Pct Auto 0.5 % (0.0-0.4); Lymphocytes Absolute Auto 2.2 X10*3/uL (1.2-4.9); Lymphocytes Percent Auto 26.1 % (20-40); Mean Corpuscular HGB Conc 33.1 g/dl (31.0-36.0); Mean Corpuscular Hemoglobin 29.4 pg (27.0-33.0); Mean Corpuscular Volume 88.8 fL (80.0-98.0); Mean Platelet Volume 10.6 fL (9.4-12.4); Monocytes Absolute Auto 0.6 X10*3/uL (0.1-1.2); Monocytes Percent Auto 6.9 % (2-11); Neutrophils Absolute Auto 5.1 x10*3/uL (2.0-8.3); Neutrophils Percent Auto 61.5 % (45-73); Platelet Count 201 X10*3/uL (160-400); Red Cell Distribution Width 14.3 % (11.0-16.0); White Blood Count 8.2 X10*3/uL (4.8-10.8)
[2024-08-01 07:42] LABS: Appearance Urine Clear; Color Urine Yellow; Glucose Urine UA Negative (Negative); Leukocyte Esterase Urine Negative (Negative); Nitrite Urine Negative (Negative); PH 6.5 (5.0-9.0); Specific Gravity - Urine 1.015 (1.005-1.025); Urine Blood Negative (Negative); Urine Ketones Negative (Negative); Urine Protein Negative (Neg-Trace)
[2024-08-01 07:47] LABS: Alanine Aminotransferase 22 U/L (0-40); Albumin Level 4.6 g/dL (3.5-5.0); Alkaline Phosphatase 101 U/L (39-117); Anion Gap 12 (12-20); Aspartate Amino Transferase 27 U/L (5-37); Bilirubin Total 0.6 mg/dL (0.0-1.0); Blood Urea Nitrogen 11 mg/dL (9-16); Calcium 9.2 mg/dL (8.4-10.2); Carbon Dioxide 27 mmol/L (22-29); Chloride 107 mmol/L (96-108); Cholesterol 156 mg/dL (<200); Estimated Glomerular Filt Rate > 60; Glucose Fasting 87 mg/dL (60-99); HDL Cholesterol 38 mg/dL (>40); LDL Cholesterol Calculated 99 mg/dL (<100); Potassium 4.1 mmol/L (3.3-5.1); Sodium 142 mmol/L (135-145); Total Protein 6.9 g/dL (6.5-8.0); Triglycerides 97 mg/dL (<150)
[2024-08-01 08:05] LABS: TSH reflex Free T4 1.56 uIU/mL (0.32-4.0); Vitamin D 25-OH Total 27.9 ng/mL (>30)
== END 2024-08-01 06:07 | disposition home or self-care (01) ==
LOC: HO.LAB 06:06
PROVIDERS: PCP Internal Medicine; Visit Provider Internal Medicine
DX: D64.9 Anemia, unspecified (principal); R30.0 Dysuria; E55.9 Vitamin D deficiency, unspecified; E78.00 Pure hypercholesterolemia, unspecified; I48.19 Other persistent atrial fibrillation; Z90.49 Acquired absence of other specified parts of digestive tract; Z13.1 Encounter for screening for diabetes mellitus
CPT/HCPCS: 36415; 80053; 80061; 81003; 82306; 84443; 85025; 96127; 99212

== ENCOUNTER 2024-08-01 15:38 | Outpatient (AMB) | payer MEDICARE, SELFPAY ==
[2024-08-01 15:44] VITALS: BP 124/82; PULSE 63; TEMP 36.3; O2SAT 98; BMI 26.8
--- NOTE | 2024-08-01 15:44 | MHC.PC.OV ---
Vital Signs 08/01/24 15:44 Height 5 ft 10 in Weight 186 lb 8 oz BMI 26.8 BP 124/82 Blood Pressure Location Lt brachial Position Sitting Pulse 63 Pulse Source Pulse Oximeter Temp 97.3 F Temp Source Temporal Artery Scan Pulse Oximetry (%) 98 Oxygen Delivery Method Room Air Intake Visit Reasons: lower abdomen pain for a week Game Tester Required: No Accompanied by: Daughter Allergies Thiazides Allergy (Intermediate, Verified 08/01/24 16:05) rash Medication List - Last Reconciled 08/01/24 by Terry Nesibtt PA-C amlodipine 7.5 mg (3 x 2.5 mg) PO DAILY 90 days apixaban (Eliquis) 5 mg PO BID atorvastatin 10 mg PO DAILY docusate sodium (Colace) 100 mg PO BID lisinopril 40 mg PO DAILY mirtazapine 7.5 mg PO BEDTIME 90 days omeprazole 20 mg PO DAILY 90 days oxycodone 5 mg PO Q4H PRN Tobacco use date assessed: 08/01/24 Fall risk assessment: No Falls in past year Last assessed Fall Risk: 08/01/24 Dental Screening Dental Screen Date: 08/01/24 Did you have a dental visit in the last 12 months?: No Did you have a dental problem in the last 6 months where you did not have access to dental care?: No Was dental information given to patient?: Patient has dentist HPI lower abdomen pain for a week HPI Details The patient is a 74-year-old male presenting for a follow-up visit after appendectomy and to discuss ongoing management of atrial fibrillation and insomnia. The patient underwent an emergency appendectomy approximately one month ago. Post-surgery, he reports that the abdominal pain has settled down, and the surgical scars have healed well without complications. The patient has a history of atrial fibrillation for which he underwent a cardioablation procedure. He is currently on Eliquis for anticoagulation and was previously on amiodarone, which was discontinued post-ablation. The patient reports insomnia and has been prescribed mirtazapine to aid sleep. He notes weight gain since starting the medication, which may be a side effect, as mirtazapine can increase appetite. The patient is considering alternative medications due to this side effect. [facility] Medical History Atrial fibrillation Obesity (BMI 30-39.9) Vitamin D deficiency Overweight (BMI 25.0-29.9) GERD without esophagitis Pure hypercholesterolemia Benign essential hypertension Surgical History History of colonoscopy Family History Father Diabetes Mother Diabetes Social History Household Members: Spouse Housing: Apartment Do you presently have visiting nurse or other home services: No Alcohol intake: never Comment: Patient refusing bed alarm Patient Tobacco Use Status: Former Tobacco user Tobacco use type: Cigarette e-Cigarette/Vaping Use: Never Used Second Hand Smoke Exposure: Yes Substance Use Type: Marijuana service: No Current occupational status: retired Cognitive needs: No Hearing needs: No Vision needs: Yes Questionnaire PHQ-9 Over the last 2 weeks, how often have you been bothered by any of the following problems? 1. Little interest or pleasure in doing things: not at all 2. Feeling down, depressed, or hopeless: not at all 3. Trouble falling or staying asleep, or sleeping too much: not at all 4. Feeling tired or having little energy: not at all 5. Poor appetite or overeating: not at all 6. Feeling bad about yourself - or that you are a failure or have let yourself or your family down: not at all 7. Trouble concentrating on things, such as reading the newspaper or watching television: not at all 8. Moving or speaking so slowly that other people could have noticed. Or the opposite - being so fidgety or restless that you have been moving around a lot more than usual: not at all 9. Thoughts that you would be better off or of hurting yourself in some way: not at all Total score: 0 Depression Screening Interpretation: Negative Depression Screening Done: Yes 64941 - PHQ-9 Billing: Yes Source: Developed by Drs. Arvind Julio, Suzanne Carson, Don Pastor and colleagues, with an educational cristy from [employer]. Thrive Questionnaire Date Thrive assessed: 08/01/24 I am a: Patient What is your living situation today?: I have a steady place to live Within the past 12 months, did the food you bought not last and you didn't have the money to get more?: Never true Within the past 12 months, did you worry whether your food would run out before you got money to buy more?: Never true Do you have trouble paying for medicines?: No Do you have trouble getting transportation to medical appointments?: No Do you have trouble paying your heating and electricity bill?: No Do you have trouble taking care of your child, family member or friend?: No Do you have trouble with day-to-day activities such as bathing, preparing meals, shopping, managing finances, etc.?: No Are you currently unemployed and looking for a job?: No Are you interested in more education?: No Please select the resources that you would like help with: None Currently or been in a relationship where the following occur: No concerns reported THRIVE Score: 0 AUDIT C Alcohol Use Questionnaire (AUDIT-C) 1. How often do you have a drink containing alcohol?: Monthly or less 2. How many drinks containing alcohol do you have on a typical day when you are drinking?: 1 or 2 3. How often do you have six or more drinks on one occasion?: Never Total Score: 1 Score Reviewed/Action Taken: Yes NEGIN-7 AMB Questionnaire NEGIN-7 Date NEGIN - 7 assessed: 08/01/24 Feeling nervous, anxious, or on edge: 0 = Not at all Not being able to stop or control worryin = Not at all Worrying too much about different things: 0 = Not at all Trouble relaxin = Not at all Being so restless that it is hard to sit still: 0 = Not at all Becoming easily annoyed or irritable: 0 = Not at all Feeling afraid as if something awful might happen: 0 = Not at all Total NEGIN-7 score (0-4 normal; 5-9 mild; 10-14 moderate; 15-21 severe): 0 Source: Developed by Drs. Arvind Julio, Suzanne Carson, Don Pastor and colleagues, with an educational cristy from [employer]. NEGIN-7 Assessment Billing NEGIN-7 Assessment Tool: NEGIN-7 Assessment 51250 Review of Systems Const Denies headache(s) Eyes Denies loss of vision ENT Denies vertigo, Denies dizziness, Denies headache(s) and Denies sore throat Card Denies chest pain, Denies leg edema and Denies lightheadedness Resp Denies cough, Denies hemoptysis and Denies wheezing GI Denies abdominal pain, Denies melena, Denies constipation, Denies diarrhea and Denies vomiting Denies dysuria, Denies urinary frequency and Denies urinary urgency Musc Denies arthralgias, Denies joint swelling, Denies numbness and Denies tingling Neuro Denies Abnormal speech present, Denies behavioral changes, Denies vertigo, Denies dizziness, Denies headache(s), Denies loss of vision, Denies memory loss, Denies numbness and Denies tingling Psych Denies anxiety, Denies behavioral changes, Denies depression, Denies memory loss and Denies panic attacks Keyshawn/Lymph Denies easy bleeding and Denies easy bruising Aller/Immun Denies wheezing Physical exam (Primary Care) Vital Signs: Last Vital Signs Temp 97.3 F 08/01/24 15:44 Pulse 63 08/01/24 15:44 BP 124/82 08/01/24 15:44 Pulse Ox 98 08/01/24 15:44 Oxygen Delivery Method Room Air 08/01/24 15:44 BMI result Body Mass Index 26.8 Tobacco/Smoking Status: Tobacco use Status Tobacco use date assessed 08/01/24 08/01/24 16:02 Patient Tobacco Use Status Former Tobacco user 08/01/24 15:45 Tobacco use type Cigarette 08/01/24 15:45 e-Cigarette/Vaping Use Never Used 08/01/24 15:45 PHQ-9: PHQ-9 Score PHQ-9: Total score 0 08/01/24 16:06 Depression Screening Interpretation: Negative Thrive Assessment: Date of Thrive Assessment Date Thrive assessed 08/01/24 08/01/24 16:02 Currently or been in a relationship where the following occur: No concerns reported Const General: healthy appearing, no acute distress, alert and awake Nutritional Appearance: well nourished Orientation/consciousness: oriented to person, oriented to place and oriented to time HENMT Ears: TM's normal bilaterally General nose exam: Normal nasal mucous membranes and turbinates present Eyes Conjunctivae: conjunctivae normal Sclerae: sclerae normal Pupils: Equal, round and reactive pupils present Neck Neck: Yes no lymphadenopathy and Yes no JVD Thyroid: Thyroid normal Carotids: no bruits Resp Effort & Inspection: normal respiratory effort and not tachypneic Auscultation: no crackles, no rales, no rhonchi and no wheezes Cardio Rate: regular rate Rhythm: regular rhythm Heart sounds: no murmurs and normal S1 and S2 GI Palpation (GI): Soft to palpation, nontender, no hepatomegaly and no splenomegaly Auscultation: normal bowel sounds Skin General skin exam: no rashes or lesions noted and dry skin Neuro General: oriented to person, oriented to place and oriented to time Cranial nerves: Yes Equal, round and reactive pupils present Speech: No Abnormal speech present Gait exam (Neuro): Normal gait present Motor exam (neuro): no tremor noted Extrem Right upper extremity: full ROM Left upper extremity: full ROM Right lower extremity: full ROM; no edema Left lower extremity: full ROM; no edema Psych Mental Status: mental status grossly normal Speech and movement: Normal speech and movement present Affect: normal affect Attitude: cooperative Thought process: Normal thought process present Coding Level of Care Code Est Pt Level 3 (24238) Diagnoses Persistent atrial fibrillation I48.19 Atrial fibrillation type: persistent (not longstanding) S/P appendectomy Z90.49 Additional Codes NEGIN-7 Assessment Billing - NEGIN-7 Assessment Tool: NEGIN-7 Assessment 80720 ([id number]) PHQ-9 - 35496 - PHQ-9 Billing: Yes ([id number]) Assessment & Plan Assessment & Plan (1) Atrial fibrillation: Code(s): I48.91 - Unspecified atrial fibrillation Category: Medical Qualifiers: Atrial fibrillation type: persistent (not longstanding) Qualified Code(s): I48.19 - Other persistent atrial fibrillation Plan: Patient continues to follow [facility], his underwent a cardiac ablation and has been taken off of antiarrhythmic medication. Continues on Eliquis for stroke prophylaxis. He denies any overt signs of bleeding (2) S/P appendectomy: Code(s): Z90.49 - Acquired absence of other specified parts of digestive tract Category: Surgical Plan: Patient is status post appendectomy that was done emergently a few months ago. He is doing well and has no issues using the bathroom.
--- OUTSIDE RECORDS SUMMARY | 2024-08-01 16:46 | XMS_ITS | Encounter Summary ---
Author Organization [facility] Address [address] [place] [address] Care Team Providers Care Aeroplane Pilot Name Role Phone Unavailable Primary Care Provider Unavailabl e Encounter Details Date Type Department Care Team (Latest Contact Info) Description 11/16/2021 Abstract [facility] CONVERSIONS Dental, Provider, DDS Social History Tobacco [...] Care Team (Late st Contact Info) Description 10/17/2024 11:00 AM EDT Office Visit [facility] ADULT DENTAL [address] [place] [address] Eleni Hopkins documented as of this encounter Visit Diagnoses Not on filedocumented in this encounter
== END 2024-08-01 16:25 | disposition home or self-care (01) ==
PROVIDERS: PCP Internal Medicine; Visit Provider Physician Assistant
DX: I48.19 Other persistent atrial fibrillation (principal); Z90.49 Acquired absence of other specified parts of digestive tract

== ENCOUNTER 2024-08-13 14:44 | Outpatient (AMB) | payer MEDICARE, SELFPAY ==
--- NOTE | 2024-08-13 14:46 | A.OFFVIS_ITS ---
Vital Signs 08/13/24 14:47 Height 5 ft 10 in Weight 188 lb 11.451 oz BMI 27.1 BP 132/80 Blood Pressure Location Lt brachial Position Sitting Pulse 60 Pulse Source Pulse Oximeter Intake Visit Reasons: r/s 06/12/24 followup holter Entry Level Automotive Technician Required: No Supervisor Evaporator: Supervisor Evaporator Present Allergies Thiazides Allergy (Intermediate, Verified 08/13/24 14:49) rash Medication List - Last Reconciled 08/13/24 by Jaspal Mendoza NP amlodipine 7.5 mg (3 x 2.5 mg) PO DAILY 90 days apixaban (Eliquis) 5 mg PO BID atorvastatin 10 mg PO DAILY lisinopril 40 mg PO DAILY mirtazapine 7.5 mg PO BEDTIME 90 days omeprazole 20 mg PO DAILY 90 days oxycodone 5 mg PO Q4H PRN HPI Comments Details: This is a 74-year-old male patient coming in for a follow-up visit, accompanied by his daughter. Patient with a history of cardiomyopathy, hypertension, and AFib status post catheter ablation in March 09. Since then patient has had a follow-up with the EP and has been taken off the amiodarone. Patient is reporting feeling well overall and denies any cardiac symptoms of exertional chest pain, shortness of breath, palpitations, dizziness, orthopnea, PND, leg edema, presyncope, or syncope. Patient is otherwise compliant with all his medications. [facility] Medical History Acute appendicitis Atrial fibrillation Obesity (BMI 30-39.9) Vitamin D deficiency Overweight (BMI 25.0-29.9) GERD without esophagitis Pure hypercholesterolemia Benign essential hypertension Surgical History History of colonoscopy Family History Father Diabetes Mother Diabetes Social History Household Members: Spouse Housing: Apartment Do you presently have visiting nurse or other home services: No Alcohol intake: never Comment: Patient refusing bed alarm Patient Tobacco Use Status: Former Tobacco user Tobacco use type: Cigarette e-Cigarette/Vaping Use: Never Used Second Hand Smoke Exposure: Yes Substance Use Type: Marijuana service: No Current occupational status: retired Cognitive needs: No Hearing needs: No Vision needs: Yes Review of Systems ENT Reports dizziness Card Denies chest pain, Denies chest pain at rest, Denies chest pain with activity, Denies rapid heart rate, Denies pedal edema, Denies edema, Denies leg edema, Denies lightheadedness, Denies palpitations, Denies dyspnea, Denies dyspnea on exertion and Denies orthopnea Resp Denies cough, Denies dyspnea and Denies dyspnea on exertion GI Denies hematochezia and Denies change in stool character Musc Denies abnormal gait, Reports limited range of motion, Reports muscle cramps, Denies muscle weakness, Denies numbness, Denies radiating pain into limb, Denies stiffness and Denies tingling Neuro Denies abnormal gait, Reports dizziness, Denies numbness and Denies tingling Endo Denies palpitations Physical Exam Vital Signs: Last Vital Signs Pulse 60 08/13/24 14:47 BP 132/80 08/13/24 14:47 BMI result Body Mass Index 27.1 Const General: cooperative, healthy appearing, comfortable and no acute distress Orientation/consciousness: patient oriented x3 HEENT Head: Yes normal to inspection Neck Neck: Yes normal visual inspection, Yes trachea midline and Yes supple Chest Chest palpation & inspection: normal inspection of the chest Resp Effort & Inspection: normal respiratory effort Auscultation: clear to auscultation bilaterally, no crackles, no rales, no rhonchi and no wheezes Cardio Jugular venous distension: no JVD Palpation: normal PMI Rate: regular rate Rhythm: regular rhythm Heart sounds: S1 normal heart sound present, S2 normal heart sound present, no click, no gallops, no murmurs and no rubs Peripheral pulses: Peripheral pulses 2+ throughout GI Inspection: Yes normal to inspection Palpation (GI): Soft to palpation Auscultation: normal bowel sounds Skin General skin exam: no rashes or lesions noted Neuro General: patient oriented x3 Extrem General: Yes normal to inspection, No no pedal edema and No calf tenderness Psych Appearance: grossly normal Mental Status: mental status grossly normal Speech and movement: Normal speech and movement present Assessment & Plan Assessment & Plan (1) Atrial fibrillation: Code(s): I48.91 - Unspecified atrial fibrillation Category: Medical Qualifiers: Atrial fibrillation type: persistent (not longstanding) Qualified Code(s): I48.19 - Other persistent atrial fibrillation Plan: Status post catheter ablation in February of 2024 with EP at [facility]. On exam today, rate is regular. Continue Eliquis for full anticoagulation therapy. No reported signs of bleeding. Patient has been discontinued on the amiodarone. Patient did not get his Holter that was ordered at the last follow-up. Emphasized on following through with this to assess for any recurrence in AFib. Recent kidney function with a normal limits. We will periodically monitor labs. (2) Cardiomyopathy: Code(s): I42.9 - Cardiomyopathy, unspecified Category: Medical Qualifiers: Cardiomyopathy type: unspecified Qualified Code(s): I42.9 - Cardiomyopathy, unspecified Plan: 11/24/2023-echo showed improved LV systolic function with an EF between 60-65% with impaired relaxation filling pattern, mildly dilated ascending aorta. We will monitor this periodically with repeat echoes. (3) Benign essential hypertension: Code(s): I10 - Essential (primary) hypertension Category: Medical Plan: Blood pressure today is well-controlled. Continue amlodipine and lisinopril t herapy. Advised monitoring blood pressures at home with a goal of less than 130/80. Advised heart healthy diet, regular exercise, med compliance, and management of vascular risk factors. Follow-up in 6 to 8 months. In the interim, patient will call the office with any concerns or change in symptoms. This note was generated using voice recognition software. While every effort has been made to ensure accuracy and proper flatbed driver, there may be occasional errors that could affect the content or meaning of the described symptoms. Coding Level of Care Code Est Pt Level 4 (06160) Complex EM visit Add On G2211 Diagnoses Persistent atrial fibrillation I48.19 Atrial fibrillation type: persistent (not longstanding) Cardiomyopathy, unspecified type I42.9 Cardiomyopathy type: unspecified Benign essential hypertension I10 Time Spent (min) 32 Comment Time spent in reviewing the chart, test results, assessment, counseling and documentation.
[2024-08-13 14:47] VITALS: BP 132/80; PULSE 60; BMI 27.1
--- OUTSIDE RECORDS SUMMARY | 2024-08-13 15:45 | XMS_ITS | Encounter Summary ---
Author Organization [facility] Address [address] [place] [address] Care Team Providers Care Forge Tender Name Role Phone Unavailable Primary Care Provider Unavailabl e Encounter Details Date Type Department Care Team (Latest Contact Info) Description 11/16/2021 Abstract [facility] CONVERSIONS Dental, Provider, DDS Social History [...] Description 10/17/2024 11:00 AM EDT Office Visit [facility] ADULT DENTAL [address] [place] [address] Eleni Hopkins documented as of this encounter Visit Diagnoses Not on filedocumented in this encounter
== END 2024-08-13 15:05 | disposition home or self-care (01) ==
LOC: HO.HCS 14:44
PROVIDERS: PCP Internal Medicine
DX: I48.19 Other persistent atrial fibrillation (principal); I42.9 Cardiomyopathy, unspecified; I10 Essential (primary) hypertension
CPT/HCPCS: 99214; G2211

== ENCOUNTER → 2024-08-13 14:44 | Outpatient (BNVA) | payer MEDICARE, OTHER, SELFPAY | PROVIDERS: PCP Internal Medicine | DX: I42.9 Cardiomyopathy, unspecified (principal); I48.19 Other persistent atrial fibrillation; I10 Essential (primary) hypertension | CPT/HCPCS: 99212 ==

== ENCOUNTER → 2024-08-19 07:59 | Outpatient (REF) | payer MEDICARE, OTHER, SELFPAY ==
--- NOTE | 2024-08-19 08:02 | HM_ITS ---
* Total monitoring time 2 days. * Underlying rhythm is sinus with an average rate of 63/Min. * Rare supraventricular ectopy. * Frequent ventricular ectopy with a burden of 6.6%. Rare couplets, triplets. Multiple morphologies. * Nighttime pauses up to 3.1 seconds. Does not reach significance. * No patient markers or diary events. MTDD
--- OUTSIDE RECORDS SUMMARY | 2024-08-19 08:02 | XMS_ITS | Encounter Summary ---
Author Organization [employer] [facility] Address [address] [place] [address] Care Team Providers Care Educational Resource Coordinator Name Role Phone Unavailable Primary Care Provider Unavailabl e Encounter Details Date Type Department Care Team (Latest Contact Info) Description 11/16/2021 Abstract [facility] CONVERSIONS Dental, Provider, DDS Social History [...] Description 10/17/2024 11:00 AM EDT Office Visit [facility] ADULT DENTAL [address] [place] [address] Eleni Hopkins documented as of this encounter Visit Diagnoses Not on filedocumented in this encounter
== END ==
LOC: HO.CARD 07:59
PROVIDERS: PCP Internal Medicine
DX: I48.19 Other persistent atrial fibrillation (principal)
CPT/HCPCS: 93242

== ENCOUNTER → 2024-08-19 08:02 | Outpatient (BNV) | payer MEDICARE, SELFPAY | PROVIDERS: PCP Internal Medicine; Visit Provider Internal Medicine | DX: I47.10 Supraventricular tachycardia, unspecified (principal); I49.3 Ventricular premature depolarization | CPT/HCPCS: 93227 ==

== ENCOUNTER 2024-11-22 13:08 | Outpatient (AMB) | payer MEDICARE, SELFPAY ==
--- NOTE | 2024-11-22 13:10 | A.OFFVIS_ITS ---
Vital Signs 11/22/24 13:11 Height 5 ft 10 in Weight 179 lb 7.3 oz BMI 25.7 BP 130/76 Blood Pressure Location Lt brachial Position Sitting Pulse 66 Pulse Source Monitor Intake Visit Reasons: f/up- chest pain Card Folder Required: No Accompanied by: Daughter Allergies Thiazides Allergy (Intermediate, Verified 11/22/24 13:14) rash Medication List - Last Reconciled 11/22/24 by Leelee Madrid, RACHEL-C amlodipine 7.5 mg (3 x 2.5 mg) PO DAILY 90 days apixaban (Eliquis) 5 mg PO BID atorvastatin 10 mg PO DAILY lisinopril 40 mg PO DAILY mirtazapine 7.5 mg PO BEDTIME 90 days omeprazole 20 mg PO DAILY 90 days HPI HPI f/up- chest pain: Details: Jacky is a 74-year-old male past medical history of hypertension, hyp erlipidemia, pericarditis 2022, paroxysmal atrial fibrillation, cardiomyopathy, PVCs who presents for follow-up. Today he reports that he came back from [place] 2 weeks ago. Since then he has notice some lower sternal and epigastric area discomfort with deep inspiration. He says it is like a tightness. It feels better when he is laying down in bed. It is worse when he bends forward. The area is nontender to palpation. He says he has had pericarditis in the past and this feels similar but much less. He has some mild shortness of breath with exertion. He admits to being mostly sedentary but was more active when he was in [place]. No chest discomfort brought on by physical activity. No PND, orthopnea or edema. No heart palpitations, lightheadedness, presyncope, syncope, falls. Taking meds as directed. No bleeding issues reported. Daughter is present. [facility] Medical History Acute appendicitis Atrial fibrillation Obesity (BMI 30-39.9) Vitamin D deficiency Overweight (BMI 25.0-29.9) GERD without esophagitis Pure hypercholesterolemia Benign essential hypertension Surgical History History of colonoscopy Family History Father Diabetes Mother Diabetes Social History Household Members: Spouse Housing: Apartment Do you presently have visiting nurse or other home services: No Alcohol intake: never Comment: Patient refusing bed alarm Patient Tobacco Use Status: Former Tobacco user Tobacco use type: Cigarette e-Cigarette/Vaping Use: Never Used Second Hand Smoke Exposure: Yes Substance Use Type: Marijuana service: No Current occupational status: retired Cognitive needs: No Hearing needs: No Vision needs: Yes Review of Systems Const All systems reviewed & are unremarkable except as noted in HPI and below Denies daytime sleepiness, Denies difficulty sleeping, Denies snoring, Denies stops breathing during sleep and Denies weakness Card Reports chest pain, Reports chest pain at rest (With deep inspiration), Denies rapid heart rate, Denies irregular heart rhythm, Denies claudication, Denies leg edema, Denies lightheadedness, Denies palpitations, Denies dyspnea, Denies dyspnea on exertion, Denies orthopnea, Denies paroxysmal nocturnal dyspnea and Denies slow heart rate Resp Denies cough, Denies dyspnea, Denies dyspnea on exertion and Denies snoring GI Reports no additional complaints, Denies hematochezia, Denies change in stool character and Denies dyspepsia Musc Denies abnormal gait, Denies muscle weakness and Denies numbness Neuro Denies abnormal gait, Denies numbness and Denies weakness Endo Denies palpitations Physical Exam Vital Signs: Last Vital Signs Pulse 66 11/22/24 13:11 BP 130/76 11/22/24 13:11 BMI result Body Mass Index 25.7 Const General: cooperative, healthy appearing, comfortable and no acute distress Orientation/consciousness: patient oriented x3 HEENT Head: Yes normal to inspection Neck Neck: Yes normal visual inspection Chest Chest palpation & inspection: normal inspection of the chest Resp Effort & Inspection: normal respiratory effort Auscultation: clear to auscultation bilaterally, no crackles, no rales, no rhonchi and no wheezes Cardio Palpation: normal PMI Rate: regular rate Rhythm: regular rhythm Heart sounds: S1 normal heart sound present, S2 normal heart sound present, no click, no gallops, no murmurs and no rubs GI Inspection: Yes normal to inspection Skin General skin exam: no rashes or lesions noted Neuro General: patient oriented x3 Extrem General: Yes normal to inspection, No no pedal edema and No calf tenderness Psych Appearance: grossly normal Mental Status: mental status grossly normal Speech and movement: Normal speech and movement present Office Procedures EKG Details: Today, read by me, normal sinus rhythm, occasional PVCs, rate 66, QTC 419 milliseconds [id number], Complete Assessment & Plan Assessment & Plan (1) Chest discomfort: Code(s): R07.89 - Other chest pain Category: Medical Plan: History of pericarditis 2022 treated with NSAIDs and colchicine. He now reports similar symptom though of much lesser severity. EKG does not show signs suggesting pericarditis. No rub noted on examination. Will check labs today including CRP and sed rate. Will update echocardiogram. Plan to call him with test results. Emergency care if needed for worsening symptoms. (2) Cardiomyopathy: Code(s): I42.9 - Cardiomyopathy, unspecified Category: Medical Qualifiers: Cardiomyopathy type: unspecified Qualified Code(s): I42.9 - Cardiomyopathy, unspecified Plan: History of cardiomyopathy with prior EF 40%, 2023, thought to be tachycardia induced from atrial fibrillation. He has been treated with heart rhythm control and has since undergone atrial fibrillation ablation. Most recent echocardiogram 11/24/2023 showed EF 60-65% with impaired relaxation, normal valves. Continue lisinopril. (3) Atrial fibrillation: Code(s): I48.91 - Unspecified atrial fibrillation Category: Medical Qualifiers: Atrial fibrillation type: persistent (not longstanding) Qualified Code(s): I48.19 - Other persistent atrial fibrillation Plan: History of atrial fibrillation, treated rhythm control. He had AFib ablation on 02/20/2024. He has not had documented recurrent AFib since that time. Holter monitor done 08/19/2024 showed sinus rhythm with average heart rate 63 beats per minute, PVCs 6.6% of time with rare couplets and triplets. He is not on rate slowing agents. He is on Eliquis for anticoagulation which will be continued for CHADS-VASc score of 3. (4) Frequent PVCs: Code(s): I49.3 - Ventricular premature depolarization Category: Medical Plan: Recent Holter showed frequent PVCs 6.6%. EKG today shows 2 PVCs on 10 seconds tracing. He denies heart palpitations. He is having some atypical chest discomfort. I will be updating echo and re-evaluating EF at that time. Will hold off on rate slowing agents as his last note indicates prior echo showed sinus bradycardia and junctional beats. (5) Benign essential hypertension: Code(s): I10 - Essential (primary) hypertension Category: Medical Plan: Blood pressure goal less than 130/80. Well controlled at this time. No med changes made. Plan Time spent on chart review, documentation, interview and assessment Orders: Orders CRP High Sensitivity Today I49.3 - Ventricular premature depolarization, R07.89 - Other chest pain Basic Metabolic Panel Today I49.3 - Ventricular premature depolarization, R07.89 - Other chest pain Complete Blood Count Auto Diff Today I49.3 - Ventricular premature depo larization, R07.89 - Other chest pain Erythrocyte Sedimentation Rate Today I49.3 - Ventricular premature depolarization, R07.89 - Other chest pain CA echo transthoracic complete Today I42.9 - Cardiomyopathy, unspecified, R07.89 - Other chest pain Coding Level of Care Code Est Pt Level 4 (33593) Complex EM visit Add On G2211 Diagnoses Chest discomfort R07.89 Cardiomyopathy, unspecified type I42.9 Cardiomyopathy type: unspecified Persistent atrial fibrillation I48.19 Atrial fibrillation type: persistent (not longstanding) Frequent PVCs I49.3 Benign essential hypertension I10 CPT Codes EKG - CPT: [id number], Complete ([id number])
[2024-11-22 13:11] VITALS: BP 130/76; PULSE 66; BMI 25.7
== END 2024-11-22 13:46 | disposition home or self-care (01) ==
LOC: HO.HCS 13:09
PROVIDERS: PCP Internal Medicine; Visit Provider Nurse Practitioner Family
DX: R07.89 Other chest pain (principal); I42.9 Cardiomyopathy, unspecified; I48.19 Other persistent atrial fibrillation; I49.3 Ventricular premature depolarization; I10 Essential (primary) hypertension
CPT/HCPCS: 93010; 99214; G2211

== ENCOUNTER 2024-11-22 13:08 | Outpatient (REF) | payer MEDICARE, SELFPAY ==
[2024-11-22 15:01] LABS: MANUAL DIFF FLAG NO
[2024-11-22 15:05] LABS: Hematocrit 47.9 % (42.0-52.0); Hemoglobin 15.9 g/dl (14.0-18.0); Imm Gran Abs Auto 0.07 X10*3/uL (0.00-0.03); Imm Gran Pct Auto 0.6 % (0.0-0.4); Lymphocytes Absolute Auto 2.0 X10*3/uL (1.2-4.9); Mean Corpuscular HGB Conc 33.2 g/dl (31.0-36.0); Mean Corpuscular Hemoglobin 29.9 pg (27.0-33.0); Mean Corpuscular Volume 90.2 fL (80.0-98.0); NRBC Abs Auto 0.000 X10*3/uL (0.0-0.012); NRBC Pct Auto 0.0 /100WBC (0.0-0.2); Platelet Count 214 X10*3/uL (160-400); Red Blood Count 5.31 X10*6/uL (4.60-5.80); White Blood Count 11.0 X10*3/uL (4.8-10.8)
[2024-11-22 15:58] LABS: Anion Gap 12 (12-20); Blood Urea Nitrogen 14 mg/dL (9-16); Calcium 9.7 mg/dL (8.4-10.2); Carbon Dioxide 26 mmol/L (22-29); Chloride 107 mmol/L (96-108); Estimated Glomerular Filt Rate > 60; Potassium 4.1 mmol/L (3.3-5.1); Sodium 141 mmol/L (135-145)
== END 2024-11-22 13:09 | disposition home or self-care (01) ==
LOC: HO.LAB 13:08
PROVIDERS: PCP Internal Medicine; Visit Provider Nurse Practitioner Family
DX: I49.3 Ventricular premature depolarization (principal); I48.19 Other persistent atrial fibrillation; I42.9 Cardiomyopathy, unspecified; I10 Essential (primary) hypertension; R07.89 Other chest pain; Z87.891 Personal history of nicotine dependence; Z79.899 Other long term (current) drug therapy
CPT/HCPCS: 36415; 80048; 85025; 85652; 86141; 93005; 99212

== ENCOUNTER → 2024-12-25 07:51 | Outpatient (REF) | payer MEDICARE, SELFPAY ==
--- OUTSIDE RECORDS SUMMARY | 2024-12-25 07:54 | XMS_ITS | Encounter Summary ---
Author Organization [facility] Address [address] [place] [address] Care Team Providers Care Assistant Offset Press Operator Name Role Phone Unavailable Primary Care Provider Unavailabl e Encounter Details Date Type Department Care Team (Latest Contact Info) Description 09/28/2020 Abstract [facility] CONVERSIONS Dental, Provider, DDS Social History Tobacco Use Types Packs/Day Years Used Date Smoking Tobacco: Never Assessed Sex and Gender Information Value Date Recorded Sex Assigned at Male 12/13/2021 10:25 AM EDT Legal Sex Male 10:25 AM EDT Gender Identity Male 01/26/2022 10:55 AM EST Sexual Orientation Choose not to disclose 2021 10:25 AM EDT documented as of this encounter Plan of Treatment Not on file documented as of this encounter Visit Diagnoses Not on filedocumented in this encounter
--- OUTSIDE RECORDS SUMMARY | 2024-12-25 07:54 | XMS_ITS | Encounter Summary ---
Author Organization [facility] Address [address] [place] [address] Care Team Providers Care Convertible Sofa Bedspring Tester Name Role Phone Unavailable Primary Care Provider Unavailabl e Encounter Details Date Type Department Care Team (Latest Contact Info) Description 11/16/2021 Abstract HHC CONVERSIONS Dental, Provider, DDS Social [...]
--- OUTSIDE RECORDS SUMMARY | 2024-12-25 07:54 | XMS_ITS | Encounter Summary ---
Author Organization [employer] [facility] Address [address] [place] [address] Care Team Providers Care Multimedia Producer Name Role Phone Unavailable Primary Care Provider Unavailabl e Encounter Details Date Type Department Care Team (Latest Contact Info) Description 07/11/2018 Abstract HHC CONVERSIONS Dental, Provider, DDS Social [...]
--- OUTSIDE RECORDS SUMMARY | 2024-12-25 07:54 | XMS_ITS | Clinical Summary ---
Author Organization [employer] Address [address] [place] [address] Care Team Providers Care B2B Managed Service Sales Exec Name Role Phone Unavailable Primary Care Provider [...] acquired 10/19/2022 Severe generalized gingival recession 10/19/2022 Immunizations Immunization Administration Dates Next Due Moderna Covid-19 Vaccine [...] Sign Reading Time Taken Comments Blood Pressure 164/88 07/10/2024 10:54 AM EDT Pulse 74 12/27/2023 2:26 PM EST Temperature 26.7 C (80 F) 01/26/2022 10:51 AM EST Respiratory Rate - - Oxygen Saturation - - Inhaled Oxygen Concentration - - Weight - - Height - - Body Mass Index - - Plan of Treatment Health Maintenance Due Date Last Done Comments Depression Screening 1950 Lipid Panel 1950 SDOH Screening 1950 Alcohol/Substance Use Screening 1960 Hepatitis C Screening 1966 DTaP/Tdap/Td Vaccines (1 - Tdap) 05/26/1967 Pneumococcal Vaccine: 50+ Years (1 of 1 - PCV) 1998 Zoster Vaccines (1 of 2) 1998 RSV Patients and Patients Aged 60 years or older (1 - 1-dose 75+ series) 05/26/2023 Dental Oral Exam 05/13/2024 11/13/2023, 07/2022, 11/16/2021 Dental Prophylaxis 05/13/2024 11/13/2023, 0 10/19/2022, 11/16/2021 COVID-19 Vaccine ( season) 2024 04/07/2022, 01/24/2021, 07/08/2020, Additional history exists Influenza Vaccine (#1) 2024 Dental X-Ray: Bitewings 11/13/2024 11/13/2023, 09/28 Dental X-Ray: Full Mouth 11/17/2024 11/16/2021 Tobacco Screening 07/10/2025 07/10/2024 HIB Vaccines Aged Out No longer eligi [...] patient's age to complete this topic Meningococcal B Vaccine Aged Out No l onger eligible based on patient's age to complete [...] Recently Relevant to Health Maintenance Insurance MEDICARE DENTAL - HSN FULL (MEDICAID)
--- NOTE | 2024-12-25 07:55 | CA_ITS ---
Transthoracic Echocardiogram Patient (Last, First, Middle): Jacky King, Gender: M Date of : 1950 Age: 74 Procedure Date: 12/25/2024 Procedure Type: Transthoracic Echocardiogram Location: OP Height: 177.8 cm Weight: 83.92 kg BSA: 2.02 m2 Heart Rate: bpm BP: 122 / 80 mmHg Referring MD: Leelee CASTANO Welt Wheeler: Valerio Moreno MD Symptoms: I42.9 - Cardiomyopathy, unspecified Study Quality: Good ECG Rhythm: Sinus Conclusions: - 1. Normal LV ejection fraction 55-60 % with mild LVH with impaired relaxation filling pattern 2. Severely dilated left atrium and moderately dilated right atrium 3. Trivial aortic regurgitation 4. Normal RV systolic pressure 5. Mildly dilated ascending aorta at 3.9 cm 6. No gross pericardial effusion Findings Left Ventricle Normal left ventricular size and systolic function. There is mildly increased left ventricular wall thickness. The visually estimated ejection fraction is between 55-60%. Spectral Doppler is indicative of an impaired relaxation filling pattern. E/E prime ratio is between 8 and 15 consistent with indeterminate filling pressures. Right Ventricle Normal right ventricular cavity size and systolic function. Atria The left atrium is severely dilated. There is no evidence of interatrial shunt. The right atrium is moderately dilated. Aortic Valve Normal aortic valve structure and function. There is no aortic valve stenosis. There is trace (trivial) aortic valve regurgitation. Mitral Valve Normal mitral valve structure and function. There is trace mitral valve regurgitation. There is no mitral valve stenosis. Pulmonic Valve The pulmonic valve is likely normal. There is trace pulmonic valve regurgitation. Tricuspid Valve Normal tricuspid valve structure. There is trace tricuspid valve regurgitation. The right ventricular systolic pressure is normal. The right ventricular systolic pressure is 23 mmHg. Normal right atrial pressure. There is no evidence of pulmonary hypertension. Great Vessels The pulmonary artery was not well visualized. There is mild dilatation of the ascending aorta measuring 3.90 cm. Venous The inferior vena cava is normal in size and collapses greater than 50% with inspiration. Pericardium/Pleural There is no evidence of pericardial effusion. Measurements 2D Linear Measurements IVSd: 1.17 0.6-0.9/0.6-1.0 cm LVIDd: 5.26 3.9-5.3/4.2-5.9 cm LVIDd Index: 2.60 2.4-3.2/2.2-3.1 cm/m2 LVIDs: 3.44 2.0-3.6 cm LVPWd: 1.16 0.7-1.1 cm Ao Root: 3.20 2.1-3.5 cm LA Diam: 5.40 2.7-3.8/3.0-4.0 cm LAIDs Index: 2.67 1.5-2.3 cm/m2 LV Mass: 303.38 67-162/88-224 g LV Mass Index: 150.19 43-95/49-115 g/m2 LVOT Diam: 2.40 3.0+(-)1.3 cm 2D Systolic Function EF 4C: 56.70 >55% EF 2C: 57.70 >55% EF BiP: 56.60 >55% Mitral Valve MV Pk E: 0.74 MV PK A: 0.71 MV Decel Time: 220.00 E/A: 1.00 E'Lateral: 7.07 E'Medial: 5.33 E/E' Med: 13.80 E/E' Lat: 10.40 PHT: 64.00 MVA PHT: 3.44 Decel [place]: 3.36 Aortic Valve AoV Pk Alberto: 1.66 AoV Mn Alberto: 1.10 AoV VTI: 0.46 AoV Pk Grad: 11.00 Aov Mn Grad: 6.00 ROOPA Cont.VTI: 2.28 LVOT LVOT Pk Alberto: 0.93 LVOT Mn Alberto: 0.58 LVOT VTI: 0.23 LVOT Pk Grad: 3.00 LVOT Mn Grad: 2.00 LVOT Diam: 2.40 LVOT Area: 4.52 Diastolic Function MV Pk E: 0.74 MV Pk A: 0.71 E/A: 1.00 E'Medial: 5.33 E/E' Med: 13.80 E' Laterial: 7.07 E/E' Lat: 10.40 Right Ventricle TAPSE (mm): 29.00 TVS' Alberto: 10.00 Tricuspid Valve TR Pk Alberto: 2.22 TR Pk Grad: 20.00 RA Press: 3.00 RVSP: 23.00 Great Vessels Aorta Ao Root-2D: 3.20 2.0-3.7 cm Ao Asc: 3.90 2.1-3.4 cm Ao Arch: 3.80 Pulmonary Veins Pulm Vein S/D 1.40 Pulmonary Valve PV Pk Alberto: 1.11 Peak PV Grad: 5.00 Updated in Other Vendor System with Status of Final Valerio Moreno MD electronically signed on 12/25/2024 6:00:27 PM with status of Final
== END ==
LOC: HO.CARD 07:51
PROVIDERS: PCP Internal Medicine; Visit Provider Nurse Practitioner Family
DX: I42.9 Cardiomyopathy, unspecified (principal); R07.89 Other chest pain
CPT/HCPCS: 93306

== ENCOUNTER → 2024-12-25 07:55 | Outpatient (BNV) | payer MEDICARE, SELFPAY | PROVIDERS: PCP Internal Medicine; Visit Provider Internal Medicine Cardiovascular Disease | DX: I51.7 Cardiomegaly (principal); I35.1 Nonrheumatic aortic (valve) insufficiency; I77.810 Thoracic aortic ectasia | CPT/HCPCS: 93306 ==